=== PATIENT | male | born 1965 ===

== ENCOUNTER 2016-06-25 15:44 | Inpatient (IN) | payer MEDICARE, BC ==
[2016-06-25 15:44] VITALS: PULSE 89
--- NOTE | 2016-06-25 16:14 | ED PDOC ---
Arrival/HPI - General Chief Complaint: Shortness Of Breath Time Seen by Provider: 06/25/16 15:47 Historian: Patient - History of Present Illness Narrative History of Present Illness (Text): 06/25/16 16:10 A 50 year old male, whose past medical history includes CHF, COPD, ESRD on hemodialysis, diabetes, asthma, seizures, and TIA, was sent into the emergency department for hypotension after receiving dialysis. Patient notes generalized weakness, mild shortness of breath and a headache, which he states he has had for a few days. Patient also reports he has been experiencing intermittent abdominal discomfort for the past few months. Patient denies any fever, nausea, vomiting, diarrhea, chest pain, cough, dizziness or any other complaints. PMD: Dr. Luther Time/Duration: Prior to Arrival Symptom Course: Unchanged Quality: Other Context: Other Past Medical History - Provider Review Nursing Documentation Reviewed: Yes - Infectious Disease Hx of Infectious Diseases: None - Tetanus Immunization Tetanus Immunization: Unknown - Cardiac Hx Pacemaker: No - Pulmonary Hx Chronic Obstructive Pulmonary Disease (COPD): Yes - Neurological Hx Paralysis: No - HEENT Hx HEENT Disorder: Yes (legally blind) Hx Blind: Yes (right eye) Hx Cataracts: Yes (Bilateral sx) Hx Glaucoma: Yes Hx Macular Degeneration: Yes Other/Comment: sclera buckling sx for retinal detachment - Renal Hx Dialysis: Yes Date of Last Dialysis Treatment: 06/25/16 Hx Renal Failure: Yes - Endocrine/Metabolic Hx Diabetes Mellitus Type 2: Yes - Hematological/Oncological Hx Blood Transfusions: Yes (2014) Hx Blood Transfusion Reaction: No - Integumentary Hx Dermatological Disorder: Yes - Musculoskeletal/Rheumatological Hx Musculoskeletal Disorders: Yes (L FOOT DROP) - Gastrointestinal Hx Gastrointestinal Disorders: Yes Hx Gastroesophageal Reflux: Yes - Genitourinary/Gynecological Hx Genitourinary Disorders: No - Psychiatric Hx Emotional Abuse: No Hx Physical Abuse: No Hx Substance Use: No - Surgical History Hx Valve Replacement: Yes (2014) Other/Comment: left arm av shunt - Anesthesia Hx Anesthesia: Yes Hx Anesthesia Reactions: No Hx Malignant Hyperthermia: No - Suicidal Assessment Feels Threatened In Home Enviroment: No Family/Social History - Physician Review Nursing Documentation Reviewed: Yes Family/Social History: No Known Family HX Smoking Status: Former Smoker Hx Alcohol Use: No Hx Substance Use: No Hx Substance Use Treatment: No Allergies/Home Meds Allergies/Adverse Reactions: Allergies Iodinated Contrast Media - Oral and [Iodinated Contrast Media - IV Dye] Allergy (Intermediate, Verified 06/23/16 17:28) SWELLING shellfish derived Allergy (Mild, Verified 06/23/16 17:28) ITCHING Penicillins Allergy (Verified 06/23/16 17:28) ITCHING Home Medications: Home Meds Medication Instructions Recorded Confirmed Insulin Glargine,Hum.rec.anlog 10 unit SC ACBD 03/28/12 06/25/16 [Lantus] Albuterol Sulfate [Proair Hfa] 1 - 2 puff INH Q4H PRN 02/28/13 06/25/16 Calcium Acetate [Phoslo] 2 tab PO WM 07/03/15 06/25/16 Budesonide/Formoterol Fumarate 2 puff INH BID 03/17/16 06/25/16 [Symbicort 160-4.5 Mcg Inhaler] Cetirizine HCl [All Day Allergy 10 mg PO DAILY 06/15/16 06/25/16 Relief] Review of Systems - Physician Review All systems were reviewed & negative as marked: Yes - Review of Systems Constitutional: Other (Generalized weakness). absent: Fevers Respiratory: SOB. absent: Cough Cardiovascular: absent: Chest Pain Gastrointestinal: Abdominal Pain. absent: Diarrhea, Nausea, Vomiting Neurological: Headache. absent: Dizziness Physical Exam - Physical Exam Narrative Physical Exam (Text): Constitutional: No acute distress. Head: Normocephalic. Atraumatic. Eyes: PERRL. ENT: Moist mucous membranes. Neck: Supple. Cardiovascular: Regular rate. Chest: No tenderness. Respiratory: Clear to auscultation bilaterally. GI: Soft. Nontender. Nondistended. No guarding. Back: No CVA tenderness. Musculoskeletal: No tenderness or swelling of extremities. Palpable thrill in AV fistula on left arm. Skin: No rash. Neurologic: Alert, no focal deficit. Vital Signs Reviewed: Yes Vital Signs Temp Pulse Resp BP Pulse Ox 06/25/16 18:12 86 20 124/63 100 06/25/16 16:25 20 100 06/25/16 15:57 97.5 F L 87 16 105/56 L 100 Temperature: Afebrile Blood Pressure: Hypotensive Pulse: Regular Respiratory Rate: Normal Appearance: Positive for: Well-Appearing, Non-Toxic, Comfortable Pain Distress: None Mental Status: Positive for: Alert and Oriented X 3 Medical Decision Making ED Course and Treatment: 06/25/16 16:09 Impression: A 50 year old male sent in for hypertension after dialysis. Patient complains of generalized weakness, shortness of breath, headache and chronic abdominal discomfort. Plan: -- Chest xray -- EKG -- Reassess and disposition Prior Visits: Notes and results from previous visits were reviewed. Patient last seen in the ED on 06/23/16 for similar complaints. Patient was sent in from dialysis after becoming hypotensive. Patient was admitted due to fluid imbalance and then signed out AMA after 3 hours. Progress Notes: EKG shows NSR at [address]-segment elevations, no change from prior on 06/15/16. Interpreted by me. 06/25/16 16:54 Chest X-ray read and interpreted by me, which shows cardiomegaly, bilateral pleura effusion. 06/25/16 17:17 Patient willing to be admitted and stay today. CXR consistent with CHF. Hypokalemic. Dr. Luther accepts patient to her service and recommends Marlen Gibson, and Lukasz for consultation. - Lab Interpretations Lab Results: 06/25/16 16:00 06/25/16 16:00 Lab Results 06/25/16 16:00: WBC 6.9 D, RBC 3.77, Hgb 11.7 L, Hct 37.5 L, MCV 99.5, MCH 31.0 , MCHC 31.2, RDW 14.0, Plt Count 218, MPV 10.2, Gran % 71.4 H, Lymph % (Auto) 12.1 L, Knott % (Auto) 14.1 H, Eos % (Auto) 2.0, Baso % (Auto) 0.4, Gran # 4.90, Lymph # 0.8 L, Knott # 1.0 H, Eos # 0.1, Baso # 0.03, Sodium 138, Potassium 3.2 L , Chloride 95 L, Carbon Dioxide 36 H, Anion Gap 10, BUN 11, Creatinine 2.4 H, Est GFR ( Amer) 35, Est GFR (Non-Af Amer) 29, Random Glucose 166 H, Calcium 9.6, Total Bilirubin 0.9, AST 28, ALT 18, Alkaline Phosphatase 130, NT- Pro-B Natriuret Pep 84807 H, Total Protein 7.9, Albumin 3.8, Globulin 4.2, Albumin/Globulin Ratio 0.9 L I have reviewed the lab results: Yes - RAD Interpretation Radiology Orders: 06/25/16 16:10 CHEST PORTABLE [RAD] Stat - Medication Orders Current Medication Orders: Albuterol/Ipratropium (Duoneb 3 Mg/0.5 Mg (3 Ml) Ud) 3 ml INH Q6 PRN PRN Reason: Shortness of Breath Arformoterol Tartrate (Brovana) 15 mcg IH [id number] DYLLAN Insulin Detemir (Levemir) 10 unit SC Q12 DYLLAN Insulin Human Regular (Humulin R Low) 0 units SC ACHS DYLLAN PRN Reason: Protocol Loratadine (Claritin) 10 mg PO DAILY DYLLAN Non-Formulary Medication (Budesonide/Formoterol Fumarate [Symbicort 160-4.5 Mcg Inhaler]) 2 puff INH BID DYLLAN Pantoprazole Sodium (Protonix Ec Tab) 40 mg PO 0630 DYLLAN - Scribe Statement The provider has reviewed the documentation as recorded by the Corinibphani Marinelli Provider Scribe Attestation: All medical record entries made by the Scribe were at my direction and personally dictated by me. I have reviewed the chart and agree that the record accurately reflects my personal performance of the history, physical exam, medical decision making, and the department course for this patient. I have also personally directed, reviewed, and agree with the discharge instructions and disposition. Disposition/Present on Arrival - Present on Arrival Any Indicators Present on Arrival: Yes History of DVT/PE: No History of Uncontrolled Diabetes: Yes Urinary Catheter: No History of Decub. Ulcer: No History Surgical Site Infection Following: None - Disposition Have Diagnosis and Disposition been Completed?: Yes Diagnosis: CHF exacerbation, Hypokalemia Disposition: HOSPITALIZED Disposition Time: 17:17 Patient Plan: Admission, Telemetry Patient Problems: Current Active Problems Problem Status Diagnosed COPD (chronic obstructive pulmonary disease) Acute Condition: GUARDED Discharge Instructions (ExitCare): Heart Failure (ED)
[2016-06-25 16:24] LABS: ADD MANUAL DIFF? NO
[2016-06-25 16:34] LABS: BASO # 0.03 K/mm3 (0.0-2.0); BASO % 0.4 % (0.0-3.0); EOS # 0.1 (0.0-0.7); GRAN % 71.4 % (50.0-68.0); HEMATOCRIT 37.5 % (42.0-52.0); LYMPH # 0.8 (1.2-3.4); LYMPH % 12.1 % (22.0-35.0); MEAN CELL VOLUME 99.5 fL (80.0-105.0); MEAN CORPUSCULAR HGB CONC 31.2 g/dl (31.0-37.0); MEAN PLATELET VOLUME 10.2 fl (7.0-11.0); MONO % 14.1 % (1.0-6.0); PLATELET COUNT 218 10^3/uL (120.0-450.0); WHITE BLOOD COUNT 6.9 10^3/ul (4.5-11.0)
[2016-06-25 16:38] LABS: ALB/GLOB RATIO 0.9 (1.1-1.8); BILIRUBIN,TOTAL 0.9 mg/dL (0.2-1.3); CALCIUM 9.6 mg/dL (8.4-10.5); POTASSIUM 3.2 mmol/L (3.6-5.0); TOTAL PROTEIN 7.9 g/dL (5.8-8.3)
--- NOTE | 2016-06-25 17:39 | RAD ---
HISTORY: Dyspnea. Technique: Single view portable semi erect @ 16:40. COMPARISON: 06/19/2016. FINDINGS: LUNGS: Bilateral lower lobe infiltrates. Approximately stable accounting for differences in technique. PLEURA: Stable pleural effusions. CARDIOVASCULAR: Stable cardiomegaly OSSEOUS STRUCTURES: No significant abnormalities. VISUALIZED UPPER ABDOMEN: Normal. OTHER FINDINGS: None. IMPRESSION: No significant interval change compared to the prior examination(s).
[2016-06-25] MEDS ORDERED: Albuterol-Ipratrop 3 mg / 0.5 (3 ml) UD INH PRN (18:10)
[2016-06-25 20:31] LABS: CHOLESTEROL 143 mg/dL (130-200)
[2016-06-25] MEDS: Arformoterol 15 mcg/2 ml Inh Sol IH SCH (20:38)
[2016-06-25 21:18] LABS: IRON 39 ug/dL (45-180)
[2016-06-25 21:56] VITALS: BMI 18.0
[2016-06-25] MEDS ORDERED: Pneumococcal 23-Valent Vaccine IM ONE (21:57)
[2016-06-25] MEDS ORDERED: Influenza Vaccine 45 MCG/0.5 ml IM ONE (21:57)
[2016-06-25] MEDS: Insulin Reg-LOW-Coverage SC SCH (22:29)
--- NOTE | 2016-06-26 02:11 | HP ---
CHIEF COMPLAINT: Shortness of breath. HISTORY OF PRESENT ILLNESS: The patient is 50-year-old male with past medical history of congestive heart failure, COPD, renal disease on hemodialysis, diabetes mellitus, seizures, TIA was seen in the Emergency Room a couple of days ago, signed against medical advice. Now went for dialysis, he has hy potension after receiving dialysis. The patient notes generalized weakness, mild shortness of breath headache, which he says he has had for a few days. The patient also reports that he has been experi encing intermittent abdominal discomfort for the past few days. The patient denies any fevers or chi lls. No nausea, vomiting, or diarrhea. No hematuria or hematochezia. PAST MEDICAL HISTORY: As above COPD, legally blind, bilateral cataract surgery, glaucoma, macular de generation, renal insufficiency on hemodialysis, diabetes mellitus, anemia, status post blood transfu bharati, left foot drop, GERD, dyspepsia, valve replacement. FAMILY HISTORY: Father and mother noncontributory. HABITS: Former smoker, no smoking now. No alcohol, no substance abuse. ALLERGIES: THE PATIENT IS ALLERGIC WITH SHELLFISH, PENICILLIN, IODINE AND CONTRAST MEDIA. HOME MEDICATIONS: Lantus, ProAir, PhosLo, Symbicort, cetirizine. REVIEW OF SYSTEMS: The patient is examined on the bedside in the ER. Still having shortness of lucero th and having oxygen. No nausea, vomiting, or diarrhea. No hematuria or hematochezia. No swelling of the leg. No chest pain, no palpitations, no fever. Does not look like toxic. PHYSICAL EXAMINATION: VITAL SIGNS: Temperature 97.5, pulse 87, respiratory rate 16 and blood pressure 105/66, and pulse ox imetry 100. HEENT: Head normocephalic, atraumatic. Eyes: PERRLA. Extraocular muscles intact. Conjunctivae pi nk. Eyelids unremarkable. Nose patent. Mucous membranes moist. NECK: Supple. No carotid bruit, no JVD, or thyromegaly. CHEST: Bilaterally symmetrical. HEART: S1, S2 positive. LUNGS: Wheezing bilaterally. ABDOMEN: Soft. Bowel sounds present. No organomegaly. EXTREMITIES: No edema, no cyanosis. NEUROLOGIC: The patient is awake, alert and moving all 4 extremities. No focal deficits. LABORATORY DATA: White blood cell 6.5, hemoglobin 11.7, hematocrit 37.5, platelets 280. Sodium 138, potassium 3.2, BUN 11, creatinine 2.4, glucose 156. ASSESSMENT AND PLAN: The patient is 50-year-old male with anemia, hypokalemia, hyperglycemia, chest x-ray consistent with congestive heart failure, has exacerbation of congestive heart failure. The pa tient is given albuterol, Levemir, Claritin in ER, history of chronic obstructive pulmonary disease, asthma, obstructive sleep apnea syndrome, has chronic obstructive pulmonary disease exacerbation. Th e patient was admitted last time, signed against medical advice, now came back again. Call pulmonary , nephrology and cardiology consult. History of diabetes mellitus, seizure disorder, transient ische anais attack. Gastrointestinal and deep venous thrombosis prophylaxis. Repeat labs. We will follow u p. Laure Luther MD cc: [id number] TT: 06/26/2016 02:10:26 tn
[2016-06-26] MEDS: Pantoprazole 40 mg EC Tab PO SCH (05:41)
[2016-06-26 07:24] LABS: HEMATOCRIT 38.1 % (42.0-52.0); MEAN CELL VOLUME 101.1 fL (80.0-105.0); MEAN CORPUSCULAR HEMOGLOBIN 30.8 pg (25.0-35.0); MEAN CORPUSCULAR HGB CONC 30.4 g/dl (31.0-37.0); MEAN PLATELET VOLUME 10.6 fl (7.0-11.0); RED CELL DISTRIBUTION WIDTH 14.4 % (11.5-14.5)
[2016-06-26 07:48] LABS: ALB/GLOB RATIO 0.9 (1.1-1.8); BILIRUBIN,TOTAL 0.7 mg/dL (0.2-1.3); CALCIUM 9.8 mg/dL (8.4-10.5); POTASSIUM 3.2 mmol/L (3.6-5.0); TOTAL PROTEIN 7.4 g/dL (5.8-8.3)
[2016-06-26] MEDS: Insulin Reg-LOW-Coverage SC SCH ×4 (08:08→22:14)
[2016-06-26] MEDS: Arformoterol 15 mcg/2 ml Inh Sol IH SCH ×2 (09:17→19:35)
--- NOTE | 2016-06-26 09:51 | CARD ---
APPROVED REPORT EKG Measurement Heart [id number] <Conclusion> Sinus rhythm with premature atrial complexes IVCD Prolonged QTc STTW changes c/w ischemia
[2016-06-26] MEDS ORDERED: Non Formulary Medication (Budesonide/Formoterol Fumarate [Symbicort 160-4.5 Mcg Inhaler] 2 INH SCH (10:00)
[2016-06-26] MEDS: Insulin Detemir 100 units/ml Vial (Levemir) SC SCH ×2 (10:22→22:13)
--- NOTE | 2016-06-26 10:34 | CON ---
DATE: 06/26/2016 CHIEF COMPLAINT AND HISTORY OF PRESENT ILLNESS: This is a 50-year-old male who has a past medical hi story of CHF, COPD, end-stage renal disease on hemodialysis, diabetes type 2 who came in to the [facility] after receiving dialysis. The patient was complaining of generalized weakness and shortness of b reath, headache. His blood pressure was relatively low. He has been getting 4 hours of hemodialysis . He has been having issues with shortness of breath. The patient also says he has been having inte rmittent abdominal pain. He denies any fevers or chills. No nausea, no vomiting, or diarrhea. No w eakness in the arms or the legs. The patient has had multiple admissions to the hospital for his alee rtness of breath. His dialysis time has been increased by 1 hour to try to maximize his fluid remova l. The patient is at his dry weight, and so further fluid removal has not been possible. ALLERGIES: SHELLFISH, PENICILLIN, AND IV CONTRAST. HOME MEDICATIONS: Lantus, ProAir, PhosLo, Symbicort, cetirizine. PAST MEDICAL HISTORY: 1. End-stage renal disease, on hemodialysis. 2. Hypertension. 3. Diabetes type 2. 4. Chronic obstructive pulmonary disease. 5. Coronary artery disease. 6. ____. 7. Marielena-Arias tear. 8. Dyslipidemia. 9. Right eye blindness. 10. Diabetic retinopathy. 11. Left AV fistula. 12. Pleural effusion. 13. Sleep apnea. 14. Aortic valve replacement, status post TAVR. FAMILY HISTORY: Father of hypertension and diabetes. Mother had pancreatic cancer. SOCIAL HISTORY: He quit smoking about 10 years ago. He denies alcohol or drug use. He is a nd lives with his . He is a retired worker from [employer]. He is retired after he bec [place] disabled. PHYSICAL EXAMINATION: VITAL SIGNS: He has a temperature of 98.3. His T-max is low. It was 97.5. His pulse is 91. His b lood pressure in the Emergency Room initially was 105/56. This morning, it is 117/62. His O2 satura tion is 98%. His height is 6 feet 1 inch. Weight is 136 pounds. GENERAL: The patient is lying in bed, flat, and in no apparent distress. HEAD AND NECK EXAM: Atraumatic, normocephalic. Conjunctivae are pink. Throat clear and mouth with moist mucosa. Oropharynx benign. EYES: Extraocular movements are intact. Right eye blindness. NECK: Supple. No JVD, thyromegaly, or adenopathy. No bruits. HEART: S1 and S2 regular rate and rhythm. No murmurs, rubs, or gallops. LUNGS: Clear to auscultation bilaterally. No wheezing rales or rhonchi appreciated. No retraction s on exam. ABDOMEN: Soft, nontender, nondistended. Bowel sounds are positive in all quadrants. No rebound. No hepatosplenomegaly. EXTREMITIES: No cyanosis, clubbing, or edema. In his left arm, he has an AV fistula with a good b ruit and thrill. NEURO: No facial asymmetry, tongue is midline, no uvula deviation. Power is 5/5 in upper extremity and 5/5 in lower extremity. Sensation is normal in upper extremity and lower extremity. PSYCH: Awake, alert, oriented x3. No anxiety or depression symptoms. Good insight. Normal affec t. : No CVA tenderness VASCULAR: 2+ pulses in carotid and pedal pulses. SKIN: No erythema or abnormal nodules noted. SPINE: Normal curvature. LYMPHADENOPATHY: No anterior cervical or posterior cervical adenopathy. No inguinal adenopathy. LABORATORY DATA: He has a white count of 6.9, hemoglobin 11.7. His chemistry shows sodium 138, potassium 3.2. Creatinine is 2.4. His iron saturation is 23%. His proBNP is 56,900. ASSESSMENT: 1. Shortness of breath. 2. Diabetes type 2. 3. End-stage renal disease, on hemodialysis. 4. ____. 5. Chronic obstructive pulmonary disease. 6. Coronary artery disease. 7. Right eye blindness. 8. Diabetic retinopathy. 9. Left atrioventricular fistula. 10. Secondary hyperparathyroidism. 11. Status post transcatheter aortic valve replacement. 12. Status post incision and drainage of left buttock abscess about 2 weeks ago. 13. Secondary hyperparathyroidism. PLAN: The patient is currently comfortable. He has no signs of focal deficits. He is at his dry we ight. He has a subjective sense of shortness of breath. He has had an extensive evaluation. I do n ot believe that this is related to volume overload, as he becomes hypotensive when further fluid bonilla cami is attempted. The patient is on insulin for his diabetes. He is on Claritin. The patient is on Protonix. He is on a CPAP. He is going to be on a renal diet. We will continue to follow closely. He is getting PhosLo with his meals. He is also on cinacalcet for his secondary hyperparathyroidis m. I will continue to follow. Law Gee MD cc: [id number] TT: 06/26/2016 09:39:57 Confirmation # [id number] Dictation # [id number] 06/26/2016 09:33:30
[2016-06-26] MEDS: Fluticasone Nasal 50 mcg/Spray NS SCH (12:18)
[2016-06-26] MEDS: Aspirin-Dipyridamole 200-25 mg ER Cap PO SCH ×2 (12:18→17:48)
[2016-06-26] MEDS: Omega-3-Acid Ethyl Esters 1 GM Cap PO SCH ×3 (14:34→22:13)
--- NOTE | 2016-06-26 16:00 | CON ---
DATE: 06/26/2016 SERVICE: Cardiology. REASON FOR CONSULTATION: Shortness of breath, cardiac evaluation, history of TAVR, transcutaneous aortic valve replacement. BRIEF CLINICAL HISTORY: This is a 50-year-old male with past medical history significant for end-stage renal disease, diabetes, hypertension, hyperlipidemia , who was seen a few days ago, came to the Emergency Room after having dialysis with hypotension and shortness of breath and later on, in the midst of a snow storm, patient signed out AMA, came back again after having dialysis, short of breath, feeling generalized weakness and hypotension during the dialysis. He denies any chest pain, denies any shortness of breath now. PAST MEDICAL HISTORY: Significant for severe aortic stenosis, status post TAVR , end-stage renal disease on dialysis, legally blind, full blown complications of diabetes including diabetic nephropathy, diabetic retinopathy, peripheral neuropathy, end-stage renal disease on dialysis, multiple admissions with CHF, gets hypotension during the dialysis and most of the time could not get adequate dialysis because of hypotension. Previous cardiac workup as follows: The patient had echocardiography on 2016, mild mitral Stenosis, MVA_2.2 cm2 to 2.4 cm2, systolic function mildly impaired. The patient recently had a cardiac catheterization 04/24/2016 that shows nonobstructive coronary artery disease limited to only diagonal 1, LAD 30% -40% stenosis. No significant gradient across aortic valve, that is a transcutaneous TAVR noted. Aortogram shows mild aortic regurgitation. Catheterization dated 04/24/2016. The patient's repeat echocardiography done on 05/01/2016 shows a heavily calcified mitral valve area 2.2 cm2, pressure halftime consistent with pressure, mild mitral stenosis, trace to mild mitral regurgitation, preserved left ventricular function, ejection fraction 55%, status post TAVR, no significant gradient across aortic valve noted. ALLERGIES: IODINE. CURRENT MEDICATIONS: The patient is taking at home pantoprazole, omega 3, insulin, Dexelant, calcium, carvedilol and atorvastatin. REVIEW OF SYSTEMS: As per HPI. PHYSICAL EXAMINATION: VITAL SIGNS: Temperature afebrile, heart rate 95, blood pressure 142/73. HEENT: PERRLA. Extraocular muscles intact. NECK: Supple. No carotid bruits. No thyromegaly. CHEST: Clear to auscultation. HEART: S1, S2 regular. ABDOMEN: Soft. EXTREMITIES: Clubbing and cyanosis negative. LABORATORY DATA: Blood workup as follows: WBC 5, hemoglobin 13.1, hematocrit 38.1, platelet count 224. Chemistry shows sodium 141, potassium 3.2, chloride 95, carbon dioxide 34, anion gap of 15, BUN 19, creatinine 3.9. Total Protein 7.4, albumin 3.0, albumin/globulin ratio 0.9. IMPRESSION: Recurrent shortness of breath, recurrent congestive heart failure, diabetes, hypertension, hyperlipidemia, full blown complication of diabetes including diabetic nephropathy, retinopathy, legally blind, end-stage renal disease on dialysis, status post transcutaneous aortic valve replacement, status post transcutaneous aortic valve replacement, status post repeat cardiac catheterization 04/24/2016, that shows nonobstructive coronary artery disease only limited to diagonal to 55%, left anterior descending 30%-40% stenosis, ejection fraction 55%, EDP was in the range of 12-14, status post transcatheter aortic valve replacement, no gradient across aortic valve noted on catheterization. On aortogram, trace to mild aortic regurgitation noted, catheterization dated 04/24/2016. The patient's repeat most recent echo 2016 shows calcified mitral valve area 2.2 cm2, pressure halftime, consider mild mitral stenosis, trace mitral regurgitation, preserved left ventricular function, ejection fraction 55%, status post transcatheter aortic valve replacement, no significant gradient across aortic valve by echo, recurrent shortness of breath, recurrent congestive heart failure, is not unexplainable, hypotension during the dialysis, diabetes, hypertension, hyperlipidemia. RECOMMENDATION: We will do an ultrasound of the chest to rule out any significant pleural effusion , so patient can get thoracentesis. CV status is stable. No further cardiac workup is planned. Explained to the patient not to take Coreg on the day of the dialysis. We will follow with you. Thank you, Dr. Luther, for providing the opportunity in taking care of the patient. We will follow with you. In the interim, we will resume all the medication. We will follow with you. Further recommendation during the hospital course. We will follow with you. We will put p.r.n. hydralazine for blood pressure. Avoid Anti Hypertensive medications before dialysis. Franky Archer MD cc: [id number] TT: 06/26/2016 15:34:12 Confirmation # [id number] Dictation # [id number] 06/26/2016 14:58:58 MTDD
[2016-06-26] MEDS ORDERED: Magnesium Hydroxide Susp 30 ml UD PO ONE (17:56)
--- NOTE | 2016-06-26 19:24 | PN ---
DATE: 06/26/2016 SUBJECTIVE: The patient is seen and examined on the bedside, still having shortness of breath, cough ing. No fever, no chills, no nausea, vomiting, or diarrhea. No hematuria or hematochezia. No swell ing of the leg. No chest pain or palpitation. The patient is legally blind. PHYSICAL EXAMINATION: VITAL SIGNS: Temperature is 97.8, pulse 93, blood pressure 150/87, respiratory rate 20. HEAD: Normocephalic, atraumatic. EYES: PERRLA. Extraocular muscles intact. Conjunctivae pink. Eyelids unremarkable. Nose patent. Mucous membranes moist. NECK: Supple. No carotid bruit, JVD or thyromegaly. CHEST: Bilaterally symmetrical. HEART: S1, S2 positive. LUNGS: Clear to auscultation. ABDOMEN: Soft. Bowel sounds present. No organomegaly. EXTREMITIES: No edema, no cyanosis. NEUROLOGIC: The patient is awake, alert, moving all 4 extremities. No focal deficit. MEDICATIONS: Reviewed by me. LABORATORY DATA: White blood cells 5.0, hemoglobin 11.6, hematocrit 38.1, platelets 226. Sodium 141 , potassium 3.2, BUN 90, creatinine 3.9, glucose 202, 237, 250. ASSESSMENT AND PLAN: The patient is a 50-year-old male with anemia, hypokalemia, hyperglycemia, came with shortness of breath, not feeling well, has end-stage renal disease on hemodialysis 3 times a we ek, hypertension, diabetes mellitus type 2, insulin-requiring, chronic obstructive pulmonary disease, coronary artery disease, Marielena-Arias tear, dyslipidemia, right eye blindness, diabetic retinopathy , diabetic nephropathy, diabetic neuropathy, left AV fistula, pleural effusion, sleep apnea, aortic v alve replacement, status post transcatheter aortic valve replacement. According to research rn spec, the patient has subjective sense of shortness of breath. He has had extensive evaluation. According to him, do not believe that is related to volume overload and became hypotensive. Went for fluid remov al is attempted. Maybe patient is depressed. The patient is seen by the fan blade aligner, Dr. Archer. Th e patient has extensive cardiac workup. Dr. Archer ordered ultrasound of the chest. Maybe patient nee ds thoracentesis. Pulmonary consult also called. Ultrasound is done. Results are pending. Gastroi ntestinal and deep venous thrombosis prophylaxis. Repeat labs. Discussion done with nursing staff. We will follow up. Laure Luther MD cc: [id number] TT: 06/26/2016 19:23:50 Confirmation # [id number] Dictation # [id number] rn
[2016-06-27] MEDS: Pantoprazole 40 mg EC Tab PO SCH (05:51)
--- NOTE | 2016-06-27 07:19 | CON ---
DATE: 06/26/2016 REFERRING PHYSICIAN: Dr. Luther. REASON FOR CONSULT: Shortness of breath, sleep apnea syndrome, pleural effusion. HISTORY OF PRESENT ILLNESS: This is a 50-year-old gentleman well known to me with multiple medical i ssues including cardiomyopathy, valvular heart disease, history of TAVR, obstructive lung disease, ob structive sleep apnea syndrome, recurrent pleural effusion; renal failure, dialysis dependent. One o f the issues he has been having is unable to complete dialysis. Last one, removed about a liter or s o and became hypotensive, symptomatic; was sent to ER and was admitted. Presently, sitting side of t he bed. He feels okay. According to him, when he gets up and walks, he gets short of breath. Chest x-ray in the ER showed bilateral pleural effusion. Recently had thoracentesis on the right side wit h removal of 1.5 liters of fluid. According to patient, he is controlling his p.o. intake. He is co mpliant with his CPAP. No nausea, no vomiting. Does have mild abdominal discomfort. Last admission , had EGD done which shows, I believe, gastritis and esophagitis. PAST MEDICAL HISTORY: Again, cardiomyopathy, valvular heart disease, history of TAVR, obstructive norma ng disease, obstructive sleep apnea syndrome, recurrent pleural effusions; renal failure, dialysis de pendent; esophagitis, gastritis, legally blind. ALLERGIES: PENICILLIN. SOCIAL HISTORY: Nonsmoker, nondrinker. FAMILY HISTORY: No significant cardiopulmonary disease reported. MEDICATIONS: At present, he is on Aggrenox 25/200 one tablet twice a day, hydralazine 10 mg q.i.d., Brovana 15 mcg inhaled twice a day, Claritin 10 mg daily, Colace 100 mg twice a day, Coreg 3.125 mg t wice a day, Cymbalta 40 mg at bedtime, DuoNeb q. 6 hours, Flonase 1 spray each nostril daily, insulin coverage, Levemir 10 units subQ twice a day, Lipitor 10 mg daily, Lovaza ____ gram q.i.d., Protonix 40 mg daily, Sensipar 60 mg daily. REVIEW OF SYSTEMS: No headache, no rhinitis. At present, there is no chest pain. Short of breath w ith exertion, epigastric discomfort. No leg pain or leg swelling. PHYSICAL EXAMINATION: GENERAL: Sitting up on side of the bed, no acute distress. VITAL SIGNS: Temp is 98, heart rate is 95, respiratory rate is 20, blood pressure 152/87 and pulse o x is 99% on nasal cannula. HEENT: Moist mucous membrane. Crowded airway. NECK: Supple. No JVD. LUNGS: Have basal crackles and decreased breath sounds. HEART: S1, S2. ABDOMEN: Soft, nontender. No organomegaly. EXTREMITIES: There is no edema. NEUROLOGIC: Awake, alert, follows simple commands. LABORATORY DATA: Shows hemoglobin 11.6, hematocrit 38.1, WBC 5.0, platelet is 224. Sodium 141, pota ssium 3.2, chloride 95, bicarbonate 34, BUN 19, creatinine 3.9, glucose is 251, calcium 9.8. AST 28, ALT 21, alkaline phosphatase is 116, albumin 3.6. TSH 1.42. Chest x-ray showed bilateral pleural e ffusion and atelectasis. IMPRESSION AND PLAN: Chronic obstructive lung disease, obstructive sleep apnea syndrome, cardiomyopa thy with valvular heart disease, status post transcatheter aortic valve replacement; renal failure, d ialysis dependent; asthma, hypertension, diabetes. There is an ongoing issue with his dialysis; does not tolerate much dialysis, becomes hypotensive and symptomatic, and dialysis has been stopped after the hypotension, then next day he becomes symptomatic with shortness of breath and fluid overloaded. Case discussed with Dr. Luther in detail. Will speak to Dr. Law Gee from nephrology. Is t his a patient who will benefit from PD? For now, I will continue CPAP. Keep head at 45 degrees. Co ntinue inhaled bronchodilator. Add Singulair 10 mg at bedtime. Gastric prophylaxis, deep venous thr ombosis prophylaxis. CPAP while sleeping. Being followed by cardiology and nephrology. Thank you, and will follow with you. Franky Stahl MD cc: [id number] TT: 06/27/2016 07:18:33 Confirmation # [id number] Dictation # [id number] mn
[2016-06-27] MEDS: Arformoterol 15 mcg/2 ml Inh Sol IH SCH ×2 (08:14→20:07)
[2016-06-27] MEDS: Insulin Reg-LOW-Coverage SC SCH ×4 (08:33→23:36)
--- NOTE | 2016-06-27 09:02 | PN ---
DATE: 06/27/2016 SUBJECTIVE: The patient has no complaints of any chest pain, no shortness of breath, no headaches. PHYSICAL EXAMINATION: VITAL SIGNS: Temperature 98, pulse of 92, blood pressure 149/81, respirations 20. GENERAL: The patient comfortable, in no acute distress. HEENT: Anicteric sclerae. Moist mucosa. NECK: No JVD or adenopathy. CARDIAC: S1/S2. No murmurs. No rubs. Regular. RESPIRATORY: Clear to auscultation bilaterally. No wheezes, rales, or rhonchi. Good air entry. ABDOMEN: Bowel sounds are positive, soft, nontender, and nondistended. EXTREMITIES: No edema. Has 1+ pulses. LABS: White count of 5.0, hemoglobin 11.6. ASSESSMENT: 1. End-stage renal disease, on hemodialysis. 2. Diabetes, type 2. 3. Chronic obstructive pulmonary disease. 4. Coronary artery disease. 5. Right eye blindness. 6. Diabetic retinopathy. 7. Left arteriovenous fistula. 8. Secondary hyperparathyroidism. 9. Status post transcatheter aortic valve replacement. PLAN: The patient is currently comfortable. He is on his Ambien for sleep. The patient is going to continue with Brovana. He is on Claritin. The patient is on ____ Coreg. He is going to be on Cymb jesse. He is on Flonase. He is receiving Levemir for his diabetes. The patient is on PhosLo with ak als. He is on cinacalcet for his secondary hyperparathyroidism. The patient's blood pressures have been controlled. He is due for dialysis today. I am not sure what the cause of the patient's shortn ess of breath is. An ultrasound has been ordered to rule out any significant pleural effusion for po ssible thoracentesis. The patient's initial chest x-ray did not show any significant interval change s. There were bilateral lower lobe infiltrates or this possibly could be effusion. The patient is a t his dry weight. He has no active cardiac issues. Will add phosphorus levels. Law Gee MD cc: [id number] TT: 06/27/2016 09:01:34 Confirmation # [id number] Dictation # [id number] mn
[2016-06-27 09:36] LABS: ADD MANUAL DIFF? NO
[2016-06-27 09:38] LABS: BASO # 0.02 K/mm3 (0.0-2.0); BASO % 0.3 % (0.0-3.0); EOS # 0.1 (0.0-0.7); EOS % 2.1 % (1.5-5.0); GRAN # 4.37 (1.4-6.5); GRAN % 69.5 % (50.0-68.0); HEMATOCRIT 35.5 % (42.0-52.0); LYMPH # 0.8 (1.2-3.4); LYMPH % 13.1 % (22.0-35.0); MEAN CELL VOLUME 99.7 fL (80.0-105.0); MEAN CORPUSCULAR HEMOGLOBIN 31.5 pg (25.0-35.0); MEAN CORPUSCULAR HGB CONC 31.5 g/dl (31.0-37.0); MEAN PLATELET VOLUME 11.1 fl (7.0-11.0); MONO # 0.9 (0.1-0.6); PLATELET COUNT 214 10^3/uL (120.0-450.0); WHITE BLOOD COUNT 6.3 10^3/ul (4.5-11.0)
[2016-06-27 09:53] LABS: ALB/GLOB RATIO 0.9 (1.1-1.8); BILIRUBIN,TOTAL 0.7 mg/dL (0.2-1.3); CALCIUM 10.5 mg/dL (8.4-10.5); MAGNESIUM 2.4 mg/dL (1.7-2.2); PHOSPHOROUS 1.5 mg/dL (2.5-4.5); POTASSIUM 3.1 mmol/L (3.6-5.0); TOTAL PROTEIN 7.2 g/dL (5.8-8.3)
[2016-06-27] MEDS: Aspirin-Dipyridamole 200-25 mg ER Cap PO SCH ×3 (09:55→18:56)
[2016-06-27] MEDS: Omega-3-Acid Ethyl Esters 1 GM Cap PO SCH ×5 (09:56→22:08)
[2016-06-27] MEDS: Insulin Detemir 100 units/ml Vial (Levemir) SC SCH ×2 (10:03→22:09)
--- NOTE | 2016-06-27 10:11 | PN ---
DATE: 06/27/2016 REASON FOR CONSULTATION AND FOLLOWUP: Shortness of breath, cardiac evaluation S/P transcutaneous aortic valve replacement, recurrent pleural effusions, recurrent congestive heart failure. BRIEF CLINICAL HISTORY: This is a 50-year-old male with a past medical history significant for end-stage renal disease, diabetes, hypertension, hyperlipidemia. Seen few days ago in the ER when the patient came off dialysis short of breath. Then, patient signed out AMA because of a snow storm coming on that night. Readmitted again with shortness of breath and became hypotensive during the dialysis. Yesterday, patient was sent for ultrasound of the chest to quantify the pleural effusion, whether the patient can get benefit from thoracentesis. Discussed this morning with Dr. Law Gee as well, starch and prosize mixer. PHYSICAL EXAMINATION: VITAL SIGNS: Temperature afebrile, heart rate 83, blood pressure 135/41. HEENT: PERRLA. Extraocular muscles intact. NECK: Supple. No carotid bruits. No thyromegaly. CHEST: Clear to auscultation. HEART: S1, S2 regular. ABDOMEN: Soft. EXTREMITIES: Clubbing, cyanosis negative. BLOOD WORKUP: WBC 5, hemoglobin 11.3., hematocrit 38.1, platelet count 224. Sodium 141, potassium 3.2, chloride 95, carbon dioxide 34, anion gap of 15, BUN 15, creatinine 3.9. Hemoglobin A1c 7.8. Total cholesterol 143, LDL 58, HDL 42 , triglyceride 119. TSH 1.42. Chest x-ray, possible pleural effusion bilateral. IMPRESSION: Recurrent congestive heart failure, elevated BNP, probably secondary to systolic dysfunction, status post cardiac catheterization, nonobstructive coronary artery disease, recently status post transcatheter aortic valve replacement. Aortogram shows trace to mild aortic regurgitation, no evidence of recurrence of aortic stenosis, preserved left ventricular function. RECOMMENDATION: Followup ultrasound of the chest to see whether patient can get benefit from thoracentesis. Continue p.r.n. hydralazine. Avoid antihypertensive medication before dialysis. We will cut down the Coreg to 3.125 b.i.d. and hold for the systolic less than 130 and hold during the day of the dialysis. No further cardiac workup is planned. Discussed with Dr. Gee. The patient is already on dialysis and being aggressively dialyzed, losing weight and potassium and phosphate are low, suggestive of patient is also not eating and losing weight. So far, patient looks dry. We will follow with you. Thank you, Dr. Luther, for providing us the opportunity in taking care of the patient. Franyk Archer MD cc: [id number] TT: 06/27/2016 10:11:03 Confirmation # [id number] Dictation # [id number] MTDD
--- NOTE | 2016-06-27 12:35 | US ---
PROCEDURE: Grayscale imaging was performed. HISTORY: B/l pleural effusion COMPARISON: None TECHNIQUE: High-resolution ultrasound of the chest was performed. FINDINGS: There is a moderate left pleural effusion measuring 3.9 cm in anterior-posterior dimension. There is no right pleural effusion with IMPRESSION: Moderate left pleural effusion.
[2016-06-27] MEDS: Fluticasone Nasal 50 mcg/Spray NS SCH (14:10)
[2016-06-27 16:23] LABS: BODY FLUID TYPE PLEURAL
[2016-06-27] MEDS: Oxycodone/Acetaminophen 5/325 mg Tab PO PRN ×2 (16:34→22:13)
--- NOTE | 2016-06-27 17:09 | US ---
PROCEDURE: Ultrasound guided left thoracentesis. CLINICAL HISTORY: CHF. End-stage renal disease. Bilateral pleural effusions with shortness of breath. Needs thoracentesis. PHYSICIAN(S): Caleb Crowe MD. TECHNIQUE: The relative risks and indications of the procedure were explained to the patient and consent obtained. The patient was placed in a sitting position on the stretcher and sonography of the left chest performed. This revealed a small to moderate leftpleural effusion. A left posterolateral intercostal approach was selected and the area prepped and draped usual sterile fashion. 1% Xylocaine was used to anesthetize the skin and soft tissues. A 7 [place] thoracentesis catheter was trocared into the right pleural cavity and 1000cc of bloody fluid aspirated. Specimens were sent to the lab. IMPRESSION: 1. Ultrasound guided left thoracentesis. 1000 cc of bloodyfluid were aspirated.
[2016-06-27 17:11] LABS: BF GROSS APPEARANCE BLOODY (CLEAR)
[2016-06-27 17:16] LABS: BODY FLUID TOTAL COUNT 100 (0-0)
--- NOTE | 2016-06-27 19:10 | PN ---
DATE: 06/27/2016 REFERRING PHYSICIAN: Dr. Luther. SUBJECTIVE: He is sitting side of the bed. Still short of breath on minimal exertion. Overnight wa s unremarkable. No headache, no rhinitis, no nausea, no vomiting, no diarrhea, no leg pain or leg sw elling. OBJECTIVE: GENERAL: No acute distress. VITAL SIGNS: Temp is 98, heart rate is 98, respiratory rate is 20, blood pressure 138/72, pulse ox 9 9% on 2 liters nasal cannula. HEENT: Moist mucous membranes. Crowded airway. NECK: Supple. No JVD. LUNGS: Had basilar crackles. HEART: S1, S2. ABDOMEN: Soft, nontender. No organomegaly. EXTREMITIES: There is no edema. NEUROLOGIC: Awake, alert, follows simple commands. MEDICATIONS: He is on Aggrenox 25/200 one tablet twice a day, hydralazine 10 mg q.i.d. p.r.n. Brovan a 15 mcg q. 12 hours, Claritin 10 mg at bedtime, Colace 100 mg twice a day, Coreg 3.125 mg twice a da y, Cymbalta 40 mg at bedtime, DuoNeb q. 6 hours p.r.n., Flonase 1 spray daily, insulin coverage, Leve tamara is at 10 units subQ q. 12 hours, Lipitor 10 mg at bedtime, Lovaza 1 gram q.i.d., Percocet 5/325 o ne tab q. 6 hours p.r.n., Protonix 40 mg daily, ____ 60 mg daily, Singulair 10 mg at bedtime. LABORATORY DATA: Shows hemoglobin 11.2, hematocrit 35.5, WBC 6.3, platelet is 214. Sodium 139, pota ssium 3.1, chloride 98, bicarbonate 32, BUN 38, creatinine 5.6, glucose 277, calcium is 10.5, phospho manish 1.5, magnesium 2.4, AST 27, ALT 17, alkaline phosphatase is 164, albumin is 3.4. Ultrasound guid ed thoracentesis of the left side drainage of 1 liter of bloody fluid. IMPRESSION AND PLAN: Chronic obstructive lung disease, obstructive sleep apnea syndrome, cardiomyopa thy with valvular heart disease, status post transcatheter aortic valve replacement, renal failure, d ialysis dependent, asthma, hypertension, diabetes, recurrent pleural effusion requiring multiple thor acentesis, last one is worrisome because it is bloody. We will get CT of the chest without contrast to look at the lung pattern. I want to make sure there is no tumor. Clinically my feeling is this i s just bloody tap or blood from the previous thoracentesis. Continue CPAP while sleeping. Continue bronchodilator. Continue dialysis. Thank you and will follow with you. Franky Stahl MD cc: [id number] TT: 06/27/2016 19:10:25 Confirmation # [id number] Dictation # [id number] jn
--- NOTE | 2016-06-28 01:38 | PN ---
DATE: 06/27/2016 SUBJECTIVE: The patient seen and examined on the bedside, looking comfortable, still having shortness of breath on minimal exertion, overnight was unremarkable. No headache, no rhinitis. No nausea, vomiting, or diarrhea. No hematuria or hematochezia. No swelling of the leg. No chest pain. No palpitation, no fever, no chills. PHYSICAL EXAMINATION: VITAL SIGNS: Temperature 98, heart rate 98, respiratory rate 20, blood pressure 138/72, pulse 99. HEENT: Head normocephalic, atraumatic. Eyes: PERRLA. Extraocular muscles intact. Conjunctivae pink. Eyelids unremarkable. Nose patent. Mucous membranes are moist. NECK: Supple. No carotid bruit, JVD or thyromegaly. CHEST: Bilaterally symmetrical. HEART: S1, S2 positive. LUNGS: Clear to auscultation. ABDOMEN: Soft, nontender. No organomegaly. EXTREMITIES: No edema, no cyanosis. NEUROLOGIC: The patient is awake, alert, moving all 4 extremities. MEDICATIONS: Aggrenox, hydralazine, Claritin, Coreg, Cymbalta, DuoNeb, Flonase , Lovaza, Percocet, Protonix, Singulair. LABORATORY DATA: Hemoglobin 11.2, hematocrit 35.5, white blood cells 6.2, and platelets 214. Sodium 139, potassium noted, BUN 38, creatinine 5.6, glucose 277, magnesium 2.4, AST 27, ALT 17, ultrasound-guided thoracentesis of the left side. Drainage of 1 liter of bloody fluid. ASSESSMENT AND PLAN: The patient is a 50-year-old male with chronic obstructive lung disease, obstructive sleep apnea syndrome, insulin-dependent diabetes mellitus, renal insufficiency on hemodialysis, cardiomyopathy, valvular heart disease, some pleural effusion requiring multiple times thoracentesis and this time it has blood in that, had CAT scan of the chest without contrast . Continue CPAP while sleeping. Continue bronchodilators. Gastrointestinal and deep vein thrombosis prophylaxis. Coin Dealer is on the case. Review chief meteorologist notes. Repeat labs. We will follow up. Laure Luther MD cc: [id number] TT: 06/28/2016 01:38:28 Confirmation # [id number] Dictation # [id number] hn MTDD
[2016-06-28] MEDS: Pantoprazole 40 mg EC Tab PO SCH (06:47)
[2016-06-28] MEDS: Arformoterol 15 mcg/2 ml Inh Sol IH SCH ×2 (07:10→21:15)
[2016-06-28] MEDS: Insulin Reg-LOW-Coverage SC SCH ×4 (08:54→22:08)
[2016-06-28 09:21] LABS: HEMATOCRIT 38.8 % (42.0-52.0); MEAN CELL VOLUME 101.8 fL (80.0-105.0); MEAN CORPUSCULAR HEMOGLOBIN 30.7 pg (25.0-35.0); MEAN CORPUSCULAR HGB CONC 30.2 g/dl (31.0-37.0); MEAN PLATELET VOLUME 10.4 fl (7.0-11.0); RED CELL DISTRIBUTION WIDTH 14.3 % (11.5-14.5); WHITE BLOOD COUNT 6.3 10^3/ul (4.5-11.0)
[2016-06-28 09:38] LABS: ALB/GLOB RATIO 0.9 (1.1-1.8); BILIRUBIN,TOTAL 0.8 mg/dL (0.2-1.3); MAGNESIUM 2.3 mg/dL (1.7-2.2); POTASSIUM 3.7 mmol/L (3.6-5.0); TOTAL PROTEIN 7.5 g/dL (5.8-8.3)
[2016-06-28 09:47] LABS: PHOSPHOROUS 1.4 mg/dL (2.5-4.5)
[2016-06-28] MEDS: Aspirin-Dipyridamole 200-25 mg ER Cap PO SCH ×2 (10:09→17:14)
[2016-06-28] MEDS: Fluticasone Nasal 50 mcg/Spray NS SCH (10:10)
[2016-06-28] MEDS: Insulin Detemir 100 units/ml Vial (Levemir) SC SCH ×2 (10:10→21:40)
[2016-06-28] MEDS ORDERED: Omega-3-Acid Ethyl Esters 1 GM Cap PO ONE (10:15)
[2016-06-28] MEDS: Oxycodone/Acetaminophen 5/325 mg Tab PO PRN ×3 (11:00→23:26)
--- NOTE | 2016-06-28 11:11 | RAD ---
HISTORY: lt thoracentesis COMPARISON: Chest x-ray performed 06/25/16 TECHNIQUE: Chest PA and lateral FINDINGS: LUNGS: Small bilateral pleural effusions and associated atelectasis or infiltrates. No definite pneumothorax. Mild pulmonary venous congestion. Please note that chest x-ray has limited sensitivity for the detection of pulmonary masses. CARDIOVASCULAR: Cardiomegaly. OSSEOUS STRUCTURES: Degenerative changes. VISUALIZED UPPER ABDOMEN: Unremarkable. OTHER FINDINGS: None. IMPRESSION: Small bilateral pleural effusions and associated atelectasis or infiltrates.
--- NOTE | 2016-06-28 11:36 | CT ---
CT chest without IV contrast Indication: Bloody effusion Technique: Contiguous axial images were obtained through the chest without intravenous contrast enhancement. Sagittal and coronal reconstructions were generated and reviewed. Radiation dose (DLP): 317.13 MGy-cm. Comparison: Chest x-ray performed 06/28/16, CT chest without contrast performed 06/16/16 Findings: Visualized portions of the inferior thyroid gland appear unremarkable. The unenhanced mediastinal and hilar vascular structures appear grossly unremarkable. Cardiomegaly. Trace pericardial effusion. Dense coronary artery calcifications. Prosthetic aortic valve. Prevascular and mediastinal lymph nodes, nonspecific. Lack of IV contrast limits evaluation for adenopathy, in particular hilar adenopathy. Small bilateral pleural effusions and associated compressive consolidations. Interval development of air/bubbles compatible with hydropneumothorax. Cholelithiasis. Pancreatic atrophy. Degenerative changes of the spine. Bilateral gynecomastia. Impression: Small bilateral pleural effusions and associated compressive consolidations. Interval development of small hydropneumothorax. Cardiomegaly. Trace pericardial effusion. Cholelithiasis. Pancreatic atrophy. Bilateral gynecomastia. Findings discussed with DEB Salomon on 06/28/16 at 11:28 a.m.
[2016-06-28] MEDS: Omega-3-Acid Ethyl Esters 1 GM Cap PO SCH ×3 (14:17→21:39)
--- NOTE | 2016-06-28 17:56 | PN ---
DATE: 06/28/2016 REFERRING PHYSICIAN: Dr. Luther. SUBJECTIVE: The patient is lying in the bed, sleepy, arousable, could not sleep well last night cat use neighbor patient had been making some noise. He is status post thoracentesis with removal of 1 l iter of bloody fluid. CT scan of the chest shows hydropneumothorax. Pulmonary point of view, doing okay. Had some on and off epigastric discomfort. No nausea, no vomiting, no diarrhea. No leg swell ing reported. OBJECTIVE: GENERAL: In no acute distress. VITAL SIGNS: Temp is 98, heart rate is 98, respiratory rate is 20, blood pressure 138/85, pulse ox 9 5% on 3 liters nasal cannula. HEENT: Moist mucous membranes. Crowded airway. Mallampati score is 4. NECK: Supple. No JVD. LUNGS: Has decreased breath sounds at the bases. HEART: S1 and S2. ABDOMEN: Soft, nontender. No organomegaly. EXTREMITIES: There is no edema. NEUROLOGIC: Awake, alert, follows simple commands. MEDICATIONS: He is on Aggrenox 25/200 one tab twice a day, hydralazine 10 mg q.i.d., Brovana 15 mcg inhaled twice a day, Claritin 10 mg daily, Colace 100 mg twice a day, Coreg 3.125 mg twice a day, Cym emerson 40 mg at bedtime, DuoNeb q.6 hours p.r.n., Flonase 1 spray each nostril daily, insulin coverage , Levemir 10 units subQ q.12 hours, Lipitor 10 mg daily, Lovaza 1 gram q.i.d., Percocet 5/325 one tab q.6 hours p.r.n., Protonix 40 mg daily, Sensipar 60 mg daily, Singulair 10 mg daily. LABORATORY DATA: Shows hemoglobin 11.7, hematocrit 38.8, WBC 6.3, platelet is 225. Sodium 143, pota ssium 3.7, chloride 98, bicarbonate 37, BUN 24, creatinine 3.8, glucose 137, calcium is 11, phosphoru s is 1.4, magnesium 2.3, AST 27, ALT 12, alkaline phosphatase is 133. Pleural effusion, microbiology , there is no growth. CAT scan of the chest done today shows no mass or infiltrate, basilar atelecta sis, has left small pneumothorax though. IMPRESSION AND PLAN: Chronic obstructive lung disease, obstructive sleep apnea syndrome, cardiomyopa thy, valvular heart disease, history of TAVR, renal failure, dialysis dependent, asthma, hypertension , diabetes, recurrent pleural effusion requiring multiple thoracenteses and the last one had a left-s ided hemopneumothorax, but asymptomatic. Will continue bronchodilator. Keep head elevated at 45 deg denys. Gastric prophylaxis. Sequential compression devices to lower extremities. Follow up x-ray in the morning to assure the stability of . Thank you and will follow with you. Franky Stahl MD cc: [id number] TT: 06/28/2016 17:55:21 Confirmation # [id number] Dictation # [id number] dn
--- NOTE | 2016-06-28 21:48 | PN ---
DATE: 06/28/2016 SUBJECTIVE: The patient is seen and examined on the bedside, complaining about pain in the left shou lder. Otherwise, no big change in the status. Yesterday, he went for thoracentesis. No nausea, vom iting, or diarrhea. No fever, no chills. No headache, no dizziness. PHYSICAL EXAMINATION: VITAL SIGNS: Temperature 98, pulse 100, blood pressure 138/85, respiratory rate 20. HEAD: Normocephalic, atraumatic. EYES: PERRLA. Extraocular muscles are intact. Nose patent. Mucous membranes moist. NECK: Supple. No carotid bruit, JVD or thyromegaly. CHEST: Bilaterally symmetrical. HEART: S1, S2 positive. LUNGS: Clear to auscultation. ABDOMEN: Soft. Bowel sounds positive. No organomegaly. EXTREMITIES: No edema, no cyanosis. NEUROLOGIC: The patient is awake, alert, moving all 4 extremities. No focal deficits. MEDICATIONS: Aggrenox, hydralazine, Brovana, Claritin, Colace, Coreg, Cymbalta, albuterol, Flonase, insulin, Lipitor, Lovaza, Percocet, PhosLo, Protonix, Sensipar, Singulair. LABORATORY DATA: White blood cells 6.3, hemoglobin 11.7, hematocrit 38.8, platelets 225, Sodium 143, potassium 3.7, BUN 24, creatinine 3.8, glucose 172. Random glucose 137, phosphorus 1.4. ASSESSMENT AND PLAN: The patient is a 50-year-old male with anemia, renal insufficiency on hemodialy sis 3 times a week, diabetes mellitus, hypercalcemia, hypophosphatasemia, hypermagnesemia, electrolyt e imbalance, history of chronic obstructive pulmonary disease, asthma, bilaterally blind, obstructive sleep apnea syndrome, cardiomyopathy, valvular heart disease, status post transcatheter aortic valve replacement, hypertension, recurrent pleural effusion requiring multiple thoracenteses, last one was worrisome because it is bloody. The patient went for CAT scan of the chest without contrast to look the lung pattern. CAT scan showed small bilateral pleural effusion and associated compressive conso lidation. Interval development of small hydronephrosis, cardiomegaly, trace pericardial effusion, ch olelithiasis, pancreatic atrophy, bilateral gynecomastia. Then today, the patient went for chest x-r ay showed small bilateral pleural effusion and associated atelectasis or infiltrates. Thoracentesis was done, ultrasound-guided. Continue present treatment. The patient has insulin-dependent diabetes mellitus. Continue insulin, hypercholesterolemia. Continue Lipitor and Lovaza for pain, especially in the shoulder. We will continue oxycodone p.r.n. and Protonix for GI prophylaxis. Singulair for the patient's seasonal allergies. The patient is getting Cymbalta for depression, Colace for constip ation, getting Aggrenox, has peripheral vascular disease. Gastrointestinal and deep venous thrombosi s prophylaxis. Repeat labs. Appreciated pulmonary and cardiology followup. Laure Luther MD cc: [id number] TT: 06/28/2016 21:47:41 Confirmation # [id number] Dictation # [id number] hn
[2016-06-29] MEDS: Pantoprazole 40 mg EC Tab PO SCH (05:42)
[2016-06-29 06:15] VITALS: O2SAT 100
[2016-06-29] MEDS: Arformoterol 15 mcg/2 ml Inh Sol IH SCH ×2 (07:18→20:45)
[2016-06-29] MEDS: Insulin Reg-LOW-Coverage SC SCH ×4 (08:12→21:51)
[2016-06-29] MEDS: Oxycodone/Acetaminophen 5/325 mg Tab PO PRN ×2 (08:23→17:21)
[2016-06-29] MEDS: Omega-3-Acid Ethyl Esters 1 GM Cap PO SCH ×3 (09:11→17:50)
[2016-06-29] MEDS: Fluticasone Nasal 50 mcg/Spray NS SCH (09:15)
[2016-06-29] MEDS: Aspirin-Dipyridamole 200-25 mg ER Cap PO SCH ×2 (09:15→17:48)
[2016-06-29] MEDS: Insulin Detemir 100 units/ml Vial (Levemir) SC SCH ×2 (09:16→21:50)
--- NOTE | 2016-06-29 10:33 | PN ---
DATE: 06/29/2016 DATE: 06/29/2016. SUBJECTIVE: The patient with no headaches or dizziness, no nausea. PHYSICAL EXAMINATION: VITAL SIGNS: Temperature is 97.9, pulse of 84, blood pressure 120/45, respirations 20. GENERAL: The patient comfortable, in no acute distress. HEENT: Anicteric sclerae. Moist mucosa. NECK: No JVD or adenopathy. CARDIAC: S1/S2. No murmurs. No rubs. Regular. RESPIRATORY: Clear to auscultation bilaterally. No wheezes, rales, or rhonchi. Good air entry. ABDOMEN: Bowel sounds are positive, soft, nontender, and nondistended. EXTREMITIES: No edema. Has 1+ pulses. Chest CT shows small bilateral pleural effusion associated with compressive consolidation. There is a small hydropneumothorax. ASSESSMENT: 1. Hydropneumothorax. 2. Status post paracentesis of 1 liter of bloody fluid. 3. End-stage renal disease on hemodialysis. 4. Diabetes type 2. 5. Chronic obstructive pulmonary disease. 6. Coronary artery disease. 7. Right eye blindness. 8. Diabetic retinopathy. 9. Left arteriovenous fistula. 10. Secondary hyperparathyroidism. 11. Status post transcatheter aortic valve replacement. PLAN: 1. The patient had a CAT scan that I reviewed. The CAT scan shows small bilateral pleural effusion and associated compressive consolidation. 2. The patient is currently on losartan. The patient is on loratadine for allergies. He is receivi ng carvedilol. He is on Cymbalta. The patient is going to continue with insulin for his diabetes. He is on Lipitor for dyslipidemia. He is on PhosLo. He is on Sensipar. He is getting CPAP at night . Law Gee MD cc: [id number] TT: 06/29/2016 10:32:24 Confirmation # [id number] Dictation # [id number] mn
--- NOTE | 2016-06-29 12:27 | RAD ---
HISTORY: hydro pneumo COMPARISON: Chest x-ray performed 06/28/16, CT chest without contrast performed 06/28/16 TECHNIQUE: Chest, one view. FINDINGS: LUNGS: Persistent left hydro pneumothorax. Small right pleural effusion. Bibasilar atelectasis or infiltrates. Please note that chest x-ray has limited sensitivity for the detection of pulmonary masses. CARDIOVASCULAR: Cardiomegaly. Cardiac prosthetic valve. OSSEOUS STRUCTURES: Degenerative changes. VISUALIZED UPPER ABDOMEN: Unremarkable. OTHER FINDINGS: None. IMPRESSION: Persistent left hydro pneumothorax. Small right pleural effusion. Bibasilar atelectasis or infiltrates.
--- NOTE | 2016-06-29 16:42 | PN ---
DATE: 06/29/2016 REFERRING PHYSICIAN: Dr. Luther SUBJECTIVE: He is lying on the bed, could not sleep well last night, but no headache, no rhinitis, n o significant, gets short of breath with exertion. No nausea, no vomiting, diarrhea. No leg pain or leg swelling. OBJECTIVE: GENERAL: No acute distress. VITAL SIGNS: Temperature is 98, heart rate is 84, respiratory rate is 20, blood pressure 120/45, pul se ox 100% on nasal cannula. HEENT: Moist mucous membrane. Crowded airway. NECK: Supple, no JVD. LUNGS: Have a few crackles at the bases. HEART: S1 and S2. ABDOMEN: Soft, nontender. No organomegaly. EXTREMITIES: There is no edema. NEUROLOGIC: Awake, alert, follows simple commands. MEDICATIONS: He is on Aggrenox 25/200 one tab twice a day, hydralazine 10 mg q.i.d. p.r.n., Brovana 15 mcg inhaled twice a day, Claritin 10 mg daily, Colace 100 mg twice a day, Coreg 3.125 mg twice a d ay, Cymbalta 40 mg at bedtime, DuoNeb q. 6 hours p.r.n., Flonase 1 spray each nostril daily, Levemir is 10 units subQ q. 12 hours, Lipitor 10 mg at bedtime, Lovaza 1 gram p.o. q.i.d., Percocet 5/325 one tab q. 6 hours p.r.n., Protonix 40 mg daily, Sensipar is 60 mg daily, Singulair 10 mg at bedtime. LABORATORY DATA: Shows no new lab is available since yesterday. Pleural fluid, there is no growth i n last 2 days. Chest x-ray done today shows persistent left hydropneumothorax, small right pleural e ffusion. IMPRESSION AND PLAN: Chronic obstructive lung disease, obstructive sleep apnea syndrome, cardiomyopa thy, valvular heart disease, history of transcatheter aortic valve replacement in the past, renal travis lure, dialysis dependent, asthma, hypertension, diabetes, recurrent pleural effusion, status post tho racentesis. At present, he has a left hydropneumothorax most likely. Pleural tap was bloody. CAT s can of the chest does not show any mass or lesions. The patient is encouraged to use BiPAP. He refu ses to use hospital BiPAP. Claims that his will bring his BiPAP from home and he will use tonig ht. Keep head elevated at 45 degrees. Repeat chest x-ray in the morning. If stable, discharge plan michelle in the morning. Cardiology and nephrology followup. Thank you and we will follow with you. Franky Stahl MD cc: [id number] TT: 06/29/2016 16:41:32 Confirmation # [id number] Dictation # [id number] en
--- NOTE | 2016-06-29 18:46 | PN ---
DATE: 06/29/2016 The patient is a 50-year-old male. The patient seen and examined on the bedside, looks like not in d istress. No nausea, vomiting, diarrhea. No hematuria, no hematochezia. No headache, no dizziness. Not fever, no chills, does not look like toxic. PHYSICAL EXAMINATION: VITAL SIGNS: Temperature 98.2, heart rate 84, respiratory rate 12, blood pressure 120/40, pulse oxim etry 100%. HEENT: Head normocephalic, atraumatic. Eyes: PERRLA. Extraocular muscles intact. Conjunctivae cl ear. Nose patent. NECK: Supple. No carotid bruits, no JVD, no thyromegaly. CHEST: Bilaterally symmetrical. HEART: S1 and S2 positive. LUNGS: Clear to auscultation. ABDOMEN: Soft. Bowel sounds positive. No organomegaly. EXTREMITIES: No edema, no cyanosis. NEUROLOGIC: The patient awake, alert, moving all four extremities. No focal deficit. MEDICATIONS: Aggrenox, hydralazine, Brovana, Claritin, Colace, Coreg, Cymbalta, DuoNeb, folate, Leve tamara, Lipitor, Lovaza, Percocet, Protonix, Sensipar, Singulair. LABORATORIES: We do have recent labs today, but I reviewed old labs. ASSESSMENT AND PLAN: The patient is a 50-year-old male with chronic obstructive lung disease, renal insufficiency on hemodialysis 3 times a week, obstructive sleep apnea syndrome, cardiomyopathy, valvu lar heart disease, history of transcatheter aortic valve replacement in the past, hypertension, pulmo nary hypertension, often coming with pulmonary edema, uncontrolled diabetes mellitus, recurrent pleur al effusion, status post thoracentesis. The patient has left hydropneumothorax as per CAT scan. Ple ural tap was bloody. CAT scan of the chest does not show any mass or lesion. Sleep apnea syndrome. The patient is supposed to use BiPAP. He refuses his hospital BiPAP. He is allowed to bring his [facility] BiPAP. Physical therapy. Gastrointestinal and deep venous thrombosis prophylaxis. Repeat labs. We will follow up. Laure Luther MD cc: [id number] TT: 06/29/2016 18:46:05 Confirmation # [id number] Dictation # [id number] en
[2016-06-30] MEDS: Oxycodone/Acetaminophen 5/325 mg Tab PO PRN (00:21)
[2016-06-30] MEDS: Omega-3-Acid Ethyl Esters 1 GM Cap PO SCH ×3 (00:22→14:12)
[2016-06-30 00:47] VITALS: RESP 20
[2016-06-30 05:09] VITALS: PULSE 87
[2016-06-30 05:22] VITALS: BP 153/92; TEMP 97.3
[2016-06-30] MEDS: Pantoprazole 40 mg EC Tab PO SCH (05:42)
[2016-06-30] MEDS: Arformoterol 15 mcg/2 ml Inh Sol IH SCH (07:46)
[2016-06-30] MEDS: Insulin Reg-LOW-Coverage SC SCH ×2 (08:33→12:09)
--- NOTE | 2016-06-30 09:01 | PN ---
DATE: 06/30/2016 SUBJECTIVE: The patient has no complaints of any chest pain, no shortness of breath, no headaches, n o dizziness. PHYSICAL EXAMINATION: VITAL SIGNS: Temperature is 97.3, pulse of 87, blood pressure is 153/92, respirations 20. GENERAL: The patient comfortable, in no acute distress. HEENT: Anicteric sclerae. Moist mucosa. NECK: No JVD or adenopathy. CARDIAC: S1/S2. No murmurs. No rubs. Regular. RESPIRATORY: Clear to auscultation bilaterally. No wheezes, rales, or rhonchi. Good air entry. ABDOMEN: Bowel sounds are positive, soft, nontender, and nondistended. EXTREMITIES: No edema. Has 1+ pulses. ASSESSMENT: 1. Left hydropneumothorax. 2. End-stage renal disease, on hemodialysis. 3. Secondary hyperparathyroidism. 4. Status post thoracentesis of 1 liter of bloody fluid. 5. Diabetes type 2. 6. Chronic obstructive pulmonary disease. 7. Coronary artery disease. 8. Right eye blindness. 9. Diabetic retinopathy. 10. Left arteriovenous fistula. 11. Secondary hyperparathyroidism. 12. Status post transcatheter aortic valve replacement. PLAN: The patient is currently on Ambien for sleep. He is receiving hydralazine, is on Claritin for allergies. He is on carvedilol. He is going to continue with Cymbalta, is going to continue with L ipitor for dyslipidemia. The patient is on Percocet for pain. He is on Sensipar for secondary hyper parathyroidism. The patient is on PhosLo. He is due for dialysis today. Law Gee MD cc: [id number] TT: 06/30/2016 09:00:56 Confirmation # [id number] Dictation # [id number] en
[2016-06-30] MEDS: Aspirin-Dipyridamole 200-25 mg ER Cap PO SCH (10:24)
[2016-06-30] MEDS: Insulin Detemir 100 units/ml Vial (Levemir) SC SCH (10:28)
[2016-06-30 10:50] LABS: ADD MANUAL DIFF? NO
[2016-06-30 10:53] LABS: BASO # 0.03 K/mm3 (0.0-2.0); BASO % 0.5 % (0.0-3.0); EOS # 0.3 (0.0-0.7); EOS % 5.7 % (1.5-5.0); GRAN # 3.64 (1.4-6.5); GRAN % 64.6 % (50.0-68.0); HEMATOCRIT 33.6 % (42.0-52.0); LYMPH # 0.8 (1.2-3.4); LYMPH % 14.5 % (22.0-35.0); MEAN CELL VOLUME 99.7 fL (80.0-105.0); MEAN CORPUSCULAR HEMOGLOBIN 31.8 pg (25.0-35.0); MEAN CORPUSCULAR HGB CONC 31.8 g/dl (31.0-37.0); MEAN PLATELET VOLUME 10.5 fl (7.0-11.0); MONO # 0.8 (0.1-0.6); MONO % 14.7 % (1.0-6.0); PLATELET COUNT 222 10^3/uL (120.0-450.0); RED CELL DISTRIBUTION WIDTH 13.6 % (11.5-14.5); WHITE BLOOD COUNT 5.6 10^3/ul (4.5-11.0)
[2016-06-30 12:27] LABS: ALB/GLOB RATIO 0.9 (1.1-1.8); BILIRUBIN,TOTAL 0.7 mg/dL (0.2-1.3); MAGNESIUM 2.7 mg/dL (1.7-2.2); PHOSPHOROUS 2.2 mg/dL (2.5-4.5)
[2016-06-30 12:29] LABS: CALCIUM 12.3 mg/dL (8.4-10.5)
--- NOTE | 2016-06-30 12:31 | PN ---
DATE: 06/30/2016 REASON FOR CONSULTATION AND FOLLOWUP: Shortness of breath, cardiac evaluation, status post transcath eter aortic valve replacement, recurrent pleural effusion, recurrent congestive heart failure, status post thoracentesis, bloody tinged fluid. BRIEF CLINICAL HISTORY: A 50-year-old male with past medical history significant for end-stage renal disease, diabetes, hypertension, hyperlipidemia, seen a few days ago in the ER, came back again with complaint of shortness of breath. The patient underwent ultrasound of the chest and then followed b y thoracentesis of left side of bloody fluid, awaiting for the analysis. Feels a lot better after th oracentesis. PHYSICAL EXAMINATION: VITAL SIGNS: Temperature afebrile, heart rate 87, blood pressure 153/90. HEENT: PERRLA. Extraocular muscles intact. NECK: Supple. No carotid bruits. No thyromegaly. CHEST: Clear to auscultation. HEART: S1, S2 regular. ABDOMEN: Soft. EXTREMITIES: Clubbing and cyanosis negative. LABORATORY DATA: Blood workup as follows: WBC 5.6, hemoglobin 10.7, hematocrit 33.6, platelet count 222. Chemistry shows sodium 142, potassium 3.7, chloride 98, carbon dioxide 37, anion gap of 12, BU N 20, creatinine 3.8, phosphorus 1.7. IMPRESSION: Recurrent pleural effusions, recurrent congestive heart failure, status post thoracentes is with bloody fluid, status post hydropneumothorax, end-stage renal disease on dialysis, status post 1 liter of bloody fluid, chronic obstructive pulmonary disease, coronary artery disease, nonobstruct pablo, status post cardiac catheterization recently, status post transcatheter aortic valve replacement , end-stage renal disease on dialysis, diabetes, hypertension, hyperlipidemia. RECOMMENDATION: Follow up analysis on the pleural effusion. We will follow. Most likely is a blood y tap. Will follow with you, but clinically, patient's shortness of breath significantly improved. The patient had a repeat CT chest done that shows small bilateral pleural effusion associated with co mpressive consolidation atelectasis, a small hydropneumothorax. Will follow with you. Thank you, Dr. Luther, for providing the opportunity in taking care of this patient. Once patient is medically stable, can be discharged. No further cardiac workup is planned. We will follow with you. Franky Archer MD cc: [id number] TT: 06/30/2016 12:30:53 Confirmation # [id number] Dictation # [id number] rn
--- NOTE | 2016-06-30 15:25 | RAD ---
HISTORY: hydro pneumo COMPARISON: No prior. TECHNIQUE: Chest PA and lateral FINDINGS: LUNGS: Bibasilar opacity, left greater than right, unchanged. PLEURA: Bilateral pleural effusion, left greater than right. CARDIOVASCULAR: Cardiomegaly. Congestive change. OSSEOUS STRUCTURES: No significant abnormalities. VISUALIZED UPPER ABDOMEN: Normal. OTHER FINDINGS: None. IMPRESSION: No significant change from 06/29.
== END 2016-06-30 16:31 | DRG 291 ==
LOC: ED 15:44 → ERH 18:40 → 2RSO 22:14 → 2RNO 06-28 14:08
PROVIDERS: ADMIT Internal Medicine; ATTEND Internal Medicine
PROC: 3E0F7GC Introduction of Other Therapeutic Substance into Respiratory Tract, Via Natural or Artificial Opening (ICD-10-PCS; 2016-06-26)
PROC: 5A1D60Z (ICD-10-PCS; 2016-06-27)
PROC: 0W9B3ZZ Drainage of Left Pleural Cavity, Percutaneous Approach (ICD-10-PCS; principal; 2016-06-27 16:00)
DX: I13.2 Hypertensive heart and chronic kidney disease with heart failure and with stage 5 chronic kidney disease, or end stage renal disease (principal); I50.23 Acute on chronic systolic (congestive) heart failure; N18.6 End stage renal disease; N25.81 Secondary hyperparathyroidism of renal origin; E11.21 Type 2 diabetes mellitus with diabetic nephropathy; J94.8 Other specified pleural conditions; I27.2 Other secondary pulmonary hypertension; I42.9 Cardiomyopathy, unspecified; E11.22 Type 2 diabetes mellitus with diabetic chronic kidney disease; Z99.2 Dependence on renal dialysis; J44.9 Chronic obstructive pulmonary disease, unspecified; J45.909 Unspecified asthma, uncomplicated; E87.6 Hypokalemia; K21.0 Gastro-esophageal reflux disease with esophagitis; H40.9 Unspecified glaucoma; H35.30 Unspecified macular degeneration; M21.372 Foot drop, left foot; E11.65 Type 2 diabetes mellitus with hyperglycemia; G47.33 Obstructive sleep apnea (adult) (pediatric); G40.909 Epilepsy, unspecified, not intractable, without status epilepticus; I25.10 Atherosclerotic heart disease of native coronary artery without angina pectoris; E78.5 Hyperlipidemia, unspecified; E11.319 Type 2 diabetes mellitus with unspecified diabetic retinopathy without macular edema; E11.42 Type 2 diabetes mellitus with diabetic polyneuropathy; K29.70 Gastritis, unspecified, without bleeding; E83.41 Hypermagnesemia; E78.00 Pure hypercholesterolemia, unspecified; K59.00 Constipation, unspecified; I73.9 Peripheral vascular disease, unspecified; F32.9 Major depressive disorder, single episode, unspecified; D64.9 Anemia, unspecified; N62 Hypertrophy of breast; Z79.4 Long term (current) use of insulin; Z86.73 Personal history of transient ischemic attack (TIA), and cerebral infarction without residual deficits; Z95.2 Presence of prosthetic heart valve; Z87.19 Personal history of other diseases of the digestive system; Z87.891 Personal history of nicotine dependence; Z82.49 Family history of ischemic heart disease and other diseases of the circulatory system; Z83.3 Family history of diabetes mellitus; Z80.0 Family history of malignant neoplasm of digestive organs

== ENCOUNTER 2016-06-30 16:31 | Inpatient (IN) | payer OTHER, BC ==
[2016-06-30 20:09] VITALS: BMI 17.7
[2016-06-30] MEDS: Omega-3-Acid Ethyl Esters 1 GM Cap PO SCH (21:35)
--- NOTE | 2016-06-30 21:48 | CON ---
DATE: 06/30/2016 REFERRING PHYSICIAN: Dr. Luther. REASON FOR CONSULT: Pleural effusion, status post thoracentesis, a small pneumothorax, sleep apnea s yndrome, chronic lung disease. HISTORY OF PRESENT ILLNESS: This is a 50-year-old gentleman with known history of obstructive lung d isease, also has a history of cardiomyopathy with valvular heart disease requiring TAVR, pulmonary hy pertension, renal failure, dialysis dependent, diabetes, hypertension, recently been not doing well. Has multiple admissions for fluid overload, had a thoracentesis this admission in acute side of the hospital. Had left-sided thoracentesis which was bloody fluid and has a small pneumothorax, but clin ically he felt better. Presently admitted to [facility] for continued care. Feeling very weak and tired, gets short of breath with exertion. No hemoptysis, no hematemesis, no hematuria, no diarrhea reporte d. PAST MEDICAL HISTORY: Cardiomyopathy, valvular heart disease, history of TAVR, obstructive lung dise ase, sleep apnea syndrome, recurrent pleural effusion, renal failure, dialysis dependent, history of esophagitis, gastritis, legally blind. ALLERGIES: ALLERGIC TO PENICILLIN. SOCIAL HISTORY: Nonsmoker, nondrinker. FAMILY HISTORY: No significant cardiopulmonary disease reported. MEDICATIONS: He is on Aggrenox 25/200 one tab twice a day, Ambien 5 mg at bedtime p.r.n., hydralazin e 10 mg q.i.d. p.r.n., Brovana 15 mcg inhaled twice a day, Claritin 10 mg daily, Colace 100 mg twice a day, Coreg 3.125 mg twice a day, Cymbalta 40 mg at bedtime, DuoNeb q. 6 hours p.r.n., Flonase 1 spr ay each nostril daily, insulin coverage, Levemir 10 units subQ q. 12 hours, Lipitor 10 mg daily, Lova za 1 gram q.i.d., Percocet 5/325 one tab q. 6 hours, Protonix 40 mg daily, Sensipar 60 mg daily, Sing ulair 10 mg daily. REVIEW OF SYSTEMS: No headache, no rhinitis. Does not have much cough. Gets short of breath with e xertion. No chest pain, no nausea, no vomiting, diarrhea. No leg pain or leg swelling. PHYSICAL EXAMINATION: GENERAL: Sitting side of the bed, no acute distress. VITAL SIGNS: Temp is 98, heart rate is 96, respiratory rate is 18, blood pressure 107/63, pulse ox 9 9% on nasal cannula. HEENT: Moist mucous membranes. Crowded airway. NECK: Supple, no JVD. LUNGS: Has decreased breath sounds at the bases. Prolonged respiratory phase. HEART: S1, S2. ABDOMEN: Soft, nontender. No organomegaly. EXTREMITIES: There is no edema. NEUROLOGIC: Awake, alert, follows simple commands. LABORATORY DATA: Shows hemoglobin 10.7, hematocrit 33.6, WBC 5.6, platelet count is 222. Sodium 136 , potassium 4.0, chloride 94, bicarbonate 34, BUN 61, creatinine 6.9, glucose 137, calcium is 12.3, p hosphorus 2.2, magnesium is 2.7. AST 28, ALT 15, alkaline phosphatase is 101, albumin 3.4. Chest x- ray shows bilateral pleural effusions, no pneumothorax seen by me. IMPRESSION AND PLAN: Chronic obstructive lung disease, obstructive sleep apnea syndrome, cardiomyopa thy, valvular heart disease, history of transcatheter aortic valve replacement, renal failure, dialys is dependent, asthma, hypertension, diabetes, recurrent fluid, status post thoracentesis and with sma ll pneumothorax. Has a hydro pneumo. Transferred to [facility] for continued care. Agree with Dr. Luther with the present management. Continue with nephrology followup, aggressive dialysis. Also pa tient about fluid intake. Will add Brovana and Pulmicort inhaled twice a day with Mucomyst inhaled t wice a day. Continue Singulair. Gastric prophylaxis. Sequential compression device to lower extrem ity. Continue Protonix 40 mg daily. Will follow with you. Franky Stahl MD cc: [id number] TT: 06/30/2016 21:47:37 Confirmation # [id number] Dictation # [id number] madhu
[2016-06-30] MEDS: Insulin Reg-LOW-Coverage SC SCH (22:35)
[2016-06-30] MEDS: Insulin Detemir 100 units/ml Vial (Levemir) SC SCH (22:36)
[2016-07-01] MEDS: Oxycodone/Acetaminophen 5/325 mg Tab PO PRN ×3 (00:12→23:02)
[2016-07-01] MEDS: Pantoprazole 40 mg EC Tab PO SCH (05:30)
[2016-07-01] MEDS: Insulin Reg-LOW-Coverage SC SCH ×4 (06:51→23:12)
[2016-07-01] MEDS: Acetylcysteine 20% Inhal Soln (4ml) IH SCH ×2 (07:24→19:54)
[2016-07-01] MEDS: Albuterol-Ipratrop 3 mg / 0.5 (3 ml) UD IH PRN (07:24)
[2016-07-01] MEDS: Budesonide 0.5 mg/2 ml Inhal Susp UD IH SCH ×2 (07:24→19:55)
[2016-07-01] MEDS: Arformoterol 15 mcg/2 ml Inh Sol IH SCH ×4 (07:24→19:55)
[2016-07-01] MEDS: Aspirin-Dipyridamole 200-25 mg ER Cap PO SCH ×2 (09:30→17:56)
[2016-07-01] MEDS: Omega-3-Acid Ethyl Esters 1 GM Cap PO SCH ×3 (09:43→23:13)
--- NOTE | 2016-07-01 10:04 | PN ---
DATE: 07/01/2016 SUBJECTIVE: The patient has no complaints of any chest pain or shortness of breath, no headaches or dizziness. I am following the patient to maintain his dialysis treatment. I did see him in the hosp ital. I reviewed the initial consultation. The patient was having shortness of breath and was admit norma for further evaluation. PHYSICAL EXAMINATION: VITAL SIGNS: Temperature is 97.5, pulse of 84, blood pressure 126/82, respirations 20, O2 saturation is 100%. GENERAL: The patient comfortable, in no acute distress. HEENT: Anicteric sclerae. Moist mucosa. NECK: No JVD or adenopathy. CARDIAC: S1/S2. No murmurs. No rubs. Regular. RESPIRATORY: Clear to auscultation bilaterally. No wheezes, rales, or rhonchi. Good air entry. ABDOMEN: Bowel sounds are positive, soft, nontender, and nondistended. EXTREMITIES: No edema. Has 1+ pulses. ASSESSMENT: 1. Left hydropneumothorax: 2. Pleural effusion with thoracentesis of 1 L of bloody fluid. 3. End-stage renal disease on hemodialysis. 4. Diabetes type 2. 5. Chronic obstructive pulmonary disease. 6. Coronary artery disease. 7. Right eye blindness. 8. Diabetic retinopathy 9. Left arm arteriovenous fistula. 10. Secondary hyperparathyroidism. 11. Status post transcatheter aortic valve placement. PLAN: The patient is currently comfortable, was on dialysis yesterday. He tolerated the procedure w ell. The patient is currently on Ambien for sleep. He is receiving Brovana for his breathing. He i s on Claritin. He is going to continue with carvedilol. The patient is on a very small dose. He is receiving Flonase. He is on Lipitor for dyslipidemia. He is on PhosLo for his secondary hyperparat hyroidism. He is also receiving Sensipar for this. He is on CPAP. He is on a renal diet. Law Gee MD cc: [id number] TT: 07/01/2016 10:04:08 Confirmation # [id number] Dictation # [id number] tn
[2016-07-01] MEDS: Insulin Detemir 100 units/ml Vial (Levemir) SC SCH ×2 (10:39→23:12)
[2016-07-01] MEDS: Fluticasone Nasal 50 mcg/Spray NS SCH (14:22)
--- NOTE | 2016-07-01 20:44 | CP.PCM.PN ---
Subjective - Date & Time of Evaluation Date of Evaluation: 07/01/16 Time of Evaluation: 20:35 - Subjective Subjective: Patient was seen at bed side for evaluation of new onset of vomiting. Had vomiting 5- 6 times , yellowish, about cup full each time, feels burning in throat when vomits.Has little epigastric pain. Denies chest pain, sweating , palpitation, diarrhoea, constipation. This 50 year old male was admitted sob, weakness,CHF. Has PMH of HTN,DM,COPD,CKD on HD, CAD,CMP,pleural effusion,pneumothorax, HLD, ELAN, cervical radiculopathy, Ramsey's esophagitis, anemia, Marielena-Arias tear, retinopathy, neuropathy , GERD, right eye blindness, GI bleeding, AV shunt surgery, right eye surgery,TAVR. Objective - Vital Signs/Intake and Output Vital Signs (last 24 hours): Temp Pulse Resp BP Pulse Ox 97.8 F 89 20 143/78 100 07/01/16 10:00 07/01/16 10:00 07/01/16 10:00 07/01/16 17:57 07/01/16 10:00 - Medications Medications: Current Medications Acetylcysteine (Acetylcysteine 20%) 4 ml IH BIDRESP DYLLAN Last Admin: 07/01/16 19:54 Dose: Not Given Albuterol/Ipratropium (Duoneb 3 Mg/0.5 Mg (3 Ml) Ud) 3 ml IH [id number] PRN; Protocol PRN Reason: Wheezing Last Admin: 07/01/16 07:24 Dose: 3 ml Arformoterol Tartrate (Brovana) 15 mcg IH [id number] DYLLAN PRN Reason: Protocol Last Admin: 07/01/16 19:54 Dose: Not Given Arformoterol Tartrate (Brovana) 15 mcg IH [id number] DYLLAN Last Admin: 07/01/16 19:55 Dose: Not Given Atorvastatin Calcium (Lipitor) 10 mg PO HS DYLLAN PRN Reason: Protocol Last Admin: 06/30/16 21:35 Dose: 10 mg Budesonide (Pulmicort Respules) 0.5 mg IH [id number] DYLLAN Last Admin: 07/01/16 19:55 Dose: Not Given Calcium Acetate (Phoslo) 1,334 mg PO WM DYLLAN PRN Reason: Protocol Last Admin: 07/01/16 17:59 Dose: 1,334 mg Carvedilol (Coreg) 3.125 mg PO 0800,1700 DYLLAN PRN Reason: Protocol Cinacalcet (Sensipar) 60 mg PO 0800 DYLLAN PRN Reason: Protocol Dipyridamole/Aspirin (Aggrenox 25-200 Mg) 1 ea PO BID DYLLAN PRN Reason: Protocol Last Admin: 07/01/16 17:56 Dose: 1 ea Docusate Sodium (Colace) 100 mg PO BID DYLLAN PRN Reason: Protocol Last Admin: 07/01/16 17:56 Dose: 100 mg Duloxetine HCl (Cymbalta) 40 mg PO HS DYLLAN PRN Reason: Protocol Last Admin: 06/30/16 21:34 Dose: 40 mg Fluticasone Propionate (Flonase) 1 actuation NS DAILY DYLLAN PRN Reason: Protocol Last Admin: 07/01/16 14:22 Dose: 1 2 Hydralazine HCl (Apresoline) 10 mg PO QID PRN; Protocol PRN Reason: Other Insulin Detemir (Levemir) 10 unit SC Q12H DYLLAN PRN Reason: Protocol Last Admin: 07/01/16 10:39 Dose: 10 unit Insulin Human Regular (Humulin R Low) 0 units SC ACHS DYLLAN PRN Reason: Protocol Last Admin: 07/01/16 17:57 Dose: Not Given Loratadine (Claritin) 10 mg PO HS DYLLAN PRN Reason: Protocol Last Admin: 06/30/16 21:34 Dose: 10 mg Montelukast Sodium (Singulair) 10 mg PO HS DYLLAN PRN Reason: Protocol Last Admin: 06/30/16 21:35 Dose: 10 mg Menaw-7-Ssig Ethyl Esters (Lovaza) 1 gm PO QID DYLLAN PRN Reason: Protocol Last Admin: 07/01/16 17:58 Dose: 1 gm Oxycodone/Acetaminophen (Percocet 5/325 Mg Tab) 1 tab PO Q6H PRN; Protocol PRN Reason: Pain, moderate (4-7) Stop: 07/03/16 18:11 Last Admin: 07/01/16 18:05 Dose: 1 tab Pantoprazole Sodium (Protonix Ec Tab) 40 mg PO 0630 DYLLAN PRN Reason: Protocol Last Admin: 07/01/16 05:30 Dose: 40 mg Zolpidem Tartrate (Ambien) 5 mg PO HS PRN; Protocol PRN Reason: Insomnia Last Admin: 07/01/16 00:09 Dose: 5 mg - Constitutional Appears: Well, No Acute Distress - Head Exam Head Exam: ATRAUMATIC, NORMAL INSPECTION, NORMOCEPHALIC - Eye Exam Additional comments: Right eye blindness. - ENT Exam ENT Exam: Mucous Membranes Dry - Neck Exam Neck Exam: Normal Inspection - Respiratory Exam Respiratory Exam: NORMAL BREATHING PATTERN - Cardiovascular Exam Cardiovascular Exam: absent: JVD - GI/Abdominal Exam GI & Abdominal Exam: Soft, Tenderness (Minimal epigastric tenderness.), Hypoactive Bowel Sounds. absent: Distended, Firm, Guarding, Rigid, Organomegaly , Pulsatile Mass, Rebound - Rectal Exam Rectal Exam: Deferred - Extremities Exam Extremities Exam: Normal Inspection - Back Exam Back Exam: NORMAL INSPECTION - Neurological Exam Neurological Exam: Alert, Oriented x3 - Psychiatric Exam Psychiatric exam: Normal Affect, Normal Mood - Skin Skin Exam: Dry, Normal Color Assessment and Plan - Assessment and Plan (Free Text) Assessment: A/P:Nausea/Vomiting.-Uremia, -gastroparesis, -[place]? GERD? Epigastric pain. Burning in throat. Hx Ramsey's esophagus. Hypoglycemia.-FSBS 56 mg % HTN. CAD. ESRD. D50 %, 50 CC IV x1. Zofran 4 mg IV x 1. Protonix 40 mg IV x 1. CBC,CMP, mag, calcium level, troponin. EKG.--->NSR,LVH non specific st t changes. Placed a call to . May need GI consultation.
[2016-07-01] MEDS ORDERED: Dextrose 50% SYRINGE Inj (50 ml) IVP ONE (20:50)
[2016-07-01] MEDS ORDERED: Sodium Chloride 0.9% 1,000 ML IV SCH (21:30)
[2016-07-01 22:00] LABS: ADD MANUAL DIFF? NO; BASO # 0.02 K/mm3 (0.0-2.0); BASO % 0.3 % (0.0-3.0); EOS # 0.3 (0.0-0.7); EOS % 3.5 % (1.5-5.0); GRAN # 5.34 (1.4-6.5); GRAN % 75.2 % (50.0-68.0); HEMATOCRIT 34.1 % (42.0-52.0); LYMPH # 0.5 (1.2-3.4); LYMPH % 6.9 % (22.0-35.0); MEAN CELL VOLUME 100.6 fL (80.0-105.0); MEAN CORPUSCULAR HGB CONC 30.8 g/dl (31.0-37.0); MEAN PLATELET VOLUME 10.3 fl (7.0-11.0); MONO % 14.1 % (1.0-6.0); PLATELET COUNT 214 10^3/uL (120.0-450.0); RED CELL DISTRIBUTION WIDTH 13.7 % (11.5-14.5); WHITE BLOOD COUNT 7.1 10^3/ul (4.5-11.0)
[2016-07-01 22:08] LABS: ALB/GLOB RATIO 0.9 (1.1-1.8); BILIRUBIN,TOTAL 0.8 mg/dL (0.2-1.3); CALCIUM 11.4 mg/dL (8.4-10.5); POTASSIUM 3.8 mmol/L (3.6-5.0); TOTAL PROTEIN 7.7 g/dL (5.8-8.3)
[2016-07-01 22:19] LABS: TROPONIN I 0.1 ng/mL
--- NOTE | 2016-07-02 01:24 | PN ---
DATE: 07/01/2016 REFERRING PHYSICIAN: Dr. Luther. SUBJECTIVE: The patient is sitting up in a chair, having dinner. Night was unremarkable. Tolerated BiPAP well. Breathing is a little better, still gets short of breath with exertion. No nausea, no vomiting or diarrhea. No leg pain or leg swelling. OBJECTIVE: GENERAL: No acute distress. VITAL SIGNS: Temperature is 98, heart rate is 89, respiratory rate is 20, blood pressure 167/83, pul se ox 100% on nasal cannula. HEENT: Moist mucous membranes. Crowded airway. Mallampati score is 4. NECK: Supple. No JVD. LUNGS: Has decreased breath sounds at the bases. HEART: S1 and S2. ABDOMEN: Soft, nontender. No organomegaly. EXTREMITIES: There is no edema. NEUROLOGIC: Awake, alert, follows simple commands. MEDICATIONS: He is on Mucomyst 20% inhaled twice a day, Aggrenox 25/200 one tab twice a day, Ambien 5 mg at bedtime p.r.n., hydralazine 10 mg q.i.d. p.r.n., Brovana 15 mcg inhaled twice a day, Claritin 10 mg daily, Colace 100 mg twice a day, Coreg 3.125 mg twice a day, Cymbalta 40 mg at bedtime, DuoNe b q. 6 hours p.r.n., Flonase 1 spray each nostril daily, insulin coverage, Levemir 10 units subQ q. 12 hours, Lipitor 10 mg daily, Lovaza 1 gram q.i.d., Percocet 5/325 one tab q. 4 hours p.r.n., Svetlana nix 40 mg daily, Pulmicort inhaled twice a day, Sensipar 60 mg daily, Singulair 10 mg daily, IV fluid normal saline at 100 mL per hour. LABORATORY DATA: Shows hemoglobin 10.5, hematocrit 34.1, WBC 7.1, platelet is 214. Sodium 137, pota ssium 3.8, chloride 97, bicarbonate 30, BUN 50, creatinine 5.6, glucose 148, calcium 11.4. AST 21, A LT 11, alkaline phosphatase is 113. Troponin 0.10. Albumin 3.6. IMPRESSION AND PLAN: Chronic obstructive lung disease, obstructive sleep apnea syndrome, cardiomyopa thy, valvular heart disease, history of transaortic valve replacement, renal failure, dialysis depend ent, asthma, hypertension, diabetes with recurrent pleural effusion status post thoracentesis, last t horacentesis was bloody and has a pneumothorax. Pulmonary point of view, doing well. Continue curre nt CPAP use. Keep head elevated at 45 degree. Gastric prophylaxis. SCD to lower extremity, p.o. an d inhaled bronchodilator. Continue educate the patient about the fluid balance . Being followed by n ephrology. Thank you and will follow with you. Franky Stahl MD cc: [id number] TT: 07/02/2016 01:24:00 Confirmation # [id number] Dictation # [id number]
[2016-07-02] MEDS: Pantoprazole 40 mg EC Tab PO SCH (05:39)
[2016-07-02] MEDS: Arformoterol 15 mcg/2 ml Inh Sol IH SCH ×2 (07:09→19:51)
[2016-07-02] MEDS: Budesonide 0.5 mg/2 ml Inhal Susp UD IH SCH ×2 (07:09→19:51)
[2016-07-02] MEDS: Albuterol-Ipratrop 3 mg / 0.5 (3 ml) UD IH PRN (07:09)
[2016-07-02] MEDS: Acetylcysteine 20% Inhal Soln (4ml) IH SCH ×2 (07:10→19:51)
[2016-07-02] MEDS: Insulin Reg-LOW-Coverage SC SCH ×4 (07:59→21:40)
--- NOTE | 2016-07-02 08:27 | CON ---
DATE: 07/01/2016 SERVICE: Cardiology. CONSULTING PHYSICIAN: Dr. Franky Archer. REASON FOR CONSULTATION: Continuity of care in transitional care unit, history of TAVR, admitted wit h recurrent pleural effusions. BRIEF CLINICAL HISTORY: A 50-year-old male with past medical history significant for end-stage renal disease on dialysis, full blown complication of diabetes, diabetic retinopathy, nephropathy, blindne ss, history of severe aortic stenosis, status post TAVR, admitted with recurrent pleural effusion, st atus post thoracentesis, left side this time with a bloody tap, still awaiting for the thoracentesis fluid analysis. PAST MEDICAL HISTORY: Significant for diabetes, hypertension, hyperlipidemia, end-stage renal diseas e on dialysis, history of nonobstructive coronary artery, disease status post recently cardiac cathet erization, history of TAVR. Most recent echo shows preserved LV function. Recently cardiac workup as follows: The patient had echo 05/02/2016 that showed mitral area 2.4 cm2 c onsistent with mild mitral stenosis, systolic function mildly impaired, ejection fraction ____. The patient had cardiac catheterization 05/02/2016 that shows nonobstructive coronary artery disease limit ed only to the diagonal 1, normal functioning transcutaneous aortic valve. Aortogram shows trace to mild aortic regurgitation. ALLERGIES: No known drug allergies. CURRENT MEDICATIONS: The patient is taking at home ____, Dexilant, calcium, carvedilol, atorvastatin . REVIEW OF SYSTEMS: As per HPI. PHYSICAL EXAMINATION: VITAL SIGNS: Temperature afebrile, heart rate 89, blood pressure 149/93. HEENT: PERRLA. Extraocular muscles intact. NECK: Supple. No carotid bruits. No thyromegaly. CHEST: Clear to auscultation. HEART: S1, S2 regular. ABDOMEN: Soft. EXTREMITIES: Clubbing and cyanosis negative. LABORATORY DATA: Blood workup as follows: WBC 5.6, hemoglobin 10.7, hematocrit 33.6, platelet count 222. Chemistry shows sodium 130, potassium 4, chloride 94, carbon dioxide 34, anion gap of 12, BUN 61, creatinine 6.9. IMPRESSION: Recurrent pleural effusion, coronary artery disease, mild cardiomyopathy, ejection fract ion ____, diabetes, hypertension, hyperlipidemia, end-stage renal disease on dialysis, status post th oracentesis, bloody tap. RECOMMENDATION: Try to keep as dry as possible with dialysis. Discussed with Dr. Gee. Avoid a ntihypertensive medication during the day of the dialysis, awaiting for the thoracentesis fluid for a nalysis. We will follow with you. Thank you, Dr. Luther, for providing the opportunity in taking care of the patient. We will follow w ith you. Franky Archer MD cc: [id number] TT: 07/01/2016 16:26:33 Confirmation # [id number] Dictation # [id number]
[2016-07-02] MEDS: Oxycodone/Acetaminophen 5/325 mg Tab PO PRN (08:35)
[2016-07-02] MEDS ORDERED: Aspirin-Dipyridamole 200-25 mg ER Cap PO SCH (10:00)
--- NOTE | 2016-07-02 10:49 | HP ---
CHIEF COMPLAINT: Shortness of breath, fatigue, tired. HISTORY OF PRESENT ILLNESS: The patient is a 50-year-old male, my private patient, with multiple med ical problems, obstructive lung disease, cardiomyopathy with valvular heart disease requiring TAVR, p ulmonary hypertension, renal failure on hemodialysis 3 times a week, was admitted on medical floor fo r fluid overload, shortness of breath. Thoracentesis was done for pleural effusion in the acute side of the hospital. Had left-sided thoracentesis which was having blood and had a small pneumothorax, but clinically he felt better. Now, the patient is transferred to TCU for continuity of care for phy sical therapy and for deconditioning. No nausea, vomiting, or diarrhea. Looks comfortable. Shortne ss of breath is less. No chest pain. No abdominal pain. PAST MEDICAL HISTORY: Renal insufficiency, on hemodialysis, obstructive lung disease, sleep apnea sy ndrome, recurrent pleural effusion bilaterally, multiple times thoracentesis. Esophagitis, gastritis , legally blind, cardiomyopathy, coronary artery disease, deconditioned, multiple admissions. ALLERGIES: THE PATIENT IS ALLERGIC TO PENICILLIN. SOCIAL HISTORY: No smoking, no drugs, no ethanol. FAMILY HISTORY: Father and mother noncontributory. HOME MEDICATIONS: Reviewed by me. REVIEW OF SYSTEMS: The patient is seen and examined on the bedside on 07/01/16, looks comfortable. N o nausea, vomiting, or diarrhea. No hematuria or hematochezia. No swelling of the leg. No chest pa in, no palpitation, no headache, no dizziness. Getting physical therapy in TCU. PHYSICAL EXAMINATION: VITAL SIGNS: Temperature 98, heart rate 96, respiratory rate 18, blood pressure 110/60, pulse oximet ry 98% on nasal cannula. HEENT: Head normocephalic, atraumatic. Eyes: PERRLA. Extraocular muscles intact. Conjunctivae ar e clear. The patient is legally blind. Nose patent. Mucous membranes moist. NECK: Supple. No carotid bruit, JVD, or thyromegaly. CHEST: Bilaterally symmetrical. HEART: S1, S2 positive. LUNGS: Clear to auscultation, has decreased breath sounds at the bases, prolonged expiratory phase. HEART: S1, S2 positive. ABDOMEN: Soft, nontender. No organomegaly. EXTREMITIES: No edema, no cyanosis. NEUROLOGIC: The patient is awake, alert, follows simple commands. Moving all 4 extremities. Crania l nerves II-XII are grossly intact. LABORATORY DATA: Hemoglobin 10.7, hematocrit 33.6, white blood cells 5.6, and platelets 222. Sodium 136, potassium 4.0, BUN 51, creatinine 6.9, glucose 137. AST 28, ALT 15. Chest x-ray shows bilater al pleural effusion, no pneumothorax seen on the chest x-rays, but CAT scan shows. ASSESSMENT AND PLAN: The patient with multiple medical problems, has obstructive sleep apnea syndrom e. He is using his home BiPAP because he does not like hospital machine. Chronic obstructive lung d isease, cardiomyopathy, valvular heart disease, history of transcatheter aortic valve replacement, re nal failure on hemodialysis 3 times a week, had multiple admissions due to fluid overload, pleural ef fusion, pulmonary hypertension, asthma, hypertension, uncontrolled diabetes mellitus. This time duri ng thoracentesis, he had mild pneumothorax. Diabetes mellitus. Transferred to TCU for continuity of care for physical therapy, for reconditioning. Director Of Partnerships is on the case. Discussion done with t lana patient and nursing staff. The patient and his are thinking about peritoneal dialysis. We w ill talk more about that. Gastric prophylaxis, sequential compression device. Continue Protonix for gastric prophylaxis, Aggrenox, Ambien for insomnia, hydralazine for hypertension, Claritin for aller gies, Colace for constipation. The patient is getting Cymbalta due to depression at night and helpin g him for sleep also. Flonase for nasal congestion. The patient is getting insulin, Levemir for his diabetes, but on sliding scale also with coverage; getting Lipitor for hypercholesterolemia and Lova za for hypertriglyceridemia, Percocet for pain once in a while p.r.n. Gastrointestinal and deep veno us thrombosis prophylaxis. We will follow up. Laure Luther MD cc: [id number] TT: 07/02/2016 10:48:59 ga
[2016-07-02] MEDS: Insulin Detemir 100 units/ml Vial (Levemir) SC SCH ×2 (10:53→21:40)
[2016-07-02] MEDS: Fluticasone Nasal 50 mcg/Spray NS SCH (10:53)
[2016-07-02] MEDS: Omega-3-Acid Ethyl Esters 1 GM Cap PO SCH ×5 (10:56→21:40)
[2016-07-02] MEDS: Aspirin-Dipyridamole 200-25 mg ER Cap PO SCH ×2 (10:59→18:35)
--- NOTE | 2016-07-02 12:16 | PN ---
DATE: 07/02/2016 The patient is in room 303, bed 1. REASON FOR CONSULTATION: History of TAVR admitted with recurrent pleural effusion. HISTORY OF PRESENT ILLNESS: The patient is a 50-year-old male with past medical history significant for end-stage renal failure, on dialysis with complication of diabetes including diabetic retinopathy and nephropathy, blindness, history of severe aortic stenosis, status post TAVR admitted with recur rent pleural effusion, status post thoracentesis on the left side, which showed a bloody tap. The patient is lying in bed comfortably at present. The patient also known to have hypertension, hyp erlipidemia, nonobstructive coronary artery disease. Recent echo showed preserved LV function. It was done 05/02/2016. Cardiac catheterization on 05/02/2016 showed nonobstructive coronary artery disease, normally function ing transcutaneous aortic valve, [id number] aortic regurg. Echo on 05/02/2016 also showed mitral area 2.4 cm2 consistent with mild mitral stenosis. It showed ej ection fraction of 55%. PHYSICAL EXAMINATION: VITAL SIGNS: Blood pressure 121/70, respirations 18, pulse 85, temperature 98.2. HEAD: Normocephalic. EYES: Pupils are normal. Conjunctivae are slightly pale. NECK: JVP low. Carotids equal. THORAX: AP diameter normal. LUNGS: No significant rales. CARDIOVASCULAR: S1, S2. ABDOMEN: Soft, nontender. No organomegaly. EXTREMITIES: No clubbing, no cyanosis. LABORATORY DATA: Show WBC 7.1, hemoglobin 10.5, hematocrit 34.1, platelets 214. Sodium 137, potassi um 3.8. BUN was 50, creatinine 5.6. Random sugar 176, random glucose 148. Calcium 11.4. AST and A LT normal. Troponin 0.10. Total protein and albumin normal. DIAGNOSES: Recurrent pleural effusion, nonobstructive coronary artery disease, diabetes, hypertensio n, hyperlipidemia, end-stage renal disease on dialysis, status post thoracentesis, bloody tap. PLAN: To continue dialysis, as per Dr. Law Gee, and try to make as much negative balance as clinically possible. In the meantime, we will continue Aggrenox 25/200 b.i.d., Coreg 3.125 b.i.d., D uoNeb hand nebulizer therapy p.r.n., insulin as ordered, Lipitor 10 mg daily, Protonix 40 daily, Sing ulair 10 mg at bedtime. We will continue present therapy. We will follow with you. Franky Lal MD cc: [id number] TT: 07/02/2016 12:16:19 Confirmation # [id number] Dictation # [id number] jn
[2016-07-02 14:59] LABS: HEMATOCRIT 31.9 % (42.0-52.0); MEAN CORPUSCULAR HEMOGLOBIN 30.7 pg (25.0-35.0); MEAN CORPUSCULAR HGB CONC 30.7 g/dl (31.0-37.0); MEAN PLATELET VOLUME 10.7 fl (7.0-11.0); RED CELL DISTRIBUTION WIDTH 13.6 % (11.5-14.5); WHITE BLOOD COUNT 6.1 10^3/ul (4.5-11.0)
[2016-07-02 15:12] LABS: ALB/GLOB RATIO 0.9 (1.1-1.8); BILIRUBIN,TOTAL 0.8 mg/dL (0.2-1.3); CALCIUM 11.6 mg/dL (8.4-10.5); MAGNESIUM 2.3 mg/dL (1.7-2.2); PHOSPHOROUS 2.5 mg/dL (2.5-4.5); POTASSIUM 4.2 mmol/L (3.6-5.0); TOTAL PROTEIN 7.2 g/dL (5.8-8.3)
--- NOTE | 2016-07-02 15:31 | PN ---
DATE: 07/02/2016 REFERRING PHYSICIAN: Dr. Luther. SUBJECTIVE: He is sitting up on the side of the bed, feels okay. Could not use BiPAP last night. A pparently had a vomiting episode after eating dinner and has some sore throat. Presently, there is n o nausea, no abdominal pain. No leg pain or leg swelling. OBJECTIVE: GENERAL: No acute distress. VITAL SIGNS: Temperature is 98, heart rate is 85, respiratory rate is 20, blood pressure 94/34, puls e ox 100% on nasal cannula. HEENT: Moist mucous membrane. No ulcer or oral thrush noted. NECK: Supple. No JVD. LUNGS: Has a fair airflow with decreased breath sounds at the bases. HEART: S1 and S2. ABDOMEN: Soft, nontender. No organomegaly. EXTREMITIES: There is no edema. NEUROLOGIC: Awake, alert, follows simple commands. MEDICATIONS: He is on Mucomyst 20% inhaled twice a day, Aggrenox 25/200 one tab twice a day, Ambien 5 mg at bedtime p.r.n., hydralazine 10 mg q.i.d. p.r.n., Brovana 15 mcg inhaled twice a day, Claritin 10 mg daily, Colace 100 mg twice a day, Coreg 3.125 mg twice a day, Cymbalta 40 mg at bedtime, DuoNe b q. 6 hours, Flonase 1 spray each nostril daily, insulin coverage, Levemir 10 units subQ q. 12 hours , Lipitor 10 mg daily, Lovaza 1 gram q.i.d., Percocet 5/325 one tab q. 6 hours p.r.n., Protonix 40 mg daily, Pulmicort inhaler twice a day, Sensipar 60 mg daily, Singulair 10 mg daily. LABORATORY DATA: Shows hemoglobin 9.8, hematocrit 31.9, WBC 6.1, platelet is 209. IMPRESSION AND PLAN: Chronic obstructive lung disease, obstructive sleep apnea syndrome, cardiomyopa thy, valvular heart disease, history of transaortic valve replacement, renal failure, dialysis depend ent, asthma, hypertension, diabetes, status post pleural effusion requiring thoracentesis, status pos t pneumothorax, presently stable. Last episode could be secondary to food related. Presently no fev er, no abdominal pain. No more nausea. We will continue bronchodilator. I spoke to nursing staff a nd requested to remind him to put his own BiPAP on tonight or may need nursing help. Gastric prophyl axis. SCD to lower extremities. Being followed by cardiology and nephrology. We will follow with jim garza. Franky Stahl MD cc: [id number] TT: 07/02/2016 15:30:21 Confirmation # [id number] Dictation # [id number] rn
--- NOTE | 2016-07-02 20:06 | CARD ---
APPROVED REPORT EKG Measurement Heart [id number] <Conclusion> Normal sinus rhythm Left ventricular hypertrophy with repolarization abnormality Prolonged QT Abnormal ECG
--- NOTE | 2016-07-03 04:09 | PN ---
DATE: 07/03/2016 SUBJECTIVE: The patient is a 50-year-old male. The patient was seen and examined on the bedside, lo oks quite tired, came from dialysis. Could not complete 4-hour dialysis, only 0.5 liters fluid was t aken out. Could not use BiPAP last night, apparently due to nausea episode after eating dinner and h as some sore throat, but today, no nausea, vomiting, or diarrhea. No hematuria or hematochezia. PHYSICAL EXAMINATION: VITAL SIGNS: Temperature 98, heart rate 85, respiratory rate 20, blood pressure 94/34, pulse oximetr y 100%. HEAD: Normocephalic, atraumatic. EYES: PERRLA, extraocular muscles intact. Nose is patent. NECK: Supple. No carotid bruit, JVD, or thyromegaly. CHEST: Bilaterally symmetrical. HEART: S1, S2 positive. LUNGS: Has fair airflow with few decreased breath sounds. HEART: S1, S2 positive. ABDOMEN: Soft, nontender. No organomegaly. EXTREMITIES: No edema, no cyanosis. NEUROLOGIC: The patient is sleepy, arousable. MEDICATIONS: Mucomyst, Aggrenox, Ambien, hydralazine, Brovana, Claritin, Colace, Coreg, Cymbalta, Du oNeb, Flonase, insulin coverage with Levemir, Lipitor, Lovaza, Percocet, Protonix, Pulmicort, Sensipa r, Singulair. LABORATORY DATA: Hemoglobin is 9.8, hematocrit 31.9, white blood cells 6.1, platelets 209. ASSESSMENT AND PLAN: The patient is a 50-year-old male with obstructive sleep apnea syndrome, cardio myopathy, valvular heart disease, history of transthoracic valve replacement and failure, dialysis de pendent, asthma, hypertension, diabetes mellitus, pleural effusion requiring thoracentesis, status po st pneumothorax, bilaterally blind, episodes of nausea and vomiting last night. No fever, no chills, no nausea, vomiting, diarrhea today, but could not tolerate dialysis for 4. hours today. Only he s tayed a few hours and only 0.5 liters fluid was taken off. Discussion done with the patient's daught er. Gastric prophylaxis, SCDs to lower extremities. Prism Inspector is on the case. We will follow up . Laure Luther MD cc: [id number] TT: 07/03/2016 04:09:12 Confirmation # [id number] Dictation # [id number] vn
[2016-07-03] MEDS: Pantoprazole 40 mg EC Tab PO SCH (05:30)
[2016-07-03] MEDS: Insulin Reg-LOW-Coverage SC SCH ×4 (06:31→22:35)
[2016-07-03] MEDS: Acetylcysteine 20% Inhal Soln (4ml) IH SCH ×2 (07:14→19:29)
[2016-07-03] MEDS: Budesonide 0.5 mg/2 ml Inhal Susp UD IH SCH ×2 (07:15→19:29)
[2016-07-03] MEDS: Albuterol-Ipratrop 3 mg / 0.5 (3 ml) UD IH PRN (07:15)
[2016-07-03] MEDS: Arformoterol 15 mcg/2 ml Inh Sol IH SCH ×2 (07:15→19:29)
--- NOTE | 2016-07-03 08:42 | PN ---
DATE: 07/03/2016 DATE: 07/03/2016 SUBJECTIVE: The patient has no complaints of any chest pain, no shortness of breath, no headaches or dizziness. PHYSICAL EXAMINATION: VITAL SIGNS: Temperature is 98.2. Pulse is 91. Blood pressure is 98/59, respirations 18. GENERAL: The patient is comfortable, in no acute distress. HEENT: Anicteric sclerae. Moist mucosa. NECK: No JVD or adenopathy. CARDIAC: S1/S2. No murmurs. No rubs. Regular. RESPIRATORY: Clear to auscultation bilaterally. No wheezes, rales, or rhonchi. Good air entry. ABDOMEN: Bowel sounds are positive, soft, nontender, and nondistended. EXTREMITIES: No edema. Has 1+ pulses. ASSESSMENT: 1. Left hydropneumothorax. 2. Left pleural effusion, status post thoracentesis. 3. End-stage renal disease on hemodialysis. 4. Diabetes type 2. 5. Chronic obstructive pulmonary disease. 6. Coronary artery disease. 7. Right eye blindness. 8. Diabetic retinopathy. 9. Left arm arteriovenous fistula. 10. Secondary hyperparathyroidism. 11. Status post transcatheter aortic valve replacement. PLAN: The patient continues to get dialysis. He only wanted 3 hours of dialysis yesterday. The pat ient could not tolerate 4 hours. He states he had about a half of a liter of fluid taken off. The p atient is currently on Ambien for sleep. He is receiving Brovana. He is on Colace for constipation. He is on Cymbalta. He is going to continue with his insulin for his diabetes. He is on Lipitor fo r dyslipidemia. He is on PhosLo for his secondary hyperparathyroidism. He is also on Sensipar for s econdary hyperparathyroidism. Law Gee MD cc: [id number] TT: 07/03/2016 08:42:20 Confirmation # [id number] Dictation # [id number] jn
[2016-07-03] MEDS: Aspirin-Dipyridamole 200-25 mg ER Cap PO SCH ×2 (10:04→17:15)
[2016-07-03] MEDS: Fluticasone Nasal 50 mcg/Spray NS SCH (10:04)
[2016-07-03] MEDS: Insulin Detemir 100 units/ml Vial (Levemir) SC SCH ×2 (10:05→22:35)
[2016-07-03] MEDS: Omega-3-Acid Ethyl Esters 1 GM Cap PO SCH ×4 (10:05→22:36)
--- NOTE | 2016-07-03 13:02 | PN ---
DATE: 07/03/2016 The patient is in room 303, bed 1. REASON FOR CONSULTATION: History of TAVR, admitted with recurrent pleural effusion. HISTORY OF PRESENT ILLNESS: The patient is a 50-year-old male, past medical history significant for end-stage renal failure on dialysis, known diabetic with complication of diabetes including diabetic nephropathy and diabetic retinopathy, blindness, history of severe aortic stenosis, status post TAVR. Admitted with recurrent pleural effusion, status post thoracentesis on the left side, which showed a bloody tap. The patient denies any chest pain or palpitation. Cardiac catheterization 05/02/2016 s howed nonobstructive coronary artery disease, normally functioning transcutaneous aortic valve, trace to mild aortic regurgitation. Echo on 05/02/2016 showed preserved LV function and it also showed mil d mitral stenosis with mitral area 2.4 cm squared and ejection fraction of 55%. PHYSICAL EXAMINATION: VITAL SIGNS: Blood pressure 130/63, respirations 18, pulse 92, temperature 98.3. HEAD: Normocephalic. EYES: Pupils normal. Conjunctivae slightly pale. NECK: JVP low. Carotid equal. LUNGS: No significant rales. CARDIOVASCULAR: S1 and S2, systolic murmur, no rub. ABDOMEN: Soft, no tenderness, no organomegaly. EXTREMITIES: No clubbing, no cyanosis. LABORATORY DATA: WBC 6.1, hemoglobin 9.8, hematocrit 31.9, platelet 209. Sodium 136, potassium 4.2, BUN 59, creatinine 6.4, random sugar 128, phosphorus 2.5, calcium 7.6, magnesium 2.3. AST, ALT norm al. Protein, albumin normal. DIAGNOSES: Recurrent pleural effusion, nonobstructive coronary artery disease, diabetes, hypertensio n, hyperlipidemia, end-stage renal failure on dialysis, status post thoracentesis, bloody tap, obstru ctive sleep apnea, history of chronic obstructive pulmonary disease. PLAN: To continue dialysis as per Dr. Law Gee and try to make him as much negative balance a s clinically possible, try to keep him out of congestive heart failure. In the meantime, patient trevor l continue present medication including Aggrenox 25/200 mg p.o. b.i.d., Coreg 3.125 b.i.d., DuoNeb castillo nd nebulizer therapy, insulin 10 units subQ q. 12 hours, Levemir insulin, Lipitor 10 mg daily, Singul air 10 mg daily. The patient is supposed to be using BiPAP as well. We will continue present therap y and we will follow with you. Franky Y Lukasz KING cc: [id number] TT: 07/03/2016 13:01:32 Confirmation # [id number] Dictation # [id number]
--- NOTE | 2016-07-03 16:14 | CON ---
DATE: 07/03/2016 HISTORY OF PRESENT ILLNESS: Shortly, the patient is a 50-year-old male with multiple medical problem s including left pleural effusion status post thoracocentesis. The patient also has end-stage renal disease, on hemodialysis; coronary artery disease, diabetic neuropathy, secondary hyperparathyroidism , status post ____ aortic valve replacement. The patient was seen at TCU. Medical team called consu lt for evaluation of depressive symptoms and possible medication adjustment. The patient was seen and examined. The patient presented to be alert, was observed listening to lady amin. At the same time, patient was tearful during the interview. The patient said that he is tired of being sick all the time and being in the hospital in and out. The patient reported sometimes he fee ls hopeless and helpless, at times he cannot sleep. The patient reports he did not tolerate Cymbalta well. The patient reported to see some things. When was asked what exactly he sees, he said he is seeing some people, but he is aware that this is not true. The patient ____ any type of hallucinatio ns. The patient reported feeling of hopelessness and helplessness and feeling depressed. The patien t reported that he feels anxious about his who is also having a lot of medical issues and has ch ronic back pain. The patient denied thoughts of harming himself or others. Denied intent or plan, b ut passively wished to be . At the same time, the patient has some hope for the future. The pat ient wants to get better. PAST PSYCHIATRIC HISTORY: The patient denied being admitted to the psychiatric inpatient unit. Eddie ed using drugs. Denied alcohol consumption. VITAL SIGNS: Seems to be stable. Pulse is 92, blood pressure 130/63. MEDICATIONS: Reviewed. ____, DuoNeb, Brovana, Lipitor, Pulmicort, PhosLo, Coreg, Sensipar, Aggrenox , Colace, Cymbalta 40 mg at the nighttime and will start tapering that down, Flonase, hydralazine, Le vemir, Humulin, Claritin. From this comic writer's perspective, the patient might benefit from Remeron 15 mg at the nighttime because it is not excreted through the kidneys and patient might sleep better. U sually it is a very well tolerated thing. The patient also is on Singulair, Lovaza, Percocet, Proton ix and Ambien as needed for insomnia. The patient was educated about risks, benefits and alternative s of the medication. The patient was in agreement with that. LABORATORY DATA: Reviewed. CHEMISTRY: Reviewed. REPORTS: Notes from medical team reviewed. MENTAL STATUS EXAMINATION: The patient presented to be alert. The patient is blind in the right eye . The patient had fair eye contact. Speech was low volume, underproductive. Mood described as depre ssed and hopeless. Affect was tearful, mood congruent. Thought process was coherent and goal direct ed. Thought content: The patient reported to have some visual hallucinations. The patient is seein g some people, but he knows that it is not true. Denied hearing voices. Denied paranoid ideations. The patient denied thoughts of killing himself or others, but patient wished to be . Insight an d judgment are improving. Impulses are well controlled. IMPRESSION: Rule out major depressive disorder, rule out mood disorder due to general medical condit ions. Rule out anxiety disorder due to general medical condition. Please see medical team note for more detailed information. The patient has left hydropneumothorax, left pleural effusion, status pos t thoracocentesis; end-stage renal disease; diabetes, type 2; chronic obstructive pulmonary disease, coronary artery disease, right eye blindness, diabetic neuropathy, left arm arteriovenous fistula; se condary hyperparathyroidism, status post transcatheter aortic valve replacement. PLAN: The patient was offered psychiatric admission after medical stabilization. The patient declin ed that offer. The patient is willing to be tapered down on Cymbalta because the patient's impressio n is that he started to see things after dose was increased. The patient is willing to be on Remeron , which was started. Supportive therapy was provided. The patient will be seen by this comic writer on da charles basis. Physical therapy. Case will be discussed with the medical team. Thank you very much for letting me to participate in the care of your patient. Should you have any q uestions, give me a call back. Berkley Berrios MD cc: [phone] TT: 07/03/2016 15:54:19 Confirmation # [id number] Dictation # [id number] mn
--- NOTE | 2016-07-04 02:40 | PN ---
DATE: 07/03/2016 REFERRING PHYSICIAN: Dr. Luther. SUBJECTIVE: He is sitting at the side of the bed. and daughter are at bedside. Night was unre markable. Apparently, no one placed BiPAP on him last night. No headaches, no rhinitis, no nausea, vomiting, diarrhea. No leg pain or leg swelling. OBJECTIVE: GENERAL: No acute distress. VITAL SIGNS: Temp is 98, heart rate is 84, respiratory rate is 20, blood pressure 142/84, pulse ox 9 8% on nasal cannula. HEENT: Moist mucous membranes. Crowded airway. Mallampati score is 4. NECK: Supple. No JVD. LUNGS: Have a fair airflow with few rhonchi. HEART: S1, S2. ABDOMEN: Soft, nontender. No organomegaly. EXTREMITIES: There is no edema. NEUROLOGIC: Awake, alert, follows simple command. MEDICATIONS: He is on Mucomyst 20% inhaled twice a day, Aggrenox 25/200 one tab twice a day, Ambien 5 mg at bedtime p.r.n., hydralazine 10 mg 4 times a day p.r.n., Brovana 15 mcg inhaled twice a day, C laritin 10 mg daily, Colace 100 mg twice a day, Coreg 3.125 mg twice a day, Cymbalta 20 mg at bedtime , DuoNeb every 6 hours p.r.n., Flonase 1 spray each nostril daily, insulin coverage, Levemir 10 units subQ every 12 hours, Lipitor 10 mg at bedtime. Lovaza 1 g IV 4 times a day, Protonix 40 mg daily, P ulmicort inhaled twice daily, Remeron 50 mg at bedtime, Sensipar 60 mg daily, Singulair 10 mg daily. LABORATORY DATA: Shows blood sugar 207. IMPRESSION AND PLAN: Chronic obstructive lung disease, obstructive sleep apnea syndrome, cardiomyopa thy, valvular heart disease, history of trans aortic valve replacement, renal failure, dialysis depen dent, asthma, hypertension, diabetes, status post pleural effusion requiring thoracentesis and pneumo thorax, which is stable for now. Probably has a mood disorder secondary to medical problems, seen by psychiatry, I had a long discussion with the patient and patient's family at bedside. All the quest ions answered. The patient is encouraged to use BiPAP because of CO2 retention, could be lethargic a nd forgetful in the morning. Appreciate psychiatry followup. Gastric prophylaxis. to lower e xtremity. Fall precaution. Continue therapy. I also spoke to different modalities of dialysis. Re ferred questions to Dr. Law Gee. Franky Stahl MD cc: [id number] TT: 07/04/2016 02:40:12 Confirmation # [id number] Dictation # [id number] mn
--- NOTE | 2016-07-04 02:45 | PN ---
DATE: 07/03/2016 SUBJECTIVE: The patient is a 50-year-old male. The patient was seen and examined at the bedside. H phani was lying down on the bed, does not look like he is in distress. No shortness of breath. No nause a, vomiting, or diarrhea, hematemesis or hematochezia. No swelling of the leg. No chest pain or pal pitation, no fever, no chills. PHYSICAL EXAMINATION: VITAL SIGNS: Temperature is 98.2, pulse 91, blood pressure 98/59, respiratory rate 18. HEENT: Head normocephalic, atraumatic. Eyes: PERRLA, extraocular muscles intact, conjunctivae pink , eyelids unremarkable. Nose: Patent. Mucous membranes: Moist. NECK: Supple. No carotid bruit, JVD, or thyromegaly. CHEST: Bilaterally symmetrical. HEART: S1, S2 positive. LUNGS: Clear to auscultation bilaterally. No wheezing, rales, or rhonchi. Good air entry. ABDOMEN: Soft. Bowel sounds present. No organomegaly. EXTREMITIES: No edema, no cyanosis. MEDICATIONS: Acetylcysteine, Aggrenox, Ambien, hydralazine, Brovana, Claritin, Colace, Coreg, Cymbal ta, DuoNeb, Flonase, insulin, Levemir, Lipitor, Lovaza, PhosLo, Protonix, Pulmicort, tramadol, Sensip ar, and Singulair. LABORATORY DATA: White blood cells 6.1, hemoglobin 9.2, hematocrit 31.9, platelets 209. Sodium 136, potassium 4.2, BUN 59, creatinine 6.4, glucoses 207, 128, 155, random glucose 147, calcium 11.6, mag nesium 2.3. ASSESSMENT AND PLAN: The patient is a 50-year-old male with anemia, renal insufficiency, getting hem odialysis 3 times a week, hypocalcemia, hyperglycemia, hypermagnesemia, history of left hydropneumoth orax, left pleural effusion, status post thoracentesis, Guerrero's disease, chronic obstructive pulmon razia disease, coronary artery disease, right eye blindness, diabetic retinopathy, diabetic nephropath y, the left arteriovenous fistula, secondary hyperparathyroidism, status post chronic aortic valve re placement, coronary artery disease, history of multiple times of pulmonary edema. The patient got di alysis yesterday, only 3.5 of water was taken out. The patient could not tolerate 4 hours. He state d he had about 0.5 liter of green liquid taken off. The patient is currently on Ambien for insomnia, Colace for constipation, and Cymbalta for depression. Psychiatrist is on the case. Lipitor for dy slipidemia. GI/DVT prophylaxis. Repeat labs. We will follow up. Laure Luther MD cc: [id number] TT: 07/04/2016 02:45:34 Confirmation # [id number] Dictation # [id number] vn
[2016-07-04] MEDS: Pantoprazole 40 mg EC Tab PO SCH (05:41)
[2016-07-04] MEDS: Insulin Reg-LOW-Coverage SC SCH ×4 (06:58→22:42)
[2016-07-04] MEDS: Arformoterol 15 mcg/2 ml Inh Sol IH SCH ×2 (07:11→20:15)
[2016-07-04] MEDS: Acetylcysteine 20% Inhal Soln (4ml) IH SCH ×2 (07:11→20:15)
[2016-07-04] MEDS: Albuterol-Ipratrop 3 mg / 0.5 (3 ml) UD IH PRN (07:11)
[2016-07-04] MEDS: Budesonide 0.5 mg/2 ml Inhal Susp UD IH SCH ×2 (07:11→20:15)
[2016-07-04] MEDS: Aspirin-Dipyridamole 200-25 mg ER Cap PO SCH ×2 (09:13→19:00)
[2016-07-04] MEDS: Fluticasone Nasal 50 mcg/Spray NS SCH (09:14)
[2016-07-04] MEDS: Omega-3-Acid Ethyl Esters 1 GM Cap PO SCH ×4 (09:16→22:41)
[2016-07-04] MEDS: Insulin Detemir 100 units/ml Vial (Levemir) SC SCH ×2 (10:49→22:42)
--- NOTE | 2016-07-04 10:57 | PN ---
DATE: 07/04/2016 Shortly, the patient is a 50-year-old male with multiple medical problems including left pleural effu bharati status post thoracocentesis. The patient also has end-stage renal disease on hemodialysis, farnaz nary artery disease, diabetic neuropathy, secondary hyperparathyroidism. The patient was initially seen in TCU yesterday for depressive symptoms, as well as for medication ad justment. The patient reported that he was feeling depressed because of the medical issues. Also re ported that he is seeing things, and the patient reported when Cymbalta was started he started to see people, and also when Cymbalta was increased dose the patient also started to see people. The patie nt does not want to continue Cymbalta at present moment. This sheet writer offered the patient to be on Remeron for insomnia and for depressive symptoms. The patie nt verbalized understanding, and willing to try that medication. First dose was given yesterday. Th e patient was followed up today. The patient said that he feels better. He slept better. Denied an y visual hallucinations. The patient reported that he likes that medication and he wants to continue on that. The patient is in the process of tapering down on Cymbalta. VITAL SIGNS: Stable. MEDICATIONS: Reviewed. No new changes, but Cymbalta was decreased to 20 mg daily, and Remeron will be increased to 30 mg at the nighttime. Most recent labs were done on 07/02. Chemistry also was done on 07/04. Blood glucose level is 163. Reports reviewed. MENTAL STATUS EXAMINATION: The patient presented to be alert and oriented, pleasant, cooperative. T he patient is legally blind on the right eye. The patient's speech was underproductive. Mood descri bed, "I feel a little better." Affect was constricted, but reactive today. Mood congruent. Thought process was coherent and goal directed. Thought Content: The patient denied visual, auditory, tact ile hallucinations today. Yesterday the patient had visual hallucinations. The patient denied thoug hts of harming himself or others. Denied intent or plan. Insight and judgment are improving. Impul ses are well controlled. IMPRESSION: Rule out mood disorder due to general medical condition. Rule out major depressive diso rder. Rule out psychosis due to medications. The patient has multiple medical issues. Please see above. PLAN: This sheet writer started to taper down Cymbalta. The patient tolerated that well. At present mome nt, the patient is on 20 mg. Over the weekend it has to be discontinued. Remeron was increased to 3 0 mg today for depression. Meanwhile, the patient is not in any acute distress. Could be followed u p with this sheet writer on Thursday. Cymbalta was discontinued today. If acute issues, please page Dr. Decker in for followup. Thank you very much for letting me participate in care of your patient. This sheet writer will follow up o n this patient on Thursday. Berkley Berrios MD cc: [id number] TT: 07/04/2016 10:56:43 Confirmation # [id number] Dictation # [id number]
--- NOTE | 2016-07-04 11:40 | PN ---
DATE: 07/04/2016 The patient is in room 303, bed 1. REASON FOR CONSULTATION AND FOLLOWUP: History of TAVR, admitted with recurrent pleural effusion. HISTORY OF PRESENT ILLNESS: The patient is a 50-year-old male with past medical history significant for end-stage renal failure on dialysis, known diabetic with complication of diabetes including diabe tic nephropathy, diabetic retinopathy, blindness, history of severe aortic stenosis, status post TAVR , admitted with recurrent pleural effusion status post thoracentesis on the left side which showed a bloody tap. The patient denies any chest pain or palpitation. Cardiac catheterization on ____ showe d nonobstructive coronary artery disease, normally functioning transcutaneous aortic wall, trace to m ild aortic regurgitation. Echo on 05/04/2016 showed preserved LV function, also showed mild mitral st enosis, mitral area 2.4 cm2, ejection fraction 55%. The patient also known to have COPD and obstruct pablo sleep apnea. PHYSICAL EXAMINATION: VITAL SIGNS: Blood pressure 140/70, respirations 18, pulse 84, temperature 98.6. HEAD: Normocephalic. EYES: Pupils normal. Conjunctivae slightly pale. NECK: JVP low. Carotid ____. THORAX: AP diameter normal. LUNGS: Few rhonchi. CARDIOVASCULAR: S1, S2, ejection systolic murmur grade II/, no rub. ABDOMEN: Soft, nontender, no organomegaly. EXTREMITIES: No clubbing, no cyanosis. LABORATORY DATA: WBC 6.1, hemoglobin 9.8, hematocrit 31.9, platelet 209. Sugar 148. Sodium 136, po tassium 4.2, BUN 59, creatinine 6.4, random glucose 147. AST, ALT normal. Total protein 7.2, albumi n 3.4. DIAGNOSES: Recurrent pleural effusion, nonobstructive coronary artery disease, diabetes, hypertensio n, hyperlipidemia, end-stage renal failure on dialysis, status post thoracentesis which was a bloody tap, obstructive sleep apnea, history of chronic obstructive pulmonary disease. PLAN: To continue dialysis. Dr. Stahl is following pulmonary and stressed to the patient to use Bi PAP. We will continue Aggrenox 25/200 mg 1 b.i.d., Coreg 3.125 p.o. b.i.d., Lipitor 10 mg daily, ins ulin Levemir 10 units subQ q. 12 hours, Protonix 40 mg daily, Singulair 10 mg at bedtime. Will mariam nue to follow closely with you. Franky Lal MD cc: [id number] TT: 07/04/2016 11:40:20 Confirmation # [id number] Dictation # [id number] jn
--- NOTE | 2016-07-04 17:39 | PN ---
DATE: 07/04/2016 REFERRING PHYSICIAN: Dr. Luther. SUBJECTIVE: He is lying in the dialysis bed on supplemental oxygen. Feels okay. Night was unremark able. No vomiting, no chest pain, no hematuria, no diarrhea, no leg swelling reported. OBJECTIVE: GENERAL: In no acute distress. VITAL SIGNS: Temp is 98, heart rate is 84, respiratory rate is 18, blood pressure 140/70, pulse ox 9 9% on 3 liters nasal cannula. HEENT: Moist mucous membranes. Crowded airway. NECK: Supple. No JVD. LUNGS: Have fair airflow with a few rhonchi. Decreased breath sounds at the bases though. HEART: S1, S2. ABDOMEN: Soft, nontender. No organomegaly. EXTREMITIES: There is no edema. NEUROLOGIC: Awake, alert, follows simple command. MEDICATIONS: He is on Mucomyst 20% inhaled q. 4 hours, Aggrenox is 25/200 one tab twice a day, Ambie n 5 mg at bedtime p.r.n., hydralazine 10 mg q.i.d. p.r.n., Brovana 15 mcg inhaled twice a day, Clarit in 10 mg daily, Colace 100 mg twice a day, Coreg 3.125 mg twice a day, DuoNeb q. 6 hours p.r.n., Flon ase 1 spray each nostril daily, insulin coverage, Levemir 10 units subQ q. 12 hours, Lipitor 10 mg da charles, Lovaza 1 gram q.i.d., Protonix 40 mg daily, Pulmicort inhaled twice a daily, Remeron 30 mg at be dtime, Sensipar 60 mg daily, Singulair 10 mg daily. LABORATORY DATA: Reviewed. Noted blood sugar this morning is 148. IMPRESSION AND PLAN: Chronic obstructive lung disease, obstructive sleep apnea syndrome, cardiomyopa thy, valvular heart disease, history of transaortic valve replacement; renal failure, dialysis depend ent; asthma, hypertension, diabetes, status post thoracentesis and a pneumothorax which is stable now . From pulmonary point of view, he is doing okay. Continue supplemental oxygen and bronchodilator. Keep head elevated at 45 degrees. Encourage BiPAP use. Gastric prophylaxis. SCD to lower extremit y. Nephrology and cardiology followup. Thank you, and will follow with you. Franky Stahl MD cc: [facility] TT: 07/04/2016 17:39:12 Confirmation # [id number] Dictation # [id number] mn
--- NOTE | 2016-07-04 18:54 | PN ---
DATE: 07/04/2016 SUBJECTIVE: The patient seen and examined on the bedside, looks comfortable. No nausea, vomiting or diarrhea. No hematuria or hematochezia. No swelling of the leg. No chest pain, no palpitation. No fever, no chills. PHYSICAL EXAMINATION: VITAL SIGNS: Temperature 98, heart rate 84, respiratory rate 18, blood pressure 140/70, pulse oximeter 99% on 3 liters nasal cannula. HEENT: Head normocephalic, atraumatic. Eyes: PERRLA. Extraocular movements intact. Conjunctivae are clear. Eyelids unremarkable. Nose patent. NECK: Supple. No carotid bruit, JVD or thyromegaly. CHEST: Bilaterally symmetrical. HEART: S1, S2 positive. LUNGS: Clear to auscultation. ABDOMEN: Soft. Bowel sounds positive. No organomegaly. EXTREMITIES: No edema, no cyanosis. MEDICATIONS: Mucomyst, Aggrenox, Ambien at bedtime, hydralazine, Brovana, Claritin, Colace, Coreg, DuoNeb, Flonase, Levemir, Lipitor, Lovaza, Protonix. LABORATORY DATA: We do not have recent labs today, but I reviewed old labs. ASSESSMENT AND PLAN: The patient is a 50-year-old male with chronic obstructive lung disease, obstructive sleep apnea syndrome, diabetes mellitus, cardiomyopathy, valvular heart disease, history of transaortic valve replacement , renal failure, dialysis dependent, asthma, hypertension, depression, status post thoracentesis and pneumothorax which is stable now. Neurology consult called. Continue supplemental oxygen and physical therapy and dialysis . Repeat labs. We will follow. Laure Luther MD cc: [id number] TT: 07/04/2016 18:54:16 Confirmation # [id number] Dictation # [id number] madhu MENESES
--- NOTE | 2016-07-04 19:12 | CON ---
DATE: 07/04/2016 CHIEF COMPLAINT: Confusion. HISTORY OF PRESENT ILLNESS: This is a 50-year-old man with a past medical history of renal insuffici ency on hemodialysis, obstructive pulmonary disease, sleep apnea syndrome, recent recurrent pleural e ffusion bilaterally multiple times with thoracocentesis, history of cardiomyopathy and valvular heart disease requiring TAVR, who initially was admitted to the hospital with shortness of breath and fati temi and was medically stabilized and now on TCU for deconditioned state. I was consulted in regards to confusion. His confusion is likely secondary to mild CO2 retention superimposed on medication eff ect of likely Cymbalta, which has been stopped and is going to be tapered by psychiatry. At this alicia e he is following simple commands and moving all extremities. PAST MEDICAL HISTORY: Chronic obstructive pulmonary disease, obstructive sleep apnea syndrome, cardi omyopathy, valvular heart disease, history of transaortic valve replacement, renal failure, dialysis dependent, asthma, hypertension, diabetes, status post thoracocentesis and pneumothorax, which is sta ble now. REVIEW OF SYSTEMS: A 14-point review of systems is negative except for the HPI. ALLERGIES: IODINE CONTRAST MEDIA SHELLFISH DERIVED AND PENICILLINS. FAMILY HISTORY: Noncontributory. HOME MEDICATIONS: Reviewed via nurses' reconciliation sheet. SOCIAL HISTORY: No illicit drug use, smoking, or ETOH abuse at this time. PHYSICAL EXAMINATION: VITAL SIGNS: Temperature 98.6, pulse rate of 84, blood pressure 139/84, respiratory rate of 18, oxyg en saturation 99% on room air. GENERAL: The patient is sitting up in bed in no acute distress, undergoing dialysis. HEENT: Atraumatic, normocephalic. PERRLA. Extraocular muscles intact. NECK: Supple, no JVD, no adenopathy noted. LUNGS: Had decreased breath sounds at the bases. HEART: S1, S2, normal rate and rhythm. No murmurs, rubs, or gallops. ABDOMEN: Soft, nontender, nondistended. Bowel sounds are present. EXTREMITIES: No clubbing, no cyanosis. Peripheral pulses 2+ felt bilaterally. NEUROLOGIC: The patient is alert and oriented to person and place, follows simple commands. Speech is fluent without any errors. Cranial nerves II through XII are intact. MOTOR: Slight increased tone throughout. Moves all extremities equally. Toes are downgoing bilater ally. SENSORY: Decreased light touch and pinprick up to the calves bilaterally. Decreased vibration of th e toes. DTRs are 1+ throughout and absent at the ankles. COORDINATION: [id number]-[id number] intact. GAIT: Is deferred for now. LABORATORY DATA: Glucose is 148. ASSESSMENT AND PLAN: This is a 50-year-old man with a history of chronic obstructive pulmonary disea se, sleep apnea syndrome, cardiomyopathy, valvular heart disease, history of transaortic valve replac ement, renal failure, dialysis dependent, asthma, hypertension, diabetes type 2, status post thoracoc entesis and pneumothorax, which is stable now, and I was called in for confusion. His confusion is l ikely secondary to a transient confusional state from possibly the use of Cymbalta, which should be t apered down by psychiatry since the patient has underlying depression from his underlying chronic med ical conditions. In addition, it is likely from CO2 retention from his obstructive sleep apnea histo ry causing a transient confusional state; therefore, encouraged to use BiPAP. At this time, continue with current present medical management for his underlying medical issues, SCDs to his lower extremi ty and follow up with nephrology and cardiology. Thank you for this consult. No further neurological workup needed at this time. Brodie Cobian MD cc: [id number] TT: 07/04/2016 19:12:22 Confirmation # [id number] Dictation # [id number] genaro
[2016-07-04] MEDS ORDERED: Pantoprazole 40 mg EC Tab PO STA (22:18)
--- NOTE | 2016-07-04 22:18 | CP.PCM.PN ---
Subjective - Date & Time of Evaluation Date of Evaluation: 07/04/16 Time of Evaluation: 22:18 - Subjective Subjective: Patient was seen at bedside for complaint of burning in throat, cough. Has no other complaints. Denies chest pain, sob, nausea, sweating , palpitations. Medical record was reviewed. This 50 year old male was admitted sob, weakness,CHF. Has PMH of HTN,DM,COPD,CKD on HD, CAD,CMP,pleural effusion,pneumothorax, HLD, ELAN, cervical radiculopathy, Ramsey's esophagitis, anemia, Marielena-Arias tear, retinopathy, neuropathy , GERD, right eye blindness, GI bleeding, AV shunt surgery, right eye surgery,TAVR. Objective - Vital Signs/Intake and Output Vital Signs (last 24 hours): Temp Pulse Resp BP Pulse Ox 98.5 F 90 22 104/50 L 94 L 07/04/16 22:13 07/04/16 22:13 07/04/16 22:13 07/04/16 22:13 07/04/16 22:13 - Medications Medications: Current Medications Acetylcysteine (Acetylcysteine 20%) 4 ml IH BIDRESP DYLLAN Last Admin: 07/04/16 20:15 Dose: 4 ml Albuterol/Ipratropium (Duoneb 3 Mg/0.5 Mg (3 Ml) Ud) 3 ml IH [id number] PRN; Protocol PRN Reason: Wheezing Last Admin: 07/04/16 07:11 Dose: 3 ml Arformoterol Tartrate (Brovana) 15 mcg IH [id number] DYLLAN Last Admin: 07/04/16 20:15 Dose: 15 mcg Atorvastatin Calcium (Lipitor) 10 mg PO HS DYLLAN PRN Reason: Protocol Last Admin: 07/03/16 22:36 Dose: 10 mg Budesonide (Pulmicort Respules) 0.5 mg IH [id number] DYLLAN Last Admin: 07/04/16 20:15 Dose: 0.5 mg Calcium Acetate (Phoslo) 1,334 mg PO WM DYLLAN PRN Reason: Protocol Last Admin: 07/04/16 18:00 Dose: 1,334 mg Carvedilol (Coreg) 3.125 mg PO 0800,1700 DYLLAN PRN Reason: Protocol Last Admin: 07/04/16 19:00 Dose: Not Given Cinacalcet (Sensipar) 60 mg PO 0800 DYLLAN PRN Reason: Protocol Last Admin: 07/04/16 08:44 Dose: 60 mg Dipyridamole/Aspirin (Aggrenox 25-200 Mg) 1 ea PO BID DYLLAN PRN Reason: Protocol Last Admin: 07/04/16 19:00 Dose: 1 ea Docusate Sodium (Colace) 100 mg PO BID DYLLAN PRN Reason: Protocol Last Admin: 07/04/16 19:00 Dose: 100 mg Fluticasone Propionate (Flonase) 1 actuation NS DAILY DYLLAN PRN Reason: Protocol Last Admin: 07/04/16 09:14 Dose: 1 spr Hydralazine HCl (Apresoline) 10 mg PO QID PRN; Protocol PRN Reason: Other Insulin Detemir (Levemir) 10 unit SC Q12H DYLLAN PRN Reason: Protocol Last Admin: 07/04/16 10:49 Dose: 10 unit Insulin Human Regular (Humulin R Low) 0 units SC ACHS DYLLAN PRN Reason: Protocol Last Admin: 07/04/16 18:00 Dose: Not Given Loratadine (Claritin) 10 mg PO HS DYLLAN PRN Reason: Protocol Last Admin: 07/03/16 22:35 Dose: Not Given Mirtazapine (Remeron) 30 mg PO HS DYLLAN Montelukast Sodium (Singulair) 10 mg PO HS DYLLAN PRN Reason: Protocol Last Admin: 07/03/16 22:36 Dose: Not Given [id number] Ethyl Esters (Lovaza) 1 gm PO QID DYLLAN PRN Reason: Protocol Last Admin: 07/04/16 19:00 Dose: 1 gm Pantoprazole Sodium (Protonix Ec Tab) 40 mg PO 0630 DYLLAN PRN Reason: Protocol Last Admin: 07/04/16 05:41 Dose: 40 mg Zolpidem Tartrate (Ambien) 5 mg PO HS PRN; Protocol PRN Reason: Insomnia Last Admin: 07/01/16 00:09 Dose: 5 mg - Labs Labs: 07/02/16 14:15 07/02/16 14:15 - Constitutional Appears: Well, No Acute Distress - Head Exam Head Exam: ATRAUMATIC, NORMAL INSPECTION, NORMOCEPHALIC - Eye Exam Additional comments: Right eye blindness. - ENT Exam ENT Exam: Normal External Ear Exam - Neck Exam Neck Exam: Normal Inspection - Respiratory Exam Respiratory Exam: Clear to Ausculation Bilateral, NORMAL BREATHING PATTERN - Cardiovascular Exam Cardiovascular Exam: REGULAR RHYTHM. absent: JVD - GI/Abdominal Exam GI & Abdominal Exam: absent: Distended - Rectal Exam Rectal Exam: Deferred - Back Exam Back Exam: NORMAL INSPECTION - Neurological Exam Neurological Exam: Alert, Oriented x3 - Psychiatric Exam Psychiatric exam: Normal Affect, Normal Mood - Skin Skin Exam: Normal Color Assessment and Plan - Assessment and Plan (Free Text) Assessment: A/P:Burning in throat . Cough. Hx Ramsey's esophagus HTN. CAD. ESRD. Protonix 40 mg po now. Robitussin as ordered.
[2016-07-04] MEDS: guaiFENesin 100 mg/5 ml Syrup UD PO PRN (23:00)
[2016-07-05] MEDS: Pantoprazole 40 mg EC Tab PO SCH (05:50)
[2016-07-05] MEDS: Insulin Reg-LOW-Coverage SC SCH ×4 (07:00→22:21)
[2016-07-05] MEDS: Arformoterol 15 mcg/2 ml Inh Sol IH SCH ×2 (07:11→20:58)
[2016-07-05] MEDS: Budesonide 0.5 mg/2 ml Inhal Susp UD IH SCH ×2 (07:11→20:58)
[2016-07-05] MEDS: Acetylcysteine 20% Inhal Soln (4ml) IH SCH ×2 (07:11→20:58)
[2016-07-05] MEDS: Insulin Detemir 100 units/ml Vial (Levemir) SC SCH ×2 (10:29→22:21)
[2016-07-05] MEDS: Fluticasone Nasal 50 mcg/Spray NS SCH (10:30)
[2016-07-05] MEDS: Aspirin-Dipyridamole 200-25 mg ER Cap PO SCH ×2 (10:30→17:35)
[2016-07-05] MEDS: Omega-3-Acid Ethyl Esters 1 GM Cap PO SCH ×4 (10:31→22:21)
[2016-07-05] MEDS: Albuterol-Ipratrop 3 mg / 0.5 (3 ml) UD IH PRN (11:32)
--- NOTE | 2016-07-05 15:51 | PN ---
DATE: 07/05/2016 Dr. Marin covering for Dr. Laure Luther. SUBJECTIVE: The patient is sitting out of bed in a chair. He complains of some mild shortness of br eath, no chest pain, slight cough. PHYSICAL EXAMINATION: VITAL SIGNS: Blood pressure 120/53, temperature 98.6, pulse 94, respiratory rate 20. LUNGS: Show a few crackles at the bases. HEART: Regular rate and rhythm. ABDOMEN: Soft, nontender, bowel sounds are normoactive. EXTREMITIES: Without cyanosis, clubbing, or edema. NEUROLOGIC: The patient is awake and responsive without focal sensory or motor deficits. SKIN: Warm and dry. IMPRESSION: 1. Chronic obstructive pulmonary disease. 2. Type 2 diabetes mellitus. 3. Cardiomyopathy, valvular heart disease and congestive heart failure, status post valve replacemen t surgery. 4. End-stage renal disease. 5. Hypertension. PLAN: Continue to monitor the patient closely, neurology followup with Dr. Cobian. Pulmonary follow up with Dr. Stahl and cardiology followup with Dr. Lal. Continue subacute rehabilitation and soc ial work for discharge planning. Hernando Marin JD, MD cc: [id number] TT: 07/05/2016 15:50:09 Confirmation # [id number] Dictation # [id number] jn
--- NOTE | 2016-07-05 17:33 | PN ---
DATE: 07/05/2016 REFERRING PHYSICIAN: Dr. Luther. SUBJECTIVE: He is lying in the reclining chair, complaining about shortness of breath. Yesterday at dialysis only could take out 2 liters and dialysis was stopped because of hypotension. Denies any c ough. Did not use the BiPAP last night. No nausea, no vomiting, no diarrhea, no leg pain or leg swe lling. OBJECTIVE: GENERAL: No acute distress. VITAL SIGNS: Temperature is 98, heart rate is 94, respiratory rate is 20, blood pressure 120/63, pul se ox 94% on nasal cannula. HEENT: Moist mucous membrane. Crowded airway. NECK: Supple. No JVD. LUNGS: Has decreased breath sounds at the bases, prolonged expiratory phase. HEART: S1 and S2. ABDOMEN: Soft, nontender. No organomegaly. EXTREMITIES: There is no edema. NEUROLOGIC: Awake, alert, follows simple commands. MEDICATIONS: He is on Mucomyst 20% inhaled twice a day, Aggrenox 25/200 one tab twice a day, Ambien 5 mg at bedtime p.r.n., hydralazine 10 mg q.i.d. p.r.n., Brovana 15 mcg inhaled twice a day, Claritin 10 mg daily, Colace 100 mg twice a day, Coreg 3.125 mg q. 12 hours, DuoNeb q. 6 hours p.r.n., Flonas e 1 spray each nostril daily. LABORATORY DATA: Shows blood sugar this morning 181. IMPRESSION AND PLAN: Chronic obstructive lung disease, obstructive sleep apnea syndrome, cardiomyopa thy, valvular heart disease, history of ____ aortic valve replacement, renal failure, dialysis depend ent, asthma, hypertension, diabetes, status post thoracentesis, late ____ pneumothoraces. He is stab le now. The patient continued complaining about shortness of breath today. No obvious distress clin ically take off 2 liters of fluid yesterday. Pulmonary point of view, I will continue DuoNeb, mariam nue Flonase, continue Singulair. I will add prednisone 20 mg daily and see if there is any asthma co mponent making this shortness of breath which we can improve. We will get another chest x-ray. Foll ow up labs in the morning. Thank you and will follow with you. Franky Stahl MD cc: [id number] TT: 07/05/2016 17:31:58 Confirmation # [id number] Dictation # [id number] jn
[2016-07-05] MEDS: guaiFENesin 100 mg/5 ml Syrup UD PO PRN (17:40)
[2016-07-06] MEDS: Pantoprazole 40 mg EC Tab PO SCH (05:39)
[2016-07-06] MEDS: Insulin Reg-LOW-Coverage SC SCH ×4 (07:33→22:34)
[2016-07-06] MEDS: Arformoterol 15 mcg/2 ml Inh Sol IH SCH ×2 (08:22→19:40)
[2016-07-06] MEDS: Acetylcysteine 20% Inhal Soln (4ml) IH SCH ×2 (08:22→19:40)
[2016-07-06] MEDS: Albuterol-Ipratrop 3 mg / 0.5 (3 ml) UD IH PRN (08:22)
[2016-07-06] MEDS: Budesonide 0.5 mg/2 ml Inhal Susp UD IH SCH ×2 (08:22→19:39)
[2016-07-06] MEDS: Fluticasone Nasal 50 mcg/Spray NS SCH (10:52)
[2016-07-06] MEDS: Insulin Detemir 100 units/ml Vial (Levemir) SC SCH ×2 (10:53→22:34)
[2016-07-06] MEDS: Aspirin-Dipyridamole 200-25 mg ER Cap PO SCH ×2 (10:53→17:31)
[2016-07-06] MEDS: Omega-3-Acid Ethyl Esters 1 GM Cap PO SCH ×4 (10:53→22:40)
--- NOTE | 2016-07-06 12:11 | RAD ---
HISTORY: effusion COMPARISON: 06/30/2016 TECHNIQUE: Chest PA and lateral FINDINGS: LUNGS: There is no change in bilateral lower lobe airspace disease. PLEURA: There is no significant interval change in moderate left and small right loculated pleural effusions. CARDIOVASCULAR: The heart remains enlarged. OSSEOUS STRUCTURES: No significant abnormalities. VISUALIZED UPPER ABDOMEN: Normal. OTHER FINDINGS: None. IMPRESSION: No significant interval change in bilateral lower lobe pneumonia and loculated moderate left and small right pleural effusions. Persistent cardiomegaly.
--- NOTE | 2016-07-06 15:08 | PN ---
DATE: 07/06/[address] Marin covering for Dr. Laure Luther. SUBJECTIVE: The patient is sitting out of bed, in a chair, in no acute distress. There is no chest pain. There is some mild dyspnea, slight cough. PHYSICAL EXAMINATION: VITAL SIGNS: Blood pressure 131/67, temperature 98, pulse 96, respiratory rate 20. LUNGS: Show a few crackles at the bases. HEART: Regular rate and rhythm. ABDOMEN: Soft, nontender, bowel sounds are normoactive. EXTREMITIES: Without cyanosis, clubbing, or edema. NEUROLOGIC: The patient is awake and responsive without focal, sensory or motor deficits. SKIN: Warm and dry. IMPRESSION: 1. Chronic obstructive pulmonary disease. 2. Type 2 diabetes mellitus. 3. Cardiomyopathy with valvular heart disease and congestive heart failure, status post valve replac ement surgery. 4. End-stage renal disease. 5. Hypertension. PLAN: Continue subacute rehabilitation on the transitional care unit. Neurology followup with Dr. Benton campo, pulmonary followup with Dr. Stahl and cardiology followup with Dr. Lal/Dr. Archer. The jesenia ent is to continue renal dialysis in a.m. Social work for discharge planning. Dr. Luther to resume care of patient in a.. Hernando Marin JD, MD cc: [id number] TT: 07/06/2016 15:07:03 Confirmation # [id number] Dictation # [id number]
--- NOTE | 2016-07-06 21:46 | PN ---
DATE: 07/06/2016 REFERRING PHYSICIAN: Dr. Luther. SUBJECTIVE: He is lying in the reclining chair, sleepy, arousable, could not use BiPAP, apparently d id not work last night. Still has shortness of breath. No cough, no sputum production. No abdomina l pain. No leg pain or leg swelling. OBJECTIVE: GENERAL: In no acute distress. VITAL SIGNS: Temperature is 98, heart rate is 86, respiratory rate is 20, blood pressure 152/91, pul se ox 95% on nasal cannula. HEENT: Moist mucous membranes. Crowded airway. NECK: Supple, no JVD. LUNGS: Decreased breath sounds at the bases. HEART: S1, S2. ABDOMEN: Soft, nontender. No organomegaly. EXTREMITIES: There is no edema. NEUROLOGIC: Sleepy, arousable, follows simple commands. MEDICATIONS: He is on Mucomyst 4 mL inhaled twice a day, Aggrenox 25/200 one tab twice a day, Ambien 5 mg at bedtime p.r.n., hydralazine 10 mg q.i.d. p.r.n., Brovana 15 mcg inhaled twice a day, Clariti n 10 mg daily, Colace 100 mg twice a day, Coreg 3.125 mg twice a day, DuoNeb q.6 hours p.r.n., Flonas e 1 spray each nostril daily, insulin coverage, Levemir 10 units subQ q.12 hours, Lipitor 10 mg daily , Lovaza 1 gram p.o. q.i.d., PhosLo with meals, prednisone 20 mg daily, Protonix 40 mg daily, Pulmico rt inhaled twice a daily, Remeron 30 mg at bedtime, Sensipar 60 mg at bedtime, Singulair 10 mg daily. LABORATORY DATA: Reviewed and noted. Blood sugar this morning was 252. Chest x-ray done today show s no significant interval changes bilateral lower lobe atelectasis and moderate left and small right pleural effusion. IMPRESSION AND PLAN: Chronic obstructive lung disease, obstructive sleep apnea syndrome, cardiomyopa thy, valvular heart disease, TAVR, renal failure, dialysis dependent, asthma, hypertension, eulalio betes, status post thoracentesis, had a hydropneumothorax with bloody effusion. The patient's CPAP m achine was readjusted and I placed him on nasal mask with CPAP and also informed the nursing staff to keep a close eye on the patient. Encouraged the patient to use CPAP while sleeping. He is on 2 sle eping medications. Will discontinue Remeron, which is a long-acting and he feels sleepy during the d aytime. Continue Ambien for now. Continue p.o. and inhaled bronchodilator. Prednisone was added ye sterday in the effort to see if it is the asthma related to some shortness of breath. Incentive spir ometer. Continue therapy. Thank you and will follow with you. Franky Stahl MD cc: [id number] TT: 07/06/2016 21:45:51 Confirmation # [id number] Dictation # [id number] dn
[2016-07-07] MEDS: Pantoprazole 40 mg EC Tab PO SCH (07:08)
[2016-07-07] MEDS: Insulin Reg-LOW-Coverage SC SCH ×4 (07:08→21:51)
[2016-07-07] MEDS: Acetylcysteine 20% Inhal Soln (4ml) IH SCH ×2 (07:21→20:51)
[2016-07-07] MEDS: Arformoterol 15 mcg/2 ml Inh Sol IH SCH ×2 (07:22→20:51)
[2016-07-07] MEDS: Budesonide 0.5 mg/2 ml Inhal Susp UD IH SCH ×2 (07:22→20:51)
[2016-07-07] MEDS: Albuterol-Ipratrop 3 mg / 0.5 (3 ml) UD IH PRN (07:22)
--- NOTE | 2016-07-07 08:25 | PN ---
DATE: 07/07/2016 SUBJECTIVE: The patient has no complaints of any chest pain, no shortness of breath, no headaches or dizziness. He has been eating okay. PHYSICAL EXAMINATION: VITAL SIGNS: Temperature is 98.1, pulse of 86, blood pressure 152/91, respirations 15. GENERAL: The patient comfortable, in no acute distress. HEENT: Anicteric sclerae. Moist mucosa. NECK: No JVD or adenopathy. CARDIAC: S1/S2. No murmurs. No rubs. Regular. RESPIRATORY: Clear to auscultation bilaterally. No wheezes, rales, or rhonchi. Good air entry. ABDOMEN: Bowel sounds are positive, soft, nontender, and nondistended. EXTREMITIES: No edema. Has 1+ pulses. Chest x-ray shows no significant interval change in the bilateral lower lobe pneumonia and loculated moderate left and small right pleural effusion. ASSESSMENT: 1. End-stage renal disease, on hemodialysis. 2. Left pleural effusion, status post thoracentesis. 3. Left hydropneumothorax. ASSESSMENT: 1. Loculated left pleural effusion. 2. Diabetes, type 2. 3. Chronic obstructive pulmonary disease. 4. Coronary artery disease. 5. Right eye blindness. 6. Diabetic retinopathy. 7. Left arm arteriovenous fistula. 8. Secondary hyperparathyroidism. 9. Status post transcatheter aortic valve replacement. PLAN: The patient is getting physical therapy. He is going to continue his dialysis. The patient h ad cytology for his pleural effusion; it was negative for malignant cells and it was a bloody tap I b elieve. The patient is going to continue with formoterol. He is on Colace for constipation. He is on carvedilol low dose. He is on Lipitor for dyslipidemia. He is going to continue his cinacalcet f or his secondary hyperparathyroidism as well as PhosLo. Law Gee MD cc: [id number] TT: 07/07/2016 08:09:21 Confirmation # [id number] Dictation # [id number] mn
[2016-07-07] MEDS: Aspirin-Dipyridamole 200-25 mg ER Cap PO SCH ×2 (09:20→18:13)
[2016-07-07] MEDS: Omega-3-Acid Ethyl Esters 1 GM Cap PO SCH ×3 (09:20→21:50)
[2016-07-07] MEDS: Fluticasone Nasal 50 mcg/Spray NS SCH (09:21)
[2016-07-07] MEDS: Insulin Detemir 100 units/ml Vial (Levemir) SC SCH (10:51)
[2016-07-07] MEDS ORDERED: Dextrose 50% SYRINGE Inj (50 ml) ONE (11:53)
[2016-07-07 15:35] LABS: ADD MANUAL DIFF? NO
[2016-07-07 15:40] LABS: BASO # 0.01 K/mm3 (0.0-2.0); BASO % 0.1 % (0.0-3.0); EOS # 0.1 (0.0-0.7); EOS % 0.5 % (1.5-5.0); GRAN # 8.79 (1.4-6.5); GRAN % 92.9 % (50.0-68.0); HEMATOCRIT 28.7 % (42.0-52.0); LYMPH # 0.3 (1.2-3.4); LYMPH % 2.6 % (22.0-35.0); MEAN CELL VOLUME 96.6 fL (80.0-105.0); MEAN CORPUSCULAR HEMOGLOBIN 31.3 pg (25.0-35.0); MEAN CORPUSCULAR HGB CONC 32.4 g/dl (31.0-37.0); MEAN PLATELET VOLUME 9.9 fl (7.0-11.0); MONO # 0.4 (0.1-0.6); MONO % 3.9 % (1.0-6.0); PLATELET COUNT 234 10^3/uL (120.0-450.0); RED CELL DISTRIBUTION WIDTH 13.6 % (11.5-14.5); WHITE BLOOD COUNT 9.5 10^3/ul (4.5-11.0)
[2016-07-07 15:58] LABS: ALB/GLOB RATIO 0.8 (1.1-1.8); BILIRUBIN,TOTAL 0.7 mg/dL (0.2-1.3); CALCIUM 10.1 mg/dL (8.4-10.5); MAGNESIUM 2.1 mg/dL (1.7-2.2); POTASSIUM 3.2 mmol/L (3.6-5.0)
--- NOTE | 2016-07-07 16:07 | PN ---
DATE: 07/07/2016 Shortly, the patient is a 50-year-old male with multiple medical problems including renal insufficien cy, the patient is on hemodialysis; COPD, sleep apnea, multiple times of thoracocentesis, history of cardiomyopathy and was admitted initially for shortness of breath. The patient is on TCU at the pres ent moment. This sheet writer is following patient up for medication adjustment. The patient verbalized a fter Cymbalta was started he had visual hallucinations. The patient was successfully weaned off from the Cymbalta. Remeron at the nighttime was started for insomnia and for depressive symptoms. The patient was followed up today at the morning time. The patient presented to be alert. As per [facility] staff report, the patient has episode of hypoglycemia, but presently the patient feeling all ri ght. The patient was seen and examined. The patient reported that he feels better. Denied any visu al hallucinations. The patient reported that his mood is improving. The patient is willing to mariam nue Remeron for now. The patient denied thoughts of harming himself or others, denied any hallucinat ions. The patient participates in treatment plan. No behavioral issues. VITAL SIGNS: Stable. Temperature 98.7, pulse is 92, blood pressure is 143/79, respirations 20, oxyg en saturation is 99. MEDICATIONS: Reviewed. The patient is acetylcysteine, DuoNeb, Brovana, Lipitor, Pulmicort, PhosLo, Coreg, Sensipar, Aggrenox, Colace, Flonase, Robitussin, hydralazine, Levemir, Claritin, Remeron 30 mg at the nighttime, Singulair, Lovaza, Protonix and prednisone. LABORATORY DATA: Reviewed. Most recent was from 07/02/2016. MENTAL STATUS EXAMINATION: The patient presented to be alert and oriented, pleasant, cooperative. S peech was somewhat underproductive, low volume. Mood described, "I feel better." Affect was reactiv e, mood congruent. Thought process was coherent and goal directed. Thought content: The patient de nied visual, auditory, or tactile hallucinations. Denied paranoid ideations. The patient does not a ppear to be psychotic. The patient denied thoughts of harming himself or others, denied intent or pl an. Insight and judgment are improving. Impulses are well controlled. IMPRESSION: Rule out mood disorder due to general medical condition, rule out major depressive disor karl. The patient also has multiple medical issues. Please see medical team notes for more detailed information. PLAN: Continue current management. Continue current medication. The patient is willing to continue Remeron for now. Cymbalta was weaned off. The patient does not want to go for outpatient therapy a nd to be followed up with psychiatrist. The patient was educated to take medication as it was prescr ibed. Will follow up as needed. The patient reported that he will be discharged on Thursday. Ther e is no contraindication from this sheet writer. Thank you very much for letting me participate in the care of your patient. Could you please give yu barreto a prescription for Remeron 30 mg at the nighttime in case if patient will be discharged prior t o this sheet writer's evaluation. The patient deemed not to be in danger to self and others. Could be fol lowed up with Dr. Luther as outpatient. Berkley Berrios MD cc: [id number] TT: 07/07/2016 16:06:49 Confirmation # [id number] Dictation # [id number] mn
[2016-07-07 16:09] LABS: PHOSPHOROUS 1.3 mg/dL (2.5-4.5)
[2016-07-07] MEDS ORDERED: Potassium & Sodium Phosphate PO ONE (18:17)
--- NOTE | 2016-07-07 20:17 | PN ---
DATE: 07/07/2016 REASON FOR CONSULTATION: Follow up history of TAVR, admitted with recurrent pleural effusion. BRIEF CLINICAL HISTORY: A 50-year-old male with a past medical history significant for end-stage kenneth al disease on dialysis, known diabetic with complications of diabetic neuropathy and nephropathy, ret inopathy, legally blind, admitted with recurrent pleural effusion status post thoracentesis, possibly bloody tap. The patient was seen in the ER. Dialysis started with a blood pressure of 150, after a n hour dropped the blood pressure to 70; 600 fluid was taken out and then 1 liter was given to mainta in the blood pressure, is off the dialysis. Was complaining of shortness of breath earlier and on ex amination right leg appears to be swollen. PHYSICAL EXAMINATION: VITAL SIGNS: Temperature afebrile, heart rate 90, blood pressure 143/79. HEENT: PERRLA. Extraocular muscles intact. NECK: Supple. No carotid bruits. No thyromegaly. CHEST: Clear to auscultation. HEART: S1, S2 regular. ABDOMEN: Soft. EXTREMITIES: Clubbing and cyanosis negative. LABORATORY DATA: Blood workup as follows: WBC , potassium 3.0, chloride 96, carbon dioxide ___ __, anion gap of 16, BUN 26, creatinine 3.2, phosphorus 1.3. IMPRESSION: Hypophosphatemia, anemia, WBC , recurrent pleural effusion, hypotension during the dialysis, status post transcatheter aortic valve replacement. Recent catheterization dated 7 shows nonobstructive coronary artery disease, normally functioning transcutaneous aortic valve repl acement, [id number] aortic regurgitation. Echo showed preserved left ventricular function. No gr adient across the aortic valve noted, of the right leg, rule out deep venous thrombosis, end-sta ge renal disease on dialysis, hypotension on dialysis. RECOMMENDATION: We will discuss with Dr. Gee to give before the dialysis to increase the blood pressure, so the patient can have a good dialysis. We will also get a duplex right upper extre mity to rule out DVT. Will follow with you. Thank you, Dr. Luther, for providing the opportunity in taking care of the patient. Franky Archer MD cc: [id number] TT: 07/07/2016 20:16:18 Confirmation # [id number] Dictation # [id number] mn
[2016-07-08] MEDS: Pantoprazole 40 mg EC Tab PO SCH (05:39)
[2016-07-08] MEDS: Insulin Reg-LOW-Coverage SC SCH ×4 (07:02→23:18)
[2016-07-08] MEDS: Budesonide 0.5 mg/2 ml Inhal Susp UD IH SCH ×2 (07:06→20:40)
[2016-07-08] MEDS: Acetylcysteine 20% Inhal Soln (4ml) IH SCH ×2 (07:06→20:40)
[2016-07-08] MEDS: Arformoterol 15 mcg/2 ml Inh Sol IH SCH ×2 (07:06→20:40)
[2016-07-08 08:11] LABS: ALB/GLOB RATIO 0.9 (1.1-1.8); BILIRUBIN,TOTAL 0.6 mg/dL (0.2-1.3); CALCIUM 10.9 mg/dL (8.4-10.5); PHOSPHOROUS 2.5 mg/dL (2.5-4.5); POTASSIUM 4.1 mmol/L (3.6-5.0)
--- NOTE | 2016-07-08 08:46 | US ---
PROCEDURE: Right lower extremity venous US HISTORY: Leg pain and swelling. Evaluate for DVT. PHYSICIAN(S): Caleb Crowe M.D. TECHNIQUE: Duplex sonography and color-flow Doppler with graded compression were used to evaluate the deep venous system of the right lower extremity. The exam is somewhat limited by edema. FINDINGS: The visualized deep venous system of the right lower extremity is sonographically normal and compressible. Normal waveforms and augmentation are seen. There is no sonographic evidence for deep venous thrombosis in the visualized segments of the right lower extremity. IMPRESSION: 1. No sonographic evidence for deep venous thrombosis in the visualized segments of the right lower extremity.
--- NOTE | 2016-07-08 09:00 | PN ---
DATE: 07/07/2016 REFERRING PHYSICIAN: Dr. Luther. SUBJECTIVE: The patient is lying in the bed, head at 45 degrees. His blood sugar dropped down. The nursing staff already spoke to Dr. Luther who ordered D50. The patient also given lunch and some avendano gar, he feels better. Tolerated the CPAP well last night. Still getting short of breath with exerti on. No nausea, no vomiting, no diarrhea, no leg pain or leg swelling. OBJECTIVE: GENERAL: No acute distress. VITAL SIGNS: [place] is 98, heart rate is 92, respiratory rate is 20, blood pressure 143/79, pulse ox 99% on 3 liters nasal cannula. HEENT: Moist mucous membranes. Crowded airway. NECK: Supple, no JVD. LUNGS: Have decreased breath sounds at the bases. HEART: S1, S2. ABDOMEN: Soft, nontender. No organomegaly. EXTREMITIES: There is trace edema. NEUROLOGIC: Awake, alert, follows simple commands. MEDICATIONS: He is on Mucomyst 20% inhaled twice daily, Aggrenox 25/200 one tab twice a day, hydrala zine 10 mg q.i.d. p.r.n., Brovana 15 mcg q. 12 hours, Claritin 10 mg daily, Colace 100 mg twice a day , Coreg 3.125 mg twice a day, DuoNeb q. 6 hours, Flonase 1 spray in each nostril daily; insulin cover age Levemir 10 units subQ q. 12 hours which was placed on hold, Lipitor 10 mg daily, prednisone 20 mg daily, Protonix 40 mg daily, Pulmicort inhaled twice a day, Robitussin 100 mg q. 4 hours p.r.n., Sen sipar 60 mg daily, Singulair 10 mg daily. LABORATORY DATA: Shows hemoglobin is 9.3, hematocrit 28.7, WBC 9.5, platelet count is 234. Sodium 1 36, potassium 3.2, chloride 96, bicarbonate 27, BUN 26, creatinine 3.2, glucose 166, calcium 10.1, ph osphorus is 1.3, magnesium 2.1, AST 28, ALT 15, alk phos is 123. Albumin is 3.2. Chest x-ray done y day shows cardiomegaly with bilateral pleural effusion. IMPRESSION AND PLAN: Chronic obstructive lung disease, obstructive sleep apnea syndrome, cardiomyopa thy, valvular heart disease, history of transcatheter aortic valve replacement, renal failure, dialys is dependent, asthma, hypertension, diabetes, bilateral pleural effusion, status post thoracentesis l eft-sided had serosanguineous fluid and with a pneumothorax presently stable after hypoglycemia, impr saleem with D50 and lunch. Pulmonary point of view, continue bronchodilator, keep head elevated at 45 degrees. Encourage BiPAP use. Will continue prednisone and inhaled bronchodilators. May discontinu e Claritin and add Provigil 100 mg daily in the morning and see how he responds to it. Being followe d by nephrology, cardiology and psychiatry. Thank you. I will follow with you. Franky Stahl MD cc: [id number] TT: 07/08/2016 09:00:00 Confirmation # [id number] Dictation # [id number] mn
--- NOTE | 2016-07-08 09:32 | PN ---
DATE: 07/07/2016 SUBJECTIVE: The patient seen and examined on the bedside, getting physical therapy. Looks better. Complaining about foot pain. No nausea, vomiting, or diarrhea. No hematuria or hematochezia. No fever, no chills. No headache, no dizziness. PHYSICAL EXAMINATION: VITAL SIGNS: Temperature 98.1, pulse 86, blood pressure 150/90, respiratory rate 15. HEENT: Head normocephalic, atraumatic. Eyes: PERRLA. Extraocular muscles intact. Eyelids unremarkable. Conjunctivae clear. Nose patent. NECK: Supple. No carotid bruit, JVD or thyromegaly. CHEST: Bilaterally symmetrical. HEART: S1, S2 positive. LUNGS: Clear to auscultation. ABDOMEN: Bowel sounds positive, soft, nontender, and nondistended. EXTREMITIES: No edema, no cyanosis. NEUROLOGIC: The patient is awake, alert. Moving all 4 extremities. LABORATORY DATA: White blood cells noted , hemoglobin 9.3, hematocrit 28.7, and platelets 234. Sodium 136, potassium 3.2, BUN 26, creatinine 3.2. Phosphorus 1.23. Glucose 154 and 153. ASSESSMENT AND PLAN: The patient is a 50-year-old male with anemia, hypokalemia ; renal insufficiency, on hemodialysis 3 times a week; diabetes mellitus, hypophosphatemia. Went for extremity ultrasound; results are pending. Seen by psychiatrist Dr. Berkley Berrios, and Dr. Gee senior consulting manager. Has left pleural effusion, status post thoracentesis, left hydropneumothorax after the thoracentesis, left loculated effusion, chronic obstructive lung disease; coronary artery disease, right eye blindness, diabetic retinopathy, left arteriovenous fistula, secondary hyperparathyroidism, status post transcatheter aortic valvular replacement. Getting physical therapy. Complaining about feet pain. I called for consult with Dr. Cabello. Cytology of pleural effusion was negative for malignancy. Continue physical therapy. History of constipation, got Colace. Lipitor for hypercholesterolemia. Gastrointestinal and deep vein thrombosis prophylaxis. I appreciated Dr. Berkley Berrios's, Dr. Gee's and Dr. Stahl's input. Will follow up. Laure Luther MD cc: [id number] TT: 07/08/2016 09:32:18 Confirmation # [id number] Dictation # [id number] mn [email or web address]
--- NOTE | 2016-07-08 10:25 | PN ---
DATE: 07/08/2016 DATE: 07/08/2016 SUBJECTIVE: The patient has no complaints of any chest pain. No shortness of breath, no headaches. The events of yesterday were noted. PHYSICAL EXAMINATION: VITAL SIGNS: Temperature 98, pulse of 83, blood pressure 123/70, respirations 18. GENERAL: The patient comfortable, in no acute distress. HEENT: Anicteric sclerae. Moist mucosa. NECK: No JVD or adenopathy. CARDIAC: S1/S2. No murmurs. No rubs. Regular. RESPIRATORY: Clear to auscultation bilaterally. No wheezes, rales, or rhonchi. Good air entry. ABDOMEN: Bowel sounds are positive, soft, nontender, and nondistended. EXTREMITIES: No edema. Has 1+ pulses. LABS: Potassium is 3.2 taken immediately after dialysis. ASSESSMENT: 1. Hypotension, resolved. 2. Left loculated pleural effusion. 3. End-stage renal disease on hemodialysis. 4. Chronic obstructive pulmonary disease. 5. Diabetes type 2. 6. Coronary artery disease. 7. Right eye blindness. 8. Diabetic retinopathy. 9. Left arm arteriovenous fistula. 10. Secondary hyperparathyroidism. 11. Status post transcatheter aortic valve replacement. PLAN: The patient is currently comfortable. The patient's phosphorus is significantly low at 1.3. I have discontinued his PhosLo. He is given a phosphorus replacement. He has been having poor p.o. intake. We are not able to take any further fluid off because of his being at baseline with his dry weight. He is on Sensipar. This will be continued. He is on Singulair. The patient is on Lipitor for dyslipidemia. He is on carvedilol. I will check his PTH level as well. Law Gee MD cc: [id number] TT: 07/08/2016 10:25:26 Confirmation # [id number] Dictation # [id number] [email or web address]
[2016-07-08] MEDS: Aspirin-Dipyridamole 200-25 mg ER Cap PO SCH ×2 (11:23→19:16)
--- NOTE | 2016-07-08 11:23 | PN ---
DATE: 07/08/2016 REASON FOR CONSULTATION AND FOLLOWUP: Cardiac evaluation, status post TAVR, admitted with recurrent pleural effusion, recurrent hypotension during dialysis. BRIEF CLINICAL HISTORY: A 50-year-old male with past medical history significant for end-stage renal disease on dialysis, known diabetic complications, diabetic neuropathy, nephropathy, retinopathy, le gally blind, admitted with recurrent pleural effusion, status post thoracentesis, possibly bloody tap . The patient was seen yesterday in the ER. Dialysis started. Blood pressure 140 dropped to 70. _ ___ L of fluid was given and then 1 liter was given to maintain the blood pressure. The patient is i n the ER, spoke to the ER physician. Then the patient is back to the TCU. The patient seen this mor michelle sitting comfortably, having breakfast, but started crying that he is dying because every time he hooks up will dialysis, blood pressure drops and he never gets the fluid out and gets short of breat h. Very frustrated. Discussed with Dr. Gee in length upon the patient's condition. PHYSICAL EXAMINATION: VITAL SIGNS: Temperature afebrile, heart rate 98, blood pressure 123/70. HEENT: PERRLA. Extraocular muscles intact. NECK: Supple. No carotid bruits. No thyromegaly. CHEST: Clear to auscultation. HEART: S1, S2 regular. ABDOMEN: Soft. EXTREMITIES: Clubbing and cyanosis negative. LABORATORY DATA: Blood workup as follows: WBC 9.5, hemoglobin 9.3, hematocrit 28.7, platelet count 234. Chemistry shows sodium 137, potassium 4.0, chloride 94, carbon dioxide 32, anion gap of 15, BUN 44, creatinine 5, blood glucose 415, phosphorus 2.5. IMPRESSION: Recurrent hypotension during dialysis, inability to withdraw the fluid during the dialys is because the patient becomes hypotensive and the patient ended up getting yesterday 1.6 liter fluid postdialysis while during the dialysis, the patient says only 600 mL was removed, history of coronar y artery disease, nonobstructive. Recently catheterization dated 05/02/2016, history of transcatheter aortic valve replacement, history of normal functioning transcutaneous aortic valve by echo and by c atheterization. End-stage renal disease on dialysis, diabetic complications of nephropathy, retinopa thy. Swelling of the right leg yesterday, underwent duplex scan of right lower extremity that shows no sonographic evidence of deep venous thrombosis. RECOMMENDATION: Discussed with Dr. Gee that patient's option to start on peritoneal dialysis so patient can have good extraction of fluid overload and does not get hypotension and that can be done , but Dr. Gee said there are social issues because the worse than patient is not capable to do by himself, so this issue is practically possibly not doable. The second option to give the jesenia ent either Florinef an hour before dialysis as well as ProAmatine to increase the blood pressure ____ up so patient does not get hypotension during the dialysis and gets extraction of adequate amount of fluid from the body pulled and the patient remains CHF free. We will follow up further recommendati on Dr. Gee. We will follow. Discussed with the patient at length and explained to the patient and tried to cheer him up because patient is very depressed and started crying that he thinks that he is a horse and ____ is not going to work, but after lengthy discussion, the patient feels a lit tle better. Discussed with the . Thank you, Dr. Luther, for providing us the opportunity in taking care of the patient. Franky Archer MD cc:Laure Luther MD [id number] TT: 07/08/2016 11:22:36 Confirmation # [id number] Dictation # [id number] tn
[2016-07-08] MEDS: Fluticasone Nasal 50 mcg/Spray NS SCH (11:25)
[2016-07-08] MEDS: Omega-3-Acid Ethyl Esters 1 GM Cap PO SCH ×4 (11:27→21:45)
[2016-07-08] MEDS: Potassium & Sodium Phosphate PO SCH ×2 (11:27→18:45)
[2016-07-08] MEDS: guaiFENesin 100 mg/5 ml Syrup UD PO PRN (11:32)
[2016-07-08] MEDS: Armodafinil 250 mg Tab PO SCH (13:27)
--- NOTE | 2016-07-08 13:59 | CP.PCM.CON ---
<Oksana Andrews - Last Filed: 07/08/16 13:53> History of Present Illness - History of Present Illness History of Present Illness: 50 y/o male seen at bedside in TCU with attending Dr. Stinson, with pmhx of HTN, DM,COPD,CKD on HD, CAD,CMP,pleural effusion,pneumothorax, HLD,ELAN, cervical radiculopathy, Ramsey's esophagitis, anemia, marielena-Arias tear, retinopathy, neuropathy , GERD, right eye blindness, GI bleeding, AV shunt surgery, right eye surgery,TAVR seen after podiatry consultation. Patient complains of pain to his right foot. He states he has blisters on the tips of his toes. Patient is not sure how long they have been there. Patient denies any other pedal complaints. He denies numbness, burning or tingling in his feet. Patient denies n/v/f/c/d/sob. Review of Systems - Constitutional Constitutional: As Per HPI Past Patient History - Infectious Disease Hx of Infectious Diseases: None - Tetanus Immunizations Tetanus Immunization: Unknown - Past Social History Smoking Status: Former Smoker - CARDIAC Hx Cardiac Disorders: Yes - PULMONARY Hx Chronic Obstructive Pulmonary Disease (COPD): Yes - NEUROLOGICAL Hx Neurological Disorder: Yes Hx Seizures: Yes Hx Transient Ischemic Attacks (TIA): Yes Other/Comment: peripheral neuropathy - HEENT Hx HEENT Problems: Yes (legally blind) Hx Blind: Yes (right eye) Hx Cataracts: Yes (Bilateral sx) Hx Glaucoma: Yes Hx Macular Degeneration: Yes Other/Comment: sclera buckling sx for retinal detachment - RENAL Hx Renal Failure: Yes - ENDOCRINE/METABOLIC Hx Diabetes Mellitus Type 2: Yes - HEMATOLOGICAL/ONCOLOGICAL Hx Blood Disorders: Yes Hx Anemia: Yes (blood transfusion 2014) Hx Shingles: No (Received shingles vaccination) - INTEGUMENTARY Hx Dermatological Problems: Yes Other/Comment: bottom of right foot 1`cm x 1cm round dry red wound, 1cm round dry red wound bottom of r ft 5th toe, top of right foot 0.5cm round red wound, ble multiple areas of dry skin and multiple wounds some red - MUSCULOSKELETAL/RHEUMATOLOGICAL Hx Falls: Yes (past) - GASTROINTESTINAL Hx Gastrointestinal Disorders: Yes Hx Gastroesophageal Reflux: Yes - GENITOURINARY/GYNECOLOGICAL Hx Genitourinary Disorders: Yes (oliguria) - PSYCHIATRIC Hx Bipolar Disorder: Yes Hx Depression: Yes Hx Emotional Abuse: No Hx Physical Abuse: No - SURGICAL HISTORY Hx Valve Replacement: Yes (2014) Other/Comment: left arm av shunt, thoracentesis x3 last one 2016, debridement of r ft wound bottom of ft 2017 - ANESTHESIA Hx Anesthesia: Yes Hx Anesthesia Reactions: No Hx Malignant Hyperthermia: No Meds Allergies/Adverse Reactions: Allergies Allergy/AdvReac Type Severity Reaction Status Date / Time Iodinated Contrast Media - Allergy Intermediate SWELLING Verified 07/09/16 15:29 Oral and [Iodinated Contrast Media - IV Dye] shellfish derived Allergy Mild ITCHING Verified 07/09/16 15:29 Penicillins Allergy ITCHING Verified 07/09/16 15:29 - Medications Medications: Current Medications Acetylcysteine (Acetylcysteine 20%) 4 ml IH BIDRESP [facility] Last Admin: 07/08/16 07:06 Dose: 4 ml Albuterol/Ipratropium (Duoneb 3 Mg/0.5 Mg (3 Ml) Ud) 3 ml IH [id number] PRN; Protocol PRN Reason: Wheezing Last Admin: 07/07/16 07:22 Dose: 3 ml Arformoterol Tartrate (Brovana) 15 mcg IH [id number] D[facility]LLAN Last Admin: 07/08/16 07:06 Dose: 15 mcg Armodafinil (Nuvigil 250 Mg Tab) 250 mg PO DAILY [facility] Last Admin: 07/08/16 13:27 Dose: 250 mg Atorvastatin Calcium (Lipitor) 10 mg PO HS [facility] PRN Reason: Protocol Last Admin: 07/07/16 21:49 Dose: 10 mg Budesonide (Pulmicort Respules) 0.5 mg IH [id number] DYLLAN Last Admin: 07/08/16 07:06 Dose: 0.5 mg Carvedilol (Coreg) 3.125 mg PO 0800,1700 [facility] PRN Reason: Protocol Last Admin: 07/08/16 08:18 Dose: 3.125 mg Cinacalcet (Sensipar) 60 mg PO 0800 [facility] PRN Reason: Protocol Last Admin: 07/08/16 08:21 Dose: 60 mg Dipyridamole/Aspirin (Aggrenox 25-200 Mg) 1 ea PO BID [facility] PRN Reason: Protocol Last Admin: 07/08/16 11:23 Dose: 1 ea Docusate Sodium (Colace) 100 mg PO BID [facility] PRN Reason: Protocol Last Admin: 07/08/16 11:23 Dose: 100 mg Fluticasone Propionate (Flonase) 1 actuation NS DAILY [facility] PRN Reason: Protocol Last Admin: 07/08/16 11:25 Dose: 1 spr Guaifenesin (Robitussin) 100 mg PO Q4H PRN PRN Reason: Cough Last Admin: 07/08/16 11:32 Dose: 100 mg Hydralazine HCl (Apresoline) 10 mg PO QID PRN; Protocol PRN Reason: Other Insulin Detemir (Levemir) 10 unit SC Q12H [facility] PRN Reason: Protocol Last Admin: 07/07/16 10:51 Dose: 10 unit Insulin Human Regular (Humulin R Low) 0 units SC ACHS [facility] PRN Reason: Protocol Last Admin: 07/08/16 12:09 Dose: Not Given Midodrine (Proamatine) 5 mg PO MWF [facility] Mirtazapine (Remeron) 30 mg PO HS [facility] Last Admin: 07/07/16 21:50 Dose: 30 mg Montelukast Sodium (Singulair) 10 mg PO HS [facility] PRN Reason: Protocol Last Admin: 07/07/16 22:03 Dose: Not Given Edyxd-3-Rgpp Ethyl Esters (Lovaza) 1 gm PO QID [facility] PRN Reason: Protocol Last Admin: 07/08/16 13:31 Dose: 1 gm Pantoprazole Sodium (Protonix Ec Tab) 40 mg PO 0630 [facility] PRN Reason: Protocol Last Admin: 07/08/16 05:39 Dose: 40 mg Potassium Phos/Sodium Phos (Neutra-Phos) 1 pkt PO BID [facility] Stop: 07/10/16 10:01 Last Admin: 07/08/16 11:27 Dose: 1 pkt Prednisone (Prednisone Tab) 20 mg PO DAILY [facility] Last Admin: 07/08/16 11:29 Dose: 20 mg Physical Exam - Constitutional Appears: Well, Non-toxic, No Acute Distress - Extremities Exam Additional comments: Vasc: lightly palpable pedal pulses, TG wnl, CFT < 3 sec to all digits, no edema neuro: grossly diminished derm: superficial abrasion noted to left lateral leg, bulla formation with underlying hematoma on the distal aspect of toes 4,5 of right foot, superficial ulceration noted to sulcus of 3rd digit plantarly- no drainage, no purulence, fibrous base, macerated edges, hyperkeratotic lesion on dorsomedial aspect of right foot with underlying dried hematoma formation, no active bleeding, no acute clinical signs of infection, no ascending cellulitis ortho: contracted digits of 2-5 b/l - Neurological Exam Neurological exam: Alert, Oriented x3 - Psychiatric Exam Psychiatric exam: Normal Affect, Normal Mood Results - Vital Signs Recent Vital Signs: Last Vital Signs Temp 98 F 07/08/16 06:00 Pulse 99 H 07/08/16 08:18 Resp 18 07/08/16 06:00 BP 123/70 07/08/16 08:18 Pulse Ox 99 07/08/16 06:00 - Labs Result Diagrams: 07/07/16 15:30 07/08/16 07:50 Labs: Laboratory Results - last 24 hr 07/07/16 07/07/16 07/07/16 02:18 05:15 11:30 WBC RBC Hgb Hct MCV MCH MCHC RDW Plt Count MPV Gran % Lymph % (Auto) Foard % (Auto) Eos % (Auto) Baso % (Auto) Gran # Lymph # Foard # Eos # Baso # Sodium Potassium Chloride Carbon Dioxide Anion Gap BUN Creatinine Est GFR ( Amer) Est GFR (Non-Af Amer) POC Glucose (mg/dL) 284 H 210 H 44 L Random Glucose Calcium Phosphorus Magnesium Total Bilirubin AST ALT Alkaline Phosphatase Total Protein Albumin Globulin Albumin/Globulin Ratio 07/07/16 07/07/16 07/07/16 11:47 12:03 15:14 WBC RBC Hgb Hct MCV MCH MCHC RDW Plt Count MPV Gran % Lymph % (Auto) Foard % (Auto) Eos % (Auto) Baso % (Auto) Gran # Lymph # Foard # Eos # Baso # Sodium Potassium Chloride Carbon Dioxide Anion Gap BUN Creatinine Est GFR ( Amer) Est GFR (Non-Af Amer) POC Glucose (mg/dL) 36 L* 140 H 154 H Random Glucose Calcium Phosphorus Magnesium Total Bilirubin AST ALT Alkaline Phosphatase Total Protein Albumin Globulin Albumin/Globulin Ratio 07/07/16 07/08/16 07/08/16 15:30 07:50 08:34 WBC 9.5 D RBC 2.97 L Hgb 9.3 L Hct 28.7 L MCV 96.6 MCH 31.3 MCHC 32.4 RDW 13.6 Plt Count 234 MPV 9.9 Gran % 92.9 H Lymph % (Auto) 2.6 L Foard % (Auto) 3.9 Eos % (Auto) 0.5 L Baso % (Auto) 0.1 Gran # 8.79 H Lymph # 0.3 L Foard # 0.4 Eos # 0.1 Baso # 0.01 Sodium 136 137 Potassium 3.2 L 4.1 Chloride 96 L 94 L Carbon Dioxide 27 32 Anion Gap 16 15 BUN 26 H 44 H Creatinine 3.2 H 5.0 H Est GFR ( Amer) 25 15 Est GFR (Non-Af Amer) 20 12 POC Glucose (mg/dL) 302 H Random Glucose 163 H 415 H* D Calcium 10.1 10.9 H Phosphorus 1.3 L* 2.5 Magnesium 2.1 Total Bilirubin 0.7 0.6 AST 28 36 ALT 15 13 Alkaline Phosphatase 123 143 H Total Protein 7.0 7.0 Albumin 3.2 3.3 Globulin 3.8 3.6 Albumin/Globulin Ratio 0.8 L 0.9 L Assessment & Plan - Assessment and Plan (Free Text) Assessment: 50 y/o male seen at bedside w/PMH of HTN,DM,COPD,CKD on HD, CAD,CMP,pleural effusion,pneumothorax, HLD,ELAN, cervical radiculopathy, Ramsey's esophagitis, anemia,Marielena-Arias tear, retinopathy, neuropathy , GERD, right eye blindness, GI bleeding, AV shunt surgery, right eye surgery,TAVR for right foot superficial ulcerations and blisters with underlying hematoma Plan: patient evaluated and seen at bedside with attending Dr. Stinson labs and vitals reviewed cleansed wounds with saline Rx bactroban to apply daily applied xeroform, DSD, kerlix to right foot applied optifoam to left leg podiatry will continue to monitor while patient remains in house <Rayray Stinson - Last Filed: 07/11/16 11:01> Meds - Medications Medications: Current Medications Acetylcysteine (Acetylcysteine 20%) 4 ml IH BIDRESP [facility] Last Admin: 07/11/16 07:17 Dose: 4 ml Albuterol/Ipratropium (Duoneb 3 Mg/0.5 Mg (3 Ml) Ud) 3 ml IH [id number] PRN; Protocol PRN Reason: Wheezing Last Admin: 07/11/16 07:18 Dose: 3 ml Arformoterol Tartrate (Brovana) 15 mcg IH [id number] [facility]YLLAN Last Admin: 07/11/16 07:18 Dose: 15 mcg Armodafinil (Nuvigil 250 Mg Tab) 250 mg PO DAILY [facility] Last Admin: 07/10/16 10:28 Dose: 250 mg Atorvastatin Calcium (Lipitor) 10 mg PO HS [facility] PRN Reason: Protocol Last Admin: 07/10/16 21:57 Dose: 10 mg Budesonide (Pulmicort Respules) 0.5 mg IH [id number] DYLLAN Last Admin: 07/11/16 07:18 Dose: 0.5 mg Carvedilol (Coreg) 3.125 mg PO 0800,1700 [facility] PRN Reason: Protocol Last Admin: 07/11/16 08:17 Dose: Not Given Cinacalcet (Sensipar) 60 mg PO 0800 [facility] PRN Reason: Protocol Last Admin: 07/11/16 08:13 Dose: 60 mg Dipyridamole/Aspirin (Aggrenox 25-200 Mg) 1 ea PO BID [facility] PRN Reason: Protocol Last Admin: 07/10/16 17:40 Dose: 1 ea Docusate Sodium (Colace) 100 mg PO BID [facility] PRN Reason: Protocol Last Admin: 07/10/16 17:41 Dose: 100 mg Fludrocortisone Acetate (Florinef) 0.1 mg PO MWF [facility] Fluticasone Propionate (Flonase) 1 actuation NS DAILY [facility] PRN Reason: Protocol Last Admin: 07/10/16 10:23 Dose: Not Given Hydralazine HCl (Apresoline) 10 mg PO QID PRN; Protocol PRN Reason: Other Insulin Detemir (Levemir) 10 unit SC Q12H [facility] PRN Reason: Protocol Last Admin: 07/07/16 10:51 Dose: 10 unit Insulin Human Regular (Humulin R Low) 0 units SC ACHS [facility] PRN Reason: Protocol Last Admin: 07/11/16 06:46 Dose: 4 units Midodrine (Proamatine) 5 mg PO MWF [facility] Last Admin: 07/09/16 10:53 Dose: Not Given Mirtazapine (Remeron) 15 mg PO HS [facility] Last Admin: 07/10/16 21:57 Dose: 15 mg Montelukast Sodium (Singulair) 10 mg PO HS [facility] PRN Reason: Protocol Last Admin: 07/10/16 21:57 Dose: Not Given Mupirocin (Bactroban Ointment) 0 gm TOP BID [facility] Last Admin: 07/10/16 17:40 Dose: Not Given Lxnnn-1-Kvdc Ethyl Esters (Lovaza) 1 gm PO QID [facility] PRN Reason: Protocol Last Admin: 07/10/16 21:57 Dose: 1 gm Pantoprazole Sodium (Protonix Ec Tab) 40 mg PO 0630 [facility] PRN Reason: Protocol Last Admin: 07/11/16 06:17 Dose: 40 mg Potassium Phos/Sodium Phos (Neutra-Phos) 1 pkt PO BID [facility] Stop: 07/12/16 10:01 Last Admin: 07/10/16 17:41 Dose: 1 pkt Prednisone (Prednisone Tab) 10 mg PO DAILY [facility] Last Admin: 07/10/16 10:26 Dose: 10 mg Results - Vital Signs Recent Vital Signs: Last Vital Signs Temp 98.3 F 07/10/16 10:00 Pulse 84 07/10/16 17:39 Resp 20 07/10/16 10:00 BP 107/63 07/10/16 17:39 Pulse Ox 93 L 07/10/16 10:00 - Labs Result Diagrams: 07/11/16 10:20 07/11/16 10:20 Labs: Laboratory Results - last 24 hr 07/09/16 07/11/16 11:20 10:20 WBC 7.2 RBC 2.94 L Hgb 9.2 L Hct 28.7 L MCV 97.6 MCH 31.3 MCHC 32.1 RDW 13.8 Plt Count 219 MPV 10.1 Sodium 136 Potassium 3.8 Chloride 98 Carbon Dioxide 29 Anion Gap 13 BUN 63 H Creatinine 5.8 H Est GFR ( Amer) 12 Est GFR (Non-Af Amer) 10 Random Glucose 224 H Calcium 10.9 H Phosphorus 1.4 L* Total Bilirubin 0.6 AST 19 ALT 17 Alkaline Phosphatase 169 H Total Protein 7.0 Albumin 3.3 Globulin 3.7 Albumin/Globulin Ratio 0.9 L PTH Intact Whole Molec 94 H Attending/Attestation - Attestation I have personally seen and examined this patient.: Yes I have fully participated in the care of the patient.: Yes I have reviewed all pertinent clinical information: Yes
[2016-07-09] MEDS: Pantoprazole 40 mg EC Tab PO SCH (06:27)
[2016-07-09] MEDS: Insulin Reg-LOW-Coverage SC SCH ×5 (06:45→23:49)
[2016-07-09] MEDS: Acetylcysteine 20% Inhal Soln (4ml) IH SCH ×2 (07:12→20:43)
[2016-07-09] MEDS: Arformoterol 15 mcg/2 ml Inh Sol IH SCH ×2 (07:12→20:43)
[2016-07-09] MEDS: Budesonide 0.5 mg/2 ml Inhal Susp UD IH SCH ×2 (07:12→20:43)
[2016-07-09] MEDS: Albuterol-Ipratrop 3 mg / 0.5 (3 ml) UD IH PRN ×2 (07:12→20:43)
--- NOTE | 2016-07-09 07:48 | PN ---
DATE: 07/08/2016 SUBJECTIVE: The patient was seen and examined on the bedside. He got physical therapy, looks better. No nausea, vomiting, or diarrhea. No fever, no chills. No headache, no dizziness. PHYSICAL EXAMINATION: VITAL SIGNS: Temperature 98, pulse 67, blood pressure 118/69, respiratory rate 18. HEENT: Head normocephalic, atraumatic. Eyes, PERRLA. Extraocular movements intact. Conjunctivae pink. Eyelids unremarkable. Nose patent. NECK: Supple. No carotid bruit, JVD or thyromegaly. CHEST: Bilaterally symmetrical. HEART: S1, S2 positive. LUNGS: Clear to auscultation. ABDOMEN: Soft. Bowel sounds present. No organomegaly. EXTREMITIES: No edema, no cyanosis. NEUROLOGIC: The patient is awake, alert, moving all 4 extremities. No focal deficit. MEDICATIONS: Tylenol, Aggrenox, hydralazine, Bactroban, Brovana, Colace, DuoNeb , Flonase, insulin, Levemir, Lipitor, Lovaza, Neutra-Phos, prednisone, Protonix , Pulmicort, Remeron, Robitussin, Sensipar, Singulair. LABORATORY DATA: White blood cells 9.5, hemoglobin 9.3, hematocrit 28.7, and platelets 234. Sodium 134, potassium 4.1, BUN 44, creatinine 5.0. Glucose 302 , glucose 415. Phosphorus 2.5, alkaline phosphatase is 143. ASSESSMENT AND PLAN: The patient is a 50-year-old male with anemia, renal insufficiency on hemodialysis, hyperglycemia, has multiple medical problems, renal insufficiency, on hemodialysis, history of hypertension, chronic obstructive pulmonary disease, chronic kidney disease, cardiomyopathy, coronary artery disease, pleural effusion, status post pneumothorax, obstructive sleep apnea, cervical adenopathy, Ramsey esophagitis, anemia, Marielena-Arias tear, retinopathy, nephropathy, gastroesophageal reflux disease. Esophageal bleeding , AV shunt surgery, right eye surgery, transcatheter aortic valve replacement surgery, seen by the providers today. Has superficial ulceration and blister with the underlying hematoma on the right foot. The patient was evaluated and seen at the bedside by Dr. Stinson. Cleaned the wounds with saline, Bactroban applied. Applied Xeroform. Will continue present treatment. The patient is getting dialysis tomorrow. Continue Levemir, Lipitor for hypercholesterolemia, Lovenox for hypertriglyceridemia, Nuvigil because he was sleepy all the time. Dr. Stahl put him on Nuvigil. Getting tapering doses of prednisone, Protonix for gastrointestinal prophylaxis, Remeron for depression and Robitussin for coughing, Singulair for allergies. We will follow up. Laure Luther MD cc: [id number] TT: 07/09/2016 02:57:38 Confirmation # [id number] Dictation # [id number] MTDD
--- NOTE | 2016-07-09 08:13 | PN ---
DATE: 07/08/2016 REFERRING PHYSICIAN: Dr. Luther. SUBJECTIVELY: The patient is lying in the bed, head at 45 degrees, sleepy. Feels better than yester day. Tolerated BiPAP well last night. Still gets short of breath with exertion. No nausea, no vomi ting, no diarrhea, no leg pain or leg swelling. OBJECTIVELY: No acute distress. Temp is 98, heart rate is 87, respiratory rate is 20, blood pressure 118/69, pulse ox 99% nasal cannu la. HENT: Moist mucous membrane. Crowded airway. NECK: Supple. No JVD. LUNGS: Have decreased breath sounds at the bases. HEART: S1 and S2. ABDOMEN: Soft, nontender. No organomegaly. EXTREMITIES: Not much edema. NEUROLOGICALLY: Awake, alert. Follows simple commands. MEDICATIONS: He is on Mucomyst 20% inhaled twice a day, Aggrenox 25/200 one tab twice a day, hydrala zine 10 mg q.i.d. p.r.n., Brovana 15 mcg inhaled twice a day, Colace 100 mg twice a day, Coreg 3.125 mg twice a day, albuterol/Atrovent nebulizer q. 6 hours p.r.n., Flonase 1 spray each nostril daily, i nsulin coverage, Levemir 10 units subQ q. 12 hours, Lipitor 10 mg daily, Lovaza 1 g p.o. q.i.d., Neut ra-Phos twice a day, Nuvigil 250 mg daily, prednisone 20 mg daily, midodrine 5 mg Thursday, Thursday, and Thursday. Protonix 40 mg daily, Pulmicort inhaled twice a day, Remeron 30 mg at bedtime, Robitussi n 100 mg q. 4 hours, Sensipar 60 mg daily, Singulair 10 mg daily. LABORATORY DATA: Shows sodium 137, potassium 4.1, chloride 94, bicarbonate 32, BUN 24, creatinine 5. 0, glucose 302, calcium 10.9, phosphorus today 2.5. AST 36, ALT 30, alk phos is 143, albumin 3.3. IMPRESSION AND PLAN: Chronic obstructive lung disease, obstructive sleep apnea syndrome, cardiomyopa thy, valvular heart disease, history of transcatheter aortic valve replacement, renal failure, dialys is dependent. Asthma, hypertension, diabetes, bilateral pleural effusion which is , cardiac tho racentesis, hemorrhagic fluid, pneumothorax, hyperglycemia. Will decrease prednisone to 10 mg daily. Continue inhaled bronchodilators. Follow blood sugar. Enc ourage BiPAP use. Being followed by cardiology and nephrology. Continue daytime stimulant. Thank you, and will follow with you. Franky Stahl MD cc: [id number] TT: 07/08/2016 21:50:36 Confirmation # [id number] Dictation # [id number]
--- NOTE | 2016-07-09 09:13 | CP.PCM.PN ---
<Marcia Andrewsa - Last Filed: 07/09/16 09:09> Subjective - Date & Time of Evaluation Date of Evaluation: 07/09/16 Time of Evaluation: 09:09 - Subjective Subjective: 50 y/o male seen at bedside in TCU with attending Dr. Cabello for right foot dry gangrene of digits with bulla formation of big toe. Patient denies any acute events overnight. Patient states that he will be going home today. Patient 's dressing remains clean,dry,intact. Denies n/f/v/c/d/cp. Objective - Vital Signs/Intake and Output Vital Signs (last 24 hours): Temp Pulse Resp BP Pulse Ox 98 F 92 H 18 154/86 H 99 07/08/16 06:00 07/09/16 08:04 07/08/16 06:00 07/09/16 08:04 07/08/16 06:00 - Medications Medications: Current Medications Acetylcysteine (Acetylcysteine 20%) 4 ml IH BIDRESP [facility] Last Admin: 07/09/16 07:12 Dose: 4 ml Albuterol/Ipratropium (Duoneb 3 Mg/0.5 Mg (3 Ml) Ud) 3 ml IH [id number] PRN; Protocol PRN Reason: Wheezing Last Admin: 07/09/16 07:12 Dose: 3 ml Arformoterol Tartrate (Brovana) 15 mcg IH [id number] [facility] Last Admin: 07/09/16 07:12 Dose: 15 mcg Armodafinil (Nuvigil 250 Mg Tab) 250 mg PO DAILY [facility] Last Admin: 07/08/16 13:27 Dose: 250 mg Atorvastatin Calcium (Lipitor) 10 mg PO HS [facility] PRN Reason: Protocol Last Admin: 07/08/16 21:45 Dose: 10 mg Budesonide (Pulmicort Respules) 0.5 mg IH [id number] [facility] Last Admin: 07/09/16 07:12 Dose: 0.5 mg Carvedilol (Coreg) 3.125 mg PO 0800,1700 [facility] PRN Reason: Protocol Last Admin: 07/09/16 08:04 Dose: Not Given Cinacalcet (Sensipar) 60 mg PO 0800 [facility] PRN Reason: Protocol Last Admin: 07/09/16 08:06 Dose: Not Given Dipyridamole/Aspirin (Aggrenox 25-200 Mg) 1 ea PO BID [facility] PRN Reason: Protocol Last Admin: 07/08/16 19:16 Dose: 1 ea Docusate Sodium (Colace) 100 mg PO BID [facility] PRN Reason: Protocol Last Admin: 07/08/16 19:17 Dose: 100 mg Fluticasone Propionate (Flonase) 1 actuation NS DAILY [facility] PRN Reason: Protocol Last Admin: 07/08/16 11:25 Dose: 1 spr Hydralazine HCl (Apresoline) 10 mg PO QID PRN; Protocol PRN Reason: Other Insulin Detemir (Levemir) 10 unit SC Q12H [facility] PRN Reason: Protocol Last Admin: 07/07/16 10:51 Dose: 10 unit Insulin Human Regular (Humulin R Low) 0 units SC ACHS [facility] PRN Reason: Protocol Last Admin: 07/09/16 06:48 Dose: Not Given Midodrine (Proamatine) 5 mg PO MWF [facility] Mirtazapine (Remeron) 15 mg PO HS [facility] Last Admin: 07/08/16 21:46 Dose: 15 mg Montelukast Sodium (Singulair) 10 mg PO HS [facility] PRN Reason: Protocol Last Admin: 07/08/16 21:46 Dose: Not Given Mupirocin (Bactroban Ointment) 0 gm TOP BID [facility] Last Admin: 07/08/16 19:45 Dose: Not Given Kvitg-9-Owrm Ethyl Esters (Lovaza) 1 gm PO QID [facility] PRN Reason: Protocol Last Admin: 07/08/16 21:45 Dose: 1 gm Pantoprazole Sodium (Protonix Ec Tab) 40 mg PO 0630 [facility] PRN Reason: Protocol Last Admin: 07/09/16 06:27 Dose: 40 mg Potassium Phos/Sodium Phos (Neutra-Phos) 1 pkt PO BID [facility] Stop: 07/10/16 10:01 Last Admin: 07/08/16 18:45 Dose: 1 pkt Prednisone (Prednisone Tab) 10 mg PO DAILY [facility] - Labs Labs: 07/07/16 15:30 07/08/16 07:50 - Constitutional Appears: Well, Non-toxic, No Acute Distress - Extremities Exam Additional comments: Vasc:nonpalpable pedal pulses b/l, TG wnl, CFT < 3 sec to all digits, no edema neuro: grossly diminished derm: superficial abrasion noted to left lateral leg, bulla formation with underlying serous fluid noted on the dorsomedial aspect of hallux of right foot , dry gangrene noted on plantar aspect of toes 4,5 of right foot, superficial ulceration noted to sulcus of 3rd digit plantarly- no drainage, no purulence, fibrous base, macerated edges, no active bleeding, no acute clinical signs of infection, no ascending cellulitis ortho: contracted digits of 2-5 b/l - Neurological Exam Neurological Exam: Alert, Awake, Oriented x3 - Psychiatric Exam Psychiatric exam: Normal Affect, Normal Mood Assessment and Plan - Assessment and Plan (Free Text) Assessment: 50 y/o male seen at bedside for dry gangrene of digits 4,5, with bulla formation of hallux on the right foot Plan: patient evaluated and chart reviewed seen at bedside with attending Dr. Cabello labs and vitals reviewed cleansed digits with betadine, lanced the bulla with iris scissors, 3CC of serous fluid expressed applied betadine, DSD to right hallux podiatry will continue to monitor while patient remains in house <Jacinta Cabello - Last Filed: 07/13/16 12:22> Objective - Vital Signs/Intake and Output Vital Signs (last 24 hours): Temp Pulse Resp BP Pulse Ox 98.3 F 84 20 107/63 93 L 07/10/16 10:00 07/10/16 17:39 07/10/16 10:00 07/10/16 17:39 07/10/16 10:00 - Labs Labs: 07/11/16 10:20 07/11/16 10:20 Attending/Attestation - Attestation I have personally seen and examined this patient.: Yes I have fully participated in the care of the patient.: Yes I have reviewed all pertinent clinical information, including history, physical exam and plan: Yes
[2016-07-09 10:16] VITALS: RESP 20; TEMP 98.3
[2016-07-09] MEDS: Aspirin-Dipyridamole 200-25 mg ER Cap PO SCH ×2 (10:50→19:00)
[2016-07-09] MEDS: Potassium & Sodium Phosphate PO SCH ×2 (10:52→19:00)
[2016-07-09] MEDS: Omega-3-Acid Ethyl Esters 1 GM Cap PO SCH ×4 (10:52→21:38)
[2016-07-09] MEDS: Armodafinil 250 mg Tab PO SCH (10:52)
[2016-07-09] MEDS: Fluticasone Nasal 50 mcg/Spray NS SCH (10:52)
[2016-07-09 11:26] LABS: HEMATOCRIT 29.3 % (42.0-52.0); MEAN CELL VOLUME 97.7 fL (80.0-105.0); MEAN CORPUSCULAR HEMOGLOBIN 31.3 pg (25.0-35.0); MEAN CORPUSCULAR HGB CONC 32.1 g/dl (31.0-37.0); MEAN PLATELET VOLUME 10.2 fl (7.0-11.0); RED CELL DISTRIBUTION WIDTH 13.7 % (11.5-14.5); WHITE BLOOD COUNT 10.4 10^3/ul (4.5-11.0)
[2016-07-09 11:36] LABS: ALB/GLOB RATIO 0.9 (1.1-1.8); BILIRUBIN,TOTAL 0.7 mg/dL (0.2-1.3); CALCIUM 11.6 mg/dL (8.4-10.5); POTASSIUM 3.8 mmol/L (3.6-5.0); TOTAL PROTEIN 6.9 g/dL (5.8-8.3)
--- NOTE | 2016-07-09 12:01 | PN ---
DATE: 07/09/2016 The patient is in room 303, bed 1. REASON FOR CONSULTATION AND FOLLOWUP: Cardiac evaluation status post TAVR with recurrent pleural eff usion, recurrent hypotension during dialysis. HISTORY OF PRESENT ILLNESS: A 50-year-old male with past medical history significant for end-stage r enal disease on dialysis, known diabetic with diabetic complications of diabetic retinopathy and diab etic neuropathy and diabetic nephropathy, legally blind and admitted with recurrent pleural effusion status post thoracentesis, which was bloody tap. The patient 2 days ago had hypotension following th e dialysis and had to be given IV fluid to bring the blood pressure up. The patient now lying comfor tably in bed without chest pain, shortness of breath, palpitation. The patient has few fine crackles in the lung bases. The patient denies any chest pain, shortness of breath, or palpitation. PHYSICAL EXAMINATION: VITAL SIGNS: Blood pressure is 128/80, earlier pressure was 154/86, respirations 20, pulse 65, tempe rature 98.3. HEAD: Normocephalic. EYES: Pupils normal. Conjunctivae slightly pale. NECK: JVP low. Carotids equal. THORAX: AP diameter normal. LUNGS: Few fine crackles on the bases. CARDIOVASCULAR: S1, S2, systolic murmur. ABDOMEN: Soft, nontender, no organomegaly. EXTREMITIES: No clubbing, no cyanosis. LABORATORY DATA: WBC 9.5, hemoglobin 9.3, hematocrit 28.7, platelet 234. Sodium 137, potassium 4.1, BUN 44, creatinine 5.0, random sugar 302. AST, ALT normal. Total protein and albumin normal. IMPRESSION: Status post transcatheter aortic valve replacement, replacement of the aortic valve, kenneth al failure on dialysis, episodes of hypotension while on dialysis, diabetes mellitus, diabetic neurop athy, diabetic nephropathy, diabetic retinopathy, legally blind, history of coronary artery disease w hich is nonobstructive on cath 05/04/2016. Normally functioning transcatheter aortic valve replaceme nt with a catheterization as well by echo. PLAN: Dr. Archer discussed different options with Dr. Law Gee. dialysis on this patient including peritoneal dialysis and administration of possible Florinef. The patient himself cannot do peritoneal dialysis and his is not able to do the peritoneal dialysis. We will continue Aggren ox 25/200 mg t.i.d., Coreg 3.125 b.i.d., DuoNeb and nebulizer therapy, insulin as ordered, Lipitor 10 mg p.o. daily, ProAmatine 5 mg p.o. Thursday, Thursday, Thursday, Nuvigil 250 mg p.o. daily, remain on Remeron 15 mg p.o. at bedtime, Singulair 10 mg p.o. daily, prednisone 10 mg p.o. daily. We will foll ow with you. Franky Lal MD cc: [id number] TT: 07/09/2016 12:01:02 Confirmation # [id number] Dictation # [id number] an
--- NOTE | 2016-07-09 14:12 | PN ---
DATE: 07/09/2016 REFERRING PHYSICIAN: Dr. Luther. SUBJECTIVE: He is on dialysis bed, being dialyzed, feels okay. No headache, no rhinitis. , t olerated CPAP well. No nausea, no vomiting, no diarrhea. Does have a trace of right leg swelling. OBJECTIVE: GENERAL: No acute distress. VITAL SIGNS: Temp is 98, heart rate 65, respiratory rate is 20, blood pressure 128/80, pulse ox 95% on nasal cannula. HEENT: Moist mucous membrane. Crowded airway. NECK: Supple. No JVD. LUNGS: Decreased breath sounds at the bases. HEART: S1, S2. ABDOMEN: Soft, nontender. No organomegaly. EXTREMITIES: There is trace edema. NEUROLOGIC: Awake, alert, follows simple commands. MEDICATIONS: He is on Mucomyst 20% inhaled twice a day, Aggrenox 25/200 one tab twice a day, hydrala zine 10 mg q.i.d. p.r.n., Brovana 15 mcg inhaled twice a day, Colace 100 mg twice a day, Coreg 3.125 mg twice a day, DuoNeb q. 6 hours p.r.n., Flonase 1 spray each nostril daily, Levemir 10 units subQ q. 12 hours, Lipitor 10 mg daily, Lovaza 1 gram p.o. q.i.d., Neutra-Phos twice a day, Nuvigil 250 mg daily, prednisone 10 mg daily, midodrine 5 mg Thursday, Thursday and Thursday, Protonix 40 mg daily, Pul micort inhaled twice a day, Remeron 15 mg at bedtime, Sensipar 60 mg daily, Singulair 10 mg daily. LABORATORY DATA: Shows hemoglobin 9.4, hematocrit 29.3, WBC 10.4, platelet is 235. Sodium 136, pota ssium 2.8, chloride 95, bicarbonate 28, BUN 68, creatinine 6.7, calcium is 11.6, AST 26, ALT 15, alk phos is 148, albumin is 3.3. IMPRESSION AND PLAN: Chronic obstructive lung disease; obstructive sleep apnea syndrome; cardiomyopathy; valvular heart di sease requiring transcatheter aortic valve replacement; renal failure, dialysis dependent; asthma; hy pertension; diabetes; pleural effusion; status post multiple thoracentesis. Pulmonary point of view, he is doing okay. Continue bronchodilator. Keep head at 45 degrees. Continue BiPAP use at night. Will get venous Doppler of right lower extremity, taper prednisone next few days. Nephrology cardio logy followup. Thank you. I will follow with you. Franky Stahl MD cc: [id number] TT: 07/09/2016 14:11:53 Confirmation # [id number] Dictation # [id number] an
[2016-07-09 14:59] LABS: MAGNESIUM 2.3 mg/dL (1.7-2.2); PHOSPHOROUS 1.9 mg/dL (2.5-4.5)
[2016-07-10] MEDS: Insulin Reg-LOW-Coverage SC SCH ×5 (01:57→22:05)
[2016-07-10] MEDS: Pantoprazole 40 mg EC Tab PO SCH (06:12)
[2016-07-10] MEDS: Budesonide 0.5 mg/2 ml Inhal Susp UD IH SCH ×2 (07:07→19:56)
[2016-07-10] MEDS: Acetylcysteine 20% Inhal Soln (4ml) IH SCH ×2 (07:07→19:56)
[2016-07-10] MEDS: Arformoterol 15 mcg/2 ml Inh Sol IH SCH ×2 (07:07→19:56)
--- NOTE | 2016-07-10 08:16 | PN ---
DATE: 07/09/2016 SUBJECTIVE: The patient was seen and examined on the bedside late evening. Today, the patient went for dialysis and after dialysis, his blood pressure dropped, and according to the patient pt. during dialysis , water was not taken out, and the patient felt headache and dizziness. Then the patient was transferred to the Emergency Room. In the Emergency Room, they did a complete workup. Everything was within normal limits, and then, finally they called me about planning and discussed with me. The patient's blood pressure was stabilized. Then transferred the patient back to TCU, and I saw the patient in TCU. He looks comfortable. No nausea, vomiting, or diarrhea. No hematuria or hematochezia. No swelling of the leg. No chest pain. No palpitation. PHYSICAL EXAMINATION: VITAL SIGNS: Temperature 98, heart rate 80 , respiratory rate 20, blood pressure 128/80, and pulse oximetry 95% on nasal cannula. HEENT: Head normocephalic, atraumatic. Eyes: PERRLA. Extraocular muscles intact. Conjunctivae pink. Eyelids unremarkable. Nose patent. Mucous membranes moist. NECK: Supple. No carotid bruit, JVD, or thyromegaly. LUNGS: Decreased breath sounds at the bases. HEART: S1, S2 positive. ABDOMEN: Soft. Bowel sounds present. No organomegaly. EXTREMITIES: No edema. No cyanosis. NEUROLOGIC: The patient is awake, alert, follows simple commands. MEDICATIONS: Mucomyst, Aggrenox, hydralazine, Brovana, Colace, Coreg, DuoNeb, Flonase, Levemir, Lipitor, Lovaza, Neutra-Phos, prednisone, midodrine, Protonix , Sensipar, Singulair. LABORATORY DATA: Hemoglobin 9.4, hematocrit 29.3, white blood cells 10.4, platelets 235. Sodium 136, potassium 2.8, BUN 16, creatinine is 6.7, AST 26, ALT 15. ASSESSMENT AND PLAN: The patient given a 50-year-old male with renal insufficiency, on hemodialysis 3 times a week. Today he got dialysis and his blood pressure dropped , was transferred to Emergency Room. After stabilizing blood pressure, the patient was brought back to TCU. Chronic obstructive lung disease, obstructive sleep apnea syndrome, cardiomyopathy, valvular heart disease requiring a transcatheter aortic valve replacement, asthma, hypertension , diabetes mellitus, pleural effusion, status post multiple thoracenteses. Continue bronchodilators. Continue BiPAP. Gastrointestinal and deep vein thrombosis prophylaxis. During the ER, the patient got NS intravenous bag and his blood pressure was stabilized. Out of bed to physical therapy. Seen by Dr. Stahl, Dr. Lal, and final inspector shuttle, . The patient has right foot with dry gangrene of the digits . Denies any acute event overnight. The patient's dressing remains clean and dry and intact. We will continue present treatment. Gastrointestinal and deep venous thrombosis prophylaxis. Repeat labs. We will follow up. Laure Luther MD cc: [id number] TT: 07/10/2016 00:41:33 Confirmation # [id number] Dictation # [id number] tn MTDD
--- NOTE | 2016-07-10 08:19 | PN ---
DATE: 07/10/2016 SUBJECTIVE: The patient has no complaints of any chest pain, no shortness of breath or headaches. PHYSICAL EXAMINATION: VITAL SIGNS: Temperature is 98.3, pulse of 65, blood pressure is 128/80, respirations 20. GENERAL: The patient comfortable, in no acute distress. HEENT: Anicteric sclerae. Moist mucosa. NECK: No JVD or adenopathy. CARDIAC: S1/S2. No murmurs. No rubs. Regular. RESPIRATORY: Clear to auscultation bilaterally. No wheezes, rales, or rhonchi. Good air entry. ABDOMEN: Bowel sounds are positive, soft, nontender, and nondistended. EXTREMITIES: No edema. Has 1+ pulses. LABS: White count of 10.4, hemoglobin 9.4, creatinine is 6.7. ASSESSMENT: 1. Left-sided pleural effusion. 2. End-stage renal disease, on hemodialysis. 3. Chronic obstructive pulmonary disease. 4. Diabetes, type 2. 5. Coronary artery disease. 6. Right eye blindness. 7. Diabetic retinopathy. 8. Left arm arteriovenous fistula. 9. Secondary hyperparathyroidism. 10. Status post transcatheter aortic valve replacement. PLAN: The patient is currently comfortable. He received phosphorus replacement for his hypophospha temia. His repeat phosphorus is less so this is being replaced. The patient is not a good candidate for peritoneal dialysis because of his issues with sight. The patient has not been eating well so [facility] phosphorus is low. He is becoming malnourished and he has been losing weight. He tolerated his he modialysis yesterday and no significant fluid was taken off. He has been placed on proamatine prior to dialysis to help with their picture. He is on Sensipar for his secondary hyperparathyroidism. [facility] iron saturation done 06/25/2016 was 23%, which is acceptable. I think adding Florinef will decreas e his ability to remove any fluid. He is at his dry weight. No sign of lower extremity edema. Even mild attempts to remove excess fluid results in hypotension, so I do not think that further volume r emoval will be necessary. He has had an extensive cardiac workup that has not been significant. He does have moderate left pleural effusion. I will repeat the chest x-ray. Law Gee MD cc: [id number] TT: 07/10/2016 08:18:12 Confirmation # [id number] Dictation # [id number] mn
--- NOTE | 2016-07-10 09:31 | CP.PCM.PN ---
<Oksana Andrews - Last Filed: 07/10/16 09:29> Subjective - Date & Time of Evaluation Date of Evaluation: 07/10/16 Time of Evaluation: 09:29 - Subjective Subjective: 50 y/o male seen at bedside in TCU with attending Dr. Cabello for right foot dry gangrene of digits. Patient denies any acute events overnight.. Patient's dressings all off at the time of visit. Denies n/f/v/c/d/cp. Objective - Vital Signs/Intake and Output Vital Signs (last 24 hours): Temp Pulse Resp BP Pulse Ox 98.3 F 65 20 128/80 95 07/09/16 10:00 07/09/16 10:00 07/09/16 10:00 07/09/16 10:00 07/09/16 10:00 - Medications Medications: Current Medications Acetylcysteine (Acetylcysteine 20%) 4 ml IH BIDRESP DYLLAN Last Admin: 07/10/16 07:07 Dose: 4 ml Albuterol/Ipratropium (Duoneb 3 Mg/0.5 Mg (3 Ml) Ud) 3 ml IH [id number] PRN; Protocol PRN Reason: Wheezing Last Admin: 07/09/16 20:43 Dose: 3 ml Arformoterol Tartrate (Brovana) 15 mcg IH [id number] DYLLAN Last Admin: 07/10/16 07:07 Dose: 15 mcg Armodafinil (Nuvigil 250 Mg Tab) 250 mg PO DAILY DYLLAN Last Admin: 07/09/16 10:52 Dose: Not Given Atorvastatin Calcium (Lipitor) 10 mg PO HS DYLLAN PRN Reason: Protocol Last Admin: 07/09/16 21:38 Dose: 10 mg Budesonide (Pulmicort Respules) 0.5 mg IH [id number] DYLLAN Last Admin: 07/10/16 07:07 Dose: 0.5 mg Carvedilol (Coreg) 3.125 mg PO 0800,1700 DYLLAN PRN Reason: Protocol Last Admin: 07/10/16 08:33 Dose: Not Given Cinacalcet (Sensipar) 60 mg PO 0800 DYLLAN PRN Reason: Protocol Last Admin: 07/10/16 08:36 Dose: 60 mg Dipyridamole/Aspirin (Aggrenox 25-200 Mg) 1 ea PO BID DYLLAN PRN Reason: Protocol Last Admin: 07/09/16 19:00 Dose: Not Given Docusate Sodium (Colace) 100 mg PO BID DYLLAN PRN Reason: Protocol Last Admin: 07/09/16 19:00 Dose: Not Given Fluticasone Propionate (Flonase) 1 actuation NS DAILY [facility] PRN Reason: Protocol Last Admin: 07/09/16 10:52 Dose: Not Given Hydralazine HCl (Apresoline) 10 mg PO QID PRN; Protocol PRN Reason: Other Insulin Detemir (Levemir) 10 unit SC Q12H DYLLAN PRN Reason: Protocol Last Admin: 07/07/16 10:51 Dose: 10 unit Insulin Human Regular (Humulin R Low) 0 units SC ACHS [facility] PRN Reason: Protocol Last Admin: 07/10/16 06:49 Dose: 5 units Midodrine (Proamatine) 5 mg PO MWF [facility] Last Admin: 07/09/16 10:53 Dose: Not Given Mirtazapine (Remeron) 15 mg PO HS [facility] Last Admin: 07/09/16 21:39 Dose: 15 mg Montelukast Sodium (Singulair) 10 mg PO HS [facility] PRN Reason: Protocol Last Admin: 07/09/16 21:39 Dose: 10 mg Mupirocin (Bactroban Ointment) 0 gm TOP BID [facility] Last Admin: 07/09/16 19:00 Dose: Not Given Sciqb-3-Pvrr Ethyl Esters (Lovaza) 1 gm PO QID [facility] PRN Reason: Protocol Last Admin: 07/09/16 21:38 Dose: 1 gm Pantoprazole Sodium (Protonix Ec Tab) 40 mg PO 0630 [facility] PRN Reason: Protocol Last Admin: 07/10/16 06:12 Dose: 40 mg Potassium Phos/Sodium Phos (Neutra-Phos) 1 pkt PO BID [facility] Stop: 07/12/16 10:01 Prednisone (Prednisone Tab) 10 mg PO DAILY [facility] Last Admin: 07/09/16 10:53 Dose: Not Given - Labs Labs: 07/09/16 11:20 07/09/16 11:20 - Constitutional Appears: Well, Non-toxic, No Acute Distress - Extremities Exam Additional comments: Vasc:nonpalpable pedal pulses b/l, TG wnl, CFT < 3 sec to all digits, no edema neuro: grossly diminished derm: superficial abrasion noted to left lateral leg, dry gangrene noted on plantar aspect of toes 4,5 of right foot, superficial ulceration noted to sulcus of 3rd digit plantarly- no drainage, no purulence, fibrous base, macerated edges, no active bleeding, no acute clinical signs of infection, no ascending cellulitis ortho: contracted digits of 2-5 b/l - Neurological Exam Neurological Exam: Alert, Awake, Oriented x3 - Psychiatric Exam Psychiatric exam: Normal Affect, Normal Mood Assessment and Plan - Assessment and Plan (Free Text) Assessment: 50 y/o male seen at bedside for dry gangrene of digits 4,5 of right foot Plan: patient evaluated and chart reviewed seen at bedside with attending Dr. Cabello labs and vitals reviewed applied DSD to right foot podiatry will continue to monitor while patient remains in house <Jacinta Cabello - Last Filed: 07/13/16 12:25> Objective - Vital Signs/Intake and Output Vital Signs (last 24 hours): Temp Pulse Resp BP Pulse Ox 98.3 F 84 20 107/63 93 L 07/10/16 10:00 07/10/16 17:39 07/10/16 10:00 07/10/16 17:39 07/10/16 10:00 - Labs Labs: 07/11/16 10:20 07/11/16 10:20
[2016-07-10] MEDS: Aspirin-Dipyridamole 200-25 mg ER Cap PO SCH ×2 (10:22→17:40)
[2016-07-10] MEDS: Omega-3-Acid Ethyl Esters 1 GM Cap PO SCH ×4 (10:23→21:57)
[2016-07-10] MEDS: Fluticasone Nasal 50 mcg/Spray NS SCH (10:23)
[2016-07-10] MEDS: Potassium & Sodium Phosphate PO SCH ×2 (10:24→17:41)
[2016-07-10] MEDS: Armodafinil 250 mg Tab PO SCH (10:28)
--- NOTE | 2016-07-10 11:35 | RAD ---
HISTORY: L pleural effusion COMPARISON: 07/07/2016. TECHNIQUE: Chest PA and lateral FINDINGS: LUNGS: Stable consolidative changes bilaterally left greater than right PLEURA: Stable bilateral pleural effusions left larger than right. CARDIOVASCULAR: Stable cardiomegaly. OSSEOUS STRUCTURES: No significant abnormalities. VISUALIZED UPPER ABDOMEN: Normal. OTHER FINDINGS: None. IMPRESSION: No significant interval change compared to the prior examination(s).
--- NOTE | 2016-07-10 11:53 | PN ---
DATE: 07/10/2016 The patient is in room 303, bed 1. REASON FOR CONSULTATION AND FOLLOWUP: Status post TAVR with recurrent pleural effusion, recurrent hy potension during dialysis, renal failure. HISTORY OF PRESENT ILLNESS: A 50-year-old male with past medical history significant for end-stage r enal disease on dialysis, known diabetic with diabetic complications of diabetic retinopathy, diabeti c neuropathy, and diabetic nephropathy, legally blind, admitted with recurrent pleural effusion statu s post thoracentesis, ____. The patient, 3 days ago, had hypotension during dialysis, had to be give n IV fluids to improve the blood pressure. The patient denies any chest pain or palpitation. His br eathing is stable. The patient has history of TAVR. PHYSICAL EXAMINATION: VITAL SIGNS: Blood pressure 128/80, respirations 20, pulse 65, temperature 98.3. HEAD: Normocephalic. EYES: Pupils are normal. Conjunctivae are slightly pale. NECK: JVP low. Carotids equal. THORAX: AP diameter normal. LUNGS: Fine rales in the bases of the lungs. CARDIOVASCULAR: S1, S2, ejection systolic murmur grade II-III/. No rub. ABDOMEN: Soft, nontender. No organomegaly. EXTREMITIES: No clubbing, no cyanosis. LABORATORY DATA: WBC 10.4, hemoglobin 9.4, hematocrit 29.3, platelets 235. Sodium 136, potassium 3. 8. BUN 68, creatinine 6.7. Random glucose 376. Calcium 11.6, phosphorus 1.9, magnesium 2.3. Total protein and albumin normal. DIAGNOSES: Status post-transcatheter aortic valve replacement, renal failure on dialysis, episodes o f hypotension while on dialysis, diabetes mellitus, diabetic nephropathy, diabetic neuropathy, diabet ic retinopathy, legally blind, history of coronary artery disease, which is nonobstructive on cathete rization on 05/04/2016, normally-functioning transcatheter aortic valve seen with catheterization as well as by echo. PLAN: Continue dialysis, as per Dr. Law Gee. The patient is also receiving Coreg 3.125 b.i. d., insulin as ordered, Lipitor 10 mg daily, Nuvigil 250 mg p.o. daily, Protonix 40 mg p.o. daily, Re destiny 15 mg p.o. at bedtime, Sensipar 60 mg p.o. daily, Singulair 10 mg p.o. at bedtime, prednisone 1 0 mg p.o. daily. We will follow with you. Franky Lal MD cc: [id number] TT: 07/10/2016 11:53:02 Confirmation # [id number] Dictation # [id number] jn
[2016-07-10 12:47] VITALS: O2SAT 93
[2016-07-10 17:42] VITALS: BP 107/63; PULSE 84
--- NOTE | 2016-07-10 23:01 | PN ---
DATE: 07/10/2016 REFERRING PHYSICIAN: Dr. Luther. SUBJECTIVE: He is lying in the bed, head at 45 degrees, unremarkable morning. Yesterday been noted his blood pressure 70 hen taken to ER, but presently feels okay. Short of breath with exertion. No cough, no sputum production, no nausea, no vomiting, no diarrhea, no leg swelling. OBJECTIVE: GENERAL: No acute distress. VITAL SIGNS: Temperature is 98, heart rate is 84, respiratory rate is 20, blood pressure 107/63, pul se ox 93% on 3 liters nasal cannula. HEENT: Moist mucous membranes. Crowded airway. Mallampati score is 4. NECK: Supple. No JVD. LUNGS: Has decreased breath sounds at the bases. HEART: S1, S2. ABDOMEN: Soft, nontender. No organomegaly. EXTREMITIES: There is no edema. NEUROLOGIC: Awake, alert, follows simple commands. MEDICATIONS: He is on Mucomyst 20% inhaled twice a day, Aggrenox 25/200 one tab twice a day, hydrala zine 10 mg four times a day p.r.n., Bactroban affected area twice a day, Brovana 15 mcg inhaled twice a day, Colace 100 mg twice a day, Coreg 3.125 mg twice a day, DuoNeb every 6 hours p.r.n., Flonase 1 spray each nostril daily, insulin coverage, Levemir 10 units subQ every 12 hours, Lipitor 10 mg hodan y, Lovaza 1 gram four times a day, Neutra-Phos 1 pack b.i.d., Nuvigil 250 mg daily, prednisone 10 mg daily, 5 mg Thursday, Thursday and Thursday, Protonix 40 mg daily, Pulmicort inhaled twice a day, Remeron 50 mg at bedtime, Sensipar 60 mg daily, Singulair 10 mg daily. LABORATORY DATA: Reviewed. No new lab is available since yesterday. His proBNP from yesterday bloo d test was 33,900. IMPRESSION AND PLAN: Chronic obstructive lung disease, obstructive sleep apnea syndrome, cardiomyopa thy, valvular heart disease, history of TAVR, renal failure, dialysis dependent, asthma, hypertension , diabetes, pleural effusion. Pulmonary point of view, he is doing okay. Continue supplemental oxyg en, bronchodilator. Keep head at 45 degrees, daytime stimulant being followed by nephrology, cardiol ogy. Will follow with you. Franky Stahl MD cc: [id number] TT: 07/10/2016 23:00:19 Confirmation # [id number] Dictation # [id number] mn
--- NOTE | 2016-07-10 23:30 | PN ---
DATE: 07/10/2016 SUBJECTIVE: The patient was seen and examined on the bedside. Looks comfortable. No nausea, vomiting, or diarrhea. No hematuria or hematochezia. No fever, no chills. No headache, no dizziness. PHYSICAL EXAMINATION: VITAL SIGNS: Temperature 98.3, pulse 65, blood pressure 120/80, respiratory rate 20. HEENT: Normocephalic, atraumatic. Eyes, PERRLA. Extraocular muscles intact. Conjunctivae pink. Eyelids unremarkable. Nose patent. Mucous membranes moist. NECK: Supple. No carotid bruit, JVD or thyromegaly. CHEST: Bilaterally symmetrical. HEART: S1, S2 positive. LUNGS: Clear to auscultation. ABDOMEN: Soft. Bowel sounds present. No organomegaly. EXTREMITIES: No edema, no cyanosis. NEUROLOGIC: The patient is awake, alert, moving all 4 extremities. No focal deficits. MEDICATIONS: Acetylcysteine, Aggrenox, hydralazine, Bactroban, Brovana, Colace , Coreg, DuoNeb, Flonase, insulin Levemir, atorvastatin, Lovaza, Neutra-Phos, Nuvigil, prednisone, Flomax, Protonix, Pulmicort, Remeron, Sensipar, Singulair. LABORATORY DATA: White blood cells 10.4, hemoglobin 9.4, hematocrit 29.3, platelets 235. Sodium 136, potassium 3.8, BUN 58, creatinine 6.7, random glucose 376. PTH 94. ASSESSMENT AND PLAN: The patient is a 50-year-old male with anemia, renal insufficiency, diabetes mellitus uncontrolled, hypophosphatemia, hypermagnesemia seen by the regulatory administrator, Dr. Law Gee, left-sided pleural effusion, chronic lung disease, coronary artery disease, right eye blindness, diabetic retinopathy, and left arm AV fistula, secondary hyperparathyroidism, status post transcatheter aortic valve replacement. According to regulatory administrator, the patient is currently comfortable. The patient is not a candidate for peritoneal dialysis because of his issues with as per regulatory administrator. He is becoming and he has been losing weight. He cannot tolerate dialysis. Yesterday his blood pressure dropped, then IV fluid was given in ER and transfer the patient back to the floor. Dr. Law Gee is thinking of adding Florinef, gastrointestinal and deep vein thrombosis prophylaxis. Discussion done with social workers, the director of casework and the patient's nurse and will follow up. Laure Luther MD cc: [id number] TT: 07/10/2016 23:29:24 Confirmation # [id number] Dictation # [id number] [id number]
[2016-07-11] MEDS: Pantoprazole 40 mg EC Tab PO SCH (06:17)
[2016-07-11] MEDS: Insulin Reg-LOW-Coverage SC SCH ×2 (06:46→11:48)
[2016-07-11] MEDS: Acetylcysteine 20% Inhal Soln (4ml) IH SCH (07:17)
[2016-07-11] MEDS: Budesonide 0.5 mg/2 ml Inhal Susp UD IH SCH (07:18)
[2016-07-11] MEDS: Arformoterol 15 mcg/2 ml Inh Sol IH SCH (07:18)
[2016-07-11] MEDS: Albuterol-Ipratrop 3 mg / 0.5 (3 ml) UD IH PRN (07:18)
--- NOTE | 2016-07-11 08:21 | PN ---
DATE: 07/11/2016 SUBJECTIVE: The patient has no complaints of any chest pain, no shortness of breath, no headaches. PHYSICAL EXAMINATION: VITAL SIGNS: Temperature is 98.3, pulse of 84, blood pressure is 107/63, respirations 20. GENERAL: The patient comfortable, in no acute distress. HEENT: Anicteric sclerae. Moist mucosa. NECK: No JVD or adenopathy. CARDIAC: S1/S2. No murmurs. No rubs. Regular. RESPIRATORY: Clear to auscultation bilaterally. No wheezes, rales, or rhonchi. Good air entry. ABDOMEN: Bowel sounds are positive, soft, nontender, and nondistended. EXTREMITIES: No edema. Has 1+ pulses. Chest x-ray done shows no significant interval changes compared with prior examination. There are st able bilateral effusions, left greater than right. ASSESSMENT: 1. Bilateral pleural effusions, left greater than right. 2. End-stage renal disease, on hemodialysis. 3. Chronic obstructive pulmonary disease, stable. 4. Diabetes type 2. 5. Coronary artery disease. 6. Secondary hyperparathyroidism. 7. Diabetic retinopathy. 8. Right eye blindness. 9. Left arm arteriovenous fistula. 10. Hypophosphatemia. PLAN: The patient's phosphorus has been replaced. He has a poor p.o. intake and has been losing bro ght. The patient is currently on Aggrenox, is receiving Brovana for his breathing. He is on Coreg, minimal dose. He is on Flonase. The patient has been on Levemir for his diabetes. He is on Lipitor for dyslipidemia. He is on his ProAmatine for blood pressure prior to going to the dialysis unit fo r dialysis. The patient is on Singulair. He is on prednisone. His prognosis is guarded given his m ultiple comorbidities and the fact that he is having difficulty in tolerating his dialysis. He has i ntradialytic hypotension. He is not a candidate for peritoneal dialysis given that he has poor eyesi ght and will not be able to perform exchanges with his peritoneal bag and will be at risk of infectio n if he has poor technique. Law Gee MD cc: [id number] TT: 07/11/2016 08:21:41 Confirmation # [id number] Dictation # [id number]
[2016-07-11 10:44] LABS: HEMATOCRIT 28.7 % (42.0-52.0); MEAN CELL VOLUME 97.6 fL (80.0-105.0); MEAN CORPUSCULAR HEMOGLOBIN 31.3 pg (25.0-35.0); MEAN CORPUSCULAR HGB CONC 32.1 g/dl (31.0-37.0); MEAN PLATELET VOLUME 10.1 fl (7.0-11.0); RED CELL DISTRIBUTION WIDTH 13.8 % (11.5-14.5); WHITE BLOOD COUNT 7.2 10^3/ul (4.5-11.0)
[2016-07-11 10:52] LABS: ALB/GLOB RATIO 0.9 (1.1-1.8); BILIRUBIN,TOTAL 0.6 mg/dL (0.2-1.3); CALCIUM 10.9 mg/dL (8.4-10.5); POTASSIUM 3.8 mmol/L (3.6-5.0)
[2016-07-11 10:53] LABS: PHOSPHOROUS 1.4 mg/dL (2.5-4.5)
[2016-07-11] MEDS: Aspirin-Dipyridamole 200-25 mg ER Cap PO SCH (11:47)
[2016-07-11] MEDS: Fluticasone Nasal 50 mcg/Spray NS SCH (11:47)
[2016-07-11] MEDS: Potassium & Sodium Phosphate PO SCH (11:48)
[2016-07-11] MEDS: Armodafinil 250 mg Tab PO SCH (11:48)
[2016-07-11] MEDS: Omega-3-Acid Ethyl Esters 1 GM Cap PO SCH ×2 (11:48→13:37)
--- NOTE | 2016-07-11 11:50 | PN ---
DATE: 07/11/2016 The patient is in room 303, bed 1. REASON FOR CONSULTATION AND FOLLOWUP: Status post TAVR with recurrent pleural effusion, recurrent hy potension during dialysis, renal failure. HISTORY OF PRESENT ILLNESS: The patient is a 50-year-old male with past medical history positive for end-stage renal failure on dialysis, diabetic with diabetic complications of diabetic retinopathy, d iabetic neuropathy and diabetic nephropathy, legally blind, history of aortic valve change by TAVR. The patient continues to have hypotension problem during the dialysis. He denies chest pain. His br eathing has been stable. He denies palpitation. PHYSICAL EXAMINATION: VITAL SIGNS: Blood pressure 107/63, respirations 20, pulse 84, temperature 98.3. HEAD: Normocephalic. EYES: Pupils normal. Conjunctivae slightly pale. NECK: JVP low. Carotid equal. THORAX: AP diameter normal. LUNGS: Few fine rales. CARDIOVASCULAR: S1, S2. ABDOMEN: Soft, nontender, no organomegaly. EXTREMITIES: No clubbing, no cyanosis. LABORATORY DATA: WBC 7.2, hemoglobin 9.2, hematocrit 28.7, platelets 219. Sodium 136, potassium 3.8 , BUN 63, creatinine 5.8, random glucose 224. Phosphorous 1.4, AST 19, ALT 17, total protein 7.0, al bumin 3.3. DIAGNOSES: Status post transcatheter aortic valve replacement, renal failure on dialysis, episode of hypotension while on dialysis, diabetes mellitus, diabetic nephropathy, diabetic neuropathy, diabeti c retinopathy, legally blind, history of coronary artery disease with is nonobstructive on cardiac ca theterization 05/04/2016. Normally function transcatheter aortic valve seen with catheterization as w ell by echo. The patient also has a recurrent pleural effusion. The patient has been tapped this t amanda. Bloody fluid was aspirated. PLAN: We will continue present therapy which is the patient on Aggrenox 25/200 one b.i.d.,, Brovana 15 mcg IH q. 12 hours, ____, Coreg 3.125 b.i.d., DuoNeb hand nebulizer therapy, Florinef 0.1 mg , Thursday and Thursday to help the hypotension during dialysis, insulin 10 units subQ q. 12 hours, a torvastatin 10 mg daily, Neutra-Phos 1 packet b.i.d., ProAmatine 5 mg p.o. Thursday, Thursday and ay, Protonix 40 daily, Sensipar 60 mg p.o. daily, Singulair 10 mg p.o. at bedtime, prednisone 10 mg p .o. daily. We will continue present therapy and we will follow with you. Franky Lal MD cc: [id number] TT: 07/11/2016 11:48:59 Confirmation # [id number] Dictation # [id number] tn
--- NOTE | 2016-07-11 14:25 | CP.PCM.PN ---
<Oksana Andrews - Last Filed: 07/11/16 14:23> Subjective - Date & Time of Evaluation Date of Evaluation: 07/11/16 Time of Evaluation: 14:23 - Subjective Subjective: 50 y/o male seen at bedside in dialysis for right foot dry gangrene of digits. Patient denies any acute events overnight.. Patient's dressings all off at the time of visit. Denies n/f/v/c/d/cp. Objective - Vital Signs/Intake and Output Vital Signs (last 24 hours): Temp Pulse Resp BP Pulse Ox 98.3 F 84 20 107/63 93 L 07/10/16 10:00 07/10/16 17:39 07/10/16 10:00 07/10/16 17:39 07/10/16 10:00 - Medications Medications: Current Medications Acetylcysteine (Acetylcysteine 20%) 4 ml IH BIDRESP DYLLAN Last Admin: 07/11/16 07:17 Dose: 4 ml Albuterol/Ipratropium (Duoneb 3 Mg/0.5 Mg (3 Ml) Ud) 3 ml IH [id number] PRN; Protocol PRN Reason: Wheezing Last Admin: 07/11/16 07:18 Dose: 3 ml Arformoterol Tartrate (Brovana) 15 mcg IH [id number] DYLLAN Last Admin: 07/11/16 07:18 Dose: 15 mcg Armodafinil (Nuvigil 250 Mg Tab) 250 mg PO DAILY DYLLAN Last Admin: 07/11/16 11:48 Dose: Not Given Atorvastatin Calcium (Lipitor) 10 mg PO HS DYLLAN PRN Reason: Protocol Last Admin: 07/10/16 21:57 Dose: 10 mg Budesonide (Pulmicort Respules) 0.5 mg IH [id number] DYLLAN Last Admin: 07/11/16 07:18 Dose: 0.5 mg Carvedilol (Coreg) 3.125 mg PO 0800,1700 DYLLAN PRN Reason: Protocol Last Admin: 07/11/16 08:17 Dose: Not Given Cinacalcet (Sensipar) 60 mg PO 0800 DYLLAN PRN Reason: Protocol Last Admin: 07/11/16 08:13 Dose: 60 mg Dipyridamole/Aspirin (Aggrenox 25-200 Mg) 1 ea PO BID DYLLAN PRN Reason: Protocol Last Admin: 07/11/16 11:47 Dose: Not Given Docusate Sodium (Colace) 100 mg PO BID [facility] PRN Reason: Protocol Last Admin: 07/11/16 11:47 Dose: Not Given Fludrocortisone Acetate (Florinef) 0.1 mg PO MWF [facility] Last Admin: 07/11/16 11:48 Dose: Not Given Fluticasone Propionate (Flonase) 1 actuation NS DAILY [facility] PRN Reason: Protocol Last Admin: 07/11/16 11:47 Dose: Not Given Hydralazine HCl (Apresoline) 10 mg PO QID PRN; Protocol PRN Reason: Other Insulin Detemir (Levemir) 10 unit SC Q12H [facility] PRN Reason: Protocol Last Admin: 07/07/16 10:51 Dose: 10 unit Insulin Human Regular (Humulin R Low) 0 units SC ACHS [facility] PRN Reason: Protocol Last Admin: 07/11/16 11:48 Dose: Not Given Midodrine (Proamatine) 5 mg PO [facility] [place] Last Admin: 07/11/16 11:49 Dose: Not Given Mirtazapine (Remeron) 15 mg PO HS [facility] Last Admin: 07/10/16 21:57 Dose: 15 mg Montelukast Sodium (Singulair) 10 mg PO [facility] PRN Reason: Protocol Last Admin: 07/10/16 21:57 Dose: Not Given Mupirocin (Bactroban Ointment) 0 gm TOP BID [facility] Last Admin: 07/11/16 11:47 Dose: Not Given [id number]-[id number] Ethyl Esters (Lovaza) 1 gm PO QID [facility] PRN Reason: Protocol Last Admin: 07/11/16 13:37 Dose: Not Given Pantoprazole Sodium (Protonix Ec Tab) 40 mg PO 0630 [facility] PRN Reason: Protocol Last Admin: 07/11/16 06:17 Dose: 40 mg Potassium Phos/Sodium Phos (Neutra-Phos) 1 pkt PO BID [facility] Stop: 07/12/16 10:01 Last Admin: 07/11/16 11:48 Dose: Not Given Prednisone (Prednisone Tab) 10 mg PO DAILY [facility] Last Admin: 07/11/16 11:48 Dose: Not Given - Labs Labs: 07/11/16 10:20 07/11/16 10:20 - Constitutional Appears: Well, Non-toxic, No Acute Distress - Extremities Exam Additional comments: Vasc:nonpalpable pedal pulses b/l, TG wnl, CFT < 3 sec to all digits, no edema neuro: grossly diminished derm: superficial abrasion noted to left lateral leg, dry gangrene noted on plantar aspect of toes 4,5 of right foot, dorsal aspect of midfoot of right, superficial ulceration noted to sulcus of 3rd digit plantarly- no drainage, no purulence, fibrous base, macerated edges, no active bleeding, no acute clinical signs of infection, no ascending cellulitis ortho: contracted digits of 2-5 b/l - Neurological Exam Neurological Exam: Alert, Awake, Oriented x3 - Psychiatric Exam Psychiatric exam: Normal Affect, Normal Mood Assessment and Plan - Assessment and Plan (Free Text) Assessment: 50 y/o male seen at bedside for dry gangrene of digits 4,5 of right foot Plan: patient evaluated and chart reviewed discussed in detail with attending Dr. Stinson labs and vitals reviewed applied DSD to right foot podiatry will continue to monitor while patient remains in house <Rayray Stinson - Last Filed: 07/11/16 14:46> Objective - Vital Signs/Intake and Output Vital Signs (last 24 hours): Temp Pulse Resp BP Pulse Ox 98.3 F 84 20 107/63 93 L 07/10/16 10:00 07/10/16 17:39 07/10/16 10:00 07/10/16 17:39 07/10/16 10:00 - Medications Medications: Current Medications Acetylcysteine (Acetylcysteine 20%) 4 ml IH BIDRESP [facility] Last Admin: 07/11/16 07:17 Dose: 4 ml Albuterol/Ipratropium (Duoneb 3 Mg/0.5 Mg (3 Ml) Ud) 3 ml IH [id number] PRN; Protocol PRN Reason: Wheezing Last Admin: 07/11/16 07:18 Dose: 3 ml Arformoterol Tartrate (Brovana) 15 mcg IH [id number] [facility] Last Admin: 07/11/16 07:18 Dose: 15 mcg Armodafinil (Nuvigil 250 Mg Tab) 250 mg PO DAILY [facility] Last Admin: 07/11/16 11:48 Dose: Not Given Atorvastatin Calcium (Lipitor) 10 mg PO HS [facility] PRN Reason: Protocol Last Admin: 07/10/16 21:57 Dose: 10 mg Budesonide (Pulmicort Respules) 0.5 mg IH [id number] [facility] Last Admin: 07/11/16 07:18 Dose: 0.5 mg Carvedilol (Coreg) 3.125 mg PO 0800,1700 [facility] PRN Reason: Protocol Last Admin: 07/11/16 08:17 Dose: Not Given Cinacalcet (Sensipar) 60 mg PO 0800 [facility]AN PRN Reason: Protocol Last Admin: 07/11/16 08:13 Dose: 60 mg Dipyridamole/Aspirin (Aggrenox 25-200 Mg) 1 ea PO BID [facility] PRN Reason: Protocol Last Admin: 07/11/16 11:47 Dose: Not Given Docusate Sodium (Colace) 100 mg PO BID [facility] PRN Reason: Protocol Last Admin: 07/11/16 11:47 Dose: Not Given Fludrocortisone Acetate (Florinef) 0.1 mg PO MWF [facility] Last Admin: 07/11/16 11:48 Dose: Not Given Fluticasone Propionate (Flonase) 1 actuation NS DAILY [facility] PRN Reason: Protocol Last Admin: 07/11/16 11:47 Dose: Not Given Hydralazine HCl (Apresoline) 10 mg PO QID PRN; Protocol PRN Reason: Other Insulin Detemir (Levemir) 10 unit SC Q12H [facility] PRN Reason: Protocol Last Admin: 07/07/16 10:51 Dose: 10 unit Insulin Human Regular (Humulin R Low) 0 units SC ACHS [facility] PRN Reason: Protocol Last Admin: 07/11/16 11:48 Dose: Not Given Midodrine (Proamatine) 5 mg PO MWF [facility] Last Admin: 07/11/16 11:49 Dose: Not Given Mirtazapine (Remeron) 15 mg PO HS [facility] Last Admin: 07/10/16 21:57 Dose: 15 mg Montelukast Sodium (Singulair) 10 mg PO HS [facility] PRN Reason: Protocol Last Admin: 07/10/16 21:57 Dose: Not Given Mupirocin (Bactroban Ointment) 0 gm TOP BID [facility] Last Admin: 07/11/16 11:47 Dose: Not Given Lyybl-3-Ukow Ethyl Esters (Lovaza) 1 gm PO QID [facility]AN PRN Reason: Protocol Last Admin: 07/11/16 13:37 Dose: Not Given Pantoprazole Sodium (Protonix Ec Tab) 40 mg PO 0630 [facility] PRN Reason: Protocol Last Admin: 07/11/16 06:17 Dose: 40 mg Potassium Phos/Sodium Phos (Neutra-Phos) 1 pkt PO BID DYLLAN Stop: 07/12/16 10:01 Last Admin: 07/11/16 11:48 Dose: Not Given Prednisone (Prednisone Tab) 10 mg PO DAILY [facility] Last Admin: 07/11/16 11:48 Dose: Not Given - Labs Labs: 07/11/16 10:20 07/11/16 10:20 Attending/Attestation - Attestation I have personally seen and examined this patient.: Yes I have fully participated in the care of the patient.: Yes I have reviewed all pertinent clinical information, including history, physical exam and plan: Yes
--- NOTE | 2016-07-11 18:48 | PN ---
DATE: 07/11/2016 REFERRING PHYSICIAN: Dr. Luther SUBJECTIVE: The patient is seen and examined in dialysis room. Apparently, when dialysis was starte d, systolic blood pressure was 140. As the dialysis was started, blood pressure dropped down to 70. Before seen by me, he already got 500 mL of saline pushed without any benefit. In my presence, anot her 500 IV bolus was given without much benefit. Blood pressure was still in 70s. The patient's wif e also came for brief period of time at that time in the room. The patient does not feel well. Bloo d sugar at bedside done, which shows blood sugar was above 150. I spoke to the nursing staff and sug gested to give another bolus of IV fluids. He denied any headache, no rhinitis, no cough, no sputum production, no chest pain, no leg swelling. OBJECTIVE: VITAL SIGNS: Temperature was 98, heart rate is 80s, respiratory rate is 20-22, blood pressure . HEENT: Moist mucous membrane. No ulcer or oral thrush noted. NECK: Supple. No JVD. LUNGS: Has a fair airflow with few rhonchi. HEART: S1 and S2. ABDOMEN: Soft, nontender. No organomegaly. EXTREMITIES: There is no edema. NEUROLOGIC: He is awake, alert, follows simple commands. MEDICATIONS: He is on Mucomyst 20% inhaled twice a day, Aggrenox 25/200 one tab twice a day, hydrala zine 10 mg q.i.d. p.r.n., Brovana 15 mcg inhaled twice a day, Colace 100 mg twice a day, Coreg 3.125 mg twice a day, albuterol-Atrovent nebulizer q. 6 hours p.r.n., Flonase 1 spray each nostril daily, F lorinef 1 mg Thursday, Thursday, Thursday, Levemir 10 units subQ q. 12 hours, Lipitor 10 mg daily, Lovaz a 1 gram q.i.d., Neutra-Phos 1 pack b.i.d., Nuvigil 250 mg daily, prednisone 10 mg daily, midodrine 5 mg Thursday, Thursday, Thursday, Protonix 40 mg daily, Remeron 50 mg at bedtime, Sensipar 60 mg daily, Singulair 10 mg daily. LABORATORY DATA: Shows today's hemoglobin 9.2, hematocrit 28.7, WBC 7.2, platelet is 219. Sodium 13 6, potassium 3.8, chloride 98, bicarbonate 29, BUN 63, creatinine 5.8, glucose 224, calcium is 10.9, phosphorus 1.4, AST is 19, ALT 17, alkaline phosphatase is 169, albumin is 3.3. IMPRESSION AND PLAN: Hypotension during dialysis, which is recurrent, has a history of cardiomyopath y with valvular heart disease requiring transcatheter aortic valve replacement, pulmonary hypertensio n, he is dialysis dependent, has recurrent fluid overloaded with bilateral pleural effusion requiring multiple thoracenteses, large thoracentesis on the left side with hemorrhagic fluid. Also has a his tory of hypertension, asthma, diabetes. Spoke to nursing staff in detail. Before I left, was ordere d 500 mL of normal saline. The patient already received 1 bolus therapy before that. Also, been on Florinef for blood pressure. I spoke on the telephone with Dr. Luther in detail. Seems from y ears of dialysis, patient's blood vessels becoming noncompliant, which is more stiffer and his blood pressure runs on volume. May not be any flexibility in his blood vessels. Most of the cardiac testi ng cannot pinpoint any other particular cause. According to Dr. Gee's note, patient is not a go od candidate for peritoneal dialysis? So maybe we have to keep patient's fluid status normal, even o n the cost of a pleural effusion and if that reoccurs, may have to do the pleurodesis, if required, b oth sides. Overall hemodynamically, he is becoming unstable. He may have to go to medical floor fro m dialysis instead of TRCU type services and need to figure out further care, need to coordinate kiah ramey cardiology, nephrology and myself more. Will continue to encourage CPAP use. If does not stabil ize in dialysis, will send to ER. Thank you and will follow with you. Franky Stahl MD cc: [id number] TT: 07/11/2016 18:48:02 Confirmation # [id number] Dictation # [id number]
== END 2016-07-11 18:25 | disposition home or self-care (01) | DRG 291 ==
LOC: TRCU 16:31
PROVIDERS: ADMIT Internal Medicine; ATTEND Internal Medicine
PROC: 5A1D60Z (ICD-10-PCS; 2016-07-02)
PROC: F07Z9FZ Gait Training/Functional Ambulation Treatment using Assistive, Adaptive, Supportive or Protective Equipment (ICD-10-PCS; principal; 2016-07-04)
PROC: F07L6ZZ Therapeutic Exercise Treatment of Musculoskeletal System - Lower Back / Lower Extremity (ICD-10-PCS; 2016-07-04)
PROC: F08Z4FZ Home Management Treatment using Assistive, Adaptive, Supportive or Protective Equipment (ICD-10-PCS; 2016-07-11)
DX: I13.2 Hypertensive heart and chronic kidney disease with heart failure and with stage 5 chronic kidney disease, or end stage renal disease (principal); I50.23 Acute on chronic systolic (congestive) heart failure; N18.6 End stage renal disease; J94.2 Hemothorax; E11.52 Type 2 diabetes mellitus with diabetic peripheral angiopathy with gangrene; I95.3 Hypotension of hemodialysis; N25.81 Secondary hyperparathyroidism of renal origin; I42.9 Cardiomyopathy, unspecified; E11.21 Type 2 diabetes mellitus with diabetic nephropathy; G47.33 Obstructive sleep apnea (adult) (pediatric); E78.00 Pure hypercholesterolemia, unspecified; K59.00 Constipation, unspecified; J44.9 Chronic obstructive pulmonary disease, unspecified; K29.70 Gastritis, unspecified, without bleeding; K20.9 Esophagitis, unspecified; J45.909 Unspecified asthma, uncomplicated; E11.65 Type 2 diabetes mellitus with hyperglycemia; E11.319 Type 2 diabetes mellitus with unspecified diabetic retinopathy without macular edema; I25.10 Atherosclerotic heart disease of native coronary artery without angina pectoris; H54.41 Blindness, right eye, normal vision left eye; K21.9 Gastro-esophageal reflux disease without esophagitis; D64.9 Anemia, unspecified; M54.12 Radiculopathy, cervical region; E11.621 Type 2 diabetes mellitus with foot ulcer; L97.519 Non-pressure chronic ulcer of other part of right foot with unspecified severity; K22.70 Barrett's esophagus without dysplasia; E11.649 Type 2 diabetes mellitus with hypoglycemia without coma; E78.5 Hyperlipidemia, unspecified; F31.9 Bipolar disorder, unspecified; E87.6 Hypokalemia; E83.39 Other disorders of phosphorus metabolism; Z99.2 Dependence on renal dialysis; Z95.2 Presence of prosthetic heart valve; Z79.4 Long term (current) use of insulin; Z87.891 Personal history of nicotine dependence; Z88.0 Allergy status to penicillin

== ENCOUNTER 2016-07-07 16:16 | Emergency (ER) | payer MEDICARE, BC ==
[2016-07-07 16:17] VITALS: PULSE 89
[2016-07-07 16:34] VITALS: BMI 17.6
[2016-07-07] MEDS ORDERED: Potassium Phosphate 3 mmol/ml Inj IV STA (16:42)
[2016-07-07] MEDS ORDERED: Sodium Chloride 0.9% 500 ML IV STA (16:46)
--- NOTE | 2016-07-07 16:54 | ED PDOC ---
Arrival/HPI - History of Present Illness Time/Duration: Prior to Arrival, 1-3 hours Symptom Course: Unchanged Severity Level: Moderate <Deyvi Rodriguez - Last Filed: 07/07/16 18:28> <ZeferinoDereck L - Last Filed: 07/07/16 18:56> - General Chief Complaint: Chest Pain Time Seen by Provider: 07/07/16 16:23 - History of Present Illness Narrative History of Present Illness (Text): 07/07/16 16:55 This is a 50 year old male well [place] [facility]p dialysis with hypotension. The patient's pressure before dialysis was 155/85 and ended at 70/ 42. The patient had 0.690L of fluid removed. The patient is fatigued, but sating well on 3L nasal cannula. The patient denies fever, headache, chest pain , abdominal pain, changes in bowel/bladder, and extremity paresthesias. (Deyvi Rodriguez) Past Medical History - Provider Review Nursing Documentation Reviewed: Yes - Travel History Have you recently traveled outside [place] w/in the past 3 mons?: No - Infectious Disease Hx of Infectious Diseases: None - Tetanus Immunization Tetanus Immunization: Unknown - Cardiac Hx Cardiac Disorders: Yes Hx Congestive Heart Failure: Yes - Pulmonary Hx Chronic Obstructive Pulmonary Disease (COPD): Yes - Neurological Hx Neurological Disorder: Yes Hx Seizures: Yes Hx Transient Ischemic Attacks (TIA): Yes Other/Comment: peripheral neuropathy - HEENT Hx HEENT Disorder: Yes (legally blind) Hx Blind: Yes (right eye) Hx Cataracts: Yes (Bilateral sx) Hx Glaucoma: Yes Hx Macular Degeneration: Yes Other/Comment: sclera buckling sx for retinal detachment - Renal Date of Last Dialysis Treatment: 06/25/16 - Endocrine/Metabolic Hx Diabetes Mellitus Type 2: Yes - Hematological/Oncological Hx Blood Disorders: Yes Hx Anemia: Yes (blood transfusion 2014) Hx Shingles: No (Received shingles vaccination) - Integumentary Hx Dermatological Disorder: Yes Other/Comment: bottom of right foot 1`cm x 1cm round dry red wound, 1cm round dry red wound bottom of r ft 5th toe, top of right foot 0.5cm round red wound, ble multiple areas of dry skin and multiple wounds some red - Musculoskeletal/Rheumatological Hx Falls: Yes (past) - Gastrointestinal Hx Gastrointestinal Disorders: Yes Hx Gastroesophageal Reflux: Yes - Genitourinary/Gynecological Hx Genitourinary Disorders: Yes (oliguria) - Psychiatric Hx Bipolar Disorder: Yes Hx Depression: Yes Hx Emotional Abuse: No Hx Physical Abuse: No Hx Substance Use: No - Surgical History Hx Valve Replacement: Yes (2014) Other/Comment: left arm av shunt, thoracentesis x3 last one 2016, debridement of r ft wound bottom of ft 2017 - Anesthesia Hx Anesthesia: Yes Hx Anesthesia Reactions: No Hx Malignant Hyperthermia: No - Suicidal Assessment Feels Threatened In Home Enviroment: No <Deyvi Rodriguez - Last Filed: 07/07/16 18:28> Family/Social History - Physician Review Nursing Documentation Reviewed: Yes Family/Social History: No Known Family HX Smoking Status: Former Smoker Hx Alcohol Use: No Hx Substance Use: No Hx Substance Use Treatment: No <Deyvi Rodriguez - Last Filed: 07/07/16 18:28> Allergies/Home Meds <Deyvi Rodriguez - Last Filed: 07/07/16 18:28> <Dereck Mcgarry - Last Filed: 07/07/16 18:56> Allergies/Adverse Reactions: Allergies Iodinated Contrast Media - Oral and [Iodinated Contrast Media - IV Dye] Allergy (Intermediate, Verified 07/07/16 16:42) SWELLING shellfish derived Allergy (Mild, Verified 07/07/16 16:42) ITCHING Penicillins Allergy (Verified 07/07/16 16:42) ITCHING Home Medications: Home Meds Medication Instructions Recorded Confirmed Insulin Glargine,Hum.rec.anlog 10 unit SC ACBD 03/28/12 06/30/16 [Lantus] Albuterol Sulfate [Proair Hfa] 1 - 2 puff INH Q4H PRN 02/28/13 06/30/16 Calcium Acetate [Phoslo] 2 tab PO WM 07/03/15 06/30/16 Budesonide/Formoterol Fumarate 2 puff INH BID 03/17/16 06/30/16 [Symbicort 160-4.5 Mcg Inhaler] Cetirizine HCl [All Day Allergy 10 mg PO DAILY 06/15/16 06/30/16 Relief] Review of Systems - Physician Review All systems were reviewed & negative as marked: Yes - Review of Systems Constitutional: Fatigue. absent: Fevers Eyes: absent: Vision Changes ENT: absent: Hearing Changes, Tinnitus Respiratory: SOB. absent: Cough, Sputum Cardiovascular: absent: Chest Pain, Palpitations, Syncope Gastrointestinal: absent: Abdominal Pain, Nausea, Vomiting Genitourinary Male: absent: Dysuria, Frequency Musculoskeletal: absent: Arthralgias, Back Pain Skin: absent: Rash, Pruritis Neurological: absent: Headache, Dizziness Endocrine: Diaphoresis Hemo/Lymphatic: absent: Adenopathy Psychiatric: absent: Anxiety <Deyvi Rodriguez - Last Filed: 07/07/16 18:28> Physical Exam Vital Signs Reviewed: Yes Temperature: Afebrile Blood Pressure: Hypotensive Pulse: Regular Respiratory Rate: Normal Appearance: Positive for: Well-Appearing, Non-Toxic, Comfortable Pain Distress: None Mental Status: Positive for: Alert and Oriented X 3 - Systems Exam Head: Present: Atraumatic, Normocephalic Pupils: Present: PERRL Extroacular Muscles: Present: EOMI Conjunctiva: Present: Normal Neck: Present: Normal Range of Motion. No: JVD Respiratory/Chest: Present: Respiratory Distress, Accessory Muscle Use, Rales. No: Clear to Auscultation, Good Air Exchange Cardiovascular: Present: Regular Rate and Rhythm, Normal S1, S2. No: Murmurs Abdomen: Present: Normal Bowel Sounds. No: Tenderness, Distention, Peritoneal Signs Upper Extremity: Present: Normal Inspection, Normal ROM, NORMAL PULSES, Other ( left av fistula patent). No: Cyanosis, Edema Lower Extremity: Present: Normal Inspection, Edema (trace - 1+ edema), NORMAL PULSES, Neurovascularly Intact. No: CALF TENDERNESS Neurological: Present: GCS=15, CN II-XII Intact Skin: Present: Warm, Dry, Normal Color. No: Rashes Psychiatric: Present: Alert, Oriented x 3, Normal Insight, Normal Concentration <Deyvi Rodriguez - Last Filed: 07/07/16 18:28> Vital Signs Temp Pulse Pulse Resp BP Pulse Ox 07/07/16 18:25 98.6 F 93 H 20 114/63 91 L 07/07/16 18:15 97 H 20 129/71 99 07/07/16 18:05 97 H 20 127/72 94 L 07/07/16 17:55 97 H 20 127/64 99 07/07/16 17:45 97 H 20 124/57 L 97 07/07/16 17:35 98 H 20 117/66 99 07/07/16 17:25 99 H 20 118/67 97 07/07/16 17:15 103 H 20 151/86 H 100 07/07/16 16:50 74/51 L 07/07/16 16:20 103 H 20 73/46 L 95 07/07/16 16:17 97 H Medical Decision Making - Critical Care Critical Care Minutes: 30 minutes - Lab Interpretations I have reviewed the lab results: Yes Interpretation: Abnormal lab values - RAD Interpretation Manager Online: ED Physician - EKG Interpretation Interpreted by ED Physician: Yes Type: 12 lead EKG Comparison: Com.w/previous EKG <Deyvi Rodriguez - Last Filed: 07/07/16 18:28> - Critical Care Critical Care Minutes: 30 minutes - Lab Interpretations I have reviewed the lab results: Yes <Dereck Mcgarry - Last Filed: 07/07/16 18:56> ED Course and Treatment: 07/07/16 16:58 Impression: This is a 50 year old male well [place] [facility]/p dialysis with hypotension. The patient appears lethargic. Patient clinically stable right now with hypotension systolic BP in the 70s-90s. Differential: Hypotension 2/2 Volume Loss Shock/Sepsis Cardiogenic Shock Plan: 500mL NS bolus K-Phos 15mcg IVP Prior Visits: 06/25-06/30/16- CHF Exacerbation 06/15/16- CHF/Pulmonary Edema 05/01-05/02/16- CHF Exacerbation 04/22/16, 04/10/16, 04/04/16- CHF Exacerbation/pulmonary edema 09/24-09/28/15- Fever, pleural effusion 02/24/15- Pneumonia 01/20/15- Aortic Stenosis 04/20-04/26/13- GI Bleed Progress Note: Patient seen and examined at the bedside. The patient is lethargic and diaphoretic. Initial SBP 90s, SBP in the 70s on repeat. Patient denies all complaints. Patient will be given 500mL bolus of NS and re-evaluated. 07/07/16 18:40 Patient re-examined following completion of 100mL K-Phos. At this time, the patient has received the 100mL of K-phos and approximately 200mL of NS. The patients systolic BP has increased into the 120s. All fluids were stopped. Dr. Archer was called and the case was discussed over the phone. He agreed that the patient was cleared to return to the TCU. (Deyvi Rodriguez) 07/07/16 17:48 Patient seen and examined with resident. Came up with treatment and disposition plan with resident. Impression: The patient is a 50 year old male who comes into the emergency department for evaluation of a low blood pressure after getting dialyzed. Additional HPI details as noted by the resident. On physical examination the patient has a AV fistula on the left arm and trace edema to the bilateral lower extremities. Differential Diagnosis included but are not limited to: hypotension Plan: -- EKG -- Chest X-ray -- Labs -- Reassess and disposition Progress Notes: EKG: Ordered, reviewed, and independently interpreted the EKG. Rate : 75 BPM Rhythm : NSR Interpretation : ST depression in the lateral leads. Comparison : No change from previous EKG for comparison. 07/07/16 18:55 I discussed case with Dr. Archer, [facility]. He saw the patient during dialysis when he had this episode of hypotension. I reviewed the blood work with him including troponin at baseline and his BNP is lower than previous. Patient is comfortable and denies sob or cp. Dr. Archer agrees that patient can be transferred back to TCU. (Dereck Mcgarry) - Lab Interpretations Narrative Lab Interpretation (Text): 07/07/16 18:45 07/07/16 15:30 Lactate Dehydrogenase 459 Total Creatine Kinase 28 L Troponin I 0.12 NT-Pro-B Natriuret Pep 55975 H (Deyvi Rodriguez) Lab Results: Lab Results 07/07/16 15:30: Lactate Dehydrogenase 459, Total Creatine Kinase 28 L, Troponin I 0.12, NT-Pro-B Natriuret Pep 74536 H - RAD Interpretation Narrative RAD Interpretations (Text): 07/07/16 18:44 Consistent b/l infiltrates consistent with previous CXR examination (Deyvi Rodriguez) Radiology Orders: 07/07/16 CHEST PORTABLE [RAD] Stat - EKG Interpretation EKG Interpretation (Text): 07/07/16 18:45 consistent with baseline, NSR, ST depression in lateral leads (1,avl,v4,v5,v6) ( Deyvi Rodriguez) - Medication Orders Current Medication Orders: Discontinued Medications Sodium Chloride (Sodium Chloride 0.9%) 500 mls @ 999 mls/hr IV .Q31M STA Stop: 07/07/16 17:16 Last Admin: 07/07/16 17:00 Dose: 999 MLS/HR eMAR Start Stop Document 07/07/16 17:00 JOL (Rec: 07/07/16 17:01 JOL [id number]) Intravenous Solution Start Date 07/07/16 Start Time 17:00 End Date 07/07/16 End time 17:30 Total Infusion Time 30 Potassium Phosphate (Potassium Phosphate) 15 mmole IV ONCE STA Stop: 07/07/16 16:43 Last Admin: 07/07/16 17:13 Dose: 15 MMOLE eMAR Start Stop Document 07/07/16 17:13 JOL (Rec: 07/07/16 17:18 JOL [id number]) Intravenous Solution Start Date 07/07/16 Start Time 17:18 End Date 07/07/16 End time 18:18 Total Infusion Time 60 <Deyvi Rodriguez - Last Filed: 07/07/16 18:28> - Scribe Statement The provider has reviewed the documentation as recorded by the Scribe <Dereck Mcgarry - Last Filed: 07/07/16 18:56> - Scribe Statement Bonifacio Perez Provider Scribe Attestation: All medical record entries made by the Scribe were at my direction and personally dictated by me. I have reviewed the chart and agree that the record accurately reflects my personal performance of the history, physical exam, medical decision making, and the department course for this patient. I have also personally directed, reviewed, and agree with the discharge instructions and disposition. (Dereck Mcgarry) Disposition/Present on Arrival - Present on Arrival Any Indicators Present on Arrival: No History of DVT/PE: No History of Uncontrolled Diabetes: No Urinary Catheter: No History of Decub. Ulcer: No History Surgical Site Infection Following: None - Disposition Have Diagnosis and Disposition been Completed?: Yes Disposition Time: 18:30 Patient Plan: Transfer To (TCU) <Deyvi Rodriguez - Last Filed: 07/07/16 18:28> - Present on Arrival Any Indicators Present on Arrival: No - Disposition Have Diagnosis and Disposition been Completed?: Yes Patient Plan: Transfer To (TCU) <ZeferinoDereck L - Last Filed: 07/07/16 18:56> - Disposition Diagnosis: ESRD (end stage renal disease), Hypotension Disposition: TRANSITIONAL CARE UNIT Patient Problems: Current Active Problems Problem Status Diagnosed COPD (chronic obstructive pulmonary disease) Acute ESRD (end stage renal disease) Acute Hypotension Acute Condition: IMPROVED Referrals: Laure Luther MD [Primary Care Provider] - Follow up with primary
[2016-07-07 18:17] LABS: TROPONIN I 0.12 ng/mL
[2016-07-07 19:49] VITALS: BP 112/78; PULSE 89; RESP 22; TEMP 98; O2SAT 97
--- NOTE | 2016-07-08 07:53 | RAD ---
HISTORY: rales COMPARISON: 07/06/2016 FINDINGS: LUNGS: There is persistent airspace disease in both lower lobes and bilateral locular pleural effusions, larger on the left. PLEURA: No pneumothorax apparent. CARDIOVASCULAR: There is persistent severe cardiomegaly. OSSEOUS STRUCTURES: No significant abnormalities. VISUALIZED UPPER ABDOMEN: Normal. OTHER FINDINGS: None. IMPRESSION: Persistent right lateral lower lobe pneumonia and locular pleural effusions. Severe cardiomegaly.
--- NOTE | 2016-07-08 12:07 | CARD ---
APPROVED REPORT EKG Measurement Heart [id number] <Conclusion> Normal sinus rhythm Left axis deviation ST & T wave abnormality, consider lateral ischemia Prolonged QT Abnormal ECG
== END 2016-07-07 20:03 ==
LOC: ED 16:16
DX: N18.6 End stage renal disease (principal); Z99.2 Dependence on renal dialysis; I95.9 Hypotension, unspecified; I50.9 Heart failure, unspecified; Z86.73 Personal history of transient ischemic attack (TIA), and cerebral infarction without residual deficits; Z87.891 Personal history of nicotine dependence
CPT/HCPCS: 71010; 82550; 82948; 83615; 83880; 84484; 93005; 96360; 99285; J7040

== ENCOUNTER 2016-07-09 15:15 | Emergency (ER) | payer MEDICARE, BC ==
[2016-07-09 15:15] VITALS: PULSE 89
[2016-07-09 15:35] VITALS: BMI 23.8
--- NOTE | 2016-07-09 16:44 | ED PDOC ---
Arrival/HPI - General Time Seen by Provider: 07/09/16 15:27 - History of Present Illness Narrative History of Present Illness (Text): 07/09/16 16:42 50 y/o male with multiple medical problems including ESRD on HD, cardiomyopathy , diabetes presenting from dialysis with hypotension. The patient was seen here on 07/07 under similar circumstances. He was admitted and then transferred to TCU. He underwent dialysis prior to presentation here. Per dialysis staff, patient underwent dialysis for 3 hrs today. No fluid was removed at the wishes of both the patient nephrology. After dialysis was complete the patient stated he was not feeling well. His blood pressure at that time was in the 90's systolic. His blood pressure was retaken and is reported to be in 84 systolic. He reports some shortness of breath. He denies chest pain, abdominal pain or distention, fever or chills. Past Medical History - Provider Review Nursing Documentation Reviewed: Yes - Infectious Disease Hx of Infectious Diseases: None - Tetanus Immunization Tetanus Immunization: Unknown - Cardiac Hx Cardiac Disorders: Yes Hx Hypertension: Yes - Pulmonary Hx Respiratory Disorders: Yes Hx Chronic Obstructive Pulmonary Disease (COPD): Yes - Neurological Hx Neurological Disorder: Yes Hx Seizures: Yes Hx Transient Ischemic Attacks (TIA): Yes Other/Comment: peripheral neuropathy - HEENT Hx HEENT Disorder: Yes (legally blind) Hx Blind: Yes (right eye) Hx Cataracts: Yes (Bilateral sx) Hx Glaucoma: Yes Hx Macular Degeneration: Yes Other/Comment: sclera buckling sx for retinal detachment - Renal Hx Renal Disorder: Yes Date of Last Dialysis Treatment: 07/09/16 Hx Renal Failure: Yes - Endocrine/Metabolic Hx Endocrine Disorders: Yes Hx Diabetes Mellitus Type 2: Yes - Hematological/Oncological Hx Blood Disorders: Yes Hx Anemia: Yes (blood transfusion 2014) Hx Shingles: No (Received shingles vaccination) - Integumentary Hx Dermatological Disorder: Yes Other/Comment: bottom of right foot 1`cm x 1cm round dry red wound, 1cm round dry red wound bottom of r ft 5th toe, top of right foot 0.5cm round red wound, ble multiple areas of dry skin and multiple wounds some red - Musculoskeletal/Rheumatological Hx Musculoskeletal Disorders: Yes Hx Falls: Yes (past) - Gastrointestinal Hx Gastrointestinal Disorders: Yes Hx Gastroesophageal Reflux: Yes - Genitourinary/Gynecological Hx Genitourinary Disorders: Yes (oliguria) - Psychiatric Hx Psychophysiologic Disorder: Yes Hx Bipolar Disorder: Yes Hx Depression: Yes Hx Emotional Abuse: No Hx Physical Abuse: No Hx Substance Use: No - Surgical History Hx Valve Replacement: Yes (2014) Other/Comment: left arm av shunt, thoracentesis x3 last one 2015, debridement of r ft wound bottom of ft 2017 - Anesthesia Hx Anesthesia: Yes Hx Anesthesia Reactions: No Hx Malignant Hyperthermia: No - Suicidal Assessment Feels Threatened In Home Enviroment: No Family/Social History - Physician Review Nursing Documentation Reviewed: Yes Family/Social History: Unknown Family HX Smoking Status: Former Smoker Hx Alcohol Use: No Hx Substance Use: No Hx Substance Use Treatment: No Allergies/Home Meds Allergies/Adverse Reactions: Allergies Iodinated Contrast Media - Oral and [Iodinated Contrast Media - IV Dye] Allergy (Intermediate, Verified 07/09/16 15:29) SWELLING shellfish derived Allergy (Mild, Verified 07/09/16 15:29) ITCHING Penicillins Allergy (Verified 07/09/16 15:29) ITCHING Home Medications: Home Meds Medication Instructions Recorded Confirmed Albuterol Sulfate [Proair Hfa] 1 inh INH PRN PRN 07/09/16 07/09/16 Aspirin/Dipyridamole [Aggrenox 1 tab PO BID 07/09/16 07/09/16 25-200 mg] Atorvastatin [Lipitor] 10 mg PO DAILY 07/09/16 07/09/16 Calcium Acetate [Phoslo] 2 tab PO .WITHEACH MEAL 07/09/16 07/09/16 Carvedilol [Coreg] 3.125 mg PO BID 07/09/16 07/09/16 Cinacalcet [Sensipar] 90 mg PO DAILY 07/09/16 07/09/16 Fluticasone Nasal [Flonase] 50 mcg IN DAILY 07/09/16 07/09/16 Insulin Glargine, Recombina 0 units SC HS 07/09/16 07/09/16 [Lantus] Insulin Lispro [humALOG] 0 units SC AC 07/09/16 07/09/16 Losartan [Cozaar] 25 mg PO DAILY 07/09/16 07/09/16 Losartan [Cozaar] 100 mg PO DAILY 07/09/16 07/09/16 [id number]-4-Yfpu Ethyl Esters 1 GM 400 mg PO 07/09/16 [Lovaza] Pantoprazole [Protonix EC Tab] 40 mg PO BID 07/09/16 07/09/16 amLODIPine [Norvasc] 10 mg PO DAILY 07/09/16 07/09/16 cloNIDine [Catapres] 0.2 mg PO BID 07/09/16 07/09/16 Review of Systems - Physician Review All systems were reviewed & negative as marked: Yes - Review of Systems Constitutional: Normal. absent: Fevers Eyes: Normal ENT: Normal Respiratory: SOB. absent: Cough, Sputum, Wheezing Cardiovascular: absent: Chest Pain, GUERRA Gastrointestinal: absent: Abdominal Pain, Diarrhea, Vomiting, Anorexia Musculoskeletal: absent: Back Pain, Neck Pain Skin: absent: Rash, Pruritis, Skin Lesions Neurological: absent: Headache, Dizziness, Focal Weakness Psychiatric: absent: Anxiety, Depression Physical Exam Vital Signs Reviewed: Yes Vital Signs Temp Pulse Resp BP Pulse Ox 07/09/16 16:59 87 18 116/64 100 07/09/16 15:53 98.7 F 90 18 110/58 L 99 Temperature: Afebrile Blood Pressure: Normal Pulse: Regular Respiratory Rate: Normal Appearance: Positive for: Well-Appearing Pain Distress: None Mental Status: Positive for: Alert and Oriented X 3 - Systems Exam Head: Present: Atraumatic, Normocephalic Pupils: Present: PERRL Extroacular Muscles: Present: EOMI Conjunctiva: Present: Normal Mouth: Present: Moist Mucous Membranes Neck: Present: Normal Range of Motion Respiratory/Chest: Present: Good Air Exchange, Rales (left lower quadrant ) Cardiovascular: Present: Regular Rate and Rhythm, Normal S1, S2 Abdomen: Present: Tenderness, Normal Bowel Sounds. No: Distention Upper Extremity: Present: Normal Inspection, NORMAL PULSES. No: Cyanosis, Edema Lower Extremity: Present: Normal Inspection, NORMAL PULSES. No: Edema, CALF TENDERNESS, Cyanosis Neurological: Present: GCS=15, CN II-XII Intact, Speech Normal Skin: Present: Warm, Dry. No: Rashes Psychiatric: Present: Alert, Oriented x 3, Normal Insight, Normal Concentration Medical Decision Making ED Course and Treatment: 07/09/16 16:57 50 y/o male with ESRD on HD, DM, heart failure presenting after dialysis with hypotension. Patient is hemodynamically stable. No fluid was removed during dialysis today. - CBC - CMP - BNP - chest xray - EKG 07/09/16 18:39 Lab results reviewed.Hypokalemia noted however patient underwent dialysis today. Will not replete at this time. Case discussed with Dr. Luther who would like the patient to return to TCU. Blood pressure is stable. The patient is clinically improved. Shortness of breath is improved. - Lab Interpretations Lab Results: 07/09/16 16:00 07/09/16 16:00 Lab Results 07/09/16 16:00: WBC 8.3 D, RBC 2.75 L, Hgb 8.5 L, Hct 26.6 L, MCV 96.7, MCH 30.9, MCHC 32.0, RDW 13.7, Plt Count 194, MPV 10.3, Neutrophils % (Manual) Pending, Lymphocytes % (Manual) Pending, Monocytes % (Manual) Pending, Sodium 136, Potassium 3.0 L, Chloride 97 L, Carbon Dioxide 30, Anion Gap 12, BUN 28 H, Creatinine 3.2 H, Est GFR ( Amer) 25, Est GFR (Non-Af Amer) 20, Random Glucose 271 H, Calcium 10.0, Total Bilirubin 0.6, AST 33, ALT 20, Alkaline Phosphatase 129, NT-Pro-B Natriuret Pep 34646 H, Total Protein 6.3, Albumin 3.0 , Globulin 3.3, Albumin/Globulin Ratio 0.9 L - RAD Interpretation Radiology Orders: 07/09/16 16:37 CHEST PORTABLE [RAD] Stat Disposition/Present on Arrival - Present on Arrival Any Indicators Present on Arrival: No History of DVT/PE: No History of Uncontrolled Diabetes: No Urinary Catheter: No History of Decub. Ulcer: No History Surgical Site Infection Following: None - Disposition Have Diagnosis and Disposition been Completed?: Yes Diagnosis: Hypotension of hemodialysis, Shortness of breath Disposition: HOSPITALIZED Disposition Time: 18:43 Patient Plan: Transfer To (TCU ) Patient Problems: Current Active Problems Problem Status Diagnosed COPD (chronic obstructive pulmonary disease) Acute Hypotension of hemodialysis Acute Shortness of breath Acute Condition: FAIR
[2016-07-09 16:59] VITALS: O2SAT 100
[2016-07-09 17:08] LABS: ALB/GLOB RATIO 0.9 (1.1-1.8); BILIRUBIN,TOTAL 0.6 mg/dL (0.2-1.3); TOTAL PROTEIN 6.3 g/dL (5.8-8.3)
[2016-07-09 17:15] LABS: HEMATOCRIT 26.6 % (42.0-52.0); MEAN CELL VOLUME 96.7 fL (80.0-105.0); MEAN CORPUSCULAR HEMOGLOBIN 30.9 pg (25.0-35.0); MEAN PLATELET VOLUME 10.3 fl (7.0-11.0); PLATELET COUNT 194 10^3/uL (120.0-450.0); RED CELL DISTRIBUTION WIDTH 13.7 % (11.5-14.5); WHITE BLOOD COUNT 8.3 10^3/ul (4.5-11.0)
[2016-07-09 17:29] LABS: ADD MANUAL DIFF? YES
[2016-07-09 18:38] LABS: BAND 3 % (0-2); EOSINOPHIL 2 % (0.0-3.0); NEUTROPHIL 75 % (50.0-70.0); PLATELET ESTIMATE NORMAL (NORMAL)
[2016-07-09 18:44] VITALS: BP 130/70; PULSE 90; RESP 20; TEMP 99
--- NOTE | 2016-07-10 18:34 | CARD ---
APPROVED REPORT EKG Measurement Heart [id number] MO [id number] <Conclusion> Normal sinus rhythm ST & T wave abnormality, consider lateral ischemia Prolonged QT Abnormal ECG
== END 2016-07-09 18:52 | disposition short-term general hospital (02) ==
LOC: ED 15:15
DX: I95.3 Hypotension of hemodialysis (principal); R06.02 Shortness of breath; N18.6 End stage renal disease

== ENCOUNTER 2016-07-14 09:31 | Inpatient (IN) | payer MEDICARE, BC ==
[2016-07-14 09:31] VITALS: PULSE 89; BMI 23.8
--- NOTE | 2016-07-14 10:52 | ED PDOC ---
Arrival/HPI - General Chief Complaint: Respiratory Distress Time Seen by Provider: 07/14/16 10:39 Historian: Patient - History of Present Illness Narrative History of Present Illness (Text): 07/14/16 14:26 50-year-old male with a history of CHF and end-stage renal disease presents today with worsening shortness of breath and just not feeling right. Patient denies chest pain. He denies fevers or chills. He denies abdominal pain. Patient states he was due to have dialysis today but he came to the emergency room instead. Patient's complaining of increased swelling in the lower extremities bilaterally. Denies dizziness or weakness. Past Medical History - Provider Review Nursing Documentation Reviewed: Yes - Travel History Have you recently traveled outside [place] w/in the past 3 mons?: No - Infectious Disease Hx of Infectious Diseases: None - Tetanus Immunization Tetanus Immunization: Unknown - Cardiac Hx Cardiac Disorders: Yes Hx Hypertension: Yes - Pulmonary Hx Respiratory Disorders: Yes Hx Chronic Obstructive Pulmonary Disease (COPD): Yes - Neurological Hx Neurological Disorder: Yes Hx Seizures: Yes Hx Transient Ischemic Attacks (TIA): Yes Other/Comment: peripheral neuropathy - HEENT Hx HEENT Disorder: Yes (legally blind) Hx Blind: Yes (right eye) Hx Cataracts: Yes (Bilateral sx) Hx Glaucoma: Yes Hx Macular Degeneration: Yes Other/Comment: sclera buckling sx for retinal detachment - Renal Hx Renal Disorder: Yes Date of Last Dialysis Treatment: 07/11/16 Hx Renal Failure: Yes - Endocrine/Metabolic Hx Endocrine Disorders: Yes Hx Diabetes Mellitus Type 2: Yes - Hematological/Oncological Hx Blood Disorders: Yes Hx Anemia: Yes (blood transfusion 2014) Hx Shingles: No (Received shingles vaccination) - Integumentary Hx Dermatological Disorder: Yes Other/Comment: bottom of right foot 1`cm x 1cm round dry red wound, 1cm round dry red wound bottom of r ft 5th toe, top of right foot 0.5cm round red wound, ble multiple areas of dry skin and multiple wounds some red - Musculoskeletal/Rheumatological Hx Musculoskeletal Disorders: Yes Hx Falls: Yes (past) - Gastrointestinal Hx Gastrointestinal Disorders: Yes Hx Gastroesophageal Reflux: Yes - Genitourinary/Gynecological Hx Genitourinary Disorders: Yes (oliguria) - Psychiatric Hx Psychophysiologic Disorder: Yes Hx Bipolar Disorder: Yes Hx Depression: Yes Hx Emotional Abuse: No Hx Physical Abuse: No Hx Substance Use: No - Surgical History Hx Valve Replacement: Yes (2014) Other/Comment: left arm av shunt, thoracentesis x3 last one 2016, debridement of r ft wound bottom of ft 2017 - Anesthesia Hx Anesthesia: Yes Hx Anesthesia Reactions: No Hx Malignant Hyperthermia: No - Suicidal Assessment Feels Threatened In Home Enviroment: No Family/Social History - Physician Review Nursing Documentation Reviewed: Yes Family/Social History: Unknown Family HX Smoking Status: Former Smoker Hx Alcohol Use: No Hx Substance Use: No Hx Substance Use Treatment: No Allergies/Home Meds Allergies/Adverse Reactions: Allergies Iodinated Contrast Media - Oral and [Iodinated Contrast Media - IV Dye] Allergy (Intermediate, Verified 07/09/16 15:29) SWELLING shellfish derived Allergy (Mild, Verified 07/09/16 15:29) ITCHING Penicillins Allergy (Verified 07/09/16 15:29) ITCHING Home Medications: Home Meds Medication Instructions Recorded Confirmed Albuterol Sulfate [Proair Hfa] 1 inh INH PRN PRN 07/09/16 07/09/16 Aspirin/Dipyridamole [Aggrenox 1 tab PO BID 07/09/16 07/09/16 25-200 mg] Atorvastatin [Lipitor] 10 mg PO DAILY 07/09/16 07/09/16 Calcium Acetate [Phoslo] 2 tab PO .WITHEACH MEAL 07/09/16 07/09/16 Carvedilol [Coreg] 3.125 mg PO BID 07/09/16 07/09/16 Cinacalcet [Sensipar] 90 mg PO DAILY 07/09/16 07/09/16 Fluticasone Nasal [Flonase] 50 mcg IN DAILY 07/09/16 07/09/16 Insulin Glargine, Recombina 0 units SC HS 07/09/16 07/09/16 [Lantus] Insulin Lispro [humALOG] 0 units SC AC 07/09/16 07/09/16 Losartan [Cozaar] 25 mg PO DAILY 07/09/16 07/09/16 Ouunf-5-Ngbj Ethyl Esters 1 GM 400 mg PO 07/09/16 [Lovaza] Pantoprazole [Protonix EC Tab] 40 mg PO BID 07/09/16 07/09/16 amLODIPine [Norvasc] 10 mg PO DAILY 07/09/16 07/09/16 cloNIDine [Catapres] 0.2 mg PO BID 07/09/16 07/09/16 Review of Systems - Review of Systems Constitutional: absent: Fevers Respiratory: SOB Cardiovascular: absent: Chest Pain, Palpitations Gastrointestinal: absent: Abdominal Pain, Vomiting Genitourinary Male: Other (Patient urinates minimally approximately once a week) Musculoskeletal: absent: Arthralgias, Back Pain, Neck Pain Neurological: absent: Headache, Dizziness Psychiatric: absent: Anxiety, Depression Physical Exam Vital Signs Reviewed: Yes Vital Signs Temp Pulse Resp BP Pulse Ox 07/14/16 12:12 84 16 147/85 94 L 07/14/16 10:05 16 98 07/14/16 09:45 97.7 F 83 16 132/73 97 Temperature: Afebrile Blood Pressure: Normal Pulse: Regular Respiratory Rate: Tachypneic Appearance: Positive for: Well-Appearing, Non-Toxic, Comfortable Pain Distress: None Mental Status: Positive for: Alert and Oriented X 3 - Systems Exam Head: Present: Atraumatic Mouth: Present: Moist Mucous Membranes Neck: Present: Normal Range of Motion Respiratory/Chest: Present: Rales (Rales noted bilaterally), Tachypneic. No: Accessory Muscle Use, Tender to Palpation Cardiovascular: Present: Regular Rate and Rhythm, Murmurs Abdomen: No: Tenderness, Distention Lower Extremity: Present: Edema (Bilateral lower leg edema) Neurological: Present: Speech Normal Skin: Present: Warm, Dry Psychiatric: Present: Alert, Oriented x 3 Medical Decision Making ED Course and Treatment: 07/14/16 10:50 pt with hx of chf, esrd on dialysis; due for dialysis today complaining of worsening shortness of breath. Patient saturating at 100% on 3 L nasal cannula although still appears short of breath and slightly tachypneic. Patient is refusing BiPAP Will do labs. Patient will need hemodialysis. As he is due for hemodialysis today. CBC: wbc; 7.0, hgb; 10.2 CMP; glucose; 435, K; 4.3 trop; 0.33; increased from previous; pt without chest pain; mostly like from CHF volume overload. cxr; moderate vascular congestion ekg; normal sinus rhythm at 85 bpm with left ventricular hypertrophy and no ST elevations Dr. Miller discussed the case in depth with Dr. Luther will admit observational status to telemetry floor shortness of breath end-stage renal disease, volume overload Patient saturating 97% on 3 L speaking in full sentences. Resting comfortably. Still refusing BiPAP case discussed with Dr. Pardo. Patient will go to dialysis to have his regularly scheduled dialysis today then to tele floor. dr. luther aware of trop elevation. impression; shortness of breath, volume overload. Observational status to telemetry. - Lab Interpretations Lab Results: 07/14/16 10:43 07/14/16 11:25 Lab Results 07/14/16 11:25: Sodium 140, Potassium 4.3, Chloride 99, Carbon Dioxide 28, Anion Gap 17, BUN 65 H, Creatinine 6.8 H, Est GFR ( Amer) 10, Est GFR ( Non-Af Amer) 9, Random Glucose 435 H* D, Calcium 11.3 H, Total Bilirubin 0.6, AST 18, ALT 34, Alkaline Phosphatase 139 H, Lactate Dehydrogenase 413, Total Creatine Kinase 39, Troponin I 0.33 H* D, Total Protein 7.0, Albumin 3.5, Globulin 3.5, Albumin/Globulin Ratio 1.0 L 07/14/16 10:43: WBC 7.0, RBC 3.28 L, Hgb 10.2 L, Hct 32.7 L, MCV 99.7, MCH 31.1 , MCHC 31.2, RDW 14.4, Plt Count 273, MPV 11.7 H, Gran % 78.2 H, Lymph % (Auto) 5.0 L, Banks % (Auto) 12.1 H, Eos % (Auto) 4.1, Baso % (Auto) 0.6, Gran # 5.51, Lymph # 0.4 L, Banks # 0.9 H, Eos # 0.3, Baso # 0.04 - RAD Interpretation Radiology Orders: 07/14/16 10:43 CHEST PORTABLE [RAD] Stat - Medication Orders Current Medication Orders: Discontinued Medications Insulin Human Regular (Humulin R) 4 units IV STAT STA Stop: 07/14/16 12:12 Last Admin: 07/14/16 12:28 Dose: 4 UNITS MAR Blood Glucose Document 07/14/16 12:28 OCS (Rec: 07/14/16 12:28 OCS [id number]) Blood Glucose Finger Stick Blood Glucose (70-120) 435 eMAR Start Stop Document 07/14/16 12:28 OCS (Rec: 07/14/16 12:28 OCS [id number]) Intravenous Solution Start Date 07/14/16 Start Time 12:28 Disposition/Present on Arrival - Present on Arrival Any Indicators Present on Arrival: No History of DVT/PE: No History of Uncontrolled Diabetes: No Urinary Catheter: No History of Decub. Ulcer: No History Surgical Site Infection Following: None - Disposition Have Diagnosis and Disposition been Completed?: Yes Diagnosis: ESRD (end stage renal disease), Hyperglycemia, Shortness of breath Disposition: HOSPITALIZED Disposition Time: 12:00 Patient Plan: Observation, Telemetry Patient Problems: Current Active Problems Problem Status Diagnosed COPD (chronic obstructive pulmonary disease) Acute ESRD (end stage renal disease) Acute Hyperglycemia Acute Shortness of breath Acute Condition: FAIR
--- NOTE | 2016-07-14 11:10 | RAD ---
HISTORY: SOB COMPARISON: 07/10/2016 FINDINGS: LUNGS: No active pulmonary disease. PLEURA: No significant pleural effusion identified, no pneumothorax apparent. CARDIOVASCULAR: There is moderate cardiomegaly and moderate to severe vascular congestion similar to the previous exam OSSEOUS STRUCTURES: No significant abnormalities. VISUALIZED UPPER ABDOMEN: Normal. OTHER FINDINGS: None. IMPRESSION: No change in vascular congestion
[2016-07-14 11:13] LABS: ADD MANUAL DIFF? NO; BASO # 0.04 K/mm3 (0.0-2.0); BASO % 0.6 % (0.0-3.0); EOS # 0.3 (0.0-0.7); EOS % 4.1 % (1.5-5.0); GRAN # 5.51 (1.4-6.5); GRAN % 78.2 % (50.0-68.0); HEMATOCRIT 32.7 % (42.0-52.0); LYMPH # 0.4 (1.2-3.4); MEAN CELL VOLUME 99.7 fL (80.0-105.0); MEAN CORPUSCULAR HEMOGLOBIN 31.1 pg (25.0-35.0); MEAN CORPUSCULAR HGB CONC 31.2 g/dl (31.0-37.0); MEAN PLATELET VOLUME 11.7 fl (7.0-11.0); MONO # 0.9 (0.1-0.6); MONO % 12.1 % (1.0-6.0); PLATELET COUNT 273 10^3/uL (120.0-450.0); RED CELL DISTRIBUTION WIDTH 14.4 % (11.5-14.5)
[2016-07-14 11:46] LABS: BILIRUBIN,TOTAL 0.6 mg/dL (0.2-1.3); CALCIUM 11.3 mg/dL (8.4-10.5); POTASSIUM 4.3 mmol/L (3.6-5.0)
[2016-07-14] MEDS ORDERED: Insulin Regular 1 UNITS/0.01 ML ML IV STA (12:11)
[2016-07-14 12:49] LABS: TROPONIN I 0.33 ng/mL
--- NOTE | 2016-07-14 17:20 | CP.PCM.PN ---
Subjective - Date & Time of Evaluation Date of Evaluation: 07/14/16 Time of Evaluation: 16:55 - Subjective Subjective: Rapid response at 16:52 Rapid Response was called at 16:52 because patient syncopized while receiving dialysis. His BP dropped to 72/51 at the completion of of dialysis. At that time , he became lethargic and unresponsive. EKG was done and did not show any change from prior study. 500 cc bolus of normal saline was administered. Within several minutes patient regained conscious and was responding verbally. After being stabilized patient was sent for CT Head then taken back to the ER. Dr. Krueger and ER attending Dr. Ewing were notified. Vital signs: 98.7 F, BP 109/62, HR 79, RR 18, O2 sat 100%, GCS 15 HEENT: NCAT, R eye cataract, EOMI, left pupil reactive to light RESP: Rales bilaterally CARDIO: RRR, +S1, +S2 ABD: +BS, soft, nontender NEURO: AAO x 3 Objective - Vital Signs/Intake and Output Vital Signs (last 24 hours): Temp Pulse Resp BP Pulse Ox 97.7 F 84 16 147/85 94 L 07/14/16 09:45 07/14/16 12:12 07/14/16 12:12 07/14/16 12:12 07/14/16 12:12
[2016-07-14 17:43] LABS: ADD MANUAL DIFF? NO
[2016-07-14 17:47] LABS: BASO # 0.03 K/mm3 (0.0-2.0); BASO % 0.4 % (0.0-3.0); EOS # 0.4 (0.0-0.7); EOS % 4.9 % (1.5-5.0); HEMATOCRIT 29.3 % (42.0-52.0); LYMPH # 0.8 (1.2-3.4); LYMPH % 9.6 % (22.0-35.0); MEAN CELL VOLUME 97.7 fL (80.0-105.0); MEAN CORPUSCULAR HEMOGLOBIN 31.3 pg (25.0-35.0); MEAN CORPUSCULAR HGB CONC 32.1 g/dl (31.0-37.0); MEAN PLATELET VOLUME 10.7 fl (7.0-11.0); MONO # 0.7 (0.1-0.6); MONO % 9.1 % (1.0-6.0); PLATELET COUNT 231 10^3/uL (120.0-450.0); RED CELL DISTRIBUTION WIDTH 14.4 % (11.5-14.5); WHITE BLOOD COUNT 8.2 10^3/ul (4.5-11.0)
[2016-07-14 17:57] LABS: INR 1.11 (0.93-1.08); PARTIAL THROMBOPLASTIN TIME 33.1 Seconds (23.7-30.8)
[2016-07-14 17:59] LABS: ALB/GLOB RATIO 0.9 (1.1-1.8); BILIRUBIN,TOTAL 0.7 mg/dL (0.2-1.3); TOTAL PROTEIN 6.8 g/dL (5.8-8.3)
--- NOTE | 2016-07-14 18:09 | CT ---
PROCEDURE: CT HEAD WITHOUT CONTRAST. HISTORY: SYNCOPE COMPARISON: None available. TECHNIQUE: Axial computed tomography images were obtained through the head/brain without intravenous contrast. Radiation dose: Total exam DLP = 852.73 mGy-cm. This CT exam was performed using one or more of the following dose reduction techniques: Automated exposure control, adjustment of the mA and/or kV according to patient size, and/or use of iterative reconstruction technique. FINDINGS: HEMORRHAGE: No acute parenchymal, subarachnoid or extra-axial hemorrhage. BRAIN: Minor chronic periventricular white matter ischemic changes are present. There is a small chronic appearing lacunar type infarct in the left superior basal ganglia/coronal radiata with a few scattered deep and subcortical white matter chronic lacunar-type infarcts. Note that the possibility of an acute infarct cannot be excluded. Vascular calcifications are present. Suspect small arachnoid cyst right middle cranial fossa. VENTRICLES: Mild generalized volume loss. CALVARIUM: There are no acute calvarial fracture seen. There also are calcifications seen throughout the scalp consistent with underlying IDDM. PARANASAL SINUSES: Unremarkable as visualized. No significant inflammatory changes. MASTOID AIR CELLS: Unremarkable as visualized. No inflammatory changes. OTHER FINDINGS: Right globe is homogeneously dense in appearance ; additionally, there is a peripheral circumferential buckle surrounding the right globe. Status post left cataract surgery. IMPRESSION: Mild chronic white matter and basal nuclei ischemic changes. Mild generalized volume loss. Small arachnoid cyst. Findings consistent with underlying IDDM. Clinical correlation recommended. Right globe is homogeneously dense in appearance ; additionally, there is a peripheral circumferential buckle surrounding the right globe. Status post left cataract surgery. Study discussed with Dr. Miller at 6:07 p.m. with written down and read back verification.
[2016-07-14 18:12] LABS: TROPONIN I 0.3 ng/mL
--- NOTE | 2016-07-14 18:57 | CARD ---
APPROVED REPORT EKG Measurement Heart [id number] <Conclusion> Normal sinus rhythm Left ventricular hypertrophy with repolarization abnormality Abnormal ECG
[2016-07-14] MEDS ORDERED: Albuterol 0.083% Inhal Sol (2.5 mg/3 mL) UD IH PRN (19:08)
[2016-07-14 23:05] LABS: ARTERIAL BLOOD GAS HCO3 14.8 mmol/L (21-28); ARTERIAL BLOOD GAS PH 7.33 (7.35-7.45)
[2016-07-15] MEDS ORDERED: Potassium Chloride 20 mEq ER Tab PO STA (00:22)
--- NOTE | 2016-07-15 00:25 | CP.PCM.CON ---
History of Present Illness - History of Present Illness History of Present Illness: Reason for ICU Evaluation: Altered mental status HPI: 50 y/o male with an extensive PMHx ESRD on HD (MWF), COPD on home oxygen, DM, LV dysfunction (EF 55%) s/p TAVR who was a rapid response earlier today after he had finished his HD session. The patient's BP was noted to be 72/51 mmHg and after a 500cc bolus increased to 109/52mmHg. At the current time the patient is awake, alert and oriented x3 laying in bed in the ED. He does offer complaints of congestion and left nostril dryness otherwise denies any complaints of headache, dizziness, chest pain, abdominal pain, nausea, vomiting , headache, fever, chills or diarrhea. He does report mild shortness of breath which he reports is similar to his baseline and does not appear any worse than usual. Sheridan noting, the patient has had this similar event occur last month for which he was admitted to the hospital after a drop in his blood pressure after HD. PMHx: ESRD on HD MWF COPD on home oxygen (4L as per patient) DM LV dysfunction (EF 55%) S/p TAVR Allergies: IV Contrast media Shellfish PCN Fam Hx: reviewed and noncontributory Soc Hx: Prior history of tobacco use (Quit > 10yrs ago); Denies etoh; denies illicit drug use Meds: Clonidine 0.2mg po bid Cozaar 25mg po daily Coreg 3.125mg po bid Lipitor 10mg po hs Protonix 40mg po daily [place] 3 fatty acids Midodrine 5mg po MWF after HD Florinef 0.1mg po MWF after HD Cymbalta 30mg po hs Sensipar 90mg po daily Review of Systems - Review of Systems Review of Systems: As per HPI otherwise negative for a 12 point ROS Past Patient History - Infectious Disease Hx of Infectious Diseases: None - Tetanus Immunizations Tetanus Immunization: Unknown - Past Social History Smoking Status: Former Smoker Alcohol: None Drugs: Denies Home Situation {Lives}: With Family - CARDIAC Hx Cardiac Disorders: Yes Hx Hypertension: Yes - PULMONARY Hx Respiratory Disorders: Yes Hx Chronic Obstructive Pulmonary Disease (COPD): Yes - NEUROLOGICAL Hx Neurological Disorder: Yes Hx Seizures: Yes Hx Transient Ischemic Attacks (TIA): Yes Other/Comment: peripheral neuropathy - HEENT Hx HEENT Problems: Yes (legally blind) Hx Blind: Yes (right eye) Hx Cataracts: Yes (Bilateral sx) Hx Glaucoma: Yes Hx Macular Degeneration: Yes Other/Comment: sclera buckling sx for retinal detachment - RENAL Hx Chronic Kidney Disease: Yes Date of Last Dialysis Treatment: 07/11/16 Hx Renal Failure: Yes - ENDOCRINE/METABOLIC Hx Endocrine Disorders: Yes Hx Diabetes Mellitus Type 2: Yes - HEMATOLOGICAL/ONCOLOGICAL Hx Blood Disorders: Yes Hx Anemia: Yes (blood transfusion 2014) Hx Shingles: No (Received shingles vaccination) - INTEGUMENTARY Hx Dermatological Problems: Yes Other/Comment: bottom of right foot 1`cm x 1cm round dry red wound, 1cm round dry red wound bottom of r ft 5th toe, top of right foot 0.5cm round red wound, ble multiple areas of dry skin and multiple wounds some red - MUSCULOSKELETAL/RHEUMATOLOGICAL Hx Musculoskeletal Disorders: Yes Hx Falls: Yes (past) - GASTROINTESTINAL Hx Gastrointestinal Disorders: Yes Hx Gastroesophageal Reflux: Yes - GENITOURINARY/GYNECOLOGICAL Hx Genitourinary Disorders: Yes (oliguria) - PSYCHIATRIC Hx Psychophysiologic Disorder: Yes Hx Bipolar Disorder: Yes Hx Depression: Yes Hx Emotional Abuse: No Hx Physical Abuse: No Hx Substance Use: No - SURGICAL HISTORY Hx Valve Replacement: Yes (2014) Other/Comment: left arm av shunt, thoracentesis x3 last one 2015, debridement of r ft wound bottom of ft 2017 - ANESTHESIA Hx Anesthesia: Yes Hx Anesthesia Reactions: No Hx Malignant Hyperthermia: No Meds Allergies/Adverse Reactions: Allergies Allergy/AdvReac Type Severity Reaction Status Date / Time Iodinated Contrast Media - Allergy Intermediate SWELLING Verified 07/09/16 15:29 Oral and [Iodinated Contrast Media - IV Dye] shellfish derived Allergy Mild ITCHING Verified 07/09/16 15:29 Penicillins Allergy ITCHING Verified 07/09/16 15:29 - Medications Medications: Current Medications Albuterol Sulfate (Albuterol 0.083% Inhal Esperanza (2.5 Mg/3 Ml) Ud) 2.5 mg IH [id number] PRN PRN Reason: Shortness of Breath Last Admin: 07/14/16 19:40 Dose: 2.5 mg Atorvastatin Calcium (Lipitor) 10 mg PO DAILY [facility] Calcium Acetate (Phoslo) 1,334 mg PO WM [facility] Carvedilol (Coreg) 3.125 mg PO BID [facility] Cinacalcet (Sensipar) 90 mg PO DAILY [facility] Dipyridamole/Aspirin (Aggrenox 25-200 Mg) 1 ea PO BID [facility] Duloxetine HCl (Cymbalta) 30 mg PO HS [facility] Fludrocortisone Acetate (Florinef) 0.1 mg PO MWF [facility] Fluticasone Propionate (Flonase) 1 actuation NS DAILY [facility] Losartan Potassium (Cozaar) 25 mg PO DAILY [facility] Midodrine (Proamatine) 5 mg PO MWF [facility] [id number] Ethyl Esters (Lovaza) 2 gm PO BID [facility] Pantoprazole Sodium (Protonix Ec Tab) 40 mg PO BID [facility] Physical Exam - Constitutional Appears: Well, No Acute Distress, Unkempt - Head Exam Head Exam: ATRAUMATIC, NORMOCEPHALIC - Eye Exam Additional comments: right eye with Cataracts - ENT Exam ENT Exam: Mucous Membranes Dry - Neck Exam Neck exam: Positive for: Full Rom - Respiratory Exam Respiratory Exam: Decreased Breath Sounds (decreased bibasilar breath sounds), Clear to Auscultation Bilateral. absent: Rhonchi, Wheezes, Respiratory Distress - Cardiovascular Exam Cardiovascular Exam: REGULAR RHYTHM, +S1, +S2 - GI/Abdominal Exam GI & Abdominal Exam: Soft. absent: Guarding, Rebound, Tenderness - Rectal Exam Rectal Exam: Deferred - Extremities Exam Extremities exam: Positive for: normal inspection - Neurological Exam Neurological exam: Alert, Oriented x3 - Psychiatric Exam Psychiatric exam: Normal Affect, Normal Mood - Skin Skin Exam: Dry, Intact, Normal Color, Warm Results - Vital Signs Recent Vital Signs: Last Vital Signs Temp 97.7 F 07/14/16 09:45 Pulse 84 07/14/16 12:12 Resp 16 07/14/16 12:12 BP 147/85 07/14/16 12:12 Pulse Ox 94 L 07/14/16 12:12 - Labs Result Diagrams: 07/14/16 17:20 07/14/16 17:20 Labs: Laboratory Results - last 24 hr 07/14/16 17:20 WBC 8.2 RBC 3.00 L Hgb 9.4 L Hct 29.3 L MCV 97.7 MCH 31.3 MCHC 32.1 RDW 14.4 Plt Count 231 MPV 10.7 Gran % 76.0 H Lymph % (Auto) 9.6 L [place] % (Auto) 9.1 H Eos % (Auto) 4.9 Baso % (Auto) 0.4 Gran # 6.20 Lymph # 0.8 L [place] # 0.7 H Eos # 0.4 Baso # 0.03 PT 12.0 H INR 1.11 H APTT 33.1 H Sodium 137 Potassium 3.0 L Chloride 98 Carbon Dioxide 30 Anion Gap 12 BUN 25 H Creatinine 3.1 H Est GFR ( Amer) 26 Est GFR (Non-Af Amer) 21 Random Glucose 177 H Calcium 9.0 Total Bilirubin 0.7 AST 23 ALT 28 Alkaline Phosphatase 143 H Lactate Dehydrogenase 450 Total Creatine Kinase 37 Troponin I 0.30 H* Total Protein 6.8 Albumin 3.3 Globulin 3.5 Albumin/Globulin Ratio 0.9 L - EKG Data EKG Interpreted by: Myself EKG shows normal: Sinus rhythm Rate: Normal - Imaging and Cardiology CT scan - head Status: Report reviewed by me Assessment & Plan - Assessment and Plan (Free Text) Assessment: 50 y/o male with an extensive PMHx experienced an episode of hypotension after HD earlier today warranting a MAGISTERIAL DISTRICT JUDGE. After the MAGISTERIAL DISTRICT JUDGE, the patient was given a 500cc IVF bolus and transferred to the ED for further workup. ICU evaluation called by the ED team to determine if patient requires placement in the ICU due to his alteration in mentation. Since the patient's arrival in the ED he has had normotensive blood pressure readings not requiring further IVF bolus or hydration. Patient is awake, alert and oriented x 3, able to give a good history however he does not entirely recall the events after HD; his recollection ends at hime finishing HD and feeling slightly dizzy as if he "was going to pass out." ABG performed and reviewed; patient does have hypoxia on nasal cannula; will place him on high flow oxygen and repeat an ABG in the AM. He does not require aggressive ICU level care at this time and may be admitted to the telemetry floor while on high-flow oxygen. In the event that his condition changes or worsens, please do not hesitate to contact me for re- evaluation until 7am tomorrow morning. All labs and images reviewed thus far case discussed with the OLIVA Byrne Total time of care: 30 minutes
--- NOTE | 2016-07-15 05:29 | CP.PCM.PN ---
Subjective - Date & Time of Evaluation Date of Evaluation: 07/15/16 Time of Evaluation: 05:27 - Subjective Subjective: Patient was seen at bed side because nurse calls with BP reading of 175/95. c/o hot flushes. No other complaints. Denies headache, heaviness in head, lightheadedness, dizziness, chest pain, sob , parasthesia, nausea. He will get coreg 3.125 and losartan 25 at 10AM. Pertinent medical record was reviewed. This patient was admitted with altered mental status. Has PMH of ESRD on HD, HTN, DM, COPd, S/P TAVR. Objective - Vital Signs/Intake and Output Vital Signs (last 24 hours): Temp Pulse Resp BP Pulse Ox 97 F L 90 20 142/79 100 07/15/16 04:33 07/15/16 04:33 07/15/16 04:33 07/15/16 04:33 07/15/16 04:33 - Medications Medications: Current Medications Albuterol Sulfate (Albuterol 0.083% Inhal Esperanza (2.5 Mg/3 Ml) Ud) 2.5 mg IH [id number] PRN PRN Reason: Shortness of Breath Last Admin: 07/14/16 19:40 Dose: 2.5 mg Atorvastatin Calcium (Lipitor) 10 mg PO DAILY [facility] Calcium Acetate (Phoslo) 1,334 mg PO WM [facility] Carvedilol (Coreg) 3.125 mg PO BID [facility] Cinacalcet (Sensipar) 90 mg PO DAILY [facility] Dipyridamole/Aspirin (Aggrenox 25-200 Mg) 1 ea PO BID [facility] Duloxetine HCl (Cymbalta) 30 mg PO HS [facility] Last Admin: 07/15/16 01:47 Dose: Not Given Fludrocortisone Acetate (Florinef) 0.1 mg PO MWF [facility] Fluticasone Propionate (Flonase) 1 actuation NS DAILY [facility] Losartan Potassium (Cozaar) 25 mg PO DAILY [facility] Midodrine (Proamatine) 5 mg PO MWF [facility] [id number] Ethyl Esters (Lovaza) 2 gm PO BID [facility] Pantoprazole Sodium (Protonix Ec Tab) 40 mg PO BID [facility] - Labs Labs: 07/14/16 17:20 07/14/16 17:20 PT 12.0 Seconds (9.9-11.8) H 07/14/16 17:20 INR 1.11 (0.93-1.08) H 07/14/16 17:20 APTT 33.1 Seconds (23.7-30.8) H 07/14/16 17:20 - Constitutional Appears: Well, In Acute Distress - Head Exam Head Exam: ATRAUMATIC, NORMAL INSPECTION, NORMOCEPHALIC - Eye Exam Additional comments: Right eye blindness. - ENT Exam ENT Exam: Normal External Ear Exam - Neck Exam Neck Exam: Normal Inspection - Respiratory Exam Respiratory Exam: NORMAL BREATHING PATTERN - Cardiovascular Exam Cardiovascular Exam: absent: JVD - GI/Abdominal Exam GI & Abdominal Exam: absent: Distended - Rectal Exam Rectal Exam: Deferred - Back Exam Back Exam: NORMAL INSPECTION - Neurological Exam Neurological Exam: Alert, Oriented x3 - Psychiatric Exam Psychiatric exam: Normal Affect, Normal Mood - Skin Skin Exam: Normal Color Assessment and Plan - Assessment and Plan (Free Text) Assessment: A/P:Elevated blood pressure reading. ESRD on HD. DM. AMS/Hypotension-resolved. Hot flushes. Will give losartan 25 mg PO now instead of at 10:00AM. FSBS---->208 mg%.
[2016-07-15 07:01] LABS: ADD MANUAL DIFF? NO
[2016-07-15 07:08] LABS: BASO # 0.04 K/mm3 (0.0-2.0); BASO % 0.5 % (0.0-3.0); EOS # 0.2 (0.0-0.7); EOS % 2.1 % (1.5-5.0); GRAN # 5.89 (1.4-6.5); GRAN % 78.9 % (50.0-68.0); HEMATOCRIT 31.1 % (42.0-52.0); LYMPH # 0.7 (1.2-3.4); LYMPH % 8.7 % (22.0-35.0); MEAN CORPUSCULAR HEMOGLOBIN 30.6 pg (25.0-35.0); MEAN CORPUSCULAR HGB CONC 30.9 g/dl (31.0-37.0); MONO # 0.7 (0.1-0.6); MONO % 9.8 % (1.0-6.0); PLATELET COUNT 248 10^3/uL (120.0-450.0); RED CELL DISTRIBUTION WIDTH 14.7 % (11.5-14.5); WHITE BLOOD COUNT 7.5 10^3/ul (4.5-11.0)
[2016-07-15 07:28] LABS: BILIRUBIN,TOTAL 0.7 mg/dL (0.2-1.3); MAGNESIUM 1.9 mg/dL (1.7-2.2); PHOSPHOROUS 1.8 mg/dL (2.5-4.5); POTASSIUM 3.8 mmol/L (3.6-5.0); TOTAL PROTEIN 6.7 g/dL (5.8-8.3)
[2016-07-15 07:58] LABS: CALCIUM 9.5 mg/dL (8.4-10.5)
--- NOTE | 2016-07-15 08:08 | CON ---
DATE: 07/14/2016 REASON FOR CONSULTATION: Coronary artery disease status post TAVR, admitted with shortness of breath . Troponin 0.33. Cardiac evaluation. BRIEF CLINICAL HISTORY: This is a 50-year-old male with past medical history significant for end-sta ge renal disease, on dialysis; full blown complication of diabetes, diabetic nephropathy, retinopathy and neuropathy, blind in the ____ eye; severe aortic stenosis, status post TAVR. Admitted with shor tness of breath today. The patient is supposed to have dialysis [facility]. PAST MEDICAL HISTORY: Significant for diabetes, hypertension, hyperlipidemia; end-stage renal diseas e, on dialysis; history of nonobstructive coronary artery disease, status post recently cardiac roz terization, history of TAVR. Most recent echo shows preserved LV function. RECENT CARDIAC WORKUP: The patient's echo 05/02/2016 that shows mitral valve 2.4 cm consistent with mild mitral stenosis, systolic function mildly impaired, ejection fraction 50%. The patient had a ca rdiac catheterization on 05/02/2016 that shows nonobstructive coronary artery disease, limited only t o diagonal 1; normal functioning transcutaneous aortic valve. Aortogram shows trace to mild aortic i nsufficiency. Last echo shows ejection fraction 55%, dated 05/01/2016 when the patient's repeat echo was done. ALLERGIES: IODINE, ORAL; AND SHELLFISH, DERIVATIVES OF PENICILLIN. CURRENT MEDICATIONS: The patient at home was taking clonidine, Catapres 0.2 mg p.o. b.i.d., amlodipi ne 10 mg, pantoprazole, losartan, insulin, carvedilol, calcium, atorvastatin, aspirin, albuterol. REVIEW OF SYSTEMS: As per HPI. PHYSICAL EXAMINATION: VITAL SIGNS: Temperature afebrile, heart rate 84, blood pressure 147/85. HEENT: PERRLA. Extraocular muscles intact. NECK: Supple. No carotid bruits. No thyromegaly. CHEST: Clear to auscultation. HEART: S1, S2 regular. ABDOMEN: Soft. EXTREMITIES: Clubbing and cyanosis negative. BLOOD WORKUP: WBC 7, hemoglobin 10.____, hematocrit 32.7, platelet count 273. Chemistry shows sodiu m 140, potassium 4.3, chloride 99, carbon dioxide 28, anion gap of 17, BUN 65, creatinine 6.8. Tropo tab 0.33. EKG showed normal sinus. No acute ST-T changes noted. Chest x-ray done in the ER before the dialysi s appears very underpenetrated film - cannot give comment. REVIEW OF SYSTEMS: As per HPI. PHYSICAL EXAMINATION: VITAL SIGNS: Temperature afebrile, heart rate 84, blood pressure 147/85. HEENT: PERRLA. Extraocular muscles intact. NECK: Supple. No carotid bruits. No thyromegaly. CHEST: ____ to auscultation. Decreased air entry at the bases. HEART: S1, S2 regular. ABDOMEN: Soft. EXTREMITIES: Clubbing and cyanosis negative. BLOOD WORKUP: WBC 7.____, hemoglobin 10.____, hematocrit 32.7, platelet count 273. Chemistry shows sodium 140, potassium 4.3, chloride 99, carbon dioxide 28, anion gap of 17, BUN 65, creatinine 6.8. Troponin 0.33. IMPRESSION: Positive troponin, probably secondary to congestive heart failure and end-stage renal di sease. Will follow the trend of troponin and monitor electrolytes. The patient is okay to go for di alysis. We will follow after the dialysis. The patient has recently had a cardiac catheterization t hat revealed nonobstructive coronary artery disease only limited to diagonal 1. Recent echocardiogra m also shows mild mitral stenosis, normal function, transcatheter aortic valve replacement, ejection fraction 55%. We will follow with you. As mentioned before, will try to avoid any antihypertensive medication before dialysis, and adequate amount can be pulled fluid. After this, we will give Coreg on the day of even though patient is not on dialysis. Will follow closely. Will follow and discuss with Dr. Gee. Also, the patient can be given ____ Florinef or ProAmatine before he goes to dial ysis. We will discuss with Dr. Luther. Thank you, Dr. Luther/Dr. Gee, for providing the opportunity in taking care of this patient. Franky Archer MD cc: [id number] TT: 07/14/2016 19:45:22 Confirmation # [id number] Dictation # [id number] mn
[2016-07-15 08:29] LABS: TROPONIN I 0.34 ng/mL
[2016-07-15 09:40] LABS: ARTERIAL BLOOD GAS HCO3 28.4 mmol/L (21-28); ARTERIAL BLOOD GAS O2 CAPACITY 13.7 mL/dl (16-24); ARTERIAL BLOOD GAS O2 CONTENT 13.6 ML/dl (15-23); ARTERIAL BLOOD GAS PH 7.38 (7.35-7.45); ARTERIAL BLOOD HGB O2 SAT 96.7 % (95.0-98.0); HHB 0.5 % (0-5); METHEMOGLOBIN 0.9 % (0.0-3.0)
[2016-07-15] MEDS: Aspirin-Dipyridamole 200-25 mg ER Cap PO SCH ×2 (11:06→17:10)
[2016-07-15] MEDS: Omega-3-Acid Ethyl Esters 1 GM Cap PO SCH ×2 (11:06→17:10)
[2016-07-15] MEDS: Pantoprazole 40 mg EC Tab PO SCH ×2 (11:07→17:10)
[2016-07-15] MEDS: Fluticasone Nasal 50 mcg/Spray NS SCH (11:10)
--- NOTE | 2016-07-15 11:21 | PN ---
DATE: 07/15/2016 REASON FOR CONSULTATION AND FOLLOWUP: Coronary artery disease status post TAVR, admitted with shortn ess of breath, troponin 0.3, cardiac evaluation. BRIEF CLINICAL HISTORY: This is a 50-year-old male with past medical history significant for end-sta ge renal disease, on dialysis; with a full blown complication of diabetes, diabetic nephropathy, neur opathy and retinopathy, legally blind in right eye; status post TAVR. Admitted with shortness of velma ath. Supposed to have dialysis but patient was very short of breath. The patient was seen yesterday on dialysis. Now patient is sitting on the bedside. The patient dropped the blood pressure yesterd ay during the dialysis again. PHYSICAL EXAMINATION: VITAL SIGNS: Temperature afebrile, heart rate 80, blood pressure 142/79. HEENT: PERRLA. Extraocular muscles intact. NECK: Supple. No carotid bruits. No thyromegaly. CHEST: Clear to auscultation. HEART: S1, S2 regular. ABDOMEN: Soft. EXTREMITIES: Clubbing and cyanosis negative. BLOOD WORKUP: WBC 7.____, hemoglobin 9.____, hematocrit 31.1, platelet count 248. Chemistry shows s odium 137, potassium 3.____, chloride ____, carbon dioxide ____, anion gap of 15, BUN 34, creatinine 4.3. IMPRESSION: Recurrent hypotension during dialysis; nonobstructive coronary artery disease, status po st transcatheter aortic valve replacement, preserved left ventricular function; diabetes, hypertensio n, hyperlipidemia. Discussed with the patient. Discussed with Dr. Gee. Plan is now to give Pr oAmatine and Florinef before the dialysis. The patient is thinking to stop the dialysis and very dep ressed. We will discontinue telemetry and put p.r.n. hydralazine. Thank you, Dr. Luther, for providing the opportunity in taking care of the patient. Franky Archer MD cc: [id number] TT: 07/15/2016 11:20:35 Confirmation # [id number] Dictation # [id number] mn
--- NOTE | 2016-07-15 11:33 | HP ---
CHIEF COMPLAINT: Shortness of breath, respiratory distress. HISTORY OF PRESENT ILLNESS: This is a 50-year-old male with history of congestive heart failure and end-stage renal disease. Came with worsening shortness of breath, just not feeling well. The patient denies nausea, vomiting or diarrhea, no fever, no chills. No headache. The patient stated that he was to do dialysis today, but he came into the Emergency Room instead. The patient complaining of increased swelling of the lower extremities bilaterally and feeling shortness of breath. PAST MEDICAL HISTORY: Hypertension, COPD, seizures, TIA, legally blind, history of cataract, glaucoma, macular degeneration, renal insufficiency on hemodialysis 3 times a week, diabetes mellitus type 2, insulin-requiring, with chronic obstructive pulmonary disease, coronary artery disease, history of valve replacement, left arm has AV shunt, history of multiple times of thoracentesis. FAMILY HISTORY: Father and mother noncontributory. HABITS: No smoking, no drugs, no ethanol. ALLERGIES: CONTRAST MEDIA, PENICILLIN AND SHELLFISH. HOME MEDICATIONS: Albuterol, Lipitor, PhosLo, Coreg, Sensipar, Flonase, Lantus , Cozaar, Lovaza, Protonix, Norvasc, Catapres. REVIEW OF SYSTEMS: The patient is seen and examined in the Emergency Room, was having shortness of breath and was ready to go for dialysis. was calling Dr. Gee to get permission for dialysis. No headache or dizziness. No fever, no chills, no hematuria, no hematochezia. PHYSICAL EXAMINATION: VITAL SIGNS: Temperature 97.7, pulse 53, respiratory rate 16, blood pressure 152/73, and pulse oximetry 97. HEENT: Head normocephalic, atraumatic. Eyes: PERRLA. Extraocular muscles intact. Conjunctivae pink. Eyelids unremarkable. Nose patent. Mucous membranes moist. NECK: Supple. No carotid bruit, JVD or thyromegaly. CHEST: Bilaterally symmetrical. HEART: S1, S2 positive. LUNGS: Clear to auscultation. ABDOMEN: Soft. Bowel sounds positive. No organomegaly. EXTREMITIES: No edema, no cyanosis. Foot has a dressing. NEUROLOGIC: The patient is awake, alert, oriented x 3. LABORATORY DATA: White blood cells 7.0, hemoglobin 10.2, hematocrit 32.7, platelets 273. Sodium 140, potassium 4.3, BUN 55, creatinine 6.8, glucose 435. ASSESSMENT AND PLAN: The patient given a 50-year-old male with anemia, renal insufficiency on hemodialysis, 3 times a week, diabetes mellitus, insulin- dependent type 2, not well controlled. The patient to do dialysis today, but came in ER because of worsening of shortness of breath. According to ER, the patient was saturating 100% on 3 liter nasal cannula, but still he was feeling shortness of breath, refusing BiPAP, looks like volume overload. Chest x-ray shows moderate vascular congestion. EKG was normal sinus rhythm at 85 BPM with a left ventricular hypertrophy and no ST elevation. Discussion done with the ER. The ER called Dr. Gee. The patient went to dialysis. The patient has chronic obstructive pulmonary disease. Plan was to admit the patient to telemetry, then patient went to dialysis. There was a rapid response called after the patient had become hypotensive and had syncopal episode. Then, patient came back to the Emergency Room after finishing dialysis and plan was to send the patient to ICU. I saw patient a second time and I had a length of time discussion done with OLIVA Byrne. Because of syncopal attack and hypertension, we plan to send the patient to the ICU. The patient was evaluated by night supervisor roving Dr. Suresh . But after the consult of Dr. Suresh according to him the patient is not a candidate for ICU. The plan was send the patient to telemetry. I appreciate Dr. Suresh consult and Deborah's input. The patient has left ventricular dysfunction and ejection fraction 55% . The blood pressure during dialysis was 72/61 after giving 500 mL bolus, increased it to 109/52. The patient has peripheral vascular disease, foot ulcer, will call podiatry consult. He looks depressed. I had length of time discussion done with the . I will call because Dr. Berkley Berrios. He has a history transient ischemic attack, bilaterally blind, history of cataract and glaucoma, multiple times pleural effusion and thoracentesis, anemia status post blood transfusion. There is ulcer on bottom of the right foot 1 cm rounded bright red wound of right foot and top of the right foot; 0.5 cm round red wound, bilateral multiple areas of dry skin and multiple wounds, some are red. The patient was seen by Dr. Cabello multiple times. Length of time discussion done with the patient's and was told her about the patient's condition and she agrees. We will continue present treatment. Gastrointestinal and deep venous thrombosis prophylaxis. We will follow up. Laure Luther MD cc: [id number] TT: 07/15/2016 11:20:18 an 07/15/2016 10:32:05 ZAIRA
--- NOTE | 2016-07-15 13:47 | CON ---
DATE: 07/15/2016 CHIEF COMPLAINT AND HISTORY OF PRESENT ILLNESS: This is a 50-year-old male who is coming into the hospital because of shortness of breath. He had missed his dialysis treatment that was scheduled for him yesterday morning. I had spoken to the dialysis unit head nurse, and made adjustments regarding decreasing his temperature and increasing his dry weight to help minimize the hypotension that develops intradialyticly. He has a history of end-stage renal disease on hemodialysis. I have been asked to consult. Continue his dialysis treatment while he is in the hospital. The patient says shortness of breath is present, but improved from yesterday. He has no complaints of any headaches or dizziness. No nausea, no vomiting. No dysuria or frequency. ALLERGIES: SHELLFISH, PENICILLIN, IV CONTRAST. HOME MEDICATIONS: Have been reviewed. The patient is on Coreg only for blood pressure. PAST MEDICAL HISTORY: 1. End-stage renal disease on hemodialysis. 2. Intradialytic hypotension. 3. Diabetes type 2. 4. Hypertension. 5. Chronic obstructive pulmonary disease. 6. Coronary artery disease. 7. Marielena-Arias tear. 8. Dyslipidemia. 9. Right eye blindness. 10. Diabetic retinopathy. 11. Diabetic nephropathy. 12. Autonomic dysfunction secondary to diabetes. 13. Left AV fistula. 14. Pleural effusion. 15. Sleep apnea. 16. Aortic valve replacement secondary to TAVR. FAMILY HISTORY: Father of hypertension and diabetes. Mother had pancreatic cancer. SOCIAL HISTORY: The patient quit smoking about 10 years ago. He denies alcohol or drugs. He is and lives with his . He is retired. VITAL SIGNS: Temperature is 98, pulse of 86, blood pressure is 175/95, O2 saturation is 100%. In left arm, there is an AV fistula with bruit. Chest x-ray shows no infiltrates. Head CT done shows mild chronic white matter , and basal ischemic seeming changes. There is an arachnoid cyst. EKG done shows sinus rhythm, heart rate of 85. His LVH with repolarization abnormalities. ASSESSMENT: 1. Intradialytic hypotension. 2. End-stage renal disease, on hemodialysis. 3. Secondary hyperparathyroidism. 4. Diabetes type 2. 5. Diabetic retinopathy. 6. Diabetic nephropathy. 7. Autonomic dysfunction secondary to diabetes. 8. Transcatheter aortic valve replacement (TAVR) 9. Coronary artery disease. 10. Chronic obstructive pulmonary disease. PLAN: The patient is currently admitted to the hospital. The events of yesterday were noted. I did speak to the head nurse in dialysis regarding the patient's hypotension. The patient has been having recurrent hypotension because of intradialytic hypotension. The patient has multiple attempts in trying to minimize this. He is on minimal blood pressure medications, only Coreg for his cardiac disease. He was placed on ProAmatine and Florinef inpatient on the transitional care unit, as well as given a prescription outpatient. I had decreased his temperature on dialysis yesterday prior to coming in to be dialyzed to try to prevent hypotension. I also increased his estimated dry weight. The patient's intradialytic hypotension is difficult to treat. He has long-standing diabetes, and his systolic blood pressure drops greater than 20 mm when he was put on the machine. If we decrease his fluid removal he develops pulmonary effusions and shortness of breath, and has difficulty with breathing. I had increased his time on dialysis to 4 hours to try to help with the hypotension, but this has also not yielded any significant improvement. His fistula is working well. He does not have any underlying active cardiac issues. His echo shows a good EF. He has no vascular thrombosis. The patient's diabetes has been long-standing and his nutritional status has decreased. The patient's calcium has not been increased, and this one possibility on dialysis. May need to have an increase in dialysate calcium , but I am not optimistic that this will improve, as nothing else has helped, and also this may lead to hypercalcemia. I do not think sodium modeling will help because his blood pressure decreases when he is placed on the machine and his sympathetic drive is not able to compensate when this happens. He does not have any significant weight gains in between dialysis that need further attention. He is going to continue his midodrine and Flonase. I also spoke to him about end of life care. He is getting tired of HD and is also thinking of stopping dialysis. I spoke to him about the consequence and what would happen if that was the case. I went over palliative care intervention that is an option for him. Advised him to think about what he would like to do as his quality of life has become poor over the last 10 years on HD. He was sobbing during the conversation. I also asked him to speak with his family and in particular his to help make a decision. May need palliative care services. Will plan on HD in the AM. Will continue to follow closely. Law Gee MD cc: [id number] TT: 07/15/2016 12:53:42 Confirmation # [id number] Dictation # [id number] MEN[place]
--- NOTE | 2016-07-15 16:52 | CON ---
DATE: 07/15/2016 HISTORY OF PRESENT ILLNESS: Shortly, patient is a 50-year-old male, multiple medical proble ms. The patient is on end-stage renal disease on hemodialysis. The patient was admitted on the [facility] floor for evaluation of shortness of breath and volume overload, end-stage renal disease. Psych consult was called for evaluation of mood symptoms as well as patient is on psychotropic medication. The patient is very familiar to this program writer from the previous admissions to TCU. This program writer discon tinued Cymbalta and patient was initiated on Remeron. Cymbalta was giving hallucinations to the jesenia ent and at present moment, patient was continued to be on Remeron and discontinued Cymbalta. The pat ieflorence was falling asleep during the interview and was not able to continue talking to this program writer, but denied any thoughts of harming himself or others, denied intent or plan. The patient denied any psy chotic symptoms. VITAL SIGNS: Reviewed. The patient had tachycardia and blood pressure was elevated earlier today. MEDICATIONS: Reviewed. Cymbalta will be discontinued. Remeron was initiated. LABORATORY DATA: Reviewed. MENTAL STATUS EXAMINATION: As this program writer described above, patient presented to be sleepy, easily ar ousable, intermittent eye contact. Speech was underproductive, yes/no answers. Mood described as de pressed due to medical issues. Affect was constricted. Thought process seems to be coherent and goa l directed. Thought content: The patient denied visual, auditory, or tactile hallucinations. Denie d paranoid ideations. Denied thoughts of harming himself or others, denied intent or plan. Insight and judgment improving. Impulses are well controlled. IMPRESSION: Rule out major depressive disorder. Rule out mood disorder due to general medical condi tion. The patient has multiple medical issues. Please see medical team notes for more detailed info rmation. PLAN: This program writer to discontinue Cymbalta. Remeron 15 mg was resumed for depression as well as for insomnia. This program writer will follow up on this patient tomorrow. Hope patient will be improving. Thank you very much for letting me participate in care of your patient. Should you have any question s, give me a call back. Berkley Berrios MD cc: [id number] TT: 07/15/2016 16:52:03 Confirmation # [id number] Dictation # [id number]
--- NOTE | 2016-07-15 18:54 | CARD ---
APPROVED REPORT EKG Measurement Heart [id number] <Conclusion> Normal sinus rhythm Minimal voltage criteria for LVH, may be normal variant ST & T wave abnormality, consider anterolateral ischemia Abnormal ECG
[2016-07-15] MEDS ORDERED: Oxycodone/Acetaminophen 5/325 mg Tab PO ONE (19:54)
--- NOTE | 2016-07-15 23:21 | CON ---
DATE: 07/15/2016 REFERRING PHYSICIAN: Dr. Luther. REASON FOR CONSULT: Asthma, pleural effusion, shortness of breath. HISTORY OF PRESENT ILLNESS: This is a 50-year-old gentleman; has a valvular heart disease requiring TAVR, pulmonary hypertension, chronic obstructive lung disease, recurrent pleural effusion requiring thoracentesis, renal failure, dialysis dependent; diabetes, history of hypertension, depression, anem ia, sleep apnea syndrome. Lately having the issue that does not tolerate dialysis. As soon as you hook him with dialysis herb arnold he becomes hypotensive. Last episode was yesterday. They did not take much fluid out, but just h ooking him up with dialysis dropped blood pressure. Rapid response was called; even had near-syncopa l episode. He was resuscitated with the fluids and improved. Seen by psychiatrist. Very depressed. Had adjustment disorder. To the limit; wishing to do withdrawal of care. I had a long discussion with the patient in the presence of his and daughter. The patient is ve ry depressed, crying from his condition, especially complaining that he was able to get out on his wh eelchair and sit out and go out, but presently unable to even get to home. Cannot get out of the hodan se, making him depressed, and last one-- cannot tolerate dialysis and gets short of breath and genera lized pain. PAST MEDICAL HISTORY: Hypertension, COPD, seizure disorder, TIA, legally blind, history of cataracts , renal failure - dialysis dependent, diabetes, sleep apnea syndrome, coronary artery disease, histor y of valvular heart disease requiring TAVR, recurrent pleural effusion, recurrent hypotension during dialysis. ALLERGIES: PENICILLIN, SHELLFISH, IV CONTRAST. SOCIAL HISTORY: Nonsmoker, nondrinker. FAMILY HISTORY: No significant cardiopulmonary disease reported. MEDICATIONS: He is on Aggrenox 25/200 one tab twice a day, albuterol/Atrovent nebulizer q. 6 hours p .r.n., hydralazine 10 mg q.i.d. p.r.n., Coreg 3.125 mg twice a day, Flonase 1 spray each nostril hodan y, Florinef 0.1 mg Thursday, Thursday, Thursday; Lipitor 10 mg daily, Lovaza 2 g twice a day, PhosLo wit h meals, midodrine 5 mg Thursday, Thursday, and Thursday; Protonix 40 mg twice a day, Remeron 50 mg hodan y, Sensipar 90 mg daily, Ultram 50 mg 3 times a day. REVIEW OF SYSTEMS: No headache, no rhinitis. Mild cough, shortness of breath - minimal exhaustion. No chest pain, no nausea, no vomiting, no diarrhea. Does have leg swelling. PHYSICAL EXAMINATION: Sitting side of the bed having dinner. Daughter and at the bedside. Temp is 98, heart rate 76, respiratory rate is 20, blood pressure 145/76, pulse ox 100% on nasal sanjiv black. HENT: Moist mucous membranes. Crowded airway. Mallampati score is 4. NECK: Supple, no JVD. LUNGS: Has 1/3 up decreased breath sounds. HEART: S1 and S2. ABDOMEN: Soft, nontender. No organomegaly. EXTREMITIES: There is edema of the both lower extremities. NEUROLOGICALLY: Awake, alert. Follows simple commands. LABORATORY DATA: Shows hemoglobin 9.6, hematocrit 31.1, WBC 7.5, platelet is 248. INR 1.1, PTT is 3 3. Blood gases were done today, shows pH 7.38, pCO2 of 48, O2 of 142. That is on high-flow nasal ca nnula. Sodium 137, potassium 3.8, chloride 97, bicarbonate 29, BUN 34, creatinine 4.3, glucose 182. Hemoglobin A1c 7.8. Calcium 9.5, phosphorus 4.8, magnesium 1.9. AST 29, ALT 47, alk phos is 1.9. LDH 496. Troponin is 0.34. ProBNP is 66,100, albumin is 3.3. TSH is 1.6. Had a CAT scan of the head which was unremarkable. Chest x-ray showed bilateral pleural effusion. IMPRESSION AND PLAN: Chronic obstructive lung disease which has also not been stable, recurrent bila teral pleural effusion requiring multiple thoracenteses, cardiomyopathy with valvular heart disease r equiring TAVR, and pulmonary hypertension. Has obstructive sleep apnea syndrome; lately been noncomp liant with the BiPAP. Diabetes, history of hypertension, renal failure - dialysis dependent, recurre nt hypotension during dialysis; been followed by Dr. Gee. Cardiology point of view, being followed by Dr. Archer/Dr. Lal. According to , the patient considering hospice. He had been crying and very upset, and probably has a major depression. The patient seen by Dr. Gooden, and medication was fine tuned. Pulmonary point of view, I will encourage him use BiPAP. He can bring his own home BiPAP. Continue inhaled bronchodilator. May use supplemental oxygen if pulse ox less than 90. Will continue prednis one 10 mg daily. Gastric prophylaxis, stool softener. Will continue to work with the patient and th e family through this is hard time. Thank you, and will follow with you. Franky Stahl MD cc: [id number] TT: 07/15/2016 23:20:57 Confirmation # [id number] Dictation # [id number] jn
--- NOTE | 2016-07-16 08:22 | PN ---
DATE: 07/15/2016 SUBJECTIVE: The patient is a 50-year-old male. The patient was seen and examined at the bedside. is getting a little better. Complaining about pain in the feet. No nausea, vomiting, or diarrhea. No hematuria or hematochezia. Still having trace swelling of the legs. According to him, the patient needs hemodialysis now. The patient's dialysis was adjusted according to his dry body weight. No headache, no dizziness. No fever, no chills. PHYSICAL EXAMINATION: VITAL SIGNS: Temperature 98, pulse 76, blood pressure 145/76, respiratory rate 18. HEAD: Normocephalic, atraumatic. EYES: PERRLA, extraocular muscles intact, conjunctivae are clear. Eyelids: Unremarkable. Nose: Patent. Mucous membranes moist. NECK: Supple. No carotid bruit, JVD, or thyromegaly. CHEST: Bilaterally symmetrical. HEART: S1, S2 positive. LUNGS: Clear to auscultation. ABDOMEN: Soft. Bowel sounds present. No organomegaly. EXTREMITIES: Trace edema. NEUROLOGIC: The patient is awake, alert, moving all 4 extremities. No focal deficits. MEDICATIONS: hydralazine, cortisone Flonase, Florinef, Lipitor, Lovaza, PhosLo , Midodrine, Protonix, Remeron, Sensipar, LABORATORY DATA: White blood cells 7.5, hemoglobin 9.6, hematocrit 31.1, platelets 248. Sodium 134, potassium 3.8, BUN 34, creatinine 4.3, glucose 283. Troponin 0.34. BNP 56,100. ASSESSMENT AND PLAN: The patient is a 50-year-old male with anemia, renal insufficiency on hemodialysis, insulin-dependent diabetes mellitus, uncontrolled ; hemoglobin A1c 7.8 Congestive heart failure, fluid overload. According to musical instrument maker, the patient missed dialysis, seen by Dr. Pardo . The intra- dialysis hypotension and syncopal attacks, chronic obstructive pulmonary disease , coronary artery disease, Marielena-Arias tear, dyslipidemia, blindness, diabetic retinopathy, diabetic nephropathy, diabetic neuropathy, autonomic dysfunction secondary to diabetes, left AV fistula, pleural effusion, status post multiple times thoracentesis, sleep apnea, aortic valve replacement secondary to TAVR. Looks depressed. Psych consulted, Dr. Berkley Berrios. Diabetic feet, called podiatry consult. Gastrointestinal and deep vein thrombosis prophylaxis. Discussion done with the . had detailed discussion with the patient about palliative care. Continue present treatment. Meanwhile, we will follow up. Laure Luther MD cc: [id number] TT: 07/16/2016 01:42:42 Confirmation # [id number] Dictation # [id number] MTDD
--- NOTE | 2016-07-16 08:53 | PN ---
DATE: 07/16/2016 The patient says he feels about the same as yesterday. No headaches or dizziness, no nausea. Temperature is 98, pulse is 96, blood pressure is 145/76, respirations 20. GENERAL: The patient comfortable, in no acute distress. HEENT: Anicteric sclerae. Moist mucosa. NECK: No JVD or adenopathy. CARDIAC: S1/S2. No murmurs. No rubs. Regular. RESPIRATORY: Clear to auscultation bilaterally. No wheezes, rales, or rhonchi. Good air entry. ABDOMEN: Bowel sounds are positive, soft, nontender, and nondistended. EXTREMITIES: No edema. Has 1+ pulses. LABS: Last creatinine is 4.3. ASSESSMENT: 1. Intradialytic hypotension. 2. End-stage renal disease on hemodialysis. 3. Secondary hyperparathyroidism. 4. Diabetes type 2. 5. Diabetic retinopathy. 6. Diabetic nephropathy. 7. Autonomic dysfunction secondary to diabetes. 8. Transcatheter aortic valve replacement (TAVR). 9. Coronary artery disease. 10. Chronic obstructive pulmonary disease. PLAN: The patient is going to be dialyzed today. He is very uncomfortable. He is on his Flonase, h e is receiving Florinef Thursday, Thursday, and Thursday. He is also on midodrine 5 mg on Thursday, , Thursday to help with his blood pressure. He is going to continue Sensipar for secondary hyperpa rathyroidism. The patient is on Aggrenox. The patient is going to be seen by Dr. Gooden from psychiat ry. I did have a discussion regarding end-of-life care with the patient. I do agree with psychiatri c evaluation as well. His quality of life has significantly declined over the last few months spenser e of his shortness of breath secondary to pleural effusions and his hypotensive episodes during dialy sis. It is very difficult to maintain a balance between the 2. I increased fluid removal to help wi th his shortness of breath causing intradialytic hypotension; that is between refractory to medical m anagement. He also has an underlying autonomic neuropathy given that he has been diabetic for a long time, and has complications with retinopathy, nephropathy as well. If the patient has decreased flu id removal to allow for better blood pressure control we are not able to take enough fluid off to hel p with his shortness of breath. I would suggest palliative care consult. Overall prognosis is guarded. Law Gee MD cc: [id number] TT: 07/16/2016 08:53:02 Confirmation # [id number] Dictation # [id number] jn
[2016-07-16] MEDS ORDERED: Albuterol 0.083% Inhal Sol (2.5 mg/3 mL) UD IH PRN (08:54)
[2016-07-16] MEDS: Fluticasone Nasal 50 mcg/Spray NS SCH (09:24)
[2016-07-16] MEDS: Aspirin-Dipyridamole 200-25 mg ER Cap PO SCH ×2 (10:07→18:59)
[2016-07-16] MEDS: Pantoprazole 40 mg EC Tab PO SCH ×2 (10:11→19:02)
[2016-07-16] MEDS: Omega-3-Acid Ethyl Esters 1 GM Cap PO SCH ×2 (10:11→18:58)
[2016-07-16 11:06] LABS: HEMATOCRIT 29.6 % (42.0-52.0); MEAN CORPUSCULAR HEMOGLOBIN 31.1 pg (25.0-35.0); MEAN CORPUSCULAR HGB CONC 31.4 g/dl (31.0-37.0); MEAN PLATELET VOLUME 10.3 fl (7.0-11.0); RED CELL DISTRIBUTION WIDTH 14.8 % (11.5-14.5); WHITE BLOOD COUNT 6.6 10^3/ul (4.5-11.0)
[2016-07-16 11:17] LABS: ALB/GLOB RATIO 0.9 (1.1-1.8); BILIRUBIN,TOTAL 0.6 mg/dL (0.2-1.3); CALCIUM 10.4 mg/dL (8.4-10.5); MAGNESIUM 2.2 mg/dL (1.7-2.2); PHOSPHOROUS 1.5 mg/dL (2.5-4.5); POTASSIUM 3.9 mmol/L (3.6-5.0); TOTAL PROTEIN 6.7 g/dL (5.8-8.3)
--- NOTE | 2016-07-16 14:44 | PN ---
DATE: 07/16/2016 REFERRING PHYSICIAN: Dr. Luther. SUBJECTIVE: He is on dialysis at present time. So far doing well. Has removal of 700 mL fluid. Sy stolic blood pressure is 120. Complaining about lower extremity discomfort and numbness. Has some c ough, but no shortness of breath, no chest pain, no nausea, no vomiting, and no diarrhea reported. OBJECTIVE: GENERAL: In no acute distress. VITAL SIGNS: Temp is 98, heart rate is 77, respiratory rate is 20, blood pressure 120/70, pulse ox 9 6% on 2 liter nasal cannula. HEENT: Moist mucous membrane. Crowded airway. Mallampati score is 4. NECK: Supple. No JVD. LUNGS: Decreased breath sounds at the bases. HEART: S1, S2. ABDOMEN: Soft, nontender. No organomegaly. EXTREMITIES: There is no edema. NEUROLOGIC: Sleepy, arousable, follows simple command. MEDICATIONS: He is on Aggrenox 25/200 one tab twice a day, albuterol-Atrovent nebulizer q. 6 hours p .r.n., hydralazine is at 10 mg q.i.d. p.r.n., Coreg 3.125 mg twice a day, Flonase 1 spray each nostri l daily; Florinef 0.1 mg Thursday, Thursday and Thursday; Lipitor is at 10 mg daily, Lovaza 2 grams q. 1 2 hours; ProAmatine 5 mg Thursday, Thursday and Thursday; Protonix 40 mg daily, Remeron 50 mg at bedtime , Sensipar 90 mg daily, Ultram 50 mg 3 times a day p.r.n. LABORATORY DATA: Shows hemoglobin 9.3, hematocrit 29.6, WBC 6.6, platelet is 224. Sodium 136, potas sium 2.9, chloride 97, bicarbonate 30, BUN 48, creatinine 5.4, glucose 133, calcium is 10.4, phosphor us 1.5, magnesium 2.2. AST 27, ALT 44, alkaline phosphatase is 168, albumin is 3.2. Cortisol level in the morning was 13.3. IMPRESSION AND PLAN: Chronic obstructive lung disease, obstructive sleep apnea syndrome, cardiomyopa thy with valvular heart disease requiring transcatheter aortic valve replacement, pulmonary hypertens ion. Also has atherosclerotic vascular disease with long history of diabetes, recurrent hypotension with dialysis, renal failure, peripheral neuropathy. I agree with Dr. Luther with the present manage ment. Noted that psychiatry consult has been called. WORKING DIAGNOSIS. Major depression/adjustment disorder. From pulmonary point of view, I will add Tessalon Perles 3 times a day. May add Lyrica 25 mg twice a day, helping her cough as well as peripheral neuropathy. Will encourage BiPAP use at nighttime. Wi ll add oral hypoglycemic for diabetes. Thank you, and will follow with you. Franky Stahl MD cc: [id number] TT: 07/16/2016 14:44:32 Confirmation # [id number] Dictation # [id number] mn
[2016-07-16] MEDS: Insulin Reg-LOW-Coverage SC SCH ×2 (16:00→22:51)
[2016-07-16] MEDS ORDERED: Insulin Lispro (humaLOG) LOW Coverage SC SCH (16:30)
[2016-07-16] MEDS ORDERED: Sodium Chloride 0.9% 250 ML IV SCH ×2 (17:30→20:44)
--- NOTE | 2016-07-17 02:19 | PN ---
DATE: 07/16/2016 The patient in room 570, bed 1. REASON FOR CONSULTATION AND FOLLOWUP: Coronary artery disease status post TAVR, admitted with shortn ess of breath, troponin 0.3. HISTORY OF PRESENT ILLNESS: The patient is a 50-year-old male with past medical history significant for end-stage renal failure on dialysis with full blown complication of diabetes including diabetic n ephropathy, diabetic neuropathy, and diabetic retinopathy, legally blind in the right eye status post with shortness of breath. The patient right now is having dialysis and lying flat in bed with out chest pain. He says his breathing is getting better. Denies any palpitations. PHYSICAL EXAMINATION: VITAL SIGNS: Blood pressure 103/60, respirations 18, pulse 90, patient is afebrile. HEAD: Normocephalic. EYES: Pupils normal, conjunctivae slightly pale. NECK: JVP low. Carotid equal. THORAX: AP diameter normal. LUNGS: No significant rales. CARDIOVASCULAR: S1, S2, ejection systolic murmur, no rub. ABDOMEN: Soft, nontender, no organomegaly. EXTREMITIES: No clubbing, no cyanosis. LABORATORY DATA: WBC 6.6, hemoglobin 9.3, hematocrit 29.6, platelet 224. Sodium 136, potassium 3.9, BUN 48, creatinine 5.4, random sugar 231, calcium 10.4, phosphorus 1.5, magnesium 2.2, total protein 6.7, albumin 3.2. DIAGNOSES: 1. Recurrent hypotension during dialysis. 2. Nonobstructive coronary artery disease and recent catheterization. 3. Status post transcatheter aortic valve replacement. 4. Preserved left ventricular function. 5. Diabetes. 6. Hypertension. 7. Hyperlipidemia. 8. Anemia. PLAN: To give patient on Florinef and proamatine before dialysis. The patient will continue Coreg 3 .125 b.i.d., aspirin and dipyridamole combination 1 tablet b.i.d., Florinef 0.1 mg p.o. Thursday, , Thursday, Lipitor 10 mg daily, Lyrica 25 b.i.d., Prandin 2 mg daily, midodrine 5 mg p.o. Thursday , Thursday, Thursday, Protonix 40 b.i.d. We will continue present therapy and we will follow with you . Franky Lal MD cc: [id number] TT: 07/17/2016 02:19:04 Confirmation # [id number] Dictation # [id number] vn
[2016-07-17] MEDS: Insulin Reg-LOW-Coverage SC SCH ×4 (08:29→22:40)
--- NOTE | 2016-07-17 08:30 | PN ---
DATE: 07/16/2016 The patient is a 50-year-old male. SUBJECTIVE: The patient seen and examined on the bedside during dialysis. Complaining about shortness of breath. They removed only 700 mL of fluid. Systolic blood pressure was 120. Complaining about numbness of the extremities , pain in the feet, and some cough, but no shortness of breath. No fever. No chills. No headache. No dizziness. PHYSICAL EXAMINATION: VITAL SIGNS: Temperature 98, heart rate 77, respiratory rate 20, blood pressure 120/70, pulse oximetry 97% on 2 liters nasal cannula. HEENT: Head normocephalic, atraumatic. Eyes: PERRLA. Extraocular muscles intact. Conjunctivae pink. Eyelids unremarkable. Nose patent. NECK: Supple. No carotid bruit, JVD, or thyromegaly. CHEST: Bilaterally symmetrical. HEART: S1, S2 positive. LUNGS: Clear to auscultation. ABDOMEN: Soft. Bowel sounds positive. No organomegaly. EXTREMITIES: No edema. No cyanosis. NEUROLOGIC: The patient is awake, alert. Moving all 4 extremities. No focal deficits. MEDICATIONS: Aggrenox, albuterol, hydralazine, Coreg, Flomax, Florinef, Lipitor , Lovaza, ProAir, Protonix, Remeron, Sensipar, Ultram. LABORATORY DATA: Hemoglobin 9.3, hematocrit 29.6, white blood cells 6.6, platelets 222. Sodium 136, potassium 2.9, BUN 48, creatinine 5.4, glucose 133, magnesium 22, AST 27. Hemoglobin 9.3, hematocrit 29.3, white blood cells 6.6, platelets 224. Sodium 136, potassium 2.9, magnesium 2.2, AST 27, ALT 44. Cortisol level, in the morning, was 13.3. ASSESSMENT AND PLAN: The patient is a 50-year-old male with chronic obstructive lung disease, obstructive sleep apnea syndrome, cardiomyopathy, valvular heart disease requiring transcatheter aortic valve replacement, pulmonary hypertension, arterial vascular disease with a long history of diabetes mellitus, recurrent hypotension with dialysis, renal failure on dialysis 3 times a week, peripheral neuropathy. I reviewed Dr. Stahl's notes. I reviewed Dr. Gee's notes. History of secondary hyperparathyroidism, diabetes mellitus, diabetic retinopathy, diabetic nephropathy, diabetic neuropathy, autonomic dysfunction secondary to diabetes. Transcatheter aortic valve replacement, coronary artery disease. Continue present treatment. I appreciated all consultants' notes. Gastrointestinal and deep venous thrombosis prophylaxis. Repeat labs. We will follow up. Laure Luther MD cc: [id number] TT: 07/17/2016 01:57:48 Confirmation # [id number] Dictation # [id number] MTDD
--- NOTE | 2016-07-17 08:54 | PN ---
DATE: 07/17/2016 The patient has no complaints of any chest pain or shortness of breath. Events from yesterday were n oted regarding the low blood pressure. Temperature is 97.6, pulse of 87, blood pressure 120/60, respirations 18. GENERAL: The patient comfortable, in no acute distress. HEENT: Anicteric sclerae. Moist mucosa. NECK: No JVD or adenopathy. CARDIAC: S1/S2. No murmurs. No rubs. Regular. RESPIRATORY: Clear to auscultation bilaterally. No wheezes, rales, or rhonchi. Good air entry. ABDOMEN: Bowel sounds are positive, soft, nontender, and nondistended. EXTREMITIES: No edema. Has 1+ pulses. ASSESSMENT: 1. Intradialytic hypotension. 2. End-stage renal disease on hemodialysis. 3. Secondary hyperparathyroidism. 4. Diabetes type 2. 5. Diabetic retinopathy. 6. Diabetic nephropathy. 7. Diabetic neuropathy. 8. Autonomic dysfunction. 9. Status post transcatheter aortic valve replacement. 10. Coronary artery disease. 11. Chronic obstructive pulmonary disease. PLAN: The patient continues to have episodes of hypotension. The patient is on midodrine, and Bonnie hari has not been helpful in preventing the hypotension during the dialysis time. The patient is on L ipitor for dyslipidemia. I also had decreased the patient's temperature yesterday to help improve in tradialytic hypotension. This has been shown to decrease the risk, but has not been successful. He is refractory to management. Concerned if I continue to take minimal fluid off his shortness of lucero th will worsened and he have worse quality of life. End of life discussions have been ongoing. The patient is on Lyrica; this will be continued. He is on PhosLo for secondary hyperparathyroidism. Th e patient is on Sensipar for his secondary hyperparathyroidism as well. He is on BiPAP and toleratin g. aLw Gee MD cc: [id number] TT: 07/17/2016 08:53:33 Confirmation # [id number] Dictation # [id number]
--- NOTE | 2016-07-17 09:15 | PN ---
DATE: 07/17/2016 SUBJECTIVE: This is a 50-year-old blind male seen at bedside for continued evaluation and management of demarcated gangrenous ulcerations to his right fourth and fifth toes. There are unstageable supe rficial ulcerations on both lower legs. VITAL SIGNS: Reveal temperature of 98.3, blood pressure 133/79, pulse rate of 77, respiratory rate o f 20. LABORATORY DATA: Reveal a white count of 6.6, hemoglobin 9.3, hematocrit 29.6, platelet count of 224 . OBJECTIVE: Nonpalpable pedal pulses noted bilaterally. Protective sensation diminished bilaterally using 5.07 gram monofilament wire testing bilaterally. Left lower leg presents with unstageable supe rficial abrasions that are now almost resolved. There is no drainage. There is no purulence. There are no signs of acute bacterial infection. There is noted to be demarcated small gangrenous ulcerat ions on the right fourth and fifth digits plantarly, each measuring less than 0.2 x 0.2 x 0.2 cm. Th ere is no purulence. The wounds do not probe to tendon and bone. No signs of ascending cellulitis, no signs of abscess formation. ASSESSMENT: Small gangrenous ulcerations that have demarcated on the right fourth and fifth toes. PLAN: The patient's wounds were cleansed with normal sterile saline. We will apply Betadine and a d ry sterile dressing to the toe wounds. At this point, the patient is not a surgical candidate. We w ill attempt to allow the gangrenous ulcerations to slough off. The unstageable ulcerations on both l egs will be cleansed daily with normal sterile saline and we will apply Bactroban and Optifoam. The patient will be seen and followed while in-house. Rayray Stinson DPM cc: [id number] TT: 07/17/2016 09:15:33 Confirmation # [id number] Dictation # [id number] jn
[2016-07-17] MEDS: Omega-3-Acid Ethyl Esters 1 GM Cap PO SCH ×2 (10:58→18:05)
[2016-07-17] MEDS: Aspirin-Dipyridamole 200-25 mg ER Cap PO SCH ×2 (10:58→18:05)
[2016-07-17] MEDS: Pantoprazole 40 mg EC Tab PO SCH ×2 (10:59→18:06)
[2016-07-17] MEDS: Fluticasone Nasal 50 mcg/Spray NS SCH (11:00)
--- NOTE | 2016-07-17 13:05 | CP.PCM.CON ---
History of Present Illness - History of Present Illness History of Present Illness: Palliative consult requested by Dr John Luther Reason: Goals of care/advance care planning 50 year old male who presented to ED with shortness of breath. He also complained of increased swelling of hi slower extremities. Chest x ray showed moderate vascular congestion,pleural effusion. PMHx: renal failure dialysis dependent,HTN, COPD,cataracts/glaucoma, legally blind, IDDM, CAD, Left AV shunt,TIA,valvular heart disease s/p TAVR, peural effusions, thoracentisis. Family History: Non contributory. Social History: Non smoker, no alcohol or drug use. , lives with spouse. Has two adult children, a son and daughter. Advance Care Planning: The patient does not have an Advance Directive. Review of Systems: He complains of dyspnea, weakness and debility. Past Patient History - Infectious Disease Hx of Infectious Diseases: None - Tetanus Immunizations Tetanus Immunization: Unknown - Past Social History Smoking Status: Former Smoker - CARDIAC Hx Cardiac Disorders: Yes Hx Angina: No Hx Cardia Arrhythmia: No Hx Congestive Heart Failure: Yes Hx Heart Murmur: Yes Hx Heart Transplant: No Hx Hypercholesterolemia: Yes Hx Hypertension: Yes Hx Internal Defibrillator: No Hx Mitral Valve Prolapse: No Hx Pacemaker: No Hx Peripheral Edema: Yes Other/Comment: AV Shunt on left arm - PULMONARY Hx Respiratory Disorders: Yes Hx Asthma: Yes Hx Bronchitis: No Hx Chronic Obstructive Pulmonary Disease (COPD): Yes Hx Emphysema: No Hx Pneumonia: Yes Hx Respiratory Aspiration: No Hx Respiratory Tract Infection: No Hx Sleep Apnea: Yes Hx Tuberculosis: No - NEUROLOGICAL Hx Neurological Disorder: Yes Hx Alzheimer's Disease: No HX Cerebrovascular Accident: No Hx Dementia: No Hx Dizziness: No Hx Meningitis: No Hx Migraine: No Hx Parkinson's Disease: No Hx Seizures: Yes Hx Transient Ischemic Attacks (TIA): Yes - HEENT Hx HEENT Problems: Yes (Legally blind) Hx Blind: Yes (Right eye) Hx Cataracts: Yes (Bilateral) Hx Deafness: No Hx Difficulty Chewing: No Hx Epistaxis: No Hx Glaucoma: Yes Hx Macular Degeneration: Yes - RENAL Hx Chronic Kidney Disease: No Hx Dialysis: Yes Hx Kidney Stones: No Hx Neurogenic Bladder: No Hx Pyelonephritis: No Hx Renal (Kidney) Cancer: No Hx Renal Failure: Yes Other/Comment: Hx of renal disease. Hx of end stage renal disease. Hx of Hemodialysis - ENDOCRINE/METABOLIC Hx Endocrine Disorders: Yes Hx Adrenal Cancer: No Hx Diabetes Insipidus: No Hx Diabetes Mellitus Type 1: Yes Hx Diabetes Mellitus Type 2: Yes Hx Hyperthyroidism: No Hx Hypothyroidism: No Hx Systemic Lupus Erythematosus: No - HEMATOLOGICAL/ONCOLOGICAL Hx Blood Disorders: Yes Hx AIDS: No Hx Anemia: Yes Hx Cancer: No Hx Chemotherapy: No Hx Cirrhosis: No Hx Hemophilia: No Hx Hepatitis A: No Hx Hepatitis B: No Hx Hepatitis C: No Hx Human Immunodeficiency Virus (HIV): No Hx Metastesis: No Hx Shingles: Yes Hx Sickle Cell Disease: No Hx Unexplained Bleeding: No Other/Comment: Hx of blood transfusions - INTEGUMENTARY Hx Dermatological Problems: No Hx Basil Cell: No Hx Eczema: No Hx Melanoma: No Hx Psoriasis: No Hx Squamous Cell: No - MUSCULOSKELETAL/RHEUMATOLOGICAL Hx Musculoskeletal Disorders: Yes Hx Arthritis: No Hx Back Pain: No Hx Degenerative Joint Disease: No Hx Falls: No Hx Fractures: No Hx Gout: No Hx Herniated Disk: No Hx Myasthenia Gravis: No Hx Osteoarthritis: No Hx Osteomyelitis: No Hx Osteoporosis: No Hx Rhabdomyolysis: No Hx Spinal Stenosis: No Hx Unsteady Gait: Yes - GASTROINTESTINAL Hx Gastrointestinal Disorders: Yes Hx Colostomy: No Hx Crohn's Disease: No Hx Diverticulitis: No Hx Gall Bladder Disease: No Hx Gastroesophageal Reflux: Yes Hx Ileostomy: No Hx Liver Failure: No Hx Pancreatitis: No HX Swallowing Problems: No Hx Ulcer: No - GENITOURINARY/GYNECOLOGICAL Hx Genitourinary Disorders: Yes Hx Hematuria: No Hx Incontinence: No Hx Prostate Problems: No Hx Sexually Transmitted Disorders: No Hx Urinary Tract Infection: No Other/Comment: Hx of oliguria - PSYCHIATRIC Hx Psychophysiologic Disorder: Yes Hx Anxiety: Yes Hx Bipolar Disorder: Yes Hx Depression: Yes Hx Emotional Abuse: No Hx Hallucinations: No Hx Panic Symptoms: No Hx Paranoia: No Hx Post Traumatic Stress Disorder: No Hx Psychosis: No Hx Physical Abuse: No Hx Schizophrenia: No Hx Sexual Abuse: No Hx Substance Use: No - SURGICAL HISTORY Hx Surgeries: Yes Hx Amputation: No Hx Appendectomy: No Hx Cardiac Catheterization: Yes Hx Cholecystectomy: No Hx Coronary Stent: Yes Hx Gastric Bypass Surgery: No Hx Hysterectomy: No Hx Joint Replacement: No Hx Kidney Transplant: No Hx Liver Transplant: No Hx Mastectomy: No Hx Musculoskeletal Surgery: No Hx Open Heart Surgery: No Hx Orthopedic Surgery: No Hx Splenectomy: No Hx Valve Replacement: Yes - ANESTHESIA Hx Anesthesia: Yes Hx Anesthesia Reactions: No Hx Malignant Hyperthermia: No Meds Allergies/Adverse Reactions: Allergies Allergy/AdvReac Type Severity Reaction Status Date / Time Iodinated Contrast Media - Allergy Intermediate SWELLING Verified 07/09/16 15:29 Oral and [Iodinated Contrast Media - IV Dye] shellfish derived Allergy Mild ITCHING Verified 07/09/16 15:29 Penicillins Allergy ITCHING Verified 07/09/16 15:29 - Medications Medications: Current Medications Albuterol Sulfate (Albuterol 0.083% Inhal Esperanza (2.5 Mg/3 Ml) Ud) 2.5 mg IH [id number] PRN PRN Reason: Shortness of Breath Atorvastatin Calcium (Lipitor) 10 mg PO DAILY [facility] Last Admin: 07/17/16 11:00 Dose: 10 mg Benzonatate (Tessalon Perles) 100 mg PO TID [facility] Last Admin: 07/17/16 10:59 Dose: 100 mg Calcium Acetate (Phoslo) 1,334 mg PO WM [facility] Last Admin: 07/17/16 12:31 Dose: 1,334 mg Carvedilol (Coreg) 3.125 mg PO BID [facility] Last Admin: 07/17/16 10:59 Dose: 3.125 mg Cinacalcet (Sensipar) 90 mg PO DAILY [facility] Last Admin: 07/17/16 10:58 Dose: 90 mg Dipyridamole/Aspirin (Aggrenox 25-200 Mg) 1 ea PO BID [facility] Last Admin: 07/17/16 10:58 Dose: 1 ea Docusate Sodium (Colace) 100 mg PO BID [facility] Last Admin: 07/17/16 11:00 Dose: 100 mg Fludrocortisone Acetate (Florinef) 0.1 mg PO F [facility] Last Admin: 07/16/16 10:10 Dose: 0.1 mg Fluticasone Propionate (Flonase) 1 actuation NS DAILY [facility] Last Admin: 07/17/16 11:00 Dose: 1 spr Insulin Human Regular (Humulin R Low) 0 units SC ACHS [facility] PRN Reason: Protocol Last Admin: 07/17/16 12:30 Dose: 1 units Midodrine (Proamatine) 5 mg PO F [facility] Last Admin: 07/16/16 10:10 Dose: 5 mg Mirtazapine (Remeron) 15 mg PO HS [facility] Last Admin: 07/16/16 22:52 Dose: 15 mg Mupirocin (Bactroban Ointment) 0 gm TOP QD7 [facility] Xcelm-0-Kjio Ethyl Esters (Lovaza) 2 gm PO BID [facility] Last Admin: 07/17/16 10:58 Dose: 2 gm Pantoprazole Sodium (Protonix Ec Tab) 40 mg PO BID [facility] Last Admin: 07/17/16 10:59 Dose: 40 mg Pregabalin (Lyrica) 25 mg PO BID [facility] Last Admin: 07/17/16 11:00 Dose: Not Given Repaglinide (Prandin) 2 mg PO AC [facility] Last Admin: 07/17/16 12:30 Dose: Not Given Tramadol HCl (Ultram) 50 mg PO TID PRN PRN Reason: Pain, moderate (4-7) Last Admin: 07/16/16 15:38 Dose: 50 mg Physical Exam - Constitutional Appears: No Acute Distress, Chronically Ill - Head Exam Head Exam: NORMAL INSPECTION - Eye Exam Additional comments: sclera opaque - ENT Exam ENT Exam: Mucous Membranes Moist, Normal Oropharynx - Neck Exam Neck exam: Positive for: Normal Inspection - Respiratory Exam Respiratory Exam: Decreased Breath Sounds, NORMAL BREATHING PATTERN - Cardiovascular Exam Cardiovascular Exam: REGULAR RHYTHM, +S1, +S2 - GI/Abdominal Exam GI & Abdominal Exam: Normal Bowel Sounds, Soft - Extremities Exam Additional comments: 2+ edema of both lower extremities, dressing left henry - Back Exam Back exam: NORMAL INSPECTION - Neurological Exam Neurological exam: Alert, Oriented x3 - Psychiatric Exam Psychiatric exam: Depressed - Skin Skin Exam: Dry, Warm - Additional Findings Additional findings: Palliative performance scale rating 40 % Results - Vital Signs Recent Vital Signs: Last Vital Signs Temp 98.3 F 07/17/16 08:20 Pulse 77 07/17/16 10:59 Resp 20 07/17/16 08:20 BP 133/79 07/17/16 10:59 Pulse Ox 97 07/17/16 08:20 - Labs Result Diagrams: 07/16/16 10:30 07/16/16 10:30 Labs: Laboratory Results - last 24 hr 07/16/16 07/16/16 07/16/16 07:30 16:04 21:02 POC Glucose (mg/dL) 204 H 231 H Cortisol AM Sample 13.3 04/06/17 04/06/17 07:27 11:17 POC Glucose (mg/dL) 179 H 193 H Cortisol AM Sample Assessment & Plan - Assessment and Plan (Free Text) Assessment: 50 year old male admitted with fluid overload, renal failure dialysis dependent , pleural effusion. RIZWAN, Pretty Smith and I met with Mr Temple. The patient has expressed to the care team that his quality of life is poor and that he is considering stopping dialysis. He states he has expressed these wishes to his and daughter. All are aware that would be the outcome of such a decision. He is very hesitant to discuss his feelings with his siblings. He indicated that his immediate family state they will support his wishes, but feels his siblings will not. He explained that his entire family will be involved in making this decision. He admits that he has been very down and depressed, he is tearful during our conversation. He expressed that things wouldn't be so bad if her were able to stay at home and get out for pleasurable outings. He states that dialysis leaves him weak and very debilitated and that he has been hospitalized for long periods of time. He misses his home and his independence. We asked if the adjustment in his anti depressant medication was helping, to which he nodded yes. We validated his concerns and offered psychosocial support. We offered spiritual counseling which he refused. We also offered to meet with him and his family in order to discuss his wishes and concerns. The patient will think about our offer. Time spent in discussing goals of care and advance care planning, 30 minutes Plan: No new recommendations. Continue current medical management. Will follow and assist with establishing future goals of care and advance care planning. - Date & Time Date: 07/17/16 Time: 13:00
--- NOTE | 2016-07-17 19:18 | PN ---
DATE: 07/17/2016 Shortly, the patient is a 50-year-old male with multiple medical issues. The patient is in end-stage renal disease on hemodialysis, legally blind. This news writer was involved into the patient's care cat use of history of depression. Also patient had side effects on Cymbalta. Please see my previous not es for more detailed information. This news writer attempted to speak to the patient yesterday, but paul henriquez was on hemodialysis. The patient was followed up today. The patient reported that he is doing fi ne, has the same level of depression. Denied thoughts of harming himself or others, denied intent or plan. There are no visual hallucinations. The patient is compliant with the treatment. There are no changes with the patient's presentation. The patient was to continue Remeron for now. VITAL SIGNS: Temperature 98.3, pulse 67, blood pressure is 106/65, respirations 16, oxygen saturatio n is 100. MEDICATIONS: Reviewed. LABORATORIES: Reviewed. Most recent was from yesterday. The patient was seen by . The patien rose does not want to have advanced directive right now. MENTAL STATUS EXAMINATION: The patient appears to be alert and oriented, intermittent eye contact. Speech was normal rate, tone, quality, and quantity. Mood described as "I feel fine." Affect was co nstricted, mood reactive. Thought process coherent, goal directed. Thought content: The patient de nied visual, auditory, or tactile hallucinations, denied paranoid ideations. The patient denied thou ghts of harming himself or others, denied intent or plan. Insight and judgment are fair. Impulses a re well controlled. IMPRESSION: Rule out mood disorder due to general medical condition. The patient has multiple medic al issues. PLAN: Continue current management. Continue Remeron. The patient should continue medical treatment . The patient is not suicidal. The patient is not homicidal. Will follow patient up every other da y. Should you have any questions, give me a call back. Case was discussed with Dr. Luther today. Berkley Berrios MD cc: [id number] TT: 07/17/2016 19:17:38 Confirmation # [id number] Dictation # [id number]
[2016-07-17 20:01] VITALS: TEMP 97.4
--- NOTE | 2016-07-17 22:51 | PN ---
DATE: 07/17/2016 Room 570, bed 1. REASON FOR CONSULTATION AND FOLLOWUP: Coronary artery disease status post TAVR, admitted with shortn ess of breath. HISTORY OF PRESENT ILLNESS: The patient is a 50-year-old male with past medical history significant for end-stage renal failure on dialysis with full blown complication of diabetes including diabetic n ephropathy, diabetic neuropathy and diabetic retinopathy, legally blind in the right eye. The patien t admitted with shortness of breath. The patient denies any chest pain. The patient's shortness of breath is improving. The patient lying flat in bed at present. PHYSICAL EXAMINATION: VITAL SIGNS: Blood pressure 112/75, respirations 20, pulse 68. The patient is afebrile. HEENT: Head is normocephalic. Eyes: Pupils normal. Conjunctivae slightly pale. Blindness in one eye on the right. LUNGS: Clear. CARDIOVASCULAR: S1, S2, systolic murmur, no rub. ABDOMEN: Soft, nontender, no organomegaly. Bowel sounds normal. EXTREMITIES: No clubbing, no cyanosis. LABORATORY DATA: WBC 6.6, hemoglobin 9.3, hematocrit 29.6, platelet 224, random sugar 242, sodium 13 6, potassium 3.9, BUN 48, creatinine 5.4, glucose 83. Calcium 10.4, phosphorus ____. AST, ALT sally l. Total protein 6.7, albumin 3.2. DIAGNOSES: Recurrent hypotension during dialysis, nonobstructive coronary artery disease on recent c atheterization status post TAVR, preserved left ventricular function, diabetes, hypertension, hyperli pidemia, anemia. PLAN: The patient getting Florinef and ____ before dialysis. We will continue that and we will cont inue other medications as ordered and we will follow closely with you. Franky Lal MD cc: [id number] TT: 07/17/2016 22:51:17 Confirmation # [id number] Dictation # [id number]
--- NOTE | 2016-07-18 04:58 | CP.PCM.PN ---
Subjective - Date & Time of Evaluation Date of Evaluation: 07/18/16 Time of Evaluation: 04:57 - Subjective Subjective: Responded to RAPID RESPONSE announcement promptly. Found patient unresponsive in bed with no pulse or spontaneous breathing. He was allegedly attended by nursing staff and fell back in bed . He was promptly intubated with # 7.5 ETT. Position of ETT checked by visually, with CO2 detector and auscultation. ACLS protocols were followed. Pulse and blood pressure regained. Patient had some spontaneous movement also. BP218/114.Pulse 96/min. Patient was transferred to ICU bed # 1. Patient had become bradycardic and pulse was lost again once on the floor and once in ICU. Family member was made aware and was later on the floor. was made aware. I had drawn blood for ABG and routine labs. CC time spent 30 minutes. Objective - Vital Signs/Intake and Output Vital Signs (last 24 hours): Temp Pulse Resp BP Pulse Ox 97.4 F L 67 20 102/54 L 100 07/17/16 16:00 07/17/16 18:11 07/17/16 16:00 07/17/16 18:11 07/17/16 16:00 Intake and Output: 07/17/16 07/18/16 18:59 06:59 Intake Total 600 480 Balance 600 480 - Medications Medications: Current Medications Albuterol Sulfate (Albuterol 0.083% Inhal Esperanza (2.5 Mg/3 Ml) Ud) 2.5 mg IH [id number] PRN PRN Reason: Shortness of Breath Last Admin: 07/17/16 21:44 Dose: 2.5 mg Atorvastatin Calcium (Lipitor) 10 mg PO DAILY [facility] Last Admin: 07/17/16 11:00 Dose: 10 mg Benzonatate (Tessalon Perles) 100 mg PO TID [facility] Last Admin: 07/17/16 18:17 Dose: 100 mg Calcium Acetate (Phoslo) 1,334 mg PO WM [facility] Last Admin: 07/17/16 18:00 Dose: 1,334 mg Carvedilol (Coreg) 3.125 mg PO BID [facility] Last Admin: 07/17/16 18:11 Dose: Not Given Cinacalcet (Sensipar) 90 mg PO DAILY [facility] Last Admin: 07/17/16 10:58 Dose: 90 mg Dipyridamole/Aspirin (Aggrenox 25-200 Mg) 1 ea PO BID [facility] Last Admin: 07/17/16 18:05 Dose: 1 ea Docusate Sodium (Colace) 100 mg PO BID [facility] Last Admin: 07/17/16 18:06 Dose: 100 mg Fludrocortisone Acetate (Florinef) 0.1 mg PO MWF [facility] Last Admin: 07/16/16 10:10 Dose: 0.1 mg Fluticasone Propionate (Flonase) 1 actuation NS DAILY [facility] Last Admin: 07/17/16 11:00 Dose: 1 spr Insulin Human Regular (Humulin R Low) 0 units SC ACHS [facility] PRN Reason: Protocol Last Admin: 07/17/16 22:40 Dose: 2 units Midodrine (Proamatine) 5 mg PO MWF [facility] Last Admin: 07/16/16 10:10 Dose: 5 mg Mirtazapine (Remeron) 15 mg PO HS [facility] Last Admin: 07/17/16 22:41 Dose: 15 mg Mupirocin (Bactroban Ointment) 0 gm TOP QD7 [facility] [id number]-3-[id number] Ethyl Esters (Lovaza) 2 gm PO BID [facility] Last Admin: 07/17/16 18:05 Dose: 2 gm Pantoprazole Sodium (Protonix Ec Tab) 40 mg PO BID [facility] Last Admin: 07/17/16 18:06 Dose: 40 mg Pregabalin (Lyrica) 25 mg PO BID [facility] Last Admin: 07/17/16 18:15 Dose: Not Given Repaglinide (Prandin) 2 mg PO AC [facility] Last Admin: 07/17/16 17:30 Dose: Not Given Tramadol HCl (Ultram) 50 mg PO TID PRN PRN Reason: Pain, moderate (4-7) Last Admin: 07/16/16 15:38 Dose: 50 mg - Labs Labs: 07/16/16 10:30 07/16/16 10:30 PT 12.0 Seconds (9.9-11.8) H 07/14/16 17:20 INR 1.11 (0.93-1.08) H 07/14/16 17:20 APTT 33.1 Seconds (23.7-30.8) H 07/14/16 17:20
--- NOTE | 2016-07-18 05:05 | PN ---
DATE: 07/18/2016 The patient is a 50-year-old male. SUBJECTIVE: The patient seen and examined on the bedside, looks comfortable. No nausea, vomiting, or diarrhea. No hematuria or hematochezia. No swelling of the leg. No headache, no dizziness. Shortness of breath is a little bit better. No chest pain. PHYSICAL EXAMINATION: VITAL SIGNS: Temperature 97.4, pulse 67, blood pressure, 102/54, respiratory rate 20. HEENT: Head normocephalic, atraumatic. Eyes, PERRLA. Extraocular muscles intact. Conjunctivae pink. Eyelids unremarkable. Nose patent. Mucous membranes moist. NECK: Supple. No carotid bruit, JVD, or thyromegaly. CHEST: Clear to auscultation. ABDOMEN: Soft. Bowel sounds positive. No organomegaly. EXTREMITIES: No edema. No cyanosis. NEUROLOGIC: The patient is awake, alert, moving all 4 extremities. No focal deficit. MEDICATIONS: Aggrenox, albuterol, Colace, Coreg, Flonase, Florinef, insulin, Lipitor, Lovaza, Lyrica, PhosLo, Prandin, midodrine, Protonix, Remeron, Sensipar , Tessalon, tramadol. LABORATORY DATA: White blood cells 6.6, hemoglobin 9.3, hematocrit 29.6, platelets 224. Glucose 242, 176, 193. ASSESSMENT AND PLAN: The patient is a 50-year-old male with end-stage renal disease. Three-time hemodialysis, pleural effusion, hypertension, COPD, cataracts/glaucoma surgery, legally blind. Insulin-dependent diabetes mellitus , coronary artery disease, left atrioventricular shunt, transient ischemic attack, valvular heart disease, transcatheter aortic valve replacement. Multiple times thoracentesis, history of severe anemia, had multiple admissions with fluid overload, pulmonary edema, during dialysis they are getting blue code , and the patient is having syncopal attack. According to the patient, his quality of life is poor. He is thinking about considering about stopping dialysis. He is discussing his situation about comfort care with his family, waiting for that decision. Meanwhile, continue present treatment. Rhea Weller is on the case. We will follow up. Laure Luther MD cc: [id number] TT: 07/18/2016 05:04:38 Confirmation # [id number] Dictation # [id number] MTDD
[2016-07-18 05:06] LABS: ARTERIAL BLOOD GAS O2 CAPACITY 13.2 mL/dl (16-24); ARTERIAL BLOOD HGB O2 SAT 87.7 % (95.0-98.0); CARBOXYHEMOGLOBIN 2.6 % (0.5-1.5); METHEMOGLOBIN 0.8 % (0.0-3.0)
--- NOTE | 2016-07-18 05:16 | CP.PCM.CON ---
<Deyvi Hu - Last Filed: 07/18/16 05:47> History of Present Illness - History of Present Illness History of Present Illness: This is a 50 yo male with past medical hx ESRD on HD, DM, LV dysfunction, COPD on home oxygen presenting to ICU s/p code blue. Pt was recently consulted for ICU earlier in the week after rapid response was called while pt was getting HD. Pt was found unresponsive on the floor around 445 am, CPR was initiated and pt was intubated with 7/5 ETT. ROSC was attained Pt moved down to ICU and coded again. ROSC was attained. PMHx: ESRD on HD MWF, COPD on home oxygen (4L as per patient), DM, LV dysfunction ( EF 55%), S/p TAVR Allergies: IV Contrast media, shellfish, PCN Fam Hx: reviewed and noncontributory Soc Hx: Prior history of tobacco use (Quit > 10yrs ago); Denies etoh; denies illicit drug use Review of Systems - Review of Systems Systems not reviewed;Unavailable: Acuity of Condition, Intubated Past Patient History - Infectious Disease Hx of Infectious Diseases: None - Tetanus Immunizations Tetanus Immunization: Unknown - Past Medical History & Family History Past Medical History?: Yes Past Family History: Reviewed and not pertinent - Past Social History Smoking Status: Former Smoker Chewing Tobacco Use: No Cigar Use: No Alcohol: None Drugs: Denies Home Situation {Lives}: With Family Domestic Violence: Negative - CARDIAC Hx Cardiac Disorders: Yes Hx Angina: No Hx Cardia Arrhythmia: No Hx Congestive Heart Failure: Yes Hx Heart Murmur: Yes Hx Heart Transplant: No Hx Hypercholesterolemia: Yes Hx Hypertension: Yes Hx Internal Defibrillator: No Hx Mitral Valve Prolapse: No Hx Pacemaker: No Hx Peripheral Edema: Yes Other/Comment: AV Shunt on left arm - PULMONARY Hx Respiratory Disorders: Yes Hx Asthma: Yes Hx Bronchitis: No Hx Chronic Obstructive Pulmonary Disease (COPD): Yes Hx Emphysema: No Hx Pneumonia: Yes Hx Respiratory Aspiration: No Hx Respiratory Tract Infection: No Hx Sleep Apnea: Yes Hx Tuberculosis: No - NEUROLOGICAL Hx Neurological Disorder: Yes Hx Alzheimer's Disease: No HX Cerebrovascular Accident: No Hx Dementia: No Hx Dizziness: No Hx Meningitis: No Hx Migraine: No Hx Parkinson's Disease: No Hx Seizures: Yes Hx Transient Ischemic Attacks (TIA): Yes - HEENT Hx HEENT Problems: Yes (Legally blind) Hx Blind: Yes (Right eye) Hx Cataracts: Yes (Bilateral) Hx Deafness: No Hx Difficulty Chewing: No Hx Epistaxis: No Hx Glaucoma: Yes Hx Macular Degeneration: Yes - RENAL Hx Chronic Kidney Disease: No Hx Dialysis: Yes Hx Kidney Stones: No Hx Neurogenic Bladder: No Hx Pyelonephritis: No Hx Renal (Kidney) Cancer: No Hx Renal Failure: Yes Other/Comment: Hx of renal disease. Hx of end stage renal disease. Hx of Hemodialysis - ENDOCRINE/METABOLIC Hx Endocrine Disorders: Yes Hx Adrenal Cancer: No Hx Diabetes Insipidus: No Hx Diabetes Mellitus Type 1: Yes Hx Diabetes Mellitus Type 2: Yes Hx Hyperthyroidism: No Hx Hypothyroidism: No Hx Systemic Lupus Erythematosus: No - HEMATOLOGICAL/ONCOLOGICAL Hx Blood Disorders: Yes Hx AIDS: No Hx Anemia: Yes Hx Cancer: No Hx Chemotherapy: No Hx Cirrhosis: No Hx Hemophilia: No Hx Hepatitis A: No Hx Hepatitis B: No Hx Hepatitis C: No Hx Human Immunodeficiency Virus (HIV): No Hx Metastesis: No Hx Shingles: Yes Hx Sickle Cell Disease: No Hx Unexplained Bleeding: No Other/Comment: Hx of blood transfusions - INTEGUMENTARY Hx Dermatological Problems: No Hx Basil Cell: No Hx Eczema: No Hx Melanoma: No Hx Psoriasis: No Hx Squamous Cell: No - MUSCULOSKELETAL/RHEUMATOLOGICAL Hx Musculoskeletal Disorders: Yes Hx Arthritis: No Hx Back Pain: No Hx Degenerative Joint Disease: No Hx Falls: No Hx Fractures: No Hx Gout: No Hx Herniated Disk: No Hx Myasthenia Gravis: No Hx Osteoarthritis: No Hx Osteomyelitis: No Hx Osteoporosis: No Hx Rhabdomyolysis: No Hx Spinal Stenosis: No Hx Unsteady Gait: Yes - GASTROINTESTINAL Hx Gastrointestinal Disorders: Yes Hx Colostomy: No Hx Crohn's Disease: No Hx Diverticulitis: No Hx Gall Bladder Disease: No Hx Gastroesophageal Reflux: Yes Hx Ileostomy: No Hx Liver Failure: No Hx Pancreatitis: No HX Swallowing Problems: No Hx Ulcer: No - GENITOURINARY/GYNECOLOGICAL Hx Genitourinary Disorders: Yes Hx Hematuria: No Hx Incontinence: No Hx Prostate Problems: No Hx Sexually Transmitted Disorders: No Hx Urinary Tract Infection: No Other/Comment: Hx of oliguria - PSYCHIATRIC Hx Psychophysiologic Disorder: Yes Hx Anxiety: Yes Hx Bipolar Disorder: Yes Hx Depression: Yes Hx Emotional Abuse: No Hx Hallucinations: No Hx Panic Symptoms: No Hx Paranoia: No Hx Post Traumatic Stress Disorder: No Hx Psychosis: No Hx Physical Abuse: No Hx Schizophrenia: No Hx Sexual Abuse: No Hx Substance Use: No - SURGICAL HISTORY Hx Surgeries: Yes Hx Amputation: No Hx Appendectomy: No Hx Cardiac Catheterization: Yes Hx Cholecystectomy: No Hx Coronary Stent: Yes Hx Gastric Bypass Surgery: No Hx Hysterectomy: No Hx Joint Replacement: No Hx Kidney Transplant: No Hx Liver Transplant: No Hx Mastectomy: No Hx Musculoskeletal Surgery: No Hx Open Heart Surgery: No Hx Orthopedic Surgery: No Hx Splenectomy: No Hx Valve Replacement: Yes - ANESTHESIA Hx Anesthesia: Yes Hx Anesthesia Reactions: No Hx Malignant Hyperthermia: No Meds Allergies/Adverse Reactions: Allergies Allergy/AdvReac Type Severity Reaction Status Date / Time Iodinated Contrast Media - Allergy Intermediate SWELLING Verified 07/09/16 15:29 Oral and [Iodinated Contrast Media - IV Dye] shellfish derived Allergy Mild ITCHING Verified 07/09/16 15:29 Penicillins Allergy ITCHING Verified 07/09/16 15:29 - Medications Medications: Current Medications Albuterol Sulfate (Albuterol 0.083% Inhal Esperanza (2.5 Mg/3 Ml) Ud) 2.5 mg IH [id number] PRN PRN Reason: Shortness of Breath Last Admin: 07/17/16 21:44 Dose: 2.5 mg Atorvastatin Calcium (Lipitor) 10 mg PO DAILY [facility] Last Admin: 07/17/16 11:00 Dose: 10 mg Benzonatate (Tessalon Perles) 100 mg PO TID [facility] Last Admin: 07/17/16 18:17 Dose: 100 mg Calcium Acetate (Phoslo) 1,334 mg PO WM [facility] Last Admin: 07/17/16 18:00 Dose: 1,334 mg Carvedilol (Coreg) 3.125 mg PO BID [facility] Last Admin: 07/17/16 18:11 Dose: Not Given Cinacalcet (Sensipar) 90 mg PO DAILY [facility] Last Admin: 07/17/16 10:58 Dose: 90 mg Dipyridamole/Aspirin (Aggrenox 25-200 Mg) 1 ea PO BID [facility] Last Admin: 07/17/16 18:05 Dose: 1 ea Docusate Sodium (Colace) 100 mg PO BID [facility] Last Admin: 07/17/16 18:06 Dose: 100 mg Fludrocortisone Acetate (Florinef) 0.1 mg PO F [facility] Last Admin: 07/16/16 10:10 Dose: 0.1 mg Fluticasone Propionate (Flonase) 1 actuation NS DAILY [facility] Last Admin: 07/17/16 11:00 Dose: 1 spr Insulin Human Regular (Humulin R Low) 0 units SC ACHS [facility] PRN Reason: Protocol Last Admin: 07/17/16 22:40 Dose: 2 units Midodrine (Proamatine) 5 mg PO MWF [facility] Last Admin: 07/16/16 10:10 Dose: 5 mg Mirtazapine (Remeron) 15 mg PO HS [facility] Last Admin: 07/17/16 22:41 Dose: 15 mg Mupirocin (Bactroban Ointment) 0 gm TOP QD7 [facility] Larne-7-Sigk Ethyl Esters (Lovaza) 2 gm PO BID [facility] Last Admin: 07/17/16 18:05 Dose: 2 gm Pantoprazole Sodium (Protonix Ec Tab) 40 mg PO BID [facility] Last Admin: 07/17/16 18:06 Dose: 40 mg Pregabalin (Lyrica) 25 mg PO BID [facility] Last Admin: 07/17/16 18:15 Dose: Not Given Repaglinide (Prandin) 2 mg PO AC [facility] Last Admin: 07/17/16 17:30 Dose: Not Given Tramadol HCl (Ultram) 50 mg PO TID PRN PRN Reason: Pain, moderate (4-7) Last Admin: 07/16/16 15:38 Dose: 50 mg Physical Exam - Constitutional Appears: In Acute Distress - Head Exam Head Exam: ATRAUMATIC, NORMAL INSPECTION, NORMOCEPHALIC - Neck Exam Neck exam: Positive for: Normal Inspection - Respiratory Exam Respiratory Exam: Respiratory Distress. absent: NORMAL BREATHING PATTERN - Cardiovascular Exam Cardiovascular Exam: Irregular Rhythm - GI/Abdominal Exam GI & Abdominal Exam: Normal Bowel Sounds, Soft - Extremities Exam Extremities exam: Positive for: normal inspection - Neurological Exam Neurological exam: Altered - Psychiatric Exam Additional comments: Unable to assess- code blue - Skin Skin Exam: Pallor Results - Vital Signs Recent Vital Signs: Last Vital Signs Temp 97.4 F L 07/17/16 16:00 Pulse 67 07/17/16 18:11 Resp 20 07/17/16 16:00 BP 102/54 L 07/17/16 18:11 Pulse Ox 100 07/17/16 16:00 - Labs Result Diagrams: 07/16/16 10:30 07/16/16 10:30 Labs: Laboratory Results - last 24 hr 07/17/16 07/17/16 07/17/16 07:27 11:17 16:02 pCO2 pO2 HCO3 ABG pH ABG Total CO2 ABG O2 Saturation ABG O2 Content ABG Base Excess ABG Hemoglobin ABG Carboxyhemoglobin POC ABG HHb (Measured) ABG Methemoglobin ABG O2 Capacity Hgb O2 Saturation FiO2 POC Glucose (mg/dL) 179 H 193 H 176 H 07/17/16 07/18/16 21:59 04:45 pCO2 59 H pO2 55.0 L HCO3 29.0 H ABG pH 7.30 L ABG Total CO2 30.8 H ABG O2 Saturation 90.7 L ABG O2 Content 12.0 L ABG Base Excess 1.8 ABG Hemoglobin 9.7 L ABG Carboxyhemoglobin 2.6 H POC ABG HHb (Measured) 9.0 H ABG Methemoglobin 0.8 ABG O2 Capacity 13.2 L Hgb O2 Saturation 87.7 L FiO2 100.0 POC Glucose (mg/dL) 242 H Assessment & Plan - Assessment and Plan (Free Text) Assessment: This is a 50 yo male with past medical hx of COPD on home oxygen, LV dx, s/p TAVR, ESRD on HD transferred to ICU from medical floor s/p cardiac arrest. Pt coded a total of 3 times and then attained ROSC Neuro pt is intubated and mechanically ventilated continue ultram Cardiac -pt has pulse with HR in the low 100s -pt had 3 cardiac arrests and then achieved ROSC -cardio consult. Dr. Archer recs appreciated -maintain map > 65 -continue lipitor -continue aggrenox -continue lovaza -may need to institute hypothermia protocol depending if pt becomes dnr/dni -stat CXR, EKG Resp -pt on PRVC, mechanically ventilated -continue duonebs -continue tessalon perles -ABG shows ph 7.30, elevated lactate, repeat ABG on ventilator -consult with Dr. Stahl. recs appreciated ID -continue to monitor GI -continue colace -continue protonix Renal -pt on HD -continue phoslo -continue cincalcet -continue florinef -continue midodrine -aim for euvolemia -consult with Dr. Gee. recs appreciated. Endocrine -continue ISS -continue prandin -palliative care consult Discussed with Dr. Shepherd <Cora KING,[facility] - Last Filed: 07/18/16 06:59> Meds - Medications Medications: Current Medications Albuterol Sulfate (Albuterol 0.083% Inhal Esperanza (2.5 Mg/3 Ml) Ud) 2.5 mg IH [id number] PRN PRN Reason: Shortness of Breath Last Admin: 07/17/16 21:44 Dose: 2.5 mg Atorvastatin Calcium (Lipitor) 10 mg PO DAILY [facility] Last Admin: 07/17/16 11:00 Dose: 10 mg Benzonatate (Tessalon Perles) 100 mg PO TID [facility] Last Admin: 07/17/16 18:17 Dose: 100 mg Calcium Acetate (Phoslo) 1,334 mg PO WM [facility] Last Admin: 07/17/16 18:00 Dose: 1,334 mg Carvedilol (Coreg) 3.125 mg PO BID [facility] Last Admin: 07/17/16 18:11 Dose: Not Given Cinacalcet (Sensipar) 90 mg PO DAILY [facility] Last Admin: 07/17/16 10:58 Dose: 90 mg Dipyridamole/Aspirin (Aggrenox 25-200 Mg) 1 ea PO BID [facility] Last Admin: 07/17/16 18:05 Dose: 1 ea Docusate Sodium (Colace) 100 mg PO BID [facility] Last Admin: 07/17/16 18:06 Dose: 100 mg Fludrocortisone Acetate (Florinef) 0.1 mg PO F [facility] Last Admin: 07/16/16 10:10 Dose: 0.1 mg Fluticasone Propionate (Flonase) 1 actuation NS DAILY [facility] Last Admin: 07/17/16 11:00 Dose: 1 spr Epinephrine HCl 1 mg/ Sodium (Chloride) 51 mls @ 3.06 mls/hr IV .[id number] PRN; Protocol; 1 MCG/MIN PRN Reason: TITRATE PER MD ORDER Insulin Human Regular (Humulin R Low) 0 units SC ACHS [facility] PRN Reason: Protocol Last Admin: 07/17/16 22:40 Dose: 2 units Midodrine (Proamatine) 5 mg PO MWF [facility] Last Admin: 07/16/16 10:10 Dose: 5 mg Mirtazapine (Remeron) 15 mg PO HS [facility] Last Admin: 07/17/16 22:41 Dose: 15 mg Mupirocin (Bactroban Ointment) 0 gm TOP QD7 [facility] Rspnw-6-Kqvi Ethyl Esters (Lovaza) 2 gm PO BID [facility] Last Admin: 07/17/16 18:05 Dose: 2 gm Pantoprazole Sodium (Protonix Ec Tab) 40 mg PO BID [facility] Last Admin: 07/17/16 18:06 Dose: 40 mg Pregabalin (Lyrica) 25 mg PO BID [facility] Last Admin: 07/17/16 18:15 Dose: Not Given Repaglinide (Prandin) 2 mg PO AC [facility] Last Admin: 07/17/16 17:30 Dose: Not Given Tramadol HCl (Ultram) 50 mg PO TID PRN PRN Reason: Pain, moderate (4-7) Last Admin: 07/16/16 15:38 Dose: 50 mg Results - Vital Signs Recent Vital Signs: Last Vital Signs Temp 97.4 F L 07/17/16 16:00 Pulse 89 07/18/16 05:18 Resp 15 07/18/16 05:18 BP 107/58 L 07/18/16 05:18 Pulse Ox 99 07/18/16 05:18 - Labs Result Diagrams: 07/16/16 10:30 07/16/16 10:30 Labs: Laboratory Results - last 24 hr 07/17/16 07/17/16 07/17/16 07:27 11:17 16:02 pCO2 pO2 HCO3 ABG pH ABG Total CO2 ABG O2 Saturation ABG O2 Content ABG Base Excess ABG Hemoglobin ABG Carboxyhemoglobin POC ABG HHb (Measured) ABG Methemoglobin ABG O2 Capacity ABG Potassium Hgb O2 Saturation Sodium Chloride Glucose Lactate Mechanical Rate FiO2 Tidal Volume PEEP POC Glucose (mg/dL) 179 H 193 H 176 H Arterial Blood Potassium 07/17/16 07/18/16 07/18/16 21:59 04:45 05:39 pCO2 59 H 17 L* pO2 55.0 L 31.0 L* HCO3 29.0 H 5.0 L* ABG pH 7.30 L 7.08 L* ABG Total CO2 30.8 H 5.5 L ABG O2 Saturation 90.7 L TEST NOT PERFORMED ABG O2 Content 12.0 L ABG Base Excess 1.8 -23.1 L ABG Hemoglobin 9.7 L ABG Carboxyhemoglobin 2.6 H POC ABG HHb (Measured) 9.0 H ABG Methemoglobin 0.8 ABG O2 Capacity 13.2 L ABG Potassium 0.3 L* Hgb O2 Saturation 87.7 L Sodium 150.0 H Chloride 138.0 H Glucose 48 L Lactate 1.1 Mechanical Rate 14 FiO2 100.0 100.0 Tidal Volume 400 PEEP 5 POC Glucose (mg/dL) 242 H Arterial Blood Potassium 0.3 L* 07/18/16 05:45 pCO2 35 pO2 248.0 H HCO3 19.8 L ABG pH 7.36 ABG Total CO2 20.9 L ABG O2 Saturation 99.9 H ABG O2 Content 13.0 L ABG Base Excess -5.1 L ABG Hemoglobin 9.0 L ABG Carboxyhemoglobin 1.7 H POC ABG HHb (Measured) 0.1 ABG Methemoglobin 0.8 ABG O2 Capacity 13.0 L ABG Potassium Hgb O2 Saturation 97.4 Sodium Chloride Glucose Lactate Mechanical Rate FiO2 100.0 Tidal Volume PEEP POC Glucose (mg/dL) Arterial Blood Potassium Attending/Attestation - Attestation I have personally seen and examined this patient.: Yes I have fully participated in the care of the patient.: Yes I have reviewed all pertinent clinical information: Yes Notes (Text): 07/18/16 06:58 -I agree with the above consult note completed by the resident physician.
[2016-07-18] MEDS ORDERED: EPINEPHrine- 1 MG in Sodium Chloride 0.9% 50 ML IV PRN (05:21)
[2016-07-18 05:42] LABS: ABG MECHANICAL RATE 14; ATERIAL BLOOD GAS PEEP 5
[2016-07-18 05:47] VITALS: BP 107/58; PULSE 89; RESP 15; O2SAT 99
[2016-07-18 05:52] LABS: ARTERIAL BLOOD GAS PH 7.08 (7.35-7.45)
[2016-07-18 05:54] LABS: ARTERIAL BLOOD GAS HCO3 19.8 mmol/L (21-28); ARTERIAL BLOOD GAS PH 7.36 (7.35-7.45); ARTERIAL BLOOD HGB O2 SAT 97.4 % (95.0-98.0); CARBOXYHEMOGLOBIN 1.7 % (0.5-1.5); HHB 0.1 % (0-5); METHEMOGLOBIN 0.8 % (0.0-3.0)
--- NOTE | 2016-07-18 07:27 | CP.PCM.PRO ---
Pronouncement of Note - Clinical Findings Physical Exam: No Response Verbal/Painful Stimuli, Absent Peripheral Pulses{ Carotid & Femoral}, Absent Heart & Breath Sounds, No Pupillary Light Reflex, No Corneal Reflex, Pupils Fixed & Dilated, Absence of Vital Signs - Pronouncement Time Time of Pronouncement of : 06:46 - Notifications Pronouncement Notifications: Family Notified Cloth Calender Notified: No - Autopsy Autopsy Requested: No [place] [id number] Additional Comments: Per the patient's wishes, the family changed his resusitation status to DNR about 30min prior to his . Also, the patient coded twice within the 2-3 hours prior to his (PEA arrerst both times)( ACLS protocol initiated both times).
--- NOTE | 2016-07-18 08:09 | PN ---
DATE: 07/17/2016 REFERRING PHYSICIAN: Dr. Luther. SUBJECTIVE: He is lying in the bed, feels okay, has some cough especially with movement, short of br eath with exertion. No nausea, no vomiting, no diarrhea. Has trace leg swelling. OBJECTIVE: GENERAL: No acute distress. VITAL SIGNS: Temperature is 98, heart rate is 69, respiratory rate is 20, blood pressure 102/54, pul se ox 100% on nasal cannula. HEENT: Moist mucous membranes. Crowded airway. Mallampati score is 4. NECK: Supple. No JVD. LUNGS: Has decreased breath sounds at the bases. HEART: S1, S2. ABDOMEN: Soft, nontender. No organomegaly. EXTREMITIES: Does have edema. NEUROLOGIC: Awake, alert, follows simple command. MEDICATIONS: He is on Aggrenox 25/200 one tab twice a day, albuterol-Atrovent nebulizer q. 6 hours p .r.n., Colace 100 mg twice a day, Coreg 3.125 mg twice a day, Flonase 1 spray each nostril daily, Lester rinef 0.1 mg Thursday, Thursday, Thursday; Lipitor 10 mg daily, Lovaza 2 grams twice a day, Lyrica 25 mg twice a day, Prandin 2 mg a.c., ____ 25 mg Thursday, Thursday and Thursday, Protonix 40 mg daily, [place] on 50 mg at bedtime, Sensipar 90 mg daily, Tessalon Perles 100 mg 3 times a day, Ultram 50 mg 3 times a day p.r.n. LABORATORY DATA: Shows blood sugar this morning 242. IMPRESSION AND PLAN: Chronic obstructive lung disease, obstructive sleep apnea syndrome, cardiomyopa thy, valvular heart disease, history of TAVR, pulmonary hypertension, renal failure, dialysis depende nce, recurrent ____ tension with dialysis, diabetes, peripheral neuropathy, depression/____ disorder, ____ will continue bronchodilator, keep head elevated at 45. Encourage BiPAP use. Gastric prophyla xis. ____ to lower extremity. Psychiatry, cardiology, nephrology followup and also seen by palliative care. Franky Stahl MD cc: [id number] TT: 07/18/2016 01:06:50 Confirmation # [id number] Dictation # [id number] jn
--- NOTE | 2016-07-18 09:13 | PN ---
DATE: 07/18/2016 The events from yesterday were noted. The patient was found unresponsive on the floor and was transf erred to the ICU for further management. He was intubated. The patient with intradialytic hypotensi on, has severe complications from his diabetes. He has autonomic neuropathy. He has not been doing well over the past few months. Dialysis is difficult as he has intradialytic hypotension that is ref ractory to treatment. Overall prognosis is poor. Law Gee MD cc: [id number] TT: 07/18/2016 09:12:26 Confirmation # [id number] Dictation # [id number]
--- NOTE | 2016-07-18 09:33 | RAD ---
HISTORY: rapid response, code blue COMPARISON: 07/14/2016 FINDINGS: LUNGS: Endotracheal tube in satisfactory position PLEURA: There is layering of bilateral pleural effusions CARDIOVASCULAR: Moderate cardiomegaly OSSEOUS STRUCTURES: No significant abnormalities. VISUALIZED UPPER ABDOMEN: Normal. OTHER FINDINGS: None. IMPRESSION: Endotracheal tube in satisfactory position
--- NOTE | 2016-07-18 16:47 | CARD ---
APPROVED REPORT EKG Measurement Heart [id number] 160P-2 [id number] <Conclusion> Sinus rhythm with premature atrial complexes Left anterior fascicular block Inferior infarct, age undetermined ST & T wave abnormality, consider anterolateral ischemia Abnormal ECG
--- NOTE | 2016-08-18 08:23 | DS ---
DATE OF : 07/18/2016. HISTORY OF PRESENT ILLNESS: The patient is a 50-year-old male with multiple medical problems, came this time with shortness of breath and respiratory distress. He has history of congestive heart failure and end-stage renal disease, on hemodialysis 3 times a week, but came with shortness of breath, just not feeling well. The patient denies nausea, vomiting, or diarrhea at admission. The patient came with increased swelling of the lower extremities bilaterally and feeling shortness of breath. The patient has history of hypertension, chronic obstructive pulmonary disease, seizure, TIA, legally blind , he self-catheterizes, glaucoma, macular degeneration, renal insufficiency, on hemodialysis 3 times a week, insulin-dependent diabetes mellitus, uncontrolled, chronic obstructive pulmonary disease, coronary artery disease, history of valve replacement, left arm has a fistula, history of multiple times of thoracenteses, has multiple times pleural effusions and thoracentesis was done multiple times. The patient was very sick, has multiple hospitalizations and multiple physicians were working on him and in the last couple of days, comfort care was offered to the patient. Rhea Weller talked to the patient and family and he was agreeing but he said he had talked to his children, and his brothers and sisters and every day I was trying to get followup, but he was still working on that. On 07/18/2016, he became very, very sick, having shortness of breath, heart stopped. The patient was seen by ICU team, end of the coding , family decided to make the patient DNR. He on 07/18/2016. Family was aware of that. The patient was seen by Dr. Law Gee, physical trainer, Dr. Stahl his spraying machine operator. He has multiple admissions in ICU, multiple TCU admissions , had [place] , he was getting dialysis. His blood pressure dropping and sometimes they cannot complete dialysis, they have to finish because of low blood pressure, but on the other hand whenever he was drinking, he would go into pulmonary edema. As per patient's family, he was compliant with his drinking of fluid intake, but his fluid balance was hard to control. Peritoneal dialysis was offered to the patient and family, but according to patient's subassemblies wirer, Dr. Law Gee, patient is not a candidate for peritoneal dialysis maybe due to his blindness and he blind. His was always helping him, but the patient's family was comfortable, for more details, see my progress notes of 07/18/2016. Laure Luther MD cc: [id number] TT: 08/16/2016 20:33:44 madhu MENESES
== END 2016-07-18 06:46 | DRG 291 ==
LOC: ED 09:31 → ERH 12:09 → 2RNO 07-15 01:04 → OBSVTOIN 07-15 08:35 → 5RSO 07-15 18:07 → CCU 07-18 04:46
PROVIDERS: ADMIT Internal Medicine; ATTEND Internal Medicine
PROC: 5A1D00Z (ICD-10-PCS; 2016-07-16)
PROC: 5A1935Z Respiratory Ventilation, Less than 24 Consecutive Hours (ICD-10-PCS; principal; 2016-07-18)
PROC: 5A12012 Performance of Cardiac Output, Single, Manual (ICD-10-PCS; 2016-07-18)
PROC: 0BH17EZ Insertion of Endotracheal Airway into Trachea, Via Natural or Artificial Opening (ICD-10-PCS; 2016-07-18)
DX: I13.2 Hypertensive heart and chronic kidney disease with heart failure and with stage 5 chronic kidney disease, or end stage renal disease (principal); N18.6 End stage renal disease; E11.52 Type 2 diabetes mellitus with diabetic peripheral angiopathy with gangrene; N25.81 Secondary hyperparathyroidism of renal origin; R56.9 Unspecified convulsions; I95.3 Hypotension of hemodialysis; E11.21 Type 2 diabetes mellitus with diabetic nephropathy; I27.2 Other secondary pulmonary hypertension; I50.9 Heart failure, unspecified; I42.9 Cardiomyopathy, unspecified; E11.43 Type 2 diabetes mellitus with diabetic autonomic (poly)neuropathy; E11.65 Type 2 diabetes mellitus with hyperglycemia; J44.9 Chronic obstructive pulmonary disease, unspecified; I25.10 Atherosclerotic heart disease of native coronary artery without angina pectoris; H40.9 Unspecified glaucoma; H35.30 Unspecified macular degeneration; Z66 Do not resuscitate; D64.9 Anemia, unspecified; E78.5 Hyperlipidemia, unspecified; G47.33 Obstructive sleep apnea (adult) (pediatric); E11.319 Type 2 diabetes mellitus with unspecified diabetic retinopathy without macular edema; E11.36 Type 2 diabetes mellitus with diabetic cataract; H54.41 Blindness, right eye, normal vision left eye; E11.39 Type 2 diabetes mellitus with other diabetic ophthalmic complication; E11.621 Type 2 diabetes mellitus with foot ulcer; L97.519 Non-pressure chronic ulcer of other part of right foot with unspecified severity; F32.9 Major depressive disorder, single episode, unspecified; Z99.2 Dependence on renal dialysis; Z99.81 Dependence on supplemental oxygen; Z86.73 Personal history of transient ischemic attack (TIA), and cerebral infarction without residual deficits; Z95.2 Presence of prosthetic heart valve; Z79.4 Long term (current) use of insulin